=== PATIENT | male | born 1940 | race Caucasian/White ===

== ENCOUNTER 2023-10-10 09:35 | Emergency (ER) | payer MEDICARE, SELFPAY ==
--- NOTE | ~2023-10-10 | XR_ITS ---
EXAMINATION: XR chest 2V DATE: 10/10/2023 10:15 INDICATION: Cough and congestion TECHNIQUE: PA and lateral views of the chest are obtained. COMPARISON: None available FINDINGS: There is mild atelectasis of the left lung base. No pleural effusion or pneumothorax. The c ardiomediastinal silhouette is normal. There is severe thoracic spondylosis. IMPRESSION: 1. Mild atelectasis of left lung base. Reviewed, dictated and finalized at location A. T BUYER
--- NOTE | 2023-10-10 09:42 | ED.URI ---
HPI - URI/Sore Throat General Chief Complaint: Upper Respiratory Infection Stated Complaint: flu like symptoms Time Seen by Provider: 10/10/23 10:00 Source: patient, RN notes reviewed and old records reviewed Mode of arrival: ambulatory Limitations: no limitations History of Present Illness HPI Narrative: 83-year-old male presents to the [facility] with complaints of sinus congestion, sore throat that has improved and chest congestion as well as cough for 4 days. Has been taken Tylenol cold and flu Patient states that he feels like he might have a pneumonia Onset (ago): day(s) (4) Related Data Home Medications Medication Instructions Recorded Confirmed aspirin 81 mg chewable tablet 81 mg PO DAILY 10/10/23 10/10/23 atorvastatin 10 mg tablet mg 10/10/23 bimatoprost 0.01 % eye drops drp 10/10/23 (Lumigan) calcium carbonate 500 mg calcium 500 mg PO DAILY 10/10/23 10/10/23 (1,250 mg) chewable tablet cholecalciferol (vitamin D3) 50 50 mcg PO DAILY 10/10/23 10/10/23 mcg (2,000 unit) tablet citalopram 40 mg tablet mg 10/10/23 coQ10 (ubiquinol) 100 mg capsule 100 mg PO DAILY 10/10/23 10/10/23 cyanocobalamin (vitamin B-12) 1,000 mcg PO DAILY 10/10/23 10/10/23 1,000 mcg tablet cyclosporine 0.05 % eye drops 1 drp EACH EYE 10/10/23 evening primrose oil 500 mg capsule 500 mg PO DAILY 10/10/23 10/10/23 levothyroxine 50 mcg tablet mcg 10/10/23 lisinopril 20 mg tablet mg 10/10/23 lorazepam 0.5 mg tablet mg 10/10/23 pantoprazole 40 mg tablet,delayed mg PO 10/10/23 release sennosides 8.6 mg tablet (senna) 8.6 mg PO DAILY 10/10/23 10/10/23 Allergies Allergy/AdvReac Type Severity Reaction Status Date / Time No Known Allergies Allergy Verified 10/10/23 09:55 Review of Systems Review of Systems: All systems reviewed & are unremarkable except as noted in HPI and below Constitutional: Constitutional: Reports no additional constitutional complaints Eyes: Eyes: Reports no additional eye complaints ENT: Reports as per HPI Cardiovascular: Cardiovascular: Reports no additional cardiovascular complaints, Denies chest pain and Denies dyspnea Respiratory: Respiratory: Reports as per HPI, Reports chest congestion, Reports cough and Denies dyspnea Gastrointestinal: Gastrointestinal: Reports no additional gastrointestinal complaints, Denies abdominal pain, Denies nausea and Denies vomiting Musculoskeletal: Musculoskeletal: Reports no additional musculoskeletal complaints Integumentary/Breasts: Skin/Breast: Reports system reviewed and no additional complaints, except as docu Neurologic: Reports system reviewed and no additional complaints, except as documented Psychiatric: Psychiatric: Reports no additional psychiatric complaints Allergic/Immunologic: Allergic/Immunologic: Reports no additional allergic/immunologic complaints PMFSH Past Medical History Medical History (Updated 10/10/23 @ 10:36 by Cat Neville APRN) Anxiety and depression B12 deficiency CIDP (chronic inflammatory demyelinating polyneuropathy) DILCIA (generalized anxiety disorder) H/O gastroesophageal reflux (GERD) High cholesterol History of high blood pressure Hypothyroid Neuropathy Thyroid disease Tremor of both hands Surgical History Surgical History History of left knee replacement Social History Social History Living arrangements: with family Gender identity (if verbalized by the patient): Male Comments At the time of my signature, I reviewed and agree with the nursing past medical, surgical, social, and family history. There is no relevant family history pertinent to the patient complaint. Exam Const: General: cooperative, comfortable, no acute distress, well developed, alert, ill appearing chronically and well nourished Nutritional Appearance: well nourished Orientation/consciousness: patient oriented x3 Limitation
[2023-10-10 09:55] VITALS: BP 153/78; PULSE 78; RESP 18; TEMP 36.7; O2SAT 99
[2023-10-10 09:57] VITALS: BP 153/78; PULSE 78; RESP 18; TEMP 36.7; O2SAT 99
== END 2023-10-10 10:48 | disposition home or self-care (01) ==
PROVIDERS: Emergency Provider Nurse Practitioner; PCP Internal Medicine
DX: J98.11 Atelectasis (principal); J06.9 Acute upper respiratory infection, unspecified; Z20.822 Contact with and (suspected) exposure to COVID-19; K21.9 Gastro-esophageal reflux disease without esophagitis; E78.00 Pure hypercholesterolemia, unspecified; I10 Essential (primary) hypertension; G61.81 Chronic inflammatory demyelinating polyneuritis; E53.8 Deficiency of other specified B group vitamins; Z79.82 Long term (current) use of aspirin; Z96.652 Presence of left artificial knee joint
CPT/HCPCS: 71046; 87426; 87804; 99213; G0463

== ENCOUNTER 2024-04-14 16:35 | Inpatient (IN) | payer MEDICARE, SELFPAY ==
--- NOTE | ~2024-04-14 | US_ITS ---
US renal BI 04/17/2024 09:42 Procedure: Realtime transabdominal ultrasound of the kidneys and bladder. Indication: Hydronephrosis. Comparison: CT dated 04/14/2024 Findings: Renal echotexture is normal bilaterally without hydronephrosis, contour deforming mass. The re is a 1 cm stone in the right renal pelvis. Mild hydronephrosis. There is a 1.5 cm left renal cyst. The right kidney measures 10.7 cm and left kidney measures 11.2 cm. Evaluation of the bladder limite d by Pérez catheter decompression. Impression: 1: Right nephrolithiasis measuring 1 cm with mild hydronephrosis. Reviewed, dictated and finalized at location B. Impression: 1: Right nephrolithiasis measuring 1 cm with mild hydronephrosis.
--- NOTE | ~2024-04-14 | CT_ITS ---
EXAMINATION: CT abdomen pelvis w con DATE: 04/14/2024 19:49 INDICATION: abd pain, BRBPR, weakness TECHNIQUE: Computed tomography (CT) of the abdomen and pelvis was performed with 100 mL Omnipaque-350 intravenous contrast. Automated exposure control and iterative reconstruction technique were employe d. The dose-length product was 602.02 mGy-cm. COMPARISON: X-ray chest 10/10/2023. FINDINGS: Lower thorax: Coronary artery calcification. Large hiatal hernia. Liver: Normal. Biliary/Gallbladder: Gallbladder is normal. No bile duct dilation. Pancreas: No mass or duct dilation. Spleen: Normal. Adrenals:No mass. Kidneys: Bilateral cortical thinning and scarring. Multiple simple left renal cysts. Multiple bilater al subcentimeter hypodensities, too small to characterize but most likely represent cysts. Mild bilat eral hydronephrosis. Nonobstructing 8 mm right lower pole calcification. GI tract: Moderate distal esophageal and gastric wall edema. No small or large bowel dilation. Append ix dilated to 11 mm, with wall hyperemia and mild surrounding inflammatory change. Mesentery/Peritoneum: No ascites, mass, or free air. Retroperitoneum: No mass. Atherosclerotic abdominal aortic and/or arterial calcifications. Pelvis: Distended urinary bladder. Marked prostate enlargement. Soft Tissues: Moderate bilateral inguinal hernias containing nonobstructed small bowel on the right a nd unobstructed large bowel on the left. Bones: No acute osseous finding. Chronic mild wedge compression deformity at L1. IMPRESSION: Moderate esophagitis/gastritis with a large hiatal hernia. Acute uncomplicated appendicitis. Mild bilateral hydronephrosis and urinary bladder distention secondary to marked prostatomegaly. Eval uate for urinary retention and potential catheterization. Reviewed, dictated and finalized at location K. IMPRESSION: Moderate esophagitis/gastritis with a large hiatal hernia. Acute uncomplicated appendicitis. Mild bilateral hydronephrosis and urinary bladder distention secondary to marke d prostatomegaly. Evaluate for urinary retention and potential catheterization.
[2024-04-14 17:01] VITALS: BP 150/102; PULSE 80; RESP 16; TEMP 36.4; O2SAT 100
[2024-04-14 17:13] LABS: Basophils Percent Auto 0.4 % (0.2-1.2); Eosinophils Absolute Auto 0.1 K/mm3 (0-0.3); Hemoglobin 11.2 g/dL (14.0-18.0); Immature Granulocyte Absolute 0.06 K/mm3 (0.00-0.031); Immature Granulocyte Percent A 0.7 % (0-0.5); Lymphocytes Absolute Auto 1.03 K/mm3 (0.9-3.2); Lymphocytes Percent Auto 12.3 % (18.3-44.2); Mean Corpuscular Hemoglobin 29.8 pg (26-34); Mean Corpuscular Volume 85.1 fl (80-100); Mean Platelet Volume 9.8 fl (7.4-10.4); Monocytes Absolute Auto 0.9 K/mm3 (0.1-0.6); Monocytes Percent Auto 10.2 % (2.6-8.5); Neutrophils Absolute Auto 6.3 K/mm3 (1.3-6.7); Neutrophils Percent Auto 75.4 % (45.5-73.1); Platelet Count Result 260 k/mm3 (150-375); Red Blood Count 3.76 M/mm3 (4.6-6.20); Red Cell Distribution Width 12.8 % (11.5-14.5); White Blood Count 8.4 K/mm3 (4.5-10.0)
[2024-04-14 17:22] LABS: Alanine Aminotransferase 22 U/L (6-50); Albumin Level 4.3 g/dL (3.5-5.1); Alkaline Phosphatase 84 U/L (38-126); Anion Gap 13 mmol/L (4-12); Aspartate Amino Transferase 40 U/L (17-59); Bilirubin,Total 0.6 mg/dL (0.2-1.3); Blood Urea Nitrogen 9 mg/dL (9-20); Calcium 9.4 mg/dL (8.4-10.2); Carbon Dioxide 23 mmol/L (22-30); Chloride 86 mmol/L (98-107); Estimated CRCL calculation 65 ml/min; Estimated Glomerular Filt Rate > 60; Glucose 136 mg/dL (65-110); Lipase 152 U/L (23-300); Potassium 3.7 mmol/L (3.4-5.0); Sodium 122 mmol/L (137-145)
[2024-04-14 18:37] VITALS: BP 159/92; PULSE 71; RESP 15; O2SAT 98
[2024-04-14 18:50] LABS: Appearance Urine Clear (Clear); Bilirubin Urine Negative (Negative); Blood Urine Negative (Negative); Color Urine Yellow (Yellow); Glucose Urine UA Negative (Negative); Ketones Urine Trace mg/dL (Negative); Leukocyte Esterase Ur Negative LEU/UL (Negative); Nitrate Urine Negative (Negative); Protein Urine Negative (Negative); Specific Grav Ur 1.008 (1.001-1.035); Urobilinogen Urine 0.2 mg/dL (<2.0); pH Urine 7.5 (5.0-9.0)
[2024-04-14 18:58] LABS: Add Urine Microscopic? NO
[2024-04-14 19:09] LABS: Prothrombin Time 13.6 Seconds (11.1-14.7)
--- NOTE | 2024-04-14 19:10 | PC.NURSE ---
Assumed care of pt from NADIR Mccarthy. Pt resting in bed w call light within reach. Visitors as bedside.
[2024-04-14 19:11] LABS: Partial Thromboplastin Time 26.7 Seconds (22.3-36.8)
[2024-04-14] MEDS: SODIUM CHLORIDE 0.9% IV 1,000 ML 999 ML IV CONT (19:31)
--- NOTE | 2024-04-14 20:27 | ED.ABDPAIN ---
HPI - Abdominal Pain General Chief Complaint: Abdominal Pain Stated Complaint: abd pain, bloody stool, weakness Time Seen by Provider: 04/14/24 17:58 Source: patient Mode of arrival: ambulatory Limitations: no limitations History of Present Illness HPI narrative: Patient is an 84-year-old male who presents the ED with multiple complaints. Family at bedside assisted in providing information. They report patient has been complaining of lower abdominal pain intermittently for the last couple of weeks, but states pain has become worse over the last few days. Patient has had bright red rectal bleeding over the last 3-4 days, reporting the blood has been mixed in with the stool. They do report his stool has been dark, though this is normal for him. Patient has been feeling as though he is constipated, but did have 2 bowel movements today and yesterday. Family reports he became so weak today that he was hardly able to walk to and from the bathroom. Family had to assist with simple tasks, which prompted them to come to the ED. Patient also reports having difficulty urinating, feeling the urge to urinate frequently. Denies nausea, vomiting, fevers. Related Data Home Medications Medication Instructions Recorded Confirmed atorvastatin 10 mg tablet 10 mg PO HS 10/10/23 04/15/24 bimatoprost 0.01 % eye drops 1 drp EACH EYE HS 10/10/23 04/15/24 (Lumigan) calcium carbonate 500 mg PO PRN PRN Indigestion 10/10/23 04/15/24 cholecalciferol (vitamin D3) 50 50 mcg PO DAILY 10/10/23 04/15/24 mcg (2,000 unit) tablet citalopram 40 mg tablet 40 mg PO DAILY 10/10/23 04/15/24 coQ10 (ubiquinol) 100 mg capsule 100 mg PO DAILY 10/10/23 04/15/24 cyanocobalamin (vitamin B-12) 2,500 mcg PO DAILY 10/10/23 04/15/24 1,000 mcg tablet cyclosporine 0.05 % eye drops 1 drp EACH EYE BID 10/10/23 04/15/24 levothyroxine 50 mcg tablet 50 mcg PO DAILY 10/10/23 04/15/24 lisinopril 20 mg tablet 20 mg PO DAILY 10/10/23 04/15/24 lorazepam 0.5 mg tablet 0.5 mg PO TID 10/10/23 04/15/24 pantoprazole 40 mg tablet,delayed 40 mg PO DAILY 10/10/23 04/15/24 release sennosides 8.6 mg tablet (senna) 8.6 mg PO HS 10/10/23 04/15/24 aspirin 325 mg tablet 325 mg PO DAILY 04/15/24 04/15/24 bimatoprost 0.01 % eye drops 1 drp EACH EYE HS 04/15/24 04/15/24 (Lumigan) carboxymethylcellulose sodium 0.25 1 drp EACH EYE BID 04/15/24 04/15/24 % eye drops (TheraTears) clotrimazole-betamethasone 1 1 applic topical DAILY 04/15/24 04/15/24 %-0.05 % topical cream ferrous sulfate 325 mg (65 mg 325 mg PO DAILY 04/15/24 04/15/24 iron) tablet melatonin 3 mg tablet 3 mg PO HS 04/15/24 04/15/24 memantine 5 mg tablet 5 mg PO HS 04/15/24 04/15/24 Allergies Allergy/AdvReac Type Severity Reaction Status Date / Time No Known Allergies Allergy Verified 04/14/24 18:35 Review of Systems Review of Systems: CONSTITUTIONAL: Reports weakness. Denies fever, chills, or sweats. GASTROINTESTINAL: See HPI GENITOURINARY: See HPI. MUSCULOSKELETAL: Denies back pain, extremity pain, myalgia. All systems reviewed & are unremarkable except as noted in HPI and below PMFSH Past Medical History Medical History Anxiety and depression B12 deficiency CIDP (chronic inflammatory demyelinating polyneuropathy) DILCIA (generalized anxiety disorder) H/O gastroesophageal reflux (GERD) High cholesterol History of high blood pressure Hypothyroid Neuropathy Thyroid disease Tremor of both hands Surgical History Surgical History History of left knee replacement Family History Family History (Updated 04/15/24 @ 02:21 by Gege Damico RN) Father Malignant neoplasm of prostate Mother Stomach cancer Social History Social History Smoking status: Never smoker Alcohol intake: former Substance use: never
[2024-04-14] MEDS: PIPERACILLN/TAZ 3.375GM/NS50ML 3.375 GM/50 ML BAG IVPB (22:33)
[2024-04-14] MEDS: PANTOPRAZOLE SODIUM IV 40 MG VIAL IV PUSH (22:33)
[2024-04-14 23:29] VITALS: BP 140/84; PULSE 70; RESP 17; O2SAT 100
[2024-04-15] VITALS (8 sets, daily range): BP systolic 114–153; BP diastolic 67–85; PULSE 63–70; RESP 12–18; TEMP 36.4–37.1; O2SAT 94–100; BMI 21.7
[2024-04-15] MEDS: SODIUM CHLORIDE 0.9% IV 1,000 ML 75 ML IV CONT (00:23)
[2024-04-15] MEDS: ACETAMINOPHEN 325 MG TABLET 650 MG PO ×2 (00:58→20:59)
--- NOTE | 2024-04-15 03:01 | ADMGEN ---
Addendum entered by Gege Damico RN 04/15/24 03:43: Report received from NADIR Castellanos in ED. Original Note: This patient, Linwood Cloud, was admitted to 3 [facility] Surg Room 304-02 @0126. Patient/family oriented to hospital policies and general routines including ID bracelet, bed and alarms, visiting hours, pain management, procedures, bathroom and other care routines, personal items, smoking policy, room service/diet, and visiting hours. Information on how to activate the Rapid Response Team has been discussed. Patient/Family are encouraged to report perceived risks to care and to ask questions if they do not understand what they are told or what they should do.
[2024-04-15] MEDS: HYDROmorphone HCL INJ (*CRX) 1 MG/ML SYR IV PUSH (03:22)
[2024-04-15] MEDS: LORazepam INJ (*CRX) 2 MG/ML VIAL 1 MG IV PUSH (03:23)
[2024-04-15] MEDS: PIPERACILLN/TAZ 3.375GM/NS50ML 3.375 GM/50 ML BAG IVPB ×3 (05:22→17:47)
--- NOTE | 2024-04-15 11:05 | PM.CNGS ---
Assessment and Plan Assessment and plan (1) Acute appendicitis: Qualifiers: Acute appendicitis type: with localized peritonitis Appendicitis abscess presence: without abscess Appendicitis gangrene presence: without gangrene Appendicitis perforation presence: without perforation Qualified Code(s): K35.30 - Acute appendicitis with localized peritonitis, without perforation or gangrene Code(s): K35.80 - Unspecified acute appendicitis Status: Acute Assessment and Plan: Patient presents with multiple complaints. He has been having intermittent epigastric abdominal pain over the past few weeks that has become more frequent over the past few days. CT scan of the abdomen and pelvis on admission showed evidence of acute uncomplicated appendicitis. He is not having any lower abdominal pain and is completely nontender across the lower abdomen on exam. His WBC count is normal and he is afebrile. His clinical picture is not typical for acute appendicitis. I discussed treatment options for appendicitis with the patient, including nonoperative treatment with IV antibiotics/monitoring versus surgical management with a laparoscopic appendectomy. We discussed risks and benefits of both options. The patient feels like given his age and other medical problems, he would prefer to try conservative treatment with antibiotics at this time. Given his atypical presentation with multiple other issues and his benign exam, this option seems more appropriate. Continue IV Zosyn and we will continue to monitor closely with labs and serial abdominal exams. (2) Urinary retention: Code(s): R33.9 - Retention of urine, unspecified Status: Acute Assessment and Plan: Urinary catheter in place. Management per primary service. (3) BRBPR (bright red blood per rectum): Code(s): K62.5 - Hemorrhage of anus and rectum Status: Acute Assessment and Plan: Complaints of rectal bleeding over the past week and recent constipation over the past few weeks. Hgb 11.2 on admission. GI consulted. Trend labs. (4) Hyponatremia: Code(s): E87.1 - Hypo-osmolality and hyponatremia Status: Acute (5) Weakness: Code(s): R53.1 - Weakness Status: Acute (6) Hydronephrosis: Qualifiers: Hydronephrosis type: unspecified Qualified Code(s): N13.30 - Unspecified hydronephrosis Code(s): N13.30 - Unspecified hydronephrosis Status: Acute Assessment and Plan: Presented with urinary retention and mild bilateral hydronephrosis and prostatomegaly on CT scan. Indwelling urinary catheter in place with relief. UA without evidence of UTI. Management per primary service. (7) CIDP (chronic inflammatory demyelinating polyneuropathy): Code(s): G61.81 - Chronic inflammatory demyelinating polyneuritis Status: Chronic Assessment and Plan: He follows a specialist at [facility] for his CIDP and has monthly IVIG infusions. (8) Hiatal hernia with GERD: Code(s): K44.9 - Diaphragmatic hernia without obstruction or gangrene; K21.9 - Gastro-esophageal reflux disease without esophagitis Status: Acute Assessment and Plan: Large hiatal hernia seen on CT scan. He is having more epigastric abdominal pain over the past few weeks and has a history of GERD. There does not appear to be any evidence of an obstruction at this time. Discussed these findings with the patient. (9) Bilateral inguinal hernia: Code(s): K40.20 - Bilateral inguinal hernia, without obstruction or gangrene, not specified as recurrent Status: Acute Assessment and Plan: Incidental finding of bilateral inguinal hernias on the CT scan with nonobstructed small bowel in the right and nonobstructed large bowel on the left. On exam, bilateral inguinal hernias are soft and reducible. He denies any symptoms and was unaware of these hernias. No evidence of incarceration or strangulation. This is no
--- NOTE | 2024-04-15 12:09 | WPDGICN ---
Assessment and Plan Assessment and plan (1) BRBPR (bright red blood per rectum): Code(s): K62.5 - Hemorrhage of anus and rectum Status: Acute (2) Gastric wall thickening: Code(s): K31.89 - Other diseases of stomach and duodenum Status: Acute (3) Esophagitis: Code(s): K20.90 - Esophagitis, unspecified without bleeding Status: Acute (4) Hiatal hernia: Code(s): K44.9 - Diaphragmatic hernia without obstruction or gangrene Status: Acute (5) Acute appendicitis: Qualifiers: Acute appendicitis type: with localized peritonitis Appendicitis abscess presence: without abscess Appendicitis gangrene presence: without gangrene Appendicitis perforation presence: without perforation Qualified Code(s): K35.30 - Acute appendicitis with localized peritonitis, without perforation or gangrene Code(s): K35.80 - Unspecified acute appendicitis Status: Acute (6) Constipation: Code(s): K59.00 - Constipation, unspecified Status: Acute (7) Nausea: Code(s): R11.0 - Nausea Status: Acute (8) CIDP (chronic inflammatory demyelinating polyneuropathy): Code(s): G61.81 - Chronic inflammatory demyelinating polyneuritis Status: Chronic (9) Weakness: Code(s): R53.1 - Weakness Status: Acute (10) Hyponatremia: Code(s): E87.1 - Hypo-osmolality and hyponatremia Status: Acute Plan 1. Epigastric Abdominal Pain/ Nausea /Large Hiatal Hernia: CT abdomen pelvis showed moderate esophagitis/gastritis with a large hiatal hernia, which could be contributing to symptoms. He could have underlying PUD as well. No signs of active bleeding. Epigastric pain worsens with straining with BM (r/t hiatal hernia due to intraabdominal pressure?). He states Mylanta and OTC antacids help. Denies NSAIDs except for ASA 325 mg daily. Reports hx of ulcers in the past. No recent EGD. - Will start pantoprazole IV BID - Avoid NSAIDs. - Advance diet as tolerated since surgery is not planning surgical evaluation. - Consider EGD on Saturday to evaluate for ulcers, erosions, malignancy if symptoms do not improve. 2. Bright red blood per rectum/ +Occult Stool/ Constipation: Likely due to internal hemorrhoids from constipation and straining, given lack of external hemorrhoids on exam. Other etiology malignancy. Tried Miralax at home but states he did not tolerate it. Last colonoscopy > [address] with no concerning colon masses. Wondering if constipation is related to enlarged prostate? - Monitor for continued bleeding and H&H - Will start Lactulose and stool softener - Will consider colonoscopy on Saturday if bleeding persists or acute drop in hgb. 3. Normocytic Anemia: Hgb 11.2 with normal MCV. Normal BUN/CR. No baseline labs to compare to. - Will check ferritin, b12, folate and iron panel - Monitor H&H 3. Acute uncomplicated appendicitis: - Seen on CT abdomen pelvis with acute uncomplicated appendicitis - Surgery consulted for management and planning on conservative tx - On Zosyn This report may have been done utilizing a voice recognition system. Attempts have been made to correct errors. However, there may be uncorrected grammatical, spelling, and recognition errors present. GI Consult Note Consult date/time: 04/15/24 7588 Reason for consult: BRBPR HPI: This is a pleasant 84 year old male with a past medical surgical history of anxiety and depression, B12 deficiency, CIDP (chronic inflammatory demyelinating polyneuropathy), DILCIA (generalized anxiety disorder), H/O gastroesophageal reflux (GERD), high cholesterol, history of high blood pressure, hypothyroid, neuropathy, thyroid disease, and tremor of both hands. He presented to ER yesterday for rectal bleeding and feel week. We were asked to see him for bright red blood per rectum. He was found to have findings on CT for acute appendicitis as well. He reports epigastric abdominal pain described as
[2024-04-15 13:41] LABS: Iron 42 ug/dL (49-181)
[2024-04-15 13:43] LABS: Folic Acid 16.9 ng/mL (2.76->20); Vitamin B12 > 1000.0 pg/mL (239-931)
[2024-04-15 13:55] LABS: Percent Iron Saturation 13 % (20-50)
--- NOTE | 2024-04-15 15:00 | PM.IMHP ---
H&P: HPI History of Present Illness Date/Time: 04/15/24 15:00 Chief Complaint: Abdominal pain and weakness Narrative: 84-year-old male with abdominal pain and weakness also complained of bloody stool. Review of Systems Review of Systems: All systems reviewed & are unremarkable except as noted in HPI and below (Subjective) FORMERLY [facility] Past Medical History Medical History (Updated 04/15/24 @ 15:02 by Meera Carreon MD) Anxiety and depression B12 deficiency BPH (benign prostatic hyperplasia) CIDP (chronic inflammatory demyelinating polyneuropathy) DILCIA (generalized anxiety disorder) H/O gastroesophageal reflux (GERD) High cholesterol History of high blood pressure Hypothyroid Neuropathy Thyroid disease Tremor of both hands Surgical History Surgical History History of colonoscopy at least 10-15 years ago per patient's History of left knee replacement Family History Family History Father Malignant neoplasm of prostate Mother Stomach cancer Social History Social History Smoking status: Never smoker Alcohol intake: former Substance use: never Do You Feel Safe in your Home?: Yes Lack of Transportation: No Lack of Food: Never True Current Housing: I Have Housing Concerned About Future Housing: No Difficulty Paying Gas/Electric Bills: No Difficulty Paying for Meds: No Currently Unemployed: No Education: Trade/Vocational Certificate Difficulty w/ Childcare or Family Care: No Living arrangements: with family Gender identity (if verbalized by the patient): Male Spiritual care concerns: No Meds Home Medications and Allergies Home Medications Medication Instructions Recorded Confirmed Type atorvastatin 10 mg tablet 10 mg PO HS 10/10/23 04/15/24 History bimatoprost 0.01 % eye drops 1 drp EACH EYE HS 10/10/23 04/15/24 History (Gray) calcium carbonate 500 mg PO PRN PRN Indigestion 10/10/23 04/15/24 History cholecalciferol (vitamin D3) 50 50 mcg PO DAILY 10/10/23 04/15/24 History mcg (2,000 unit) tablet citalopram 40 mg tablet 40 mg PO DAILY 10/10/23 04/15/24 History coQ10 (ubiquinol) 100 mg capsule 100 mg PO DAILY 10/10/23 04/15/24 History cyanocobalamin (vitamin B-12) 2,500 mcg PO DAILY 10/10/23 04/15/24 History 1,000 mcg tablet cyclosporine 0.05 % eye drops 1 drp EACH EYE BID 10/10/23 04/15/24 History levothyroxine 50 mcg tablet 50 mcg PO DAILY 10/10/23 04/15/24 History lisinopril 20 mg tablet 20 mg PO DAILY 10/10/23 04/15/24 History lorazepam 0.5 mg tablet 0.5 mg PO TID 10/10/23 04/15/24 History pantoprazole 40 mg tablet,delayed 40 mg PO DAILY 10/10/23 04/15/24 History release sennosides 8.6 mg tablet (senna) 8.6 mg PO HS 10/10/23 04/15/24 History aspirin 325 mg tablet 325 mg PO DAILY 04/15/24 04/15/24 History bimatoprost 0.01 % eye drops 1 drp EACH EYE HS 04/15/24 04/15/24 History (Lumigan) carboxymethylcellulose sodium 0.25 1 drp EACH EYE BID 04/15/24 04/15/24 History % eye drops (TheraTears) clotrimazole-betamethasone 1 1 applic topical DAILY 04/15/24 04/15/24 History %-0.05 % topical cream ferrous sulfate 325 mg (65 mg 325 mg PO DAILY 04/15/24 04/15/24 History iron) tablet melatonin 3 mg tablet 3 mg PO HS 04/15/24 04/15/24 History memantine 5 mg tablet 5 mg PO HS 04/15/24 04/15/24 History Allergies Allergy/AdvReac Type Severity Reaction Status Date / Time No Known Allergies Allergy Verified 04/14/24 18:35 Vital Signs Vital Signs - 24 hr 04/14/24 17:01 04/14/24 18:37 04/14/24 23:29 Temperature 97.6 F Pulse Rate 80 71 70 Respiratory Rate 16 15 17 Blood Pressure 150/102 H 159/92 H 140/84 Pulse Oximetry 100 98 100 Oxygen Delivery Room Air 04/15/24 00:23 04/15/24 00:53 04/15/24 01:13 Temperature Pulse Rate 69 63 70 Respiratory Rate 12 15 16 Blood
[2024-04-15 15:33] LABS: Hematocrit 34.3 % (42.0-52.0); Hemoglobin 11.4 g/dL (14.0-18.0); Mean Corpuscular HGB Conc 33.2 g/dl (32-36); Mean Corpuscular Hemoglobin 29.4 pg (26-34); Mean Corpuscular Volume 88.4 fl (80-100); Platelet Count Result 273 k/mm3 (150-375); Red Blood Count 3.88 M/mm3 (4.6-6.20); Red Cell Distribution Width 13.2 % (11.5-14.5); White Blood Count 7.2 K/mm3 (4.5-10.0)
[2024-04-15 15:46] LABS: Anion Gap 11 mmol/L (4-12); Blood Urea Nitrogen 7 mg/dL (9-20); Calcium 9.1 mg/dL (8.4-10.2); Carbon Dioxide 25 mmol/L (22-30); Chloride 93 mmol/L (98-107); Estimated CRCL calculation 58 ml/min; Estimated Glomerular Filt Rate > 60; Glucose 156 mg/dL (65-110); Potassium 3.8 mmol/L (3.4-5.0); Sodium 129 mmol/L (137-145)
[2024-04-15 17:14] LABS: Magnesium 1.9 mg/dL (1.6-2.3)
[2024-04-15 19:04] LABS: Anion Gap 8 mmol/L (4-12); Blood Urea Nitrogen 7 mg/dL (9-20); Calcium 8.9 mg/dL (8.4-10.2); Carbon Dioxide 25 mmol/L (22-30); Chloride 96 mmol/L (98-107); Estimated CRCL calculation 58 ml/min; Estimated Glomerular Filt Rate > 60; Glucose 114 mg/dL (65-110); Potassium 3.8 mmol/L (3.4-5.0); Sodium 129 mmol/L (137-145)
[2024-04-15] MEDS: DOCUSATE SODIUM 100 MG CAPSULE PO (20:38)
[2024-04-15] MEDS: MELATONIN 3 MG TABLET PO (20:38)
[2024-04-15] MEDS: MEMANTINE 5 MG TABLET PO (20:38)
[2024-04-15] MEDS: PANTOPRAZOLE SODIUM IV 40 MG VIAL IV PUSH (20:38)
[2024-04-15] MEDS: LORazepam (*CRX) 0.5 MG TABLET PO (21:00)
[2024-04-15] MEDS: ARTIFICIAL TEARS OPHTH SOLN 15 ML BOTTLE 1 DROP EACH EYE (21:01)
[2024-04-15] MEDS: cycloSPORINE 0.4 ML OPHTH SOLUTION 1 DROP EACH EYE (21:01)
[2024-04-15] MEDS: LATANOPROST 0.005% OP SOLN 2.5 ML BTL 1 DROP EACH EYE (21:03)
--- NOTE | 2024-04-16 | ECG_ITS ---
Test Date: 2024-04-16 11:30:51 Measurements Intervals [place] Rate: 64 P: 40 PA: 187 QRS: -49 QRSD: 109 T: -22 QT: 372 QTc: 386 Interpretive Statements SINUS RHYTHM LEFT ANTERIOR FASCICULAR BLOCK BORDERLINE T WAVE ABNORMALITY- INFERIOR LEADS BASELINE ARTIFACT- I, II, III, V2 ABNORMAL ECG No previous ECG available for comparison Electronically Signed On 04-16-2024 16:38:19 CDT by Jose Henson D.O.
[2024-04-16] MEDS: PIPERACILLN/TAZ 3.375GM/NS50ML 3.375 GM/50 ML BAG IVPB ×4 (00:10→16:58)
[2024-04-16 05:43] VITALS: BP 157/84; PULSE 74; RESP 20; TEMP 36.7; O2SAT 100
[2024-04-16] MEDS: LEVOTHYROXINE SODIUM 50 MCG TABLET PO (06:01)
[2024-04-16 06:31] LABS: Hemoglobin 10.8 g/dL (14.0-18.0); Mean Corpuscular HGB Conc 32.7 g/dl (32-36); Mean Corpuscular Hemoglobin 29.3 pg (26-34); Mean Corpuscular Volume 89.7 fl (80-100); Mean Platelet Volume 10.1 fl (7.4-10.4); Platelet Count Result 256 k/mm3 (150-375); Red Blood Count 3.68 M/mm3 (4.6-6.20); Red Cell Distribution Width 13.2 % (11.5-14.5); White Blood Count 6.4 K/mm3 (4.5-10.0)
[2024-04-16 06:44] LABS: Anion Gap 10 mmol/L (4-12); Blood Urea Nitrogen 6 mg/dL (9-20); Calcium 9.1 mg/dL (8.4-10.2); Carbon Dioxide 25 mmol/L (22-30); Chloride 96 mmol/L (98-107); Estimated CRCL calculation 58 ml/min; Estimated Glomerular Filt Rate > 60; Glucose 109 mg/dL (65-110); Magnesium 1.9 mg/dL (1.6-2.3); Potassium 3.6 mmol/L (3.4-5.0); Sodium 131 mmol/L (137-145)
[2024-04-16] MEDS: LACTULOSE 20 GM/30 ML UDC PO (08:52)
[2024-04-16] MEDS: LORazepam (*CRX) 0.5 MG TABLET PO ×3 (08:52→21:50)
[2024-04-16] MEDS: DOCUSATE SODIUM 100 MG CAPSULE PO ×2 (08:52→21:49)
[2024-04-16] MEDS: CITALOPRAM HYDROBROMIDE 20 MG TABLET 40 MG PO (08:52)
[2024-04-16] MEDS: PANTOPRAZOLE SODIUM IV 40 MG VIAL IV PUSH ×2 (08:53→21:49)
[2024-04-16] MEDS: ARTIFICIAL TEARS OPHTH SOLN 15 ML BOTTLE 1 DROP EACH EYE ×2 (08:53→21:48)
[2024-04-16] MEDS: cycloSPORINE 0.4 ML OPHTH SOLUTION 1 DROP EACH EYE ×2 (08:54→21:49)
--- NOTE | 2024-04-16 09:35 | WPDURCON ---
Assessment and Plan Assessment and plan (1) Urinary retention: Code(s): R33.9 - Retention of urine, unspecified Status: Acute Assessment and Plan: Noted to have >600 cc urinary retention on arrival. Pérez catheter placed and draining well. Secondary to marked prostatomegaly. Will begin tamsulosin and finasteride. Consider void trial prior to discharge depending on timing of discharge plans. (2) BPH (benign prostatic hyperplasia): Code(s): N40.0 - Benign prostatic hyperplasia without lower urinary tract symptoms Status: Acute Assessment and Plan: As above, will begin tamsulosin and finasteride. Blood pressures are stable. Monitor closely on tamsulosin given his advanced age (3) Hydronephrosis: Qualifiers: Hydronephrosis type: unspecified Qualified Code(s): N13.30 - Unspecified hydronephrosis Code(s): N13.30 - Unspecified hydronephrosis Status: Acute Assessment and Plan: Mild bilateral hydronephrosis secondary to acute urinary retention. Plan for repeat renal ultrasound tomorrow to ensure resolution Plan Being managed conservatively for acute appendicitis by General Surgery. Planning for EGD/colonoscopy on 04/17/24 given epigastric pain and rectal bleeding, being monitored by GI. Urology Consult Note HPI Date Seen: 04/16/24 Requesting Physician: Rebecca Remy MD Primary Care Provider: Leah Shepherd, Consult Narrative Narrative: Linwood Cloud is a 84 year old male with a history of BPH, currently admitted for acute appendicitis, who is being seen in consultation for evaluation urinary retention with hydronephrosis. The patient presented to the ER on 04/14/2024 with complaints of intermittent lower abdominal pain, blood in stool, and weakness. He also mentioned concerns of urinary frequency. On arrival, his vital signs were stable and he was afebrile, WBC 8.4, hemoglobin 11.2, creatinine 0.7, and UA within normal limits. A CT of the abdomen/pelvis was completed which showed mild bilateral hydronephrosis secondary to urinary bladder distention with marked prostatomegaly. Bladder scan demonstrated >600 cc and Pérez catheter was placed. At the time of my evaluation, patient states that he is feeling well. Reports no issues with Pérez which is draining clear yellow urine. At first noticed some very mild hematuria following Pérez placement. Reports that prior to presentation, had no dysuria or hematuria. States that he had been for the most part voiding without any difficulty. Reports he had normal stream with minimal hesitancy and no straining to void. Reported some occasional postvoid dribbling and complaints of urinary frequency and urgency. Denied suprapubic pain, fullness, pressure. Reports he was established with a urologist many years ago and underwent prostate biopsy >10 years ago which was unremarkable. His PCP now follows his PSA and he and his report these have been within normal limits. He is not currently taking any medications for BPH. He has no additional concerns. Review of Systems Review of Systems: All systems reviewed & are unremarkable except as noted in HPI and below PMFSH Past Medical History Medical History (Updated 04/15/24 @ 15:02 by Meera Carreon MD) Anxiety and depression B12 deficiency BPH (benign prostatic hyperplasia) CIDP (chronic inflammatory demyelinating polyneuropathy) DILCIA (generalized anxiety disorder) H/O gastroesophageal reflux (GERD) High cholesterol History of high blood pressure Hypothyroid Neuropathy Thyroid disease Tremor of both hands Surgical History Surgical History History of colonoscopy at least 10-15 years ago per patient's History of left knee replacement Family History Family History Father Malignant neoplasm of prostate Mother Stomach can
--- NOTE | 2024-04-16 11:09 | PM.PNGS ---
Progress Note: A&P Assessment and Plan (1) Acute appendicitis: Qualifiers: Acute appendicitis type: with localized peritonitis Appendicitis abscess presence: without abscess Appendicitis gangrene presence: without gangrene Appendicitis perforation presence: without perforation Qualified Code(s): K35.30 - Acute appendicitis with localized peritonitis, without perforation or gangrene Code(s): K35.80 - Unspecified acute appendicitis Status: Acute Assessment and Plan: Symptoms and exam do not correlate with CT findings of possible appendicitis. Epigastric abdominal pain improved and seems to be following meals. Still no lower abdominal pain or tenderness. White blood cell count remains normal. Continue conservative treatment with antibiotics and monitoring. Still no plans for any surgical intervention. (2) Urinary retention: Code(s): R33.9 - Retention of urine, unspecified Status: Acute Assessment and Plan: Urinary catheter in place. Urology consulted (3) BRBPR (bright red blood per rectum): Code(s): K62.5 - Hemorrhage of anus and rectum Status: Acute Assessment and Plan: No rectal bleeding overnight. GI planning EGD, but holding off on colonoscopy due to possible appendicitis. Hemoglobin stable this morning. (4) Hiatal hernia with GERD: Code(s): K44.9 - Diaphragmatic hernia without obstruction or gangrene; K21.9 - Gastro-esophageal reflux disease without esophagitis Status: Acute Assessment and Plan: Could be contributing to his epigastric pain. GI planning EGD tomorrow. Continue PPI. (5) Bilateral inguinal hernia: Code(s): K40.20 - Bilateral inguinal hernia, without obstruction or gangrene, not specified as recurrent Status: Acute Assessment and Plan: Containing nonobstructed bowel in bilateral inguinal hernias on CT. Asymptomatic and reducible on exam. No acute issues. (6) CIDP (chronic inflammatory demyelinating polyneuropathy): Code(s): G61.81 - Chronic inflammatory demyelinating polyneuritis Status: Chronic Plan I have discussed the patient's case and plan of care with Dr. Singh. Subjective Subjective Date/Time Seen: 04/16/24 11:09 Patient reports: no new complaints, feels better, pain is less, tolerating liquids well, flatus, no bowel movement and afebrile Interval history: Patient feeling better today. Still having some mild intermittent epigastric pain. This morning, he does feel that the pain is worse after meals. No nausea or vomiting. Still no lower abdominal pain. Review of Systems Review of Systems: All systems reviewed & are unremarkable except as noted in HPI and below Exam Const: General: comfortable and no acute distress Orientation/consciousness: patient oriented x3 GI: Inspection: non-distended GI Palp: Yes Soft to palpation, Yes Tenderness to palpation present (GI) (Very mild epigastric tenderness, no lower abdominal tenderness), No Guarding due to palpation present (GI), Yes Hernia present (Soft and reducible bilateral inguinal hernias, nontender) and No Rebound tenderness present Objective Data Vital Signs Vital Signs: Vital Signs - 24 hr 04/15/24 14:00 04/15/24 21:05 04/15/24 20:00 Temperature 97.5 F L 98.7 F Pulse Rate 70 64 64 Respiratory Rate 18 18 18 Blood Pressure 141/67 H 153/74 H Pulse Oximetry 98 97 97 Oxygen Delivery Room Air 04/16/24 05:43 04/16/24 08:52 Temperature 98.0 F Pulse Rate 74 Respiratory Rate 20 Blood Pressure 157/84 H Pulse Oximetry 100 Oxygen Delivery Room Air Intake/Output Intake/Output: Intake & Output 04/13/24 04/14/24 04/15/24 04/16/24 23:59 23:59 23:59 23:59 Intake Total 1050 990 610 Output Total 1150 950 Balance 1050 160 340 Meds/Results Medications: Active Medications Generic Name Dose Route Start Last Admin Trade Name Freq PRN Reason Stop Dose Admin Acetaminophen 65
[2024-04-16] MEDS: TAMSULOSIN HCL 0.4 MG CAPSULE PO (11:19)
[2024-04-16 14:00] VITALS: BP 151/79; PULSE 76; RESP 16; TEMP 37.2; O2SAT 97
--- NOTE | 2024-04-16 17:19 | WPDGIPROGNO ---
Progress Note: A&P Assessment and Plan (1) Nausea: Code(s): R11.0 - Nausea Status: Acute Assessment and Plan: improved now and tolerating liquid diet (2) Hiatal hernia with GERD: Code(s): K44.9 - Diaphragmatic hernia without obstruction or gangrene; K21.9 - Gastro-esophageal reflux disease without esophagitis Status: Acute Assessment and Plan: continue with iv protonix and will advance diet as tolerated hold off EGD for now given symptomatic improvement with medical therapy, probably large hiatal hernia and ? esophagitis playing a role. of course if gets sick again then may consider egd, prefer conservative approach if possible because advanced age (3) BRBPR (bright red blood per rectum): Code(s): K62.5 - Hemorrhage of anus and rectum Status: Acute Assessment and Plan: hgb stable (4) Acute appendicitis: Qualifiers: Acute appendicitis type: with localized peritonitis Appendicitis abscess presence: without abscess Appendicitis gangrene presence: without gangrene Appendicitis perforation presence: without perforation Qualified Code(s): K35.30 - Acute appendicitis with localized peritonitis, without perforation or gangrene Code(s): K35.80 - Unspecified acute appendicitis Status: Acute Assessment and Plan: on iv abx exam is benign, surgery on board (5) Urinary retention: Code(s): R33.9 - Retention of urine, unspecified Status: Acute (6) Constipation: Code(s): K59.00 - Constipation, unspecified Status: Acute Subjective Date/time seen: 04/16/24 17:19 Interval history: he is doing much better today, no more pain or nausea and tolerated liquid diet Review of Systems Review of Systems: All systems reviewed & are unremarkable except as noted in HPI and below Exam Const: General: comfortable and no acute distress Orientation/consciousness: patient oriented x3 HENMT: Face/Nose/Sinus: Normal nares present Eyes: Sclera: sclerae normal Neck: Neck: supple Resp: Effort & Inspection: normal respiratory effort Cardio: Rate: regular rate GI: Inspection: non-distended GI Palp: Yes Soft to palpation, Yes Tenderness to palpation present (GI) (Very mild epigastric tenderness, no lower abdominal tenderness), No Guarding due to palpation present (GI), Yes Hernia present (Soft and reducible bilateral inguinal hernias, nontender) and No Rebound tenderness present Skin: General skin exam: normal color Neuro: Speech: normal speech Motor exam (neuro): 5/5 motor strength present throughout Extrem: General: normal to inspection Psych: Affect: normal affect Objective Data Vital Signs Vital Signs: Vital Signs - 24 hr 04/15/24 21:05 04/15/24 20:00 04/16/24 05:43 Temperature 98.7 F 98.0 F Pulse Rate 64 64 74 Respiratory Rate 18 18 20 Blood Pressure 153/74 H 157/84 H Pulse Oximetry 97 97 100 Oxygen Delivery Room Air 04/16/24 08:52 04/16/24 14:00 Temperature 98.9 F Pulse Rate 76 Respiratory Rate 16 Blood Pressure 151/79 H Pulse Oximetry 97 Oxygen Delivery Room Air Intake/Output Intake/Output: Intake & Output 04/13/24 04/14/24 04/15/24 04/16/24 23:59 23:59 23:59 23:59 Intake Total 1050 990 780 Output Total 1150 950 Balance 1050 -160 -170 Meds/Results Medications: Active Medications Generic Name Dose Route Start Last Admin Trade Name Freq PRN Reason Stop Dose Admin Acetaminophen 650 mg 04/14/24 23:39 04/15/24 20:59 Acetaminophen 325 Mg Tablet PO 650 mg Q4H PRN Administration Mild Pain (1-3) or Fever Artificial Tears 1 drop 04/15/24 21:00 04/16/24 08:53 Artificial Tears Ophth Soln 15 Ml Bottle EACH EYE 1 drop Q12HR LUCILLE Administration Citalopram Hydrobromide 40 mg 04/16/24 09:00 04/16/24 08:52 Citalopram Hydrobromide 20 Mg Tablet PO 40 mg DAILY LUCILLE Administration Cyclosporine 1 drop 04/15/24 21:00 04/16/24 08:54 Cyclo
[2024-04-16 20:48] VITALS: BP 140/61; PULSE 75; RESP 18; TEMP 36.8; O2SAT 97
[2024-04-16] MEDS: LATANOPROST 0.005% OP SOLN 2.5 ML BTL 1 DROP EACH EYE (21:49)
[2024-04-16] MEDS: MELATONIN 3 MG TABLET PO (21:50)
[2024-04-16] MEDS: MEMANTINE 5 MG TABLET PO (21:50)
[2024-04-17] MEDS: PIPERACILLN/TAZ 3.375GM/NS50ML 3.375 GM/50 ML BAG IVPB ×2 (00:55→05:35)
[2024-04-17 01:00] VITALS: O2SAT 97
[2024-04-17] MEDS: LEVOTHYROXINE SODIUM 50 MCG TABLET PO (05:34)
[2024-04-17 05:47] VITALS: BP 143/80; PULSE 74; RESP 18; TEMP 36.6; O2SAT 99
[2024-04-17 06:28] LABS: Hematocrit 32.7 % (42.0-52.0); Hemoglobin 10.4 g/dL (14.0-18.0); Mean Corpuscular HGB Conc 31.8 g/dl (32-36); Mean Corpuscular Hemoglobin 29.1 pg (26-34); Mean Corpuscular Volume 91.3 fl (80-100); Mean Platelet Volume 9.5 fl (7.4-10.4); Platelet Count Result 231 k/mm3 (150-375); Red Blood Count 3.58 M/mm3 (4.6-6.20); Red Cell Distribution Width 13.3 % (11.5-14.5); White Blood Count 6.6 K/mm3 (4.5-10.0)
[2024-04-17 06:39] LABS: Alanine Aminotransferase 18 U/L (6-50); Albumin Level 3.5 g/dL (3.5-5.1); Alkaline Phosphatase 72 U/L (38-126); Anion Gap 7 mmol/L (4-12); Aspartate Amino Transferase 36 U/L (17-59); Bilirubin,Total 0.3 mg/dL (0.2-1.3); Blood Urea Nitrogen 7 mg/dL (9-20); Calcium 8.8 mg/dL (8.4-10.2); Carbon Dioxide 28 mmol/L (22-30); Chloride 98 mmol/L (98-107); Estimated CRCL calculation 52 ml/min; Estimated Glomerular Filt Rate > 60; Glucose 110 mg/dL (65-110); Magnesium 1.9 mg/dL (1.6-2.3); Potassium 3.8 mmol/L (3.4-5.0); Sodium 133 mmol/L (137-145)
--- NOTE | 2024-04-17 08:04 | WPDGIPROGNO ---
Progress Note: A&P Assessment and Plan (1) Nausea: Code(s): R11.0 - Nausea Status: Acute Assessment and Plan: tolerating liquid diet, will advance as tolerated (2) Hiatal hernia with GERD: Code(s): K44.9 - Diaphragmatic hernia without obstruction or gangrene; K21.9 - Gastro-esophageal reflux disease without esophagitis Status: Acute Assessment and Plan: continue with iv protonix and advance diet as tolerated hold off EGD for now given symptomatic improvement with medical therapy, probably large hiatal hernia and ? esophagitis playing a role. if gets sick again then may consider egd, prefer conservative approach if possible because advanced age (3) BRBPR (bright red blood per rectum): Code(s): K62.5 - Hemorrhage of anus and rectum Status: Acute Assessment and Plan: hgb stable, denies any more bleeding (4) Acute appendicitis: Qualifiers: Acute appendicitis type: with localized peritonitis Appendicitis abscess presence: without abscess Appendicitis gangrene presence: without gangrene Appendicitis perforation presence: without perforation Qualified Code(s): K35.30 - Acute appendicitis with localized peritonitis, without perforation or gangrene Code(s): K35.80 - Unspecified acute appendicitis Status: Acute Assessment and Plan: on iv abx exam is benign, surgery on board (5) Urinary retention: Code(s): R33.9 - Retention of urine, unspecified Status: Acute (6) Constipation: Code(s): K59.00 - Constipation, unspecified Status: Acute Subjective Date/time seen: 04/17/24 08:04 Interval history: much better, no more pain, yesterday had two normal BM, no more bleeding. Review of Systems Review of Systems: All systems reviewed & are unremarkable except as noted in HPI and below Exam Const: General: comfortable and no acute distress Orientation/consciousness: patient oriented x3 HENMT: Face/Nose/Sinus: Normal nares present Eyes: Sclera: sclerae normal Neck: Neck: supple Resp: Effort & Inspection: normal respiratory effort Cardio: Rate: regular rate GI: Inspection: non-distended GI Palp: Yes Soft to palpation, No Tenderness to palpation present (GI), No Guarding due to palpation present (GI) and Yes Hernia present (Soft and reducible bilateral inguinal hernias, nontender) Auscultation: normal bowel sounds Skin: General skin exam: normal color Neuro: Speech: normal speech Motor exam (neuro): 5/5 motor strength present throughout Extrem: General: normal to inspection Psych: Affect: normal affect Objective Data Vital Signs Vital Signs: Vital Signs - 24 hr 04/16/24 08:52 04/16/24 14:00 04/16/24 20:48 Temperature 98.9 F 98.3 F Pulse Rate 76 75 Respiratory Rate 16 18 Blood Pressure 151/79 H 140/61 Pulse Oximetry 97 97 Oxygen Delivery Room Air 04/16/24 20:00 04/17/24 01:00 04/17/24 05:47 Temperature 97.8 F Pulse Rate 74 Respiratory Rate 18 Blood Pressure 143/80 H Pulse Oximetry 97 99 Oxygen Delivery Room Air Intake/Output Intake/Output: Intake & Output 04/14/24 04/15/24 04/16/24 04/17/24 23:59 23:59 23:59 23:59 Intake Total 1706 379 0665 250 Output Total 1150 1250 250 Balance 1050 -160 -180 0 Meds/Results Medications: Active Medications Generic Name Dose Route Start Last Admin Trade Name Freq PRN Reason Stop Dose Admin Acetaminophen 650 mg 04/14/24 23:39 04/15/24 20:59 Acetaminophen 325 Mg Tablet PO 650 mg Q4H PRN Administration Mild Pain (1-3) or Fever Artificial Tears 1 drop 04/15/24 21:00 04/16/24 21:48 Artificial Tears Ophth Soln 15 Ml Bottle EACH EYE 1 drop Q12HR LUCIL[place] Administration Citalopram Hydrobromide 40 mg 04/16/24 09:00 04/16/24 08:52 Citalopram Hydrobromide 20 Mg Tablet PO 40 mg DAILY LUCILLE Administration Cyclosporine 1 drop 04/15/24 21:00 04/16/24 21:49 Cyclosporine 0.4 Ml Ophth So
--- NOTE | 2024-04-17 09:33 | WPDUROPN2 ---
Progress Note: A&P Assessment and Plan (1) Urinary retention: Code(s): R33.9 - Retention of urine, unspecified Status: Acute Assessment and Plan: Noted to have >600 cc urinary retention on arrival. Pérez catheter placed and draining well. Secondary to marked prostatomegaly. Started on tamsulosin and finasteride. Consider void trial prior to discharge depending on timing of discharge plans. (2) BPH (benign prostatic hyperplasia): Code(s): N40.0 - Benign prostatic hyperplasia without lower urinary tract symptoms Status: Acute Assessment and Plan: Started on tamsulosin and finasteride as above. Blood pressure has remained stable. Monitor closely on tamsulosin given his advanced age (3) Hydronephrosis: Qualifiers: Hydronephrosis type: unspecified Qualified Code(s): N13.30 - Unspecified hydronephrosis Code(s): N13.30 - Unspecified hydronephrosis Status: Acute Assessment and Plan: Mild bilateral hydronephrosis secondary to acute urinary retention. Awaiting repeat renal ultrasound today to ensure resolution Plan Being managed conservatively for acute appendicitis by General Surgery. Being followed by GI for rectal bleeding Subjective Subjective Date/Time Seen: 04/17/24 09:33 Interval history: Doing well today. Reports no concerns. Ambulating with assistance. No issues with Pérez catheter which is draining clear yellow urine Review of Systems Review of Systems: All systems reviewed & are unremarkable except as noted in HPI and below Exam Narrative: General: Awake, alert, comfortable, no acute distress HEENT: Normocephalic, atraumatic, sclerae anicteric Respiratory: Normal respiratory effort, no accessory muscle use Abdomen: Nondistended, soft, nontender : Pérez catheter draining clear yellow urine Skin: Normal coloration, warm and dry Neurologic: No focal neuro deficits noted Psychiatric: Appropriate mood and affect, judgment and insight intact Objective Data Vital Signs Vital Signs: Vital Signs - 24 hr 04/16/24 14:00 04/16/24 20:48 04/16/24 20:00 Temperature 98.9 F 98.3 F Pulse Rate 76 75 Respiratory Rate 16 18 Blood Pressure 151/79 H 140/61 Pulse Oximetry 97 97 Oxygen Delivery Room Air 04/17/24 01:00 04/17/24 05:47 Temperature 97.8 F Pulse Rate 74 Respiratory Rate 18 Blood Pressure 143/80 H Pulse Oximetry 97 99 Oxygen Delivery Intake/Output Intake/Output: Intake & Output 04/14/24 04/15/24 04/16/24 04/17/24 23:59 23:59 23:59 23:59 Intake Total 1204 194 8958 250 Output Total 1150 1250 250 Balance 1050 -160 -180 0 Meds/Results Medications: Active Medications Generic Name Dose Route Start Last Admin Trade Name Freq PRN Reason Stop Dose Admin Acetaminophen 650 mg 04/14/24 23:39 04/15/24 20:59 Acetaminophen 325 Mg Tablet PO 650 mg Q4H PRN Administration Mild Pain (1-3) or Fever Artificial Tears 1 drop 04/15/24 21:00 04/16/24 21:48 Artificial Tears Ophth Soln 15 Ml Bottle EACH EYE 1 drop Q12HR [place]UC[place] Administration Citalopram Hydrobromide 40 mg 04/16/24 09:00 04/16/24 08:52 Citalopram Hydrobromide 20 Mg Tablet PO 40 mg DAILY LUCILLE Administration Cyclosporine 1 drop 04/15/24 21:00 04/16/24 21:49 Cyclosporine 0.4 Ml Ophth Solution EACH EYE 1 drop Q12HR LUCILLE Administration Dextrose 12.5 gm 04/14/24 23:42 Dextrose 50% 25 Gm/50 Ml Syringe IV PUSH PRN PRN Hypoglycemia Protocol Docusate Sodium 100 mg 04/15/24 21:00 04/16/24 21:49 Docusate Sodium 100 Mg Capsule PO 100 mg Q12HR LUCILLE Administration Finasteride 5 mg 04/17/24 09:00 Finasteride 5 Mg Tablet PO QAM LUCILLE Glucagon 1 mg 04/14/24 23:42 Glucagon For Inj 1 Mg Vial IM PRN PRN Hypoglycemia Protocol Glucose 15 gm 04/14/24 23:42 Glucose Oral Gel 15 Gm Of Glucse In 37.5 Gm Tube PO PRN PRN Hypoglycemia
[2024-04-17] MEDS: ARTIFICIAL TEARS OPHTH SOLN 15 ML BOTTLE 1 DROP EACH EYE (09:53)
[2024-04-17] MEDS: cycloSPORINE 0.4 ML OPHTH SOLUTION 1 DROP EACH EYE (09:54)
[2024-04-17] MEDS: LORazepam (*CRX) 0.5 MG TABLET PO (09:56)
[2024-04-17] MEDS: PANTOPRAZOLE SODIUM IV 40 MG VIAL IV PUSH (09:56)
[2024-04-17] MEDS: FINASTERIDE 5 MG TABLET PO (09:56)
[2024-04-17] MEDS: CITALOPRAM HYDROBROMIDE 20 MG TABLET 40 MG PO (09:56)
[2024-04-17] MEDS: DOCUSATE SODIUM 100 MG CAPSULE PO (09:56)
--- NOTE | 2024-04-17 11:39 | PM.PNGS ---
Progress Note: A&P Assessment and Plan (1) Acute appendicitis: Qualifiers: Acute appendicitis type: with localized peritonitis Appendicitis abscess presence: without abscess Appendicitis gangrene presence: without gangrene Appendicitis perforation presence: without perforation Qualified Code(s): K35.30 - Acute appendicitis with localized peritonitis, without perforation or gangrene Code(s): K35.80 - Unspecified acute appendicitis Status: Acute Assessment and Plan: No clinical symptoms to go along with CT findings. Has been on Zosyn for several days. Can probably discontinue antibiotics on discharge. OK to discharge from surgical standpoint. Instructed patient to return with any worsening symptoms. Follow up PRN. (2) Urinary retention: Code(s): R33.9 - Retention of urine, unspecified Status: Acute (3) Hiatal hernia with GERD: Code(s): K44.9 - Diaphragmatic hernia without obstruction or gangrene; K21.9 - Gastro-esophageal reflux disease without esophagitis Status: Acute Assessment and Plan: Symptomatic management at this time. Can consider EGD as outpatient if he has recurrent symptoms. Subjective Subjective Date/Time Seen: 04/17/24 11:39 Interval history: No abdominal pain. Symptoms resolved. EGD deferred at this time due to improved symptoms. Exam GI: Inspection: non-distended GI Palp: Yes Soft to palpation, No Tenderness to palpation present (GI) and No Guarding due to palpation present (GI) Objective Data Vital Signs Vital Signs: Vital Signs - 24 hr 04/16/24 14:00 04/16/24 20:48 04/16/24 20:00 Temperature 37.2 C 36.8 C Pulse Rate 76 75 Respiratory Rate 16 18 Blood Pressure 151/79 H 140/61 Pulse Oximetry 97 97 Oxygen Delivery Room Air 04/17/24 01:00 04/17/24 05:47 04/17/24 08:39 Temperature 36.6 C Pulse Rate 74 Respiratory Rate 18 Blood Pressure 143/80 H Pulse Oximetry 97 99 Oxygen Delivery Room Air 04/17/24 08:00 04/17/24 10:38 Temperature Pulse Rate Respiratory Rate Blood Pressure Pulse Oximetry Oxygen Delivery Room Air Room Air Intake/Output Intake/Output: Intake & Output 04/14/24 04/15/24 04/16/24 04/17/24 23:59 23:59 23:59 23:59 Intake Total 3464 245 4396 250 Output Total 1150 1250 250 Balance 1050 -160 -180 0 Meds/Results Medications: Active Medications Generic Name Dose Route Start Last Admin Trade Name Perla PRN Reason Stop Dose Admin Acetaminophen 650 mg 04/14/24 23:39 04/15/24 20:59 Acetaminophen 325 Mg Tablet PO 650 mg Q4H PRN Administration Mild Pain (1-3) or Fever Artificial Tears 1 drop 04/15/24 21:00 04/17/24 09:53 Artificial Tears Ophth Soln 15 Ml Bottle EACH EYE 1 drop Q12HR LUCILLE Administration Citalopram Hydrobromide 40 mg 04/16/24 09:00 04/17/24 09:56 Citalopram Hydrobromide 20 Mg Tablet PO 40 mg DAILY LUCILLE Administration Cyclosporine 1 drop 04/15/24 21:00 04/17/24 09:54 Cyclosporine 0.4 Ml Ophth Solution EACH EYE 1 drop Q12HR LUCILLE Administration Dextrose 12.5 gm 04/14/24 23:42 Dextrose 50% 25 Gm/50 Ml Syringe IV PUSH PRN PRN Hypoglycemia Protocol Docusate Sodium 100 mg 04/15/24 21:00 04/17/24 09:56 Docusate Sodium 100 Mg Capsule PO 100 mg Q12HR LUCILLE Administration Finasteride 5 mg 04/17/24 09:00 04/17/24 09:56 Finasteride 5 Mg Tablet PO 5 mg QAM LUCILLE Administration Glucagon 1 mg 04/14/24 23:42 Glucagon For Inj 1 Mg Vial IM PRN PRN Hypoglycemia Protocol Glucose 15 gm 04/14/24 23:42 Glucose Oral Gel 15 Gm Of Glucse In 37.5 Gm Tube PO PRN PRN Hypoglycemia Protocol Hydromorphone HCl 0.5 mg 04/15/24 03:05 Hydromorphone Hcl Inj (*Crx) 1 Mg/Ml Syr IV PUSH Q3H PRN Pain Rated 7-10 Piperacillin/Tazobactam/Dextrose 3.375 gm in 50 mls @ 100 mls/hr 04/15/24 06:00 04/17/24 05:35 Zosyn 3.375 Gm/Ns 50 Ml IV
--- NOTE | 2024-04-17 13:04 | PM.DS ---
DS: Admitting Diagnosis Discharge Date April 17, 2024 Admitting Diagnosis Abdominal pain DS: Discharge Diagnosis Discharge Diagnosis (1) BPH (benign prostatic hyperplasia): Code(s): N40.0 - Benign prostatic hyperplasia without lower urinary tract symptoms Status: Acute (2) Nausea: Code(s): R11.0 - Nausea Status: Acute (3) Constipation: Code(s): K59.00 - Constipation, unspecified Status: Acute (4) Hiatal hernia: Code(s): K44.9 - Diaphragmatic hernia without obstruction or gangrene Status: Acute (5) Esophagitis: Code(s): K20.90 - Esophagitis, unspecified without bleeding Status: Acute (6) Bilateral inguinal hernia: Code(s): K40.20 - Bilateral inguinal hernia, without obstruction or gangrene, not specified as recurrent Status: Acute (7) CIDP (chronic inflammatory demyelinating polyneuropathy): Code(s): G61.81 - Chronic inflammatory demyelinating polyneuritis Status: Chronic (8) Acute appendicitis: Qualifiers: Acute appendicitis type: with localized peritonitis Appendicitis abscess presence: without abscess Appendicitis gangrene presence: without gangrene Appendicitis perforation presence: without perforation Qualified Code(s): K35.30 - Acute appendicitis with localized peritonitis, without perforation or gangrene Code(s): K35.80 - Unspecified acute appendicitis Status: Acute (9) Hydronephrosis: Qualifiers: Hydronephrosis type: unspecified Qualified Code(s): N13.30 - Unspecified hydronephrosis Code(s): N13.30 - Unspecified hydronephrosis Status: Acute (10) Weakness: Code(s): R53.1 - Weakness Status: Acute (11) Urinary retention: Code(s): R33.9 - Retention of urine, unspecified Status: Acute (12) Hyponatremia: Code(s): E87.1 - Hypo-osmolality and hyponatremia Status: Acute DS: Summary Hospital Course Hospital Course: 84-year-old male with a past medical history of CIDP on IVIG therapy, GERD, BPH hypertension, hypothyroidism, anxiety and depression among other comorbidities presents to [facility] brought in by his family for generalized weakness abdominal pain and difficulty urinating. His multiple family members including and son who helps with history. He has been having epigastric abdominal pain for a few weeks and has also had issues with constipation. He has been taking laxatives. He also most bright red per rectum 1 time a week ago. Admitted on 04/15 24 for weakness and abdominal pain and acute uncomplicated appendicitis along with hydronephrosis and gastritis. CT abdomen pelvis demonstrated moderate esophagitis/gastritis with large hiatal hernia, acute uncomplicated appendicitis, mild bilateral hydronephrosis and urinary bladder distension secondary to marked prostatomegaly. Also seen are bilateral inguinal hernias a pending nonobstructive small bowel on the right unobstructed large bowel on the left. The patient was seen by a Gastroenterology and General surgery and Urology consultants. A conservative approach was generally taken. The patient was administered IV Zosyn for 3 days. He was given fluid resuscitation and PPI. He was given bowel rest. He was provided stool softener and laxatives. Ultimately is symptomatology did resolve and he was able to tolerate a regular diet. Considering his age and baseline functional status and benign abdominal exam, conservative approach to acute uncomplicated appendicitis was taken. He is instructed to return to ER or present to his PCP if he has worsening or return of abdominal pain symptoms. His sodium improved from 122-133 status post fluid resuscitation indicating that his hyponatremia is likely hypovolemic/hypotonic. Hemoglobin ranged between 10.4 and 11.2, relatively stable. Pérez catheter was placed and a renal ultrasound demonstrated right nephrolithiasis measuring 1 cm with mild hydr
== END 2024-04-17 14:15 | disposition home health service (06) | DRG 372 ==
LOC: ANHED 21:45 → ANH3MEDSUR 04-15 01:03
PROVIDERS: Family Medicine; Nurse Practitioner; Nurse Practitioner Family; Admitting Provider Internal Medicine; Emergency Provider Physician Assistant; PCP Internal Medicine; Visit Provider General Practice
DX: K35.30 Acute appendicitis with localized peritonitis, without perforation or gangrene (principal); E87.1 Hypo-osmolality and hyponatremia; K62.5 Hemorrhage of anus and rectum; G61.81 Chronic inflammatory demyelinating polyneuritis; N13.30 Unspecified hydronephrosis; E53.8 Deficiency of other specified B group vitamins; E78.00 Pure hypercholesterolemia, unspecified; E03.9 Hypothyroidism, unspecified; K31.89 Other diseases of stomach and duodenum; K20.90 Esophagitis, unspecified without bleeding; K44.9 Diaphragmatic hernia without obstruction or gangrene; K40.20 Bilateral inguinal hernia, without obstruction or gangrene, not specified as recurrent; K59.00 Constipation, unspecified; K21.9 Gastro-esophageal reflux disease without esophagitis; R33.9 Retention of urine, unspecified; R11.0 Nausea; G62.9 Polyneuropathy, unspecified; F41.9 Anxiety disorder, unspecified; F32.A Depression, unspecified; Z96.652 Presence of left artificial knee joint; Z79.82 Long term (current) use of aspirin; Z87.11 Personal history of peptic ulcer disease
CPT/HCPCS: 36415; 74177; 76775; 80048; 80053; 81003; 82607; 82728; 82746; 83540; 83550; 83690; 83735; 85025; 85027; 85610; 85730; 86850; 86900; 86901; 93005; 96361; 96365; 96366; 96375; 97161; 97166; 97535; 99199; 99285; A9270; G0378; J1170; J2060; J2470; J2543; J7030; Q9967

== ENCOUNTER 2024-05-17 05:50 | Emergency (ER) | payer MEDICARE, SELFPAY ==
[2024-05-17 06:00] VITALS: BP 150/85; PULSE 82; RESP 16; O2SAT 97
--- NOTE | 2024-05-17 06:06 | ED.GENADULT ---
HPI - General Adult General Chief complaint: Urogenital-Male Stated complaint: Catheter not flowing Time Seen by Provider: 05/17/24 05:59 History of Present Illness HPI narrative: This is an 84-year-old male with a indwelling Pérez catheter that was placed for urinary retention due to BPH. Catheter drain start draining earlier today. He has now developed fullness in his lower abdomen. no fevers chills or flank pain. patient has follow-up with urology saw some Saturday Related Data Home Medications Medication Instructions Recorded Confirmed atorvastatin 10 mg tablet 10 mg PO HS 10/10/23 04/15/24 bimatoprost 0.01 % eye drops 1 drp EACH EYE HS 10/10/23 04/15/24 (Lumigan) calcium carbonate 500 mg PO PRN PRN Indigestion 10/10/23 04/15/24 cholecalciferol (vitamin D3) 50 50 mcg PO DAILY 10/10/23 04/15/24 mcg (2,000 unit) tablet citalopram 40 mg tablet 40 mg PO DAILY 10/10/23 04/15/24 coQ10 (ubiquinol) 100 mg capsule 100 mg PO DAILY 10/10/23 04/15/24 cyanocobalamin (vitamin B-12) 2,500 mcg PO DAILY 10/10/23 04/15/24 1,000 mcg tablet cyclosporine 0.05 % eye drops 1 drp EACH EYE BID 10/10/23 04/15/24 levothyroxine 50 mcg tablet 50 mcg PO DAILY 10/10/23 04/15/24 lisinopril 20 mg tablet 20 mg PO DAILY 10/10/23 04/15/24 lorazepam 0.5 mg tablet 0.5 mg PO TID 10/10/23 04/15/24 pantoprazole 40 mg tablet,delayed 40 mg PO DAILY 10/10/23 04/15/24 release sennosides 8.6 mg tablet (senna) 8.6 mg PO HS 10/10/23 04/15/24 aspirin 325 mg tablet 325 mg PO DAILY 04/15/24 04/15/24 bimatoprost 0.01 % eye drops 1 drp EACH EYE HS 04/15/24 04/15/24 (Lumigan) carboxymethylcellulose sodium 0.25 1 drp EACH EYE BID 04/15/24 04/15/24 % eye drops (TheraTears) clotrimazole-betamethasone 1 1 applic topical DAILY 04/15/24 04/15/24 %-0.05 % topical cream ferrous sulfate 325 mg (65 mg 325 mg PO DAILY 04/15/24 04/15/24 iron) tablet melatonin 3 mg tablet 3 mg PO HS 04/15/24 04/15/24 memantine 5 mg tablet 5 mg PO HS 04/15/24 04/15/24 Allergies Allergy/AdvReac Type Severity Reaction Status Date / Time No Known Allergies Allergy Verified 04/14/24 18:35 [facility] Past Medical History Medical History Anxiety and depression B12 deficiency BPH (benign prostatic hyperplasia) CIDP (chronic inflammatory demyelinating polyneuropathy) DILCIA (generalized anxiety disorder) H/O gastroesophageal reflux (GERD) High cholesterol History of high blood pressure Hypothyroid Neuropathy Thyroid disease Tremor of both hands Surgical History Surgical History History of colonoscopy at least 10-15 years ago per patient's History of left knee replacement Family History Family History Father Malignant neoplasm of prostate Mother Stomach cancer Social History Social History Smoking status: Never smoker Alcohol intake: former Substance use: never Do You Feel Safe in your Home?: Yes Lack of Transportation: No Lack of Food: Never True Current Housing: I Have Housing Concerned About Future Housing: No Difficulty Paying Gas/Electric Bills: No Difficulty Paying for Meds: No Currently Unemployed: No Education: Trade/Vocational Certificate Difficulty w/ Childcare or Family Care: No Living arrangements: with family Gender identity (if verbalized by the patient): Male Spiritual care concerns: No Exam Narrative: APPEARANCE: No apparent distress. Head: atraumatic. EYES: EOMI, NOSE: Atraumatic NECK: Trachea midline RESPIRATORY: No increased rate of breathing CARDIOVASCULAR: RRR, ABDOMINAL: palpable bladder, nontender MUSCULOSKELETAl: No obvious deformities NEURO: Alert. Moving 4/4 extremities SKIN:: Warm, dry. Normal color PSYCHIATRIC: Normal affect Course Vital Signs Vital signs: Vital Sign
[2024-05-17] MEDS: SODIUM CHLORIDE 0.9% IV 1,000 ML 999 ML IV CONT (06:25)
[2024-05-17 06:36] LABS: Basophils Percent Auto 0.2 % (0.2-1.2); Eosinophils Absolute Auto 0.1 K/mm3 (0-0.3); Hematocrit 27.5 % (42.0-52.0); Hemoglobin 9.2 g/dL (14.0-18.0); Immature Granulocyte Absolute 0.08 K/mm3 (0.00-0.031); Immature Granulocyte Percent A 0.9 % (0-0.5); Lymphocytes Absolute Auto 0.73 K/mm3 (0.9-3.2); Lymphocytes Percent Auto 7.8 % (18.3-44.2); Mean Corpuscular HGB Conc 33.5 g/dl (32-36); Mean Corpuscular Hemoglobin 29.1 pg (26-34); Mean Platelet Volume 9.3 fl (7.4-10.4); Monocytes Absolute Auto 1.3 K/mm3 (0.1-0.6); Monocytes Percent Auto 13.5 % (2.6-8.5); Neutrophils Absolute Auto 7.1 K/mm3 (1.3-6.7); Neutrophils Percent Auto 76.6 % (45.5-73.1); Platelet Count Result 257 k/mm3 (150-375); Red Blood Count 3.16 M/mm3 (4.6-6.20); Red Cell Distribution Width 13.2 % (11.5-14.5); White Blood Count 9.3 K/mm3 (4.5-10.0)
[2024-05-17 06:38] LABS: Bacteria Urine 4+ /hpf; Need Manual Microscopic Need Manual; RBC Urine >100 /hpf (0-2); Squamous Epithelial Cell Urine Many /hpf (Few); WBC Urine >100 /hpf (0-3)
[2024-05-17 06:44] LABS: Alanine Aminotransferase 22 U/L (6-50); Albumin Level 3.6 g/dL (3.5-5.1); Alkaline Phosphatase 93 U/L (38-126); Anion Gap 9 mmol/L (4-12); Aspartate Amino Transferase 35 U/L (17-59); Bilirubin,Total 0.5 mg/dL (0.2-1.3); Blood Urea Nitrogen 19 mg/dL (9-20); Calcium 8.9 mg/dL (8.4-10.2); Carbon Dioxide 23 mmol/L (22-30); Chloride 94 mmol/L (98-107); Estimated CRCL calculation 48 ml/min; Estimated Glomerular Filt Rate > 60; Glucose 130 mg/dL (65-110); Potassium 3.8 mmol/L (3.4-5.0); Sodium 126 mmol/L (137-145)
[2024-05-17 06:53] LABS: Add Urine Microscopic? YES; Appearance Urine Turbid (Clear); Bilirubin Urine Negative (Negative); Blood Urine 3+ (Negative); Color Urine Brown (Yellow); Glucose Urine UA Negative (Negative); Ketones Urine Negative (Negative); Leukocyte Esterase Ur 3+ LEU/UL (Negative); Nitrate Urine Positive (Negative); Protein Urine 2+ mg/dL (Negative); Specific Grav Ur 1.009 (1.001-1.035); Urobilinogen Urine 0.2 mg/dL (<2.0); pH Urine 5.5 (5.0-9.0)
[2024-05-17 06:54] LABS: WBC Clumps Urine Present /hpf
== END 2024-05-17 07:11 | disposition home or self-care (01) ==
PROVIDERS: Emergency Provider Emergency Medicine; PCP Internal Medicine
DX: T83.098A Other mechanical complication of other urinary catheter, initial encounter (principal); N40.1 Benign prostatic hyperplasia with lower urinary tract symptoms; R33.8 Other retention of urine; E78.00 Pure hypercholesterolemia, unspecified; E03.9 Hypothyroidism, unspecified; G62.9 Polyneuropathy, unspecified; G61.81 Chronic inflammatory demyelinating polyneuritis; K21.9 Gastro-esophageal reflux disease without esophagitis; F41.1 Generalized anxiety disorder; F32.A Depression, unspecified; Z96.652 Presence of left artificial knee joint; Z79.899 Other long term (current) drug therapy; Z79.82 Long term (current) use of aspirin; Y84.6 Urinary catheterization as the cause of abnormal reaction of the patient, or of later complication, without mention of misadventure at the time of the procedure
CPT/HCPCS: 36415; 51702; 80053; 81001; 85025; 87077; 87086; 87088; 87186; 96360; 99283; J7030

== ENCOUNTER 2024-06-11 18:28 | Inpatient (IN) | payer MEDICARE, SELFPAY ==
--- NOTE | ~2024-06-11 | XR_ITS ---
EXAMINATION: XR shoulder RT min 2V DATE: 06/18/2024 10:38 INDICATION: Right shoulder pain. TECHNIQUE: 4 views of right shoulder were obtained. COMPARISON: Chest single view 06/12/2024 FINDINGS: There is superior subluxation of humeral head with narrowing of the subacromial space and r emodeling of the acromion, consistent with chronic rotator cuff tear with cuff arthropathy. No fractu re. There is severe osteoarthritis of glenohumeral joint and acromioclavicular joint. The lung volume s are small. There are airspace opacities at the lung bases. IMPRESSION: 1. Polyarticular osteoarthritis. 2. Chronic right rotator cuff tear with cuff arthropathy. 3. Small lung volumes with worsened airspace opacities at the lung bases, consistent with atelectasis versus pneumonia. Reviewed, dictated and finalized at location A. IMPRESSION: 1. Polyarticular osteoarthritis. 2. Chronic right rotator cuff tear with cuff arthropathy. 3. Small lung volumes with worsened airspace opacities at the lung bases, consi stent with atelectasis versus pneumonia.
--- NOTE | ~2024-06-11 | XR_ITS ---
XR chest 1V portable Ordering provider: Abena Hahn APRN History: 84 years Male with . Severe sepsis . Comparison: October 10, 2023 FINDINGS: MEDIASTINUM: The cardiac silhouette is not enlarged. LUNGS: No infiltrates, effusions or pneumothorax. OTHER: No free air under the diaphragm. Degenerative changes of the spine. IMPRESSION: No acute cardiopulmonary pathology. Reviewed, dictated and finalized at location A.
--- NOTE | ~2024-06-11 | CT_ITS ---
CT of the Abdomen and Pelvis: Indication: Abdominal pain Technique: 2.5 mm axial scans were obtained through the abdomen and pelvis following intravenous adm inistration of 100 cc of Omnipaque 350. Dose reduction technique was used on this scan by utilizing a utomated exposure control and iterative reconstruction technique. The dose-length product (DLP) was 3 75.86 mGy-cm. COMPARISON: 04/14/2024 Findings: Scans through the lung bases demonstrate moderate hiatal hernia. The liver, spleen, pancreas, and adrenal glands are within normal limits. There are probable bilatera l extra renal pelves. 11 mm nonobstructing right renal stone present. Probable tiny gallstone. There are atherosclerotic calcifications of the aorta. No lymphadenopathy. No bowel obstruction or bowel wall thickening. Left inguinal hernia contains a small portion of the p roximal sigmoid colon. Right inguinal hernia contains a focal loop of small bowel. Images through the pelvis were performed. Urinary bladder collapsed around a Pérez catheter. Prostate gland is markedly, severely enlarged. There is advanced degenerative spondylosis of lumbar spine wit h chronic compression deformity of L1. Impression: No definite acute abnormality. 11 mm nonobstructing right renal stone Moderate hiatal hernia. Left inguinal hernia contains a small portion of the proximal sigmoid colon. Right inguinal hernia co ntains a focal small bowel. No bowel obstruction or bowel wall thickening. Marked prostatomegaly. Reviewed, dictated and finalized at [facility]. Impression: No definite acute abnormality. 11 mm nonobstructing right renal stone Moderate hiatal hernia. Left inguinal hernia contains a small portion of the proximal sigmoid colon. Ri ght inguinal hernia contains a focal small bowel. No bowel obstruction or bowel wall thickening. Marked prostatomegaly.
--- NOTE | ~2024-06-11 | XR_ITS ---
EXAMINATION: XR elbow RT 2V DATE: 06/18/2024 10:39 INDICATION: Right elbow pain. TECHNIQUE: 2 views of right elbow were obtained. COMPARISON: None. FINDINGS: Bone alignment is normal. No fracture. There is mild elbow joint osteoarthritis. There are enthesophytes at medial and lateral humeral epicondyles. No elbow joint effusion. There is soft tissu e swelling around the elbow. IMPRESSION: 1. Mild elbow joint osteoarthritis. Reviewed, dictated and finalized at location A.
--- NOTE | ~2024-06-11 | US_ITS ---
EXAMINATION: US venous doppler [facility] DATE: 06/18/2024 15:55 INDICATION: Lower limb edema. TECHNIQUE: Grayscale ultrasound images without and with compression and Doppler ultrasound images of the bilateral lower extremity veins were obtained. COMPARISON: None. FINDINGS: The visualized portions of right common femoral vein, profunda (deep) femoral vein, peroneal veins, p osterior tibial veins, and greater saphenous vein outflow are patent. There is thrombus in right femo ral and popliteal veins. The visualized portions of left profunda femoral vein, femoral vein, popliteal vein, peroneal veins, posterior tibial veins, and greater saphenous vein outflow are patent. There is thrombus in left comm on femoral vein. IMPRESSION: 1. Deep vein thrombosis involving right femoral and popliteal veins and left common femoral vein. Reviewed, dictated and finalized at location A. IMPRESSION: 1. Deep vein thrombosis involving right femoral and popliteal veins and left c ommon femoral vein.
--- NOTE | ~2024-06-11 | US_ITS ---
EXAMINATION: US venous doppler UE RT DATE: 06/18/2024 15:55 INDICATION: Upper limb swelling and pain TECHNIQUE: Grayscale images without and with compression and Doppler images of the right upper extrem ity veins were obtained. COMPARISON: None. FINDINGS: There is noncompressible occlusive appearing thrombus in the right cephalic vein. Right internal jugu lar vein, subclavian vein, axillary vein, brachial vein, basilic vein, radial vein, and ulnar vein ar e patent. IMPRESSION: 1. Noncompressible occlusive thrombus in the right cephalic vein. Reviewed, dictated and finalized at location B.
--- NOTE | ~2024-06-11 | US_ITS ---
EXAMINATION: US abdomen limited DATE: 06/16/2024 09:30 INDICATION: Abnormal liver function tests. TECHNIQUE: Multiple grayscale and Doppler ultrasound images of the abdomen were obtained. COMPARISON: CT abdomen and pelvis 06/12/2024 FINDINGS: The pancreas is obscured by bowel gas. The liver is normal without focal lesion. The gallbl adder is normal in size contains sludge and stones. Gallbladder wall thickening is noted. There is no sonographic Foote's sign. The common duct is normal and measures 2 mm. There is trace perihepatic a scites. There is a right pleural effusion. IMPRESSION: 1. Cholelithiasis. Gallbladder wall thickening may be secondary to interstitial edema. 2. Right pleural effusion. Reviewed, dictated and finalized at location A.
[2024-06-11 18:57] VITALS: BP 172/88; PULSE 80; RESP 15; TEMP 36.7; O2SAT 99
[2024-06-12] VITALS (77 sets, daily range): BP systolic 69–178; BP diastolic 45–99; PULSE 74–160; RESP 14–33; TEMP 36.7–40.2; O2SAT 93–100; BMI 22.2
[2024-06-12] MEDS: SODIUM CHLORIDE 0.9% IV 1,000 ML 999 ML IV CONT (02:36)
[2024-06-12] MEDS: ONDANSETRON INJ 4 MG/2 ML VIAL IV PUSH (02:37)
[2024-06-12 02:42] LABS: Basophils Absolute Auto 0.1 K/mm3 (0.0-0.1); Basophils Percent Auto 0.9 % (0.2-1.2); Eosinophils Absolute Auto 0.2 K/mm3 (0-0.3); Eosinophils Percent Auto 2.9 % (0-4.4); Hematocrit 33.6 % (42.0-52.0); Hemoglobin 10.6 g/dL (14.0-18.0); Immature Granulocyte Absolute 0.02 K/mm3 (0.00-0.031); Immature Granulocyte Percent A 0.3 % (0-0.5); Lymphocytes Absolute Auto 1.55 K/mm3 (0.9-3.2); Lymphocytes Percent Auto 20.4 % (18.3-44.2); Mean Corpuscular HGB Conc 31.5 g/dl (32-36); Mean Corpuscular Hemoglobin 27.6 pg (26-34); Mean Corpuscular Volume 87.5 fl (80-100); Monocytes Absolute Auto 0.7 K/mm3 (0.1-0.6); Monocytes Percent Auto 9.1 % (2.6-8.5); Neutrophils Percent Auto 66.4 % (45.5-73.1); Platelet Count Result 387 k/mm3 (150-375); Red Blood Count 3.84 M/mm3 (4.6-6.20); White Blood Count 7.6 K/mm3 (4.5-10.0)
[2024-06-12 02:59] LABS: Alanine Aminotransferase 16 U/L (6-50); Albumin Level 4.1 g/dL (3.5-5.1); Alkaline Phosphatase 116 U/L (38-126); Anion Gap 10 mmol/L (4-12); Aspartate Amino Transferase 33 U/L (17-59); Bilirubin,Total 0.4 mg/dL (0.2-1.3); Blood Urea Nitrogen 17 mg/dL (9-20); Calcium 9.7 mg/dL (8.4-10.2); Carbon Dioxide 25 mmol/L (22-30); Chloride 103 mmol/L (98-107); Estimated CRCL calculation 48 ml/min; Estimated Glomerular Filt Rate > 60; Glucose 130 mg/dL (65-110); Lipase 132 U/L (23-300); Potassium 4.4 mmol/L (3.4-5.0); Sodium 138 mmol/L (137-145)
[2024-06-12 03:15] LABS: Procalcitonin 0.1 ng/mL
--- NOTE | 2024-06-12 03:38 | ED.GENADULT ---
HPI - General Adult General Chief complaint: Nausea/Vomiting/Diarrhea <Edwin Obrien MD - Last Filed: 06/13/24 19:18> Stated complaint: nausea, belching <Edwin Obrien MD - Last Filed: 06/13/24 19:18> Time Seen by Provider: 06/12/24 02:13 <Edwin Obrien MD - Last Filed: 06/13/24 19:18> History of Present Illness HPI narrative: patient is a 4-year-old gentleman who presents emergency department with chief complaint of abdominal discomfort nausea and belching patient reports symptoms started this morning around 7:00 a.m. denies diarrhea denies blood in his stool patient reports that stat really localize in his abdomen <Edwin Obrien MD - Last Filed: 06/13/24 19:18> Related Data Home medications: Home Medications Medication Instructions Recorded Confirmed atorvastatin 10 mg tablet 10 mg PO HS 10/10/23 06/12/24 bimatoprost 0.01 % eye drops 1 drp EACH EYE HS 10/10/23 06/12/24 (Lumigan) calcium carbonate 500 mg PO PRN PRN Indigestion 10/10/23 06/12/24 cholecalciferol (vitamin D3) 50 50 mcg PO DAILY 10/10/23 06/12/24 mcg (2,000 unit) tablet citalopram 40 mg tablet 20 mg PO BID 10/10/23 06/12/24 coQ10 (ubiquinol) 100 mg capsule 100 mg PO DAILY 10/10/23 06/12/24 cyanocobalamin (vitamin B-12) 2,500 mcg PO DAILY 10/10/23 06/12/24 1,000 mcg tablet cyclosporine 0.05 % eye drops 1 drp EACH EYE BID 10/10/23 06/12/24 levothyroxine 50 mcg tablet 50 mcg PO DAILY 10/10/23 06/12/24 lisinopril 20 mg tablet 20 mg PO DAILY 10/10/23 06/12/24 lorazepam 0.5 mg tablet 0.5 mg PO TID 10/10/23 06/12/24 pantoprazole 40 mg tablet,delayed 40 mg PO DAILY 10/10/23 06/12/24 release sennosides 8.6 mg tablet (senna) 8.6 mg PO HS 10/10/23 06/12/24 aspirin 325 mg tablet 325 mg PO DAILY 04/15/24 06/12/24 bimatoprost 0.01 % eye drops 1 drp EACH EYE HS 04/15/24 06/12/24 (Lumigan) carboxymethylcellulose sodium 0.25 1 drp EACH EYE BID 04/15/24 06/12/24 % eye drops (TheraTears) clotrimazole-betamethasone 1 1 applic topical DAILY 04/15/24 06/12/24 %-0.05 % topical cream ferrous sulfate 325 mg (65 mg 325 mg PO DAILY 04/15/24 06/12/24 iron) tablet melatonin 3 mg tablet 3 mg PO HS 04/15/24 06/12/24 memantine 5 mg tablet 5 mg PO BID 04/15/24 06/12/24 <Edwin Obrine MD - Last Filed: 06/13/24 19:18> Allergies/adverse reactions: Allergies Allergy/AdvReac Type Severity Reaction Status Date / Time No Known Allergies Allergy Verified 06/11/24 18:57 <Edwin Obrien MD - Last Filed: 06/13/24 19:18> Review of Systems Review of Systems: A 10 system review of systems was completed on the patient and is negative except for what is stated in the HPI. Nursing and ancillary documentation was reviewed. <Edwin Obrien MD - Last Filed: 06/13/24 19:18> [facility] Past Medical History Medical History: Medical History (Updated 06/13/24 @ 08:49 by Lalo Benavides MD) Anxiety and depression B12 deficiency Bilateral inguinal hernia BPH (benign prostatic hyperplasia) CIDP (chronic inflammatory demyelinating polyneuropathy) DILCIA (generalized anxiety disorder) H/O gastroesophageal reflux (GERD) Hiatal hernia High cholesterol HTN (hypertension) Hypothyroid Neuropathy Thyroid disease Tremor of both hands <Edwin Obrien MD - Last Filed: 06/13/24 19:18> Surgical History Surgical History: Surgical History History of colonoscopy at least 10-15 years ago per patient's History of left knee replacement <Edwin Obrien MD - Last Filed: 06/13/24 19:18> Family History Family History: Family History Father Malignant neoplasm of prostate Mother Stomach cancer <Edwin Obrien MD - Last Filed: 06/13/24 19:18> Social History Social History: Social History (Reviewed 06/13/24 @ 08:44 by Nata
[2024-06-12] MEDS: LIDOCAINE HCL 2% GEL UROJET 10 ML PKG ×2 (05:01→05:41)
--- NOTE | 2024-06-12 05:49 | PC.NURSE ---
Attempted to replace aguilera catheter by this RN and EDP Camille without success.
--- NOTE | 2024-06-12 09:18 | PC.NURSE ---
14 Fr Coude catheter placed by Lyubov ASTORGA from urology
--- NOTE | 2024-06-12 09:32 | WPDURCON ---
Assessment and Plan Assessment and plan (1) Urinary retention: Code(s): R33.9 - Retention of urine, unspecified Status: Acute Assessment and Plan: Secondary to massive prostatomegaly. Placed 14 Indonesian coude catheter at bedside today and patient tolerated well with return of 350 cc clear, light pink tinged urine. Suspect minimal hematuria secondary to trauma from Pérez catheter attempts. Continue Pérez catheter with monthly changes with home health. Due for next exchange 07/12/2024 (2) BPH (benign prostatic hyperplasia): Code(s): N40.0 - Benign prostatic hyperplasia without lower urinary tract symptoms Status: Acute Assessment and Plan: Patient with severe BPH, 183 g prostate. Continue Pérez while awaiting prostate artery embolization referral. He is scheduled for next week. Continue tamsulosin and finasteride. (3) Kidney stone: Code(s): N20.0 - Calculus of kidney Status: Acute Assessment and Plan: Patient with large nonobstructing right renal stone. Will be addressed at a later date. No need for acute intervention at this time. Urology Consult Note HPI Date Seen: 06/12/24 Primary Care Provider: Leah Shepherd, Consult Narrative Narrative: Linwood Cloud is a very pleasant 84 year old male with history of BPH and urinary retention who is being seen in consultation for difficult Pérez placement. Patient initially developed issues with urinary retention during hospital admission 03/2024. He was started on tamsulosin and finasteride. He was found have a 183 g prostate and has been referred for prostate artery embolization procedure. He actually has an appointment for evaluation of this next week. Since his initial episode of retention in March, he has had his Pérez catheter changed monthly by home health services. Recently in 04/2024 home health had difficulty placing his Pérez catheter and he presented to the ER who was able to places catheter without difficulty. Today he presented to the ER with complaints of abdominal pain and nausea. As he was due for catheter exchange, his Pérez was removed, however staff had difficulty replacing Pérez catheter. At the time of my evaluation, the patient endorses some very minimal suprapubic fullness. He states his urine was clear upon arrival, however after catheter attempts, has noticed small amount of blood leaking from his urethra. At the bedside using sterile technique, I placed a 14 Indonesian coude catheter without difficulty. Inflated balloon with 10 cc sterile water. Had return of a couple tiny clots and otherwise clear, very light pink tinged urine. Had a total of about about 350 cc urine return. Patient was feeling well following this and had no concerns. Review of Systems Review of Systems: All systems reviewed & are unremarkable except as noted in HPI and below PMFSH Past Medical History Medical History Anxiety and depression B12 deficiency BPH (benign prostatic hyperplasia) CIDP (chronic inflammatory demyelinating polyneuropathy) DILCIA (generalized anxiety disorder) H/O gastroesophageal reflux (GERD) High cholesterol History of high blood pressure Hypothyroid Neuropathy Thyroid disease Tremor of both hands Surgical History Surgical History History of colonoscopy at least 10-15 years ago per patient's History of left knee replacement Family History Family History Father Malignant neoplasm of prostate Mother Stomach cancer Social History Social History Smoking status: Never smoker Alcohol intake: former Substance use: never Do You Feel Safe in your Home?: Yes Lack of Transportation: No Lack of Food: Never True Current Housing:
[2024-06-12 10:22] LABS: Bacteria Urine 4+ /hpf; Need Manual Microscopic Reviewed; Non Pathogenic Casts 0-2; RBC Urine >100 /hpf (0-2); Squamous Epithelial Cell Urine None Seen /hpf (Few); WBC Urine >100 /hpf (0-3)
[2024-06-12 10:23] LABS: Add Urine Microscopic? YES; Appearance Urine Turbid (Clear); Bilirubin Urine Negative (Negative); Blood Urine 3+ (Negative); Color Urine Orange (Yellow); Glucose Urine UA Negative (Negative); Ketones Urine Negative (Negative); Leukocyte Esterase Ur 2+ LEU/UL (Negative); Nitrate Urine Positive (Negative); Protein Urine 2+ mg/dL (Negative); Specific Grav Ur 1.024 (1.001-1.035); pH Urine 5.5 (5.0-9.0)
--- NOTE | 2024-06-12 10:49 | ECG_ITS ---
Test Date: 2024-06-12 10:55:15 Measurements Intervals [place] Rate: 149 P: 153 LA: 115 QRS: -74 QRSD: 102 T: 82 QT: 286 QTc: 451 Interpretive Statements SIGNIFICANT BASELINE ARTIFACT SINUS TACHYCARDIA WITH SHORT LA INTERVAL, POSSIBLE ATRIAL FLUTTER LEFT ANTERIOR FASCICULAR BLOCK LEFT VENTRICULAR HYPERTROPHY WITH ST-T CHANGE BASELINE ARTIFACT- I, II, III, AVR, AVL, AVF, V1-V6 ABNORMAL ECG Compared to ECG 04/16/2024 11:30:51 HEART RATE HAS INCREASED Electronically Signed On 06-12-2024 11:00:24 CDT by Jose Henson D.O.
[2024-06-12] MEDS: ACETAMINOPHEN 325 MG TABLET 650 MG PO (11:20)
[2024-06-12] MEDS: SODIUM CHLORIDE 0.9% IV 2,100 ML/1,000 ML BAG 999 ML IV CONT (11:36)
[2024-06-12] MEDS: SODIUM CHLORIDE 0.9% IV 100 ML 999 ML (11:37)
--- NOTE | 2024-06-12 11:37 | PC.NURSE ---
Urethral bleeding noticied by this RN and NADIR Patel. MD Olson notified and at bedisde. No new orders placed at this time. ERP notified family at bedside.
--- NOTE | 2024-06-12 12:30 | PM.IMHP ---
H&P: HPI History of Present Illness Date/Time: 06/12/24 12:30 Chief Complaint: Abdominal Pain Narrative: 84 y/o M presents here with abdominal pain with PMH of anxiety/depression, BPH, chronic inflammatory demyelinating polyneuropathy, GERD, HLD, HTN, hypothyroidism. The patient presents here for further evaluation of abdominal pain. The patient is currently unable to contribute to history due to mental status. and family at the bedside as well as a chart review provided the following information. Abdominal pain was near his umbilicus. reports onset was 2 months ago and has been intermittent since. reports the pain has never lasted this long previously and started yesterday into today. The patient reported to the ED he had onset of symptoms this morning around 7:00 a.m. He described the abdominal pain as nonradiating, constant, no aggravating or alleviating symptoms. Patient took Mylanta without relief, previously this medication has relieved pain that was similar. He reported the abdominal pain is accompanied by nausea without vomiting, fever, and belching. He denied associated melena, hematochezia, diaphoresis, chills, or body aches. No previous history of abdominal surgeries. Patient now somnolent, reports he did not sleep all night due to the pain. Family at [facility] reports that patient seemed off and mildly confused. Initial VS at presentation: 98.1? F, HR 80, RR 18, 172/88, and 99% on RA. During ED workup spiked a fever of 104.3? F. ED workup showed: No leukocytosis, hemoglobin 10.6 (previously 9.2 on 05/17/2024), no significant electrolyte derangements, creatinine 1.0 and GFR >60, glucose 130, and UA consistent with UTI. CT of the abdomen/pelvis showed an 11 mm nonobstructing right renal stone, moderate hiatal hernia, left inguinal hernia, right inguinal hernia, marked prostatomegaly. Review of Systems Review of Systems: All systems reviewed & are unremarkable except as noted in HPI and below PMFSH Past Medical History Medical History Anxiety and depression B12 deficiency Bilateral inguinal hernia BPH (benign prostatic hyperplasia) CIDP (chronic inflammatory demyelinating polyneuropathy) DILCIA (generalized anxiety disorder) H/O gastroesophageal reflux (GERD) Hiatal hernia High cholesterol HTN (hypertension) Hypothyroid Neuropathy Thyroid disease Tremor of both hands Surgical History Surgical History History of colonoscopy at least 10-15 years ago per patient's History of left knee replacement Family History Family History Father Malignant neoplasm of prostate Mother Stomach cancer Social History Social History Smoking status: Never smoker Alcohol intake: former Substance use: never Do You Feel Safe in your Home?: Yes Lack of Transportation: No Lack of Food: Never True Current Housing: I Have Housing Concerned About Future Housing: No Difficulty Paying Gas/Electric Bills: No Difficulty Paying for Meds: No Currently Unemployed: No Education: Trade/Vocational Certificate Difficulty w/ Childcare or Family Care: No Living arrangements: with family Gender identity (if verbalized by the patient): Male Spiritual care concerns: No Meds Home Medications and Allergies Home Medications Medication Instructions Recorded Confirmed Type atorvastatin 10 mg tablet 10 mg PO HS 10/10/23 06/12/24 History bimatoprost 0.01 % eye drops 1 drp EACH EYE HS 10/10/23 06/12/24 History (Gray) calcium carbonate 500 mg PO PRN PRN Indigestion 10/10/23 06/12/24 History cholecalciferol (vitamin D3) 50 50 mcg PO DAILY 10/10/23 06/12/24 History mcg (2,000 unit) tablet citalopram 40 mg tablet 20 mg PO BID 10/10/23 06/12/24 History coQ10 (ub
[2024-06-12] MEDS: SODIUM CHLORIDE 0.9% IV 1,000 ML 125 ML IV CONT (14:37)
--- NOTE | 2024-06-12 14:51 | PC.NURSE ---
Patient arrived from ED via stretcher at 1350. Patient has aguilera with hematuria and oriented x1. Family at bedside.
[2024-06-12] MEDS: LACTATED RINGERS 500 ML 999 ML IV CONT (18:10)
[2024-06-12] MEDS: VANCOMYCIN 1,750 MG/NS 500 ML 1,750 MG/500 ML BAG 250 MG IVPB (18:46)
[2024-06-12 19:07] LABS: Glucose Point of Care 107 mg/dl (65-105)
[2024-06-12 19:17] LABS: Procalcitonin > 100.0 ng/mL
[2024-06-12] MEDS: NOREPINEPHRINE 8 MG/D5W 250 ML 8 MG/250 ML BAG 9.38 MG IV CONT (19:35)
[2024-06-12 19:50] LABS: MRSA (PCR) NOT DETECTED (NOT DETECTE)
--- NOTE | 2024-06-12 20:10 | WPDPROCEDUR ---
Procedures Central Line Placement Left Femoral: Central Line Date: 06/12/24 Central Line Time: 20:00 Discussed w/ the patient/family/POA,the placement of a central venous catheter, including its clinical necessity/indication & associated potential risks, benifits and alternatives.: Yes The patient/family/POA understand(s) and acknowledge(s) the need to proceed with central venous catheter insertion as an important element of the patient's clinical management.: Yes Consent: I have discussed with the patient and/or surrogate, the non-emergent placement of a central venous catheter, including its clinical necessity/indication and associated potential risks and complications. The patient and/or surrogate understand(s) and acknowledge(s) the need to proceed with central venous catheter insertion as an important element of the patient's clinical management. Time Out Performed: Yes Patient Position: supine Patient placed on monitor/pulse ox: Yes Provider Prep: mask, sterile gown, sterile gloves, Max. sterile barrier precautions, cap and hand hygiene with conventional soap/water or alcohol based hand rub Central line prep: Povidone-Iodine 1%, 2% Chlorhexidine scrub and sterile full body sheet applied Local anesthesia used: lidocaine 1% Amount of anesthesia used (ml): 2 Sterile US Technique with sterile gel/sterile probe covers: Yes Central line lumen inserted: triple Turkish: 7 Length (cm): 16 Depth of Insertion (cm): 16 Post Procedure: sutured in place, good blood return, all ports aspirated, flushed, capped, transparent dressing, hemostatic product, antimicrobial product, securement product and aseptic technique maintained throughout procedure Patient tolerated procedure: well Complications: none
[2024-06-12] MEDS: CENTRAL LINE FLUSH 10 ML IV PUSH (21:30)
[2024-06-12] MEDS: ATORVASTATIN 10 MG TABLET PO (21:30)
[2024-06-12] MEDS: DOCUSATE SODIUM 100 MG CAPSULE PO (21:30)
[2024-06-12] MEDS: ARTIFICIAL TEARS OPHTH SOLN 15 ML BOTTLE 1 DROP EACH EYE (21:30)
[2024-06-12] MEDS: SENNOSIDES 8.6 MG TABLET PO (21:30)
[2024-06-12] MEDS: LATANOPROST 0.005% OP SOLN 2.5 ML BTL 1 DROP EACH EYE (21:30)
[2024-06-12] MEDS: MEROPENEM 1 GM/NS 100 ML 1 GM/100 ML BAG IVPB (23:38)
[2024-06-13] VITALS (46 sets, daily range): BP systolic 76–120; BP diastolic 50–77; PULSE 90–109; RESP 21–31; TEMP 36.6–38.1; O2SAT 93–100
[2024-06-13 00:21] LABS: Glucose Point of Care 105 mg/dl (65-105)
[2024-06-13 06:10] LABS: Hematocrit 30.5 % (42.0-52.0); Hemoglobin 9.3 g/dL (14.0-18.0); Mean Corpuscular HGB Conc 30.5 g/dl (32-36); Mean Corpuscular Hemoglobin 27.8 pg (26-34); Mean Platelet Volume 11.1 fl (7.4-10.4); Platelet Count Result 159 k/mm3 (150-375); Red Blood Count 3.35 M/mm3 (4.6-6.20); Red Cell Distribution Width 15.9 % (11.5-14.5); White Blood Count 31.4 K/mm3 (4.5-10.0)
[2024-06-13 06:22] LABS: Alanine Aminotransferase 23 U/L (6-50); Albumin Level 2.9 g/dL (3.5-5.1); Alkaline Phosphatase 91 U/L (38-126); Anion Gap 12 mmol/L (4-12); Aspartate Amino Transferase 58 U/L (17-59); Bilirubin,Total 0.3 mg/dL (0.2-1.3); Blood Urea Nitrogen 30 mg/dL (9-20); Calcium 7.8 mg/dL (8.4-10.2); Carbon Dioxide 18 mmol/L (22-30); Chloride 107 mmol/L (98-107); Estimated CRCL calculation 26 ml/min; Estimated Glomerular Filt Rate 34; Glucose 88 mg/dL (65-110); Potassium 3.7 mmol/L (3.4-5.0); Sodium 137 mmol/L (137-145)
[2024-06-13 06:33] LABS: Band Neutrophils Percent 17 % (0-6); Lymphocytes Absolute Manual 0.62 K/mm3 (1.1-4.5); Metamyelocytes Percent 3 %; Neutrophils Absolute Manual 29.83 K/mm3 (1.3-6.7); Neutrophils Percent Manual 78 % (46-73); Platelet Estimate Adequate (Adequate); Schistocytes None Seen; Total Cells Counted 100
[2024-06-13] MEDS: CENTRAL LINE FLUSH 10 ML IV PUSH ×3 (07:01→21:12)
[2024-06-13] MEDS: LEVOTHYROXINE SODIUM 50 MCG TABLET PO (07:01)
--- NOTE | 2024-06-13 08:41 | WPDCNINT ---
Assessment and Plan Assessment and plan (1) Septic shock: Code(s): A41.9 - Sepsis, unspecified organism; R65.21 - Severe sepsis with septic shock Status: Acute Assessment and Plan: Septic shock secondary to UTI and Gram-negative bacteremia UA suggestive of UTI and blood cultures are growing Gram-negative rods Continue meropenem but will discontinue vancomycin Patient has he had IV fluids and will continue IV fluids at low rate maintenance Continue Levophed titration to maintain mean arterial pressure Obtain echocardiogram (2) Acute UTI: Code(s): N39.0 - Urinary tract infection, site not specified Status: Acute Assessment and Plan: See above (3) Acute urinary retention: Code(s): R33.8 - Other retention of urine Status: Acute Assessment and Plan: Status post Pérez insertion by Urology (4) BPH (benign prostatic hyperplasia): Qualifiers: Lower urinary tract symptom presence: symptoms present Lower urinary tract symptom detail: urinary retention Qualified Code(s): N40.1 - Benign prostatic hyperplasia with lower urinary tract symptoms; R33.8 - Other retention of urine Code(s): N40.0 - Benign prostatic hyperplasia without lower urinary tract symptoms Status: Acute Assessment and Plan: Continue Flomax Patient now has Pérez Evaluated by Urology (5) GE (acute kidney injury): Code(s): N17.9 - Acute kidney failure, unspecified Status: Acute Assessment and Plan: Likely secondary to urinary obstruction, sepsis and shock CT scan shows a renal stone but nonobstructive on right Status post Pérez insertion Monitor urine output electrolytes and creatinine IV fluids and Levophed as above Check CK (6) Hypothyroid: Code(s): E03.9 - Hypothyroidism, unspecified Status: Acute Assessment and Plan: Continue levothyroxine Plan DVT prophylaxis -Lovenox Stress ulcer prophylaxis - Nutrition -diet ordered Code Status - Full Code Incentive spirometry Total Critical Care Time -30 minutes Due to a high probability of clinically significant, life threatening deterioration, the patient required my highest level of preparedness to intervene emergently and I personally spent this critical care time directly and personally managing the patient. This critical care time included obtaining a history; examining the patient; pulse oximetry; ordering and review of studies; arranging urgent treatment with development of a management plan; evaluation of patient's response to treatment; frequent reassessment; and discussions with other providers. It was exclusive of separately billable procedures and treating other patients and teaching time. 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 He has history PMH of anxiety/depression, BPH, chronic inflammatory demyelinating polyneuropathy, GERD, HLD, HTN, hypothyroidism. Patient was found to be retaining urine. CT scan showed large prostate megaly. Urology was consulted and patient had a Pérez catheter placed with resolution of urinary tension. UA was consistent with UTI. Patient was febrile. Initially his blood pressure is elevated likely secondary to pain but once he was admitted his blood pressure dropped. Despite IV fluids he remained hypotensive. He was transferred to ICU and started on vasopressors. A femoral central venous catheter was placed. This morning when I evaluated the patient he remains on Levophed off of IV fluids. He is awake alert but not oriented. He is unable to provide much of meaningful history. He is admitted that he had abdominal pain but unable to give me any further details. Review of system was not obtainable due to co
[2024-06-13] MEDS: CALCIUM GLUC 2,000 MG/NS 100ML 2,000 MG/100 ML BAG 100 MG IVPB (08:50)
[2024-06-13] MEDS: ARTIFICIAL TEARS OPHTH SOLN 15 ML BOTTLE 1 DROP EACH EYE ×2 (08:50→21:13)
[2024-06-13] MEDS: FINASTERIDE 5 MG TABLET PO (08:51)
[2024-06-13] MEDS: DOCUSATE SODIUM 100 MG CAPSULE PO ×2 (08:51→21:13)
[2024-06-13] MEDS: ASPIRIN 325 MG TABLET PO (08:51)
[2024-06-13] MEDS: MEROPENEM 1 GM/NS 100 ML 1 GM/100 ML BAG IVPB ×2 (09:23→21:12)
[2024-06-13] MEDS: ALBUMIN HUMAN 25% 25 GM/100 ML 100 ML IVPB ×3 (09:24→21:10)
[2024-06-13] MEDS: SODIUM BICARBONATE 8.4% 150 MEQ in DEXTROSE 5% 1,000 ML 950 ML 75 MEQ IV CONT ×2 (09:25→23:53)
[2024-06-13] MEDS: TAMSULOSIN HCL 0.4 MG CAPSULE PO (10:35)
[2024-06-13] MEDS: MEMANTINE 5 MG TABLET PO ×2 (10:35→21:13)
[2024-06-13] MEDS: BETAMETHASONE/CLOTRIMAZOLE CREAM 15 GM TUBE 1 APPLIC TOPICAL (10:36)
[2024-06-13] MEDS: cycloSPORINE 0.4 ML OPHTH SOLUTION 1 DROP EACH EYE ×2 (10:36→21:12)
[2024-06-13] MEDS: NOREPINEPHRINE 8 MG/D5W 250 ML 8 MG/250 ML BAG 11.25 MG IV CONT (12:00)
[2024-06-13 12:15] LABS: Glucose Point of Care 90 mg/dl (65-105)
[2024-06-13 12:44] LABS: Creatine Kinase 261 U/L (55-170)
--- NOTE | 2024-06-13 13:08 | PM.IMPN ---
Progress Note: A&P Assessment and Plan (1) Septic shock: Code(s): A41.9 - Sepsis, unspecified organism; R65.21 - Severe sepsis with septic shock Status: Acute Assessment and Plan: Septic shock secondary to UTI and Gram-negative bacteremia UA suggestive of UTI and blood cultures are growing Gram-negative rods Continue meropenem but will discontinue vancomycin Patient has he had IV fluids and will continue IV fluids at low rate maintenance Continue Levophed titration to maintain mean arterial pressure Obtain echocardiogram (2) Acute UTI: Code(s): N39.0 - Urinary tract infection, site not specified Status: Acute Assessment and Plan: See above (3) Acute urinary retention: Code(s): R33.8 - Other retention of urine Status: Acute Assessment and Plan: Status post Pérez insertion by Urology (4) BPH (benign prostatic hyperplasia): Qualifiers: Lower urinary tract symptom presence: symptoms present Lower urinary tract symptom detail: urinary retention Qualified Code(s): N40.1 - Benign prostatic hyperplasia with lower urinary tract symptoms; R33.8 - Other retention of urine Code(s): N40.0 - Benign prostatic hyperplasia without lower urinary tract symptoms Status: Acute Assessment and Plan: Continue Flomax Patient now has Pérez Evaluated by Urology (5) GE (acute kidney injury): Code(s): N17.9 - Acute kidney failure, unspecified Status: Acute Assessment and Plan: Likely secondary to urinary obstruction, sepsis and shock CT scan shows a renal stone but nonobstructive on right Status post Pérez insertion Monitor urine output electrolytes and creatinine IV fluids and Levophed as above Check CK (6) Hypothyroid: Code(s): E03.9 - Hypothyroidism, unspecified Status: Acute Assessment and Plan: Continue levothyroxine Subjective Date/time seen: 06/13/24 13:08 Interval history: patient was evaluated at the bedside with her and the daughter. Patient lives at home with both of them. patient has a baseline dementia. Family denies any past medical history of stroke or coronary artery disease, kidney disease. In the ED patient with septic and the source of infection possibly due to ED. CT of the abdomen pelvis shows 11 mm nonobstructing right renal stone, moderate hiatal hernia, right and left inguinal hernia and marked prostatomegaly. urology was consulted and pending recommendation. Patient is currently on meropenem. Review of Systems Review of Systems: All systems reviewed & are unremarkable except as noted in HPI and below ROS unobtainable: Yes unobtainable due to medical condition and unobtainable due to mental status Exam Narrative: General: Pt is alert awake and in NAD. Frail old male Lungs/Chest: Trachea central Clear BS B/L, No crackles or wheezing. Cardiac: RRR. Normal S1 S2. No murmurs Circulation: Bilateral dorsalis pedis is only Doppler or cold. Delayed cap refill. Abdomen: Normal bowel sounds.. Soft Soft. NT. ND. Extremities: No clubbing, cyanosis or edema. left femoral catheter : Pérez in place with clear urine Neurologic: Follows commands. Moves all 4 extremities PERRL AOx 0 Skin: No Rash Const: Other: , male, frail, ill-appearing HENMT: Face/Nose/Sinus: Normal nares present Mouth: Yes dry mucous membranes Eyes: General: appearance normal, both eyes and all related structures Sclera: sclerae normal Pupils: Equal, round and reactive pupils present EOM: EOMs intact bilaterally Resp: Auscultation: clear to auscultation bilaterally Other: Mild tachypnea Cardio: Rate: regular rate Rhythm: regular rhythm Other: S1-S2 present without murmur, rub, ectopy GI: Other: Abdomen soft, nondistended, nontender. Normoactive to hypoactive bowel sounds throughout. Urinary Catheter: Urinary Catheter: patent and draining, urine dark and urine red
[2024-06-13 18:33] LABS: Glucose Point of Care 83 mg/dl (65-105)
[2024-06-13] MEDS: LATANOPROST 0.005% OP SOLN 2.5 ML BTL 1 DROP EACH EYE (21:12)
[2024-06-13] MEDS: SENNOSIDES 8.6 MG TABLET PO (21:13)
[2024-06-13] MEDS: ATORVASTATIN 10 MG TABLET PO (21:13)
[2024-06-13] MEDS: NOREPINEPHRINE 8 MG/D5W 250 ML 8 MG/250 ML BAG 28.13 MG IV CONT (23:45)
[2024-06-13 23:47] LABS: Glucose Point of Care 103 mg/dl (65-105)
[2024-06-14] VITALS (42 sets, daily range): BP systolic 88–127; BP diastolic 59–84; PULSE 68–92; RESP 18–30; TEMP 36.6–37.2; O2SAT 88–99
[2024-06-14] MEDS: ALBUMIN HUMAN 25% 25 GM/100 ML 100 ML IVPB (03:32)
[2024-06-14] MEDS: LEVOTHYROXINE SODIUM 50 MCG TABLET PO (05:43)
[2024-06-14] MEDS: CENTRAL LINE FLUSH 10 ML IV PUSH ×3 (05:43→20:54)
[2024-06-14 05:49] LABS: Alanine Aminotransferase 23 U/L (6-50); Albumin Level 3.4 g/dL (3.5-5.1); Alkaline Phosphatase 81 U/L (38-126); Anion Gap 12 mmol/L (4-12); Aspartate Amino Transferase 64 U/L (17-59); Bilirubin,Total 0.6 mg/dL (0.2-1.3); Blood Urea Nitrogen 33 mg/dL (9-20); Calcium 7.7 mg/dL (8.4-10.2); Carbon Dioxide 26 mmol/L (22-30); Chloride 97 mmol/L (98-107); Estimated CRCL calculation 34 ml/min; Estimated Glomerular Filt Rate 45; Glucose 129 mg/dL (65-110); Magnesium 1.8 mg/dL (1.6-2.3); Phosphorus 3.7 mg/dL (2.5-4.5); Potassium 3.9 mmol/L (3.4-5.0); Sodium 135 mmol/L (137-145)
[2024-06-14 06:16] LABS: Hematocrit 22.8 % (42.0-52.0); Hemoglobin 7.3 g/dL (14.0-18.0); Immature Platelet Fraction Pct 9.7 % (0.9-11.2); Mean Corpuscular Hemoglobin 28.1 pg (26-34); Mean Corpuscular Volume 87.7 fl (80-100); Mean Platelet Volume 12.3 fl (7.4-10.4); Platelet Count Result 66 k/mm3 (150-375); Red Cell Distribution Width 15.9 % (11.5-14.5); White Blood Count 21.1 K/mm3 (4.5-10.0)
--- NOTE | 2024-06-14 08:07 | WPDINTPN ---
Progress Note: A&P Assessment and Plan (1) Septic shock: Code(s): A41.9 - Sepsis, unspecified organism; R65.21 - Severe sepsis with septic shock Status: Acute Assessment and Plan: Septic shock secondary to UTI and Gram-negative bacteremia UA suggestive of UTI and blood cultures are growing Gram-negative rods Urine cultures growing E coli Continue meropenem. Off vancomycin Patient has he had IV fluids and will continue IV fluids at low rate maintenance Continue Levophed titration to maintain mean arterial pressure Obtain echocardiogram (2) Acute UTI: Code(s): N39.0 - Urinary tract infection, site not specified Status: Acute Assessment and Plan: See above (3) Acute urinary retention: Code(s): R33.8 - Other retention of urine Status: Acute Assessment and Plan: Status post Pérez insertion by Urology (4) BPH (benign prostatic hyperplasia): Qualifiers: Lower urinary tract symptom presence: symptoms present Lower urinary tract symptom detail: urinary retention Qualified Code(s): N40.1 - Benign prostatic hyperplasia with lower urinary tract symptoms; R33.8 - Other retention of urine Code(s): N40.0 - Benign prostatic hyperplasia without lower urinary tract symptoms Status: Acute Assessment and Plan: Continue Flomax Patient now has Pérez Evaluated by Urology (5) GE (acute kidney injury): Code(s): N17.9 - Acute kidney failure, unspecified Status: Acute Assessment and Plan: Likely secondary to urinary obstruction, sepsis and shock CT scan shows a renal stone but nonobstructive on right Status post Pérez insertion Creatinine improving and 1.5 today Monitor urine output electrolytes and creatinine IV fluids and Levophed as above CK 261 (6) Hypothyroid: Code(s): E03.9 - Hypothyroidism, unspecified Status: Acute Assessment and Plan: Continue levothyroxine (7) Anemia: Code(s): D64.9 - Anemia, unspecified Status: Acute Assessment and Plan: Gradual drop in hemoglobin since admission likely secondary hemodilution No sign of bleeding Monitor hemoglobin (8) Thrombocytopenia: Code(s): D69.6 - Thrombocytopenia, unspecified Status: Acute Assessment and Plan: Fast significant drop in platelet count likely secondary to sepsis antibiotics and hemodilution No other sign of active bleeding No schistocytes on differential Check coags Hold Lovenox and monitor Plan DVT prophylaxis -SCD Nutrition -diet ordered Code Status - Full Code Incentive spirometry Total Critical Care Time -30 minutes Due to a high probability of clinically significant, life threatening deterioration, the patient required my highest level of preparedness to intervene emergently and I personally spent this critical care time directly and personally managing the patient. This critical care time included obtaining a history; examining the patient; pulse oximetry; ordering and review of studies; arranging urgent treatment with development of a management plan; evaluation of patient's response to treatment; frequent reassessment; and discussions with other providers. It was exclusive of separately billable procedures and treating other patients and teaching time. Please see Assessment and Plan section and the rest of the note for further information on patient assessment and treatment Subjective Date/time seen: 06/14/24 08:07 Overnight events reviewed. Afebrile On room air Continues to be on Levophed 8 mics this morning Continues to be sedated with Improved urine output Vitals acceptable Remained confused overall and partially oriented Review of Systems Review of Systems: ROS unobtainable: Yes unobtainable due to medical condition and unobtainable due to mental status Exam Narrative: General: Pt is alert awake and in NAD. Frail old male Lungs/Chest: Trachea central Clear BS B/L, No crackles
[2024-06-14] MEDS: MEMANTINE 5 MG TABLET PO ×2 (08:24→20:45)
[2024-06-14] MEDS: MIDODRINE HCL 10 MG TABLET PO ×3 (08:24→18:42)
[2024-06-14] MEDS: ASPIRIN 325 MG TABLET PO (08:24)
[2024-06-14] MEDS: DOCUSATE SODIUM 100 MG CAPSULE PO ×2 (08:25→20:45)
[2024-06-14] MEDS: FINASTERIDE 5 MG TABLET PO (08:25)
[2024-06-14] MEDS: TAMSULOSIN HCL 0.4 MG CAPSULE PO (08:25)
[2024-06-14] MEDS: ARTIFICIAL TEARS OPHTH SOLN 15 ML BOTTLE 1 DROP EACH EYE ×2 (08:25→20:45)
[2024-06-14] MEDS: BETAMETHASONE/CLOTRIMAZOLE CREAM 15 GM TUBE 1 APPLIC TOPICAL (08:25)
[2024-06-14] MEDS: cycloSPORINE 0.4 ML OPHTH SOLUTION 1 DROP EACH EYE ×2 (08:25→20:44)
[2024-06-14] MEDS: CALCIUM GLUC 2,000 MG/NS 100ML 2,000 MG/100 ML BAG 100 MG IVPB (08:30)
[2024-06-14] MEDS: LACTATED RINGERS 1,000 ML 50 ML IV CONT (08:35)
[2024-06-14] MEDS: MEROPENEM 1 GM/NS 100 ML 1 GM/100 ML BAG IVPB ×2 (09:08→20:54)
[2024-06-14] MEDS: CALCIUM CARBONATE (TUMS) 500 MG (200 MG ELEMENTAL) PO (09:10)
[2024-06-14] MEDS: ONDANSETRON INJ 4 MG/2 ML VIAL IV PUSH (09:11)
[2024-06-14 09:13] LABS: INR 1.4; Prothrombin Time 17.7 Seconds (11.1-14.7)
[2024-06-14 11:39] LABS: Glucose Point of Care 109 mg/dl (65-105)
--- NOTE | 2024-06-14 13:04 | PM.IMPN ---
Progress Note: A&P Assessment and Plan (1) Septic shock: Code(s): A41.9 - Sepsis, unspecified organism; R65.21 - Severe sepsis with septic shock Status: Acute Assessment and Plan: Septic shock secondary to UTI and Gram-negative bacteremia UA suggestive of UTI and blood cultures are growing Gram-negative rods Urine cultures growing E coli Continue meropenem. Off vancomycin Patient has he had IV fluids and will continue IV fluids at low rate maintenance Continue Levophed titration to maintain mean arterial pressure Obtain echocardiogram (2) Acute UTI: Code(s): N39.0 - Urinary tract infection, site not specified Status: Acute Assessment and Plan: See above (3) Acute urinary retention: Code(s): R33.8 - Other retention of urine Status: Acute Assessment and Plan: Status post Pérez insertion by Urology (4) BPH (benign prostatic hyperplasia): Qualifiers: Lower urinary tract symptom detail: urinary retention Lower urinary tract symptom presence: symptoms present Qualified Code(s): N40.1 - Benign prostatic hyperplasia with lower urinary tract symptoms; R33.8 - Other retention of urine Code(s): N40.0 - Benign prostatic hyperplasia without lower urinary tract symptoms Status: Acute Assessment and Plan: Continue Flomax Patient now has Pérez Evaluated by Urology (5) GE (acute kidney injury): Code(s): N17.9 - Acute kidney failure, unspecified Status: Acute Assessment and Plan: Likely secondary to urinary obstruction, sepsis and shock CT scan shows a renal stone but nonobstructive on right Status post Pérez insertion Creatinine improving and 1.5 today Monitor urine output electrolytes and creatinine IV fluids and Levophed as above CK 261 (6) Hypothyroid: Code(s): E03.9 - Hypothyroidism, unspecified Status: Acute Assessment and Plan: Continue levothyroxine (7) Anemia: Code(s): D64.9 - Anemia, unspecified Status: Acute Assessment and Plan: Gradual drop in hemoglobin since admission likely secondary hemodilution No sign of bleeding Monitor hemoglobin (8) Thrombocytopenia: Code(s): D69.6 - Thrombocytopenia, unspecified Status: Acute Assessment and Plan: Fast significant drop in platelet count likely secondary to sepsis antibiotics and hemodilution No other sign of active bleeding No schistocytes on differential Check coags Hold Lovenox and monitor Subjective Date/time seen: 06/14/24 13:04 Interval history: Patient was evaluated bedside along with the . Patient reports of doing well but still in the vasopressor. Review of Systems Review of Systems: All systems reviewed & are unremarkable except as noted in HPI and below ROS unobtainable: Yes unobtainable due to medical condition and unobtainable due to mental status Exam Narrative: General: Pt is alert awake and in NAD. Frail old male Lungs/Chest: Trachea central Clear BS B/L, No crackles or wheezing. Cardiac: RRR. Normal S1 S2. No murmurs Circulation: Bilateral dorsalis pedis is only Doppler or cold. Delayed cap refill. Abdomen: Normal bowel sounds.. Soft Soft. NT. ND. Extremities: No clubbing, cyanosis or edema. left femoral catheter : Pérez in place with clear urine Neurologic: Follows commands. Moves all 4 extremities PERRL AOx 1 Skin: No Rash Const: Other: , male, frail, ill-appearing HENMT: Face/Nose/Sinus: Normal nares present Mouth: Yes dry mucous membranes Eyes: General: appearance normal, both eyes and all related structures Sclera: sclerae normal Pupils: Equal, round and reactive pupils present EOM: EOMs intact bilaterally Resp: Auscultation: clear to auscultation bilaterally Other: Mild tachypnea Cardio: Rate: regular rate Rhythm: regular rhythm Other: S1-S2 present without murmur, rub, ectopy GI: Other: Abdomen soft, nondiste
[2024-06-14] MEDS: PANTOPRAZOLE SODIUM IV 40 MG VIAL IV PUSH (13:23)
[2024-06-14] MEDS: NOREPINEPHRINE 8 MG/D5W 250 ML 8 MG/250 ML BAG 1.88 MG IV CONT (15:09)
[2024-06-14 18:22] LABS: Glucose Point of Care 86 mg/dl (65-105)
[2024-06-14] MEDS: ATORVASTATIN 10 MG TABLET PO (20:45)
[2024-06-14] MEDS: LATANOPROST 0.005% OP SOLN 2.5 ML BTL 1 DROP EACH EYE (20:45)
[2024-06-14] MEDS: SENNOSIDES 8.6 MG TABLET PO (20:45)
[2024-06-15] VITALS (19 sets, daily range): BP systolic 90–119; BP diastolic 60–77; PULSE 59–77; RESP 14–23; TEMP 36.6–37.2; O2SAT 95–100; BMI 23.3
--- NOTE | 2024-06-15 | ECHO_ITS ---
Patient Info Name: Linwood Cloud Age: 84 years : 1940 Gender: Male Ht: 70 in Wt: 162 lbs BSA: 1.91 m2 HR: 72 bpm BP: 118 / 74 mmHg Heart Rhythm: Sinus Rhythm Technical Quality: Good Exam Date: 06/15/2024 9:55 AM Exam Location: Echo Lab Patient Status: Inpatient Admit Date: 06/13/2024 Staff Ordering Physician: Lalo Benavides MD Cloth Grader Supervisor: Leah Lal RADHA Attending Provider: Pipo Gardiner MD Exam Type: CA echo dop color flow w con Study Info Indications - shock Complete two-dimensional, color flow and Doppler transthoracic echocardiogram is performed with contrast to opacify the left ventricle and to improve the deliniation of the left ventricle endocardial borders. Summary 1. Technically somewhat challenging exam, definity contrast injected to improve visualization. 2. Modest left ventricular enlargement with mildly reduced systolic function. 3. Grade 1 diastolic noncompliance. 4. No valvular dysfunction. Left Ventricle Left ventricular chamber dimension is mildly enlarged. Left ventricular systolic function is mildly reduced, estimated at 40-45%. The left ventricular diastolic function is grade I diastolic dysfunction. Right Ventricle Right ventricular chamber dimension is normal. Left Atria Left atrial chamber dimension is mildly enlarged. Right Atria Right atrial chamber dimension is normal. Aortic Valve The aortic valve is normal. Pulmonic Valve The pulmonic valve is normal. Mitral Valve The mitral valve has normal leaflets. Tricuspid Valve The tricuspid valve leaflets are normal. There is mild tricuspid valve regurgitation. Pericardium/Pleural The pericardium appears normal. Aorta The aortic root size at the sinus of Valsalva is normal. Left Ventricular Outflow Tract Name Value Normal LVOT 2D LVOT Diameter 2.01 cm LVOT Doppler LVOT Peak Gradient 2 mmHg LVOT Mean Gradient 1 mmHg LVOT VTI 17.78 cm LVOT VTI/AV VTI Ratio 0.80 LVOT Stroke Volume 56.58 ml LVOT CO 3.46 l/min LVOT CI 1.81 L/min/m2 Pulmonic Valve Name Value Normal PV Doppler PV Peak Gradient 4 mmHg Mitral Valve Name Value Normal MV Doppler MV Decel [place] 438.58 cm/s2 MV PHT 0 s MV Area (PHT) 4.03 cm2 4.00-5.00 MV Diastolic Function MV E Peak Velocity 82.61 cm/s MV A Peak Velocity
[2024-06-15 00:25] LABS: Glucose Point of Care 100 mg/dl (65-105)
[2024-06-15] MEDS: LACTATED RINGERS 1,000 ML 50 ML IV CONT (04:01)
[2024-06-15] MEDS: LEVOTHYROXINE SODIUM 50 MCG TABLET PO (06:04)
[2024-06-15] MEDS: CENTRAL LINE FLUSH 10 ML IV PUSH ×3 (06:05→20:42)
[2024-06-15 06:09] LABS: Hematocrit 24.7 % (42.0-52.0); Hemoglobin 7.8 g/dL (14.0-18.0); Immature Platelet Fraction Pct 10.8 % (0.9-11.2); Mean Corpuscular HGB Conc 31.6 g/dl (32-36); Mean Corpuscular Hemoglobin 28.2 pg (26-34); Mean Corpuscular Volume 89.2 fl (80-100); Mean Platelet Volume 12.4 fl (7.4-10.4); Platelet Count Result 68 k/mm3 (150-375); Red Blood Count 2.77 M/mm3 (4.6-6.20); Red Cell Distribution Width 15.4 % (11.5-14.5); White Blood Count 18.1 K/mm3 (4.5-10.0)
[2024-06-15 06:31] LABS: Alanine Aminotransferase 45 U/L (6-50); Albumin Level 2.9 g/dL (3.5-5.1); Alkaline Phosphatase 187 U/L (38-126); Anion Gap 6 mmol/L (4-12); Aspartate Amino Transferase 111 U/L (17-59); Bilirubin,Total 0.5 mg/dL (0.2-1.3); Blood Urea Nitrogen 33 mg/dL (9-20); Carbon Dioxide 29 mmol/L (22-30); Chloride 100 mmol/L (98-107); Estimated CRCL calculation 42 ml/min; Estimated Glomerular Filt Rate 58; Glucose 86 mg/dL (65-110); Phosphorus 2.9 mg/dL (2.5-4.5); Potassium 3.4 mmol/L (3.4-5.0); Sodium 135 mmol/L (137-145)
--- NOTE | 2024-06-15 09:09 | WPDINTPN ---
Progress Note: A&P Assessment and Plan (1) Septic shock: Code(s): A41.9 - Sepsis, unspecified organism; R65.21 - Severe sepsis with septic shock Status: Acute Assessment and Plan: Septic shock secondary to UTI and E coli bacteremia UA suggestive of UTI and urine/ blood cultures are growing E coli E coli is pansensitive. Will discontinue meropenem and switch to Rocephin. DC further IV fluids. Levophed has been weaned off. Obtain echocardiogram (2) Acute UTI: Code(s): N39.0 - Urinary tract infection, site not specified Status: Acute Assessment and Plan: See above (3) Acute urinary retention: Code(s): R33.8 - Other retention of urine Status: Acute Assessment and Plan: Status post Pérez insertion by Urology (4) BPH (benign prostatic hyperplasia): Qualifiers: Lower urinary tract symptom presence: symptoms present Lower urinary tract symptom detail: urinary retention Qualified Code(s): N40.1 - Benign prostatic hyperplasia with lower urinary tract symptoms; R33.8 - Other retention of urine Code(s): N40.0 - Benign prostatic hyperplasia without lower urinary tract symptoms Status: Acute Assessment and Plan: Continue Flomax Patient now has Pérez Evaluated by Urology (5) GE (acute kidney injury): Code(s): N17.9 - Acute kidney failure, unspecified Status: Acute Assessment and Plan: Likely secondary to urinary obstruction, sepsis and shock CT scan shows a renal stone but nonobstructive on right Status post Pérez insertion Creatinine improving and 1.2 today Monitor urine output electrolytes and creatinine IV fluids and Levophed as above CK 261 (6) Hypothyroid: Code(s): E03.9 - Hypothyroidism, unspecified Status: Acute Assessment and Plan: Continue levothyroxine (7) Anemia: Code(s): D64.9 - Anemia, unspecified Status: Acute Assessment and Plan: Gradual drop in hemoglobin since admission likely secondary hemodilution No sign of bleeding and hemoglobin has been stable Monitor hemoglobin (8) Thrombocytopenia: Code(s): D69.6 - Thrombocytopenia, unspecified Status: Acute Assessment and Plan: Fast significant drop in platelet count likely secondary to sepsis antibiotics and hemodilution No other sign of active bleeding No schistocytes on differential Coags reviewed and mildly abnormal. Patient may have mild DIC from sepsis. Check fibrinogen level Hold Lovenox and monitor levels which are stable as of now (9) Electrolyte abnormality: Code(s): E87.8 - Other disorders of electrolyte and fluid balance, not elsewhere classified Status: Acute Assessment and Plan: Potassium replacement ordered Plan DVT prophylaxis -SCD Nutrition -diet ordered. Intake has been poor. Will consult dietitian. Code Status - Full Code Incentive spirometry PT OT consult Transfer out of ICU today Subjective Date/time seen: 06/15/24 Overnight events reviewed. Afebrile Acceptable urine output On room air Levophed weaned off early this morning Poor p.o. intake Other Vitals acceptable Denies any complaint Review of Systems Review of Systems: ROS unobtainable: Yes unobtainable due to medical condition and unobtainable due to mental status Exam Narrative: General: Pt is alert awake and in NAD. Frail old male Lungs/Chest: Trachea central Clear BS B/L, No crackles or wheezing. Cardiac: RRR. Normal S1 S2. No murmurs Circulation: Bilateral dorsalis pedis is only Doppler or cold. Delayed cap refill. Abdomen: Normal bowel sounds.. Soft Soft. NT. ND. Extremities: No clubbing, cyanosis or edema. left femoral catheter : Pérez in place with clear urine Neurologic: Follows commands. Moves all 4 extremities PERRL AOx 1 Skin: No Rash Objective Data Vital Signs Vital Signs: Vital Signs - 24 hr 06/14/24 10:00 06/14/24 10:41 06/14/24 10:41 Temperature
[2024-06-15] MEDS: FINASTERIDE 5 MG TABLET PO (09:28)
[2024-06-15] MEDS: MEMANTINE 5 MG TABLET PO ×2 (09:28→20:40)
[2024-06-15] MEDS: MIDODRINE HCL 10 MG TABLET PO ×3 (09:28→16:46)
[2024-06-15] MEDS: ASPIRIN 325 MG TABLET PO (09:28)
[2024-06-15] MEDS: PANTOPRAZOLE SODIUM IV 40 MG VIAL IV PUSH (09:28)
[2024-06-15] MEDS: TAMSULOSIN HCL 0.4 MG CAPSULE PO (09:28)
[2024-06-15] MEDS: DOCUSATE SODIUM 100 MG CAPSULE PO ×2 (09:28→20:40)
[2024-06-15] MEDS: POTASSIUM CHLORIDE 20 MEQ PACKET (FOR LIQUID) 40 MEQ PO (09:28)
[2024-06-15] MEDS: cycloSPORINE 0.4 ML OPHTH SOLUTION 1 DROP EACH EYE ×2 (09:28→20:40)
[2024-06-15] MEDS: ARTIFICIAL TEARS OPHTH SOLN 15 ML BOTTLE 1 DROP EACH EYE ×2 (09:29→20:37)
[2024-06-15] MEDS: BETAMETHASONE/CLOTRIMAZOLE CREAM 15 GM TUBE 1 APPLIC TOPICAL (09:29)
[2024-06-15] MEDS: PERFLUTREN LIPID MICROSPHERES 1.5 ML VIAL DILUTED TO 10 ML TOTAL VOLUME IV PUSH (10:15)
[2024-06-15 10:30] LABS: Fibrinogen 383 mg/dl (215-510)
--- NOTE | 2024-06-15 11:41 | PCPTNOTE ---
attempted PT eval, per RN pt still has a femoral line in and is not appropriate to get out of bed at this time, they plan to remove later this afternoon, will follow
[2024-06-15 11:50] LABS: Glucose Point of Care 120 mg/dl (65-105)
--- NOTE | 2024-06-15 11:56 | IVDEFINITY ---
Prior to administration of IV Definity the patient was educated on the risks and benefits of the imaging enhancing agent including potential adverse side effects. The patient verbalized understanding. Allergies were verified. No exclusion criteria were identified and at least one of the following inclusion criteria were met: 1) physician request, 2) patient technically difficult to image (per the [place] [employer]ocardi[employer] guidelines of two or more segments not discernable within the apical view), or 3) questionable left ventricular function. ?
--- NOTE | 2024-06-15 13:36 | PM.IMPN ---
Progress Note: A&P Assessment and Plan (1) Septic shock: Code(s): A41.9 - Sepsis, unspecified organism; R65.21 - Severe sepsis with septic shock Status: Acute Assessment and Plan: Septic shock secondary to UTI and E coli bacteremia UA suggestive of UTI and urine/ blood cultures are growing E coli E coli is pansensitive. Will discontinue meropenem and switch to Rocephin. DC further IV fluids. Levophed has been weaned off. Obtain echocardiogram (2) Acute UTI: Code(s): N39.0 - Urinary tract infection, site not specified Status: Acute Assessment and Plan: See above (3) Acute urinary retention: Code(s): R33.8 - Other retention of urine Status: Acute Assessment and Plan: Status post Pérez insertion by Urology Continue Pérez while awaiting prostate artery embolization referral. As per Urology note on 06/12 it says: This week its scheduled and Patient with large nonobstructing right renal stone. Will be addressed at a later date. No need for acute intervention at this time. (4) BPH (benign prostatic hyperplasia): Qualifiers: Lower urinary tract symptom detail: urinary retention Lower urinary tract symptom presence: symptoms present Qualified Code(s): N40.1 - Benign prostatic hyperplasia with lower urinary tract symptoms; R33.8 - Other retention of urine Code(s): N40.0 - Benign prostatic hyperplasia without lower urinary tract symptoms Status: Acute Assessment and Plan: Continue Flomax Patient now has Pérez Evaluated by Urology (5) GE (acute kidney injury): Code(s): N17.9 - Acute kidney failure, unspecified Status: Acute Assessment and Plan: Likely secondary to urinary obstruction, sepsis and shock CT scan shows a renal stone but nonobstructive on right Status post Pérez insertion Creatinine improving and 1.2 today Monitor urine output electrolytes and creatinine IV fluids and Levophed weaned off CK 261 (6) Hypothyroid: Code(s): E03.9 - Hypothyroidism, unspecified Status: Acute Assessment and Plan: Continue levothyroxine (7) Anemia: Code(s): D64.9 - Anemia, unspecified Status: Acute Assessment and Plan: Gradual drop in hemoglobin since admission likely secondary hemodilution No sign of bleeding and hemoglobin has been stable Monitor hemoglobin (8) Thrombocytopenia: Code(s): D69.6 - Thrombocytopenia, unspecified Status: Acute Assessment and Plan: Fast significant drop in platelet count likely secondary to sepsis antibiotics and hemodilution No other sign of active bleeding No schistocytes on differential Coags reviewed and mildly abnormal. Patient may have mild DIC from sepsis. Fibrinogen level pending Hold Lovenox and monitor levels (9) Electrolyte abnormality: Code(s): E87.8 - Other disorders of electrolyte and fluid balance, not elsewhere classified Status: Acute Assessment and Plan: Potassium replacement ordered Plan Subjective Date/time seen: 06/15/24 13:36 Interval history: Patient evaluated by aside. Patient is able to talk but couldnt make sense. Currently weaned off from levophed but still the blood pressure in 90s and javascript web developer decided to keep him in the ICU. Review of Systems Review of Systems: All systems reviewed & are unremarkable except as noted in HPI and below ROS unobtainable: Yes unobtainable due to medical condition and unobtainable due to mental status Exam Narrative: General: Pt is alert awake and in NAD. Frail old male Lungs/Chest: Trachea central Clear BS B/L, No crackles or wheezing. Cardiac: RRR. Normal S1 S2. No murmurs Circulation: Bilateral dorsalis pedis is only Doppler or cold. Delayed cap refill. Abdomen: Normal bowel sounds.. Soft Soft. NT. ND. Extremities: No clubbing, cyanosis or edema. left femoral catheter : Pérez in place with clear urine Neurologic: Follows comma
[2024-06-15 18:12] LABS: Glucose Point of Care 119 mg/dl (65-105)
[2024-06-15] MEDS: LATANOPROST 0.005% OP SOLN 2.5 ML BTL 1 DROP EACH EYE (20:36)
[2024-06-15] MEDS: ATORVASTATIN 10 MG TABLET PO (20:40)
[2024-06-15] MEDS: SENNOSIDES 8.6 MG TABLET PO (20:40)
[2024-06-15 23:51] LABS: Glucose Point of Care 90 mg/dl (65-105)
[2024-06-16] VITALS (12 sets, daily range): BP systolic 96–122; BP diastolic 60–76; PULSE 63–78; RESP 15–115; TEMP 36.8–37.6; O2SAT 92–100
[2024-06-16 06:07] LABS: Glucose Point of Care 88 mg/dl (65-105)
[2024-06-16] MEDS: CENTRAL LINE FLUSH 10 ML IV PUSH (06:07)
[2024-06-16] MEDS: CENTRAL LINE FLUSH 20 ML IV PUSH (06:07)
[2024-06-16 06:09] LABS: Hematocrit 26.9 % (42.0-52.0); Hemoglobin 8.6 g/dL (14.0-18.0); Mean Corpuscular Hemoglobin 28.4 pg (26-34); Mean Corpuscular Volume 88.8 fl (80-100); Mean Platelet Volume 11.8 fl (7.4-10.4); Platelet Count Result 85 k/mm3 (150-375); Red Blood Count 3.03 M/mm3 (4.6-6.20); Red Cell Distribution Width 15.5 % (11.5-14.5)
[2024-06-16] MEDS: LEVOTHYROXINE SODIUM 50 MCG TABLET PO (06:09)
[2024-06-16 06:24] LABS: Alanine Aminotransferase 71 U/L (6-50); Albumin Level 2.8 g/dL (3.5-5.1); Alkaline Phosphatase 287 U/L (38-126); Anion Gap 7 mmol/L (4-12); Aspartate Amino Transferase 137 U/L (17-59); Bilirubin,Total 0.5 mg/dL (0.2-1.3); Blood Urea Nitrogen 32 mg/dL (9-20); Calcium 8.3 mg/dL (8.4-10.2); Carbon Dioxide 31 mmol/L (22-30); Chloride 100 mmol/L (98-107); Estimated CRCL calculation 55 ml/min; Estimated Glomerular Filt Rate > 60; Glucose 98 mg/dL (65-110); Magnesium 1.8 mg/dL (1.6-2.3); Phosphorus 2.4 mg/dL (2.5-4.5); Potassium 4.3 mmol/L (3.4-5.0); Sodium 138 mmol/L (137-145)
[2024-06-16 08:25] LABS: Hepatitis B Surface Antigen Negative (Negative)
[2024-06-16 08:31] LABS: HAV RESULT Negative (Negative); Hepatitis B Core IgM Result Negative (Negative)
--- NOTE | 2024-06-16 08:40 | WPDINTPN ---
Progress Note: A&P Assessment and Plan (1) Septic shock: Code(s): A41.9 - Sepsis, unspecified organism; R65.21 - Severe sepsis with septic shock Status: Acute Assessment and Plan: Septic shock secondary to UTI and E coli bacteremia UA suggestive of UTI and urine/ blood cultures are growing E coli E coli is pansensitive. Will discontinue meropenem and switch to Rocephin. DC further IV fluids. Levophed has been weaned off since 4:00 a.m on 06/15/2024 06/15/2024: Echocardiogram Summary 1. Technically somewhat challenging exam, definity contrast injected to improve visualization. 2. Modest left ventricular enlargement with mildly reduced systolic function. EF 40-45% 3. Grade 1 diastolic noncompliance. 4. No valvular dysfunction. (2) Acute UTI: Code(s): N39.0 - Urinary tract infection, site not specified Status: Acute Assessment and Plan: See above (3) Acute urinary retention: Code(s): R33.8 - Other retention of urine Status: Acute Assessment and Plan: Status post Pérez insertion by Urology -per urology recommendations: Continue Pérez catheter with monthly changes with home health. Due for next exchange 07/12/2024 (4) BPH (benign prostatic hyperplasia): Qualifiers: Lower urinary tract symptom presence: symptoms present Lower urinary tract symptom detail: urinary retention Qualified Code(s): N40.1 - Benign prostatic hyperplasia with lower urinary tract symptoms; R33.8 - Other retention of urine Code(s): N40.0 - Benign prostatic hyperplasia without lower urinary tract symptoms Status: Acute Assessment and Plan: Continue Flomax Patient now has Pérez Evaluated by Urology (5) GE (acute kidney injury): Code(s): N17.9 - Acute kidney failure, unspecified Status: Acute Assessment and Plan: Likely secondary to urinary obstruction, sepsis and shock CT scan shows a renal stone but nonobstructive on right Status post Pérez insertion Creatinine improving and 0.90 this morning Monitor urine output electrolytes and creatinine IV fluids and Levophed as above CK 261 (6) Hypothyroid: Code(s): E03.9 - Hypothyroidism, unspecified Status: Acute Assessment and Plan: Continue levothyroxine (7) Anemia: Code(s): D64.9 - Anemia, unspecified Status: Acute Assessment and Plan: Gradual drop in hemoglobin since admission likely secondary hemodilution No sign of bleeding and hemoglobin has been stable and improved this a.m. Monitor hemoglobin (8) Thrombocytopenia: Code(s): D69.6 - Thrombocytopenia, unspecified Status: Acute Assessment and Plan: Fast significant drop in platelet count likely secondary to sepsis, antibiotics and hemodilution No other sign of active bleeding No schistocytes on differential Coags reviewed and mildly abnormal. Patient may have mild DIC from sepsis. -fibrinogen levels were normal on 06/15 -Hold Lovenox and monitor levels which are stable as of now (9) Electrolyte abnormality: Code(s): E87.8 - Other disorders of electrolyte and fluid balance, not elsewhere classified Status: Acute Assessment and Plan: Phosphorus replace (10) Elevated LFTs: Code(s): R79.89 - Other specified abnormal findings of blood chemistry Status: Acute Assessment and Plan: 06/16: Hepatitis panel is negative Will check right upper quadrant ultrasound Plan DVT prophylaxis -SCD Stress ulcer prophylaxis: Protonix Nutrition -heart healthy diet with supplements. Intake has been poor. Will consult dietitian. Code Status - Full Code Critical care time spent: 33 minutes -PT/OT to follow patient -remove femoral central line Transfer out of the ICU okay with hospice Due to a high probability of clinically significant, life threatening deterioration, the patient required my highest level of preparedness to intervene emergently a
[2024-06-16 08:43] LABS: Hepatitis C Virus Antibody Negative (Negative)
[2024-06-16] MEDS: ARTIFICIAL TEARS OPHTH SOLN 15 ML BOTTLE 1 DROP EACH EYE ×2 (08:52→20:15)
[2024-06-16] MEDS: ASPIRIN 325 MG TABLET PO (08:52)
[2024-06-16] MEDS: cycloSPORINE 0.4 ML OPHTH SOLUTION 1 DROP EACH EYE ×2 (08:52→20:16)
[2024-06-16] MEDS: POTASSIUM/PHOSPHORUS/SODIUM 1.5 GM PACKET 1 PACKET PO (08:52)
[2024-06-16] MEDS: TAMSULOSIN HCL 0.4 MG CAPSULE PO (08:53)
[2024-06-16] MEDS: PANTOPRAZOLE SODIUM IV 40 MG VIAL IV PUSH (08:53)
[2024-06-16] MEDS: BETAMETHASONE/CLOTRIMAZOLE CREAM 15 GM TUBE 1 APPLIC TOPICAL (08:53)
[2024-06-16] MEDS: DOCUSATE SODIUM 100 MG CAPSULE PO ×2 (08:53→20:16)
[2024-06-16] MEDS: MIDODRINE HCL 10 MG TABLET PO ×3 (08:53→16:50)
[2024-06-16] MEDS: MEMANTINE 5 MG TABLET PO ×2 (08:53→20:16)
[2024-06-16] MEDS: FINASTERIDE 5 MG TABLET PO (08:53)
[2024-06-16] MEDS: cefTRIAXone 2 GM/NS 100 ML 2 GM/100 ML BAG IVPB (08:59)
--- NOTE | 2024-06-16 09:51 | PCPTNOTE ---
Attempted PT evaluation, pt refused due to wanting to est breakfast. RN present. Will follow.
--- NOTE | 2024-06-16 10:54 | PCFNICU ---
ICU Rounding Note: Pt current nutrition is Heart Healthy with Ensure Enlive TID. Last recorded weight is 74.1 kg, up from 73.9 kg on admit. Bowel Motility: +BM reported 06/11 Labs Reviewed:BUN 32, Alb 2.8,Hgb 8.6,Hct 26.9 Meds Noted:Rocephin, Protonix. Skin: WNL Additional Notes: Patient remains on heart healthy diet. Intake is improving, 15-30% of meals. Patient is drinking the diet supplements of Ensure Enlive providing an additional 350 kcal/20 gm protein. Agree with diet orders. Following daily in ICU rounds. Monitoring intakes, weights, labs, supplement tolerance, plan of care Follow up in 5 days.
--- NOTE | 2024-06-16 13:33 | WPDUROPN2 ---
Progress Note: A&P Assessment and Plan (1) Acute UTI: Code(s): N39.0 - Urinary tract infection, site not specified Status: Acute Assessment and Plan: Urine culture with growth of E. coli and has E. coli in both blood cultures. Responding well to IV ceftriaxone. WBC improving and patient remains afebrile. (2) Urinary retention: Code(s): R33.9 - Retention of urine, unspecified Status: Acute Assessment and Plan: Secondary to massive prostatomegaly. Placed 14 Bulgarian coude catheter at bedside 06/12/24 and catheter is draining well at this time. Continue Aguilera catheter with monthly changes with home health. Due for next exchange 07/12/2024 (3) BPH (benign prostatic hyperplasia): Qualifiers: Lower urinary tract symptom presence: symptoms present Lower urinary tract symptom detail: urinary retention Qualified Code(s): N40.1 - Benign prostatic hyperplasia with lower urinary tract symptoms; R33.8 - Other retention of urine Code(s): N40.0 - Benign prostatic hyperplasia without lower urinary tract symptoms Status: Acute Assessment and Plan: Patient with severe BPH, 183 g prostate. Continue Aguilera while awaiting prostate artery embolization referral. Continue tamsulosin and finasteride. (4) Kidney stone: Code(s): N20.0 - Calculus of kidney Status: Acute Assessment and Plan: Patient with large nonobstructing right renal stone. Will be addressed at a later date. No need for acute intervention at this time. Subjective Subjective Date/Time Seen: 06/16/24 13:33 Interval history: Linwood is feeling better today. He is sitting up in bed eating breakfast. Reports no issues with his aguilera catheter which is draining clear yellow urine. Denies nausea, vomiting, fever, or chills. Review of Systems Review of Systems: All systems reviewed & are unremarkable except as noted in HPI and below Exam Narrative: General: Awake, alert, comfortable, no acute distress HEENT: Normocephalic, atraumatic, sclerae anicteric Respiratory: Normal respiratory effort, no accessory muscle use Abdomen: Nondistended, soft, nontender : Aguilera catheter draining clear yellow urine Skin: Normal coloration, warm and dry Neurologic: No focal neuro deficits noted Psychiatric: Appropriate mood and affect, judgment and insight intact Objective Data Vital Signs Vital Signs: Vital Signs - 24 hr 06/15/24 14:00 06/15/24 16:00 06/15/24 14:00 Temperature 97.9 F Pulse Rate 72 70 72 Respiratory Rate 19 20 Blood Pressure 99/63 L 95/67 L Pulse Oximetry 96 97 Oxygen Delivery Fraction of Inspired Oxygen 06/15/24 16:00 06/15/24 16:00 06/15/24 14:00 Temperature Pulse Rate 69 72 Respiratory Rate Blood Pressure 99/63 L Pulse Oximetry 98 Oxygen Delivery Room Air Fraction of Inspired Oxygen 06/15/24 16:00 06/15/24 18:00 06/15/24 18:00 Temperature Pulse Rate 71 73 72 Respiratory Rate Blood Pressure 95/67 L 99/66 L Pulse Oximetry Oxygen Delivery Fraction of Inspired Oxygen 06/15/24 18:00 06/15/24 19:00 06/15/24 20:41 Temperature Pulse Rate 74 77 71 Respiratory Rate 20 Blood Pressure 99/66 L 109/64 109/77 Pulse Oximetry 97 Oxygen Delivery Fraction of Inspired Oxygen 06/15/24 20:00 06/15/24 20:30 06/15/24 20:30 Temperature 99.0 F Pulse Rate 73 76 76 Respiratory Rate 18 18 Blood Pressure 109/77 Pulse Oximetry 98 98 Oxygen Delivery Room Air Fraction of Inspired Oxygen 06/15/24 22:00 06/15/24 22:00 06/15/24 22:00 Temperature Pulse Rate 72 72 72 Respiratory Rate 21 H Blood Pressure 119/68 119/68 Pulse Oximetry 97 Oxygen Delivery Fraction of Inspired Oxygen 06/16/24 00:00 06/16/24 00:00 06/16/24 00:00 Temperature 98.9 F Pulse Rate 69 69 69 Respiratory Rate 115 H Blood Pressure 115/68 115/68 Pulse Oximetry 98 Oxygen Delivery Fraction
[2024-06-16] MEDS: ACETAMINOPHEN 325 MG TABLET 650 MG PO (18:49)
[2024-06-16] MEDS: LATANOPROST 0.005% OP SOLN 2.5 ML BTL 1 DROP EACH EYE (20:15)
[2024-06-16] MEDS: ATORVASTATIN 10 MG TABLET PO (20:16)
[2024-06-16] MEDS: SENNOSIDES 8.6 MG TABLET PO (20:16)
[2024-06-17] VITALS (15 sets, daily range): BP systolic 89–153; BP diastolic 51–73; PULSE 63–96; RESP 16–24; TEMP 36–37.5; O2SAT 93–97
[2024-06-17] MEDS: ACETAMINOPHEN 325 MG TABLET 650 MG PO (01:27)
[2024-06-17 05:04] LABS: Basophils Percent Auto 0.4 % (0.2-1.2); Eosinophils Absolute Auto 0.1 K/mm3 (0-0.3); Eosinophils Percent Auto 1.3 % (0-4.4); Hematocrit 27.4 % (42.0-52.0); Hemoglobin 8.8 g/dL (14.0-18.0); Immature Granulocyte Absolute 0.06 K/mm3 (0.00-0.031); Immature Granulocyte Percent A 0.7 % (0-0.5); Immature Platelet Fraction Pct 6.9 % (0.9-11.2); Lymphocytes Absolute Auto 1.12 K/mm3 (0.9-3.2); Lymphocytes Percent Auto 13.4 % (18.3-44.2); Mean Corpuscular HGB Conc 32.1 g/dl (32-36); Mean Corpuscular Volume 87.3 fl (80-100); Mean Platelet Volume 12.2 fl (7.4-10.4); Monocytes Absolute Auto 0.7 K/mm3 (0.1-0.6); Monocytes Percent Auto 8.8 % (2.6-8.5); Neutrophils Absolute Auto 6.3 K/mm3 (1.3-6.7); Neutrophils Percent Auto 75.4 % (45.5-73.1); Platelet Count Result 96 k/mm3 (150-375); Red Blood Count 3.14 M/mm3 (4.6-6.20); Red Cell Distribution Width 15.3 % (11.5-14.5); White Blood Count 8.3 K/mm3 (4.5-10.0)
[2024-06-17 05:15] LABS: Alanine Aminotransferase 52 U/L (6-50); Albumin Level 2.7 g/dL (3.5-5.1); Alkaline Phosphatase 262 U/L (38-126); Anion Gap 6 mmol/L (4-12); Aspartate Amino Transferase 74 U/L (17-59); Bilirubin,Total 0.5 mg/dL (0.2-1.3); Blood Urea Nitrogen 25 mg/dL (9-20); Calcium 8.3 mg/dL (8.4-10.2); Carbon Dioxide 30 mmol/L (22-30); Chloride 99 mmol/L (98-107); Estimated CRCL calculation 62 ml/min; Estimated Glomerular Filt Rate > 60; Glucose 118 mg/dL (65-110); Magnesium 1.7 mg/dL (1.6-2.3); Phosphorus 2.8 mg/dL (2.5-4.5); Potassium 3.6 mmol/L (3.4-5.0); Sodium 135 mmol/L (137-145)
[2024-06-17] MEDS: LEVOTHYROXINE SODIUM 50 MCG TABLET PO (05:31)
[2024-06-17] MEDS: cefTRIAXone 2 GM/NS 100 ML 2 GM/100 ML BAG IVPB (08:12)
[2024-06-17] MEDS: DOCUSATE SODIUM 100 MG CAPSULE PO ×2 (08:13→20:45)
[2024-06-17] MEDS: FINASTERIDE 5 MG TABLET PO (08:13)
[2024-06-17] MEDS: ARTIFICIAL TEARS OPHTH SOLN 15 ML BOTTLE 1 DROP EACH EYE ×2 (08:13→20:06)
[2024-06-17] MEDS: TAMSULOSIN HCL 0.4 MG CAPSULE PO (08:13)
[2024-06-17] MEDS: ASPIRIN 325 MG TABLET PO (08:13)
[2024-06-17] MEDS: cycloSPORINE 0.4 ML OPHTH SOLUTION 1 DROP EACH EYE ×2 (08:13→20:06)
[2024-06-17] MEDS: PANTOPRAZOLE SODIUM IV 40 MG VIAL IV PUSH (08:13)
[2024-06-17] MEDS: MIDODRINE HCL 10 MG TABLET PO ×2 (08:13→13:03)
[2024-06-17] MEDS: MEMANTINE 5 MG TABLET PO ×2 (08:13→20:45)
[2024-06-17] MEDS: BETAMETHASONE/CLOTRIMAZOLE CREAM 15 GM TUBE 1 APPLIC TOPICAL (08:14)
--- NOTE | 2024-06-17 09:41 | PC.NURSE ---
This patient, Linwood Cloud, was transferred to [facility] via chair on 06/17/24 at 0941. Personal belongings sent with patient. Report given to NADIR Carter. Appropriate documentation sent with patient.
--- NOTE | 2024-06-17 16:13 | PM.IMPN ---
Progress Note: A&P Assessment and Plan (1) Acute UTI: Code(s): N39.0 - Urinary tract infection, site not specified Status: Acute Assessment and Plan: Urine culture with growth of E. coli and has E. coli in both blood cultures. Responding well to IV ceftriaxone. leukocytosis resolved repeat blood culture pending to dose 2 weeks of abx Blood culture positive for pansensitive E coli (2) Urinary retention: Code(s): R33.9 - Retention of urine, unspecified Status: Acute Assessment and Plan: Secondary to massive prostatomegaly. Placed 14 Kuwaiti coude catheter at bedside 06/12/24 and catheter is draining well at this time. Continue Pérez catheter with monthly changes with home health. Due for next exchange 07/12/2024 Urology following (3) BPH (benign prostatic hyperplasia): Qualifiers: Lower urinary tract symptom presence: symptoms present Lower urinary tract symptom detail: urinary retention Qualified Code(s): N40.1 - Benign prostatic hyperplasia with lower urinary tract symptoms; R33.8 - Other retention of urine Code(s): N40.0 - Benign prostatic hyperplasia without lower urinary tract symptoms Status: Acute Assessment and Plan: Patient with severe BPH, 183 g prostate. Continue Pérez while awaiting prostate artery embolization referral. Continue tamsulosin and finasteride. (4) Kidney stone: Code(s): N20.0 - Calculus of kidney Status: Acute Assessment and Plan: Patient with large nonobstructing right renal stone. Will be addressed at a later date. No need for acute intervention at this time per urology Plan DVT prophylaxis on SCDs, no AC due to Thrombocytopenia, plts 96 Subjective Date/time seen: 06/17/24 16:13 Interval history: Patient comfortable at bedside Review of Systems Review of Systems: All systems reviewed & are unremarkable except as noted in HPI and below Exam Const: Other: , male, frail, ill-appearing HENMT: Face/Nose/Sinus: Normal nares present Mouth: Yes dry mucous membranes Eyes: General: appearance normal, both eyes and all related structures Sclera: sclerae normal Pupils: Equal, round and reactive pupils present EOM: EOMs intact bilaterally Resp: Auscultation: clear to auscultation bilaterally Other: Mild tachypnea Cardio: Rate: regular rate Rhythm: regular rhythm Other: S1-S2 present without murmur, rub, ectopy GI: Other: Abdomen soft, nondistended, nontender. Normoactive to hypoactive bowel sounds throughout. Urinary Catheter: Urinary Catheter: patent and draining, urine dark and urine red Skin: General skin exam: normal color and no rashes or lesions noted Wounds: no wounds Neuro: Cranial nerves: Yes Equal, round and reactive pupils present Other: A&O times 0, patient with brief eye opening to noxious stimuli Extrem: Other: 2+ pitting edema to bilateral lower extremities, symmetric Psych: Other: Unable to assess Objective Data Vital Signs Vital Signs: Vital Signs - 24 hr 06/16/24 18:00 06/16/24 20:00 06/16/24 20:00 Temperature 99.6 F Pulse Rate 69 71 67 Respiratory Rate 21 H Blood Pressure 96/63 L Pulse Oximetry 96 Oxygen Delivery 06/16/24 20:00 06/17/24 00:00 06/17/24 00:00 Temperature 99.1 F Pulse Rate 64 63 Respiratory Rate 19 Blood Pressure 89/51 L Pulse Oximetry 96 96 Oxygen Delivery Room Air 06/17/24 00:00 06/17/24 04:00 06/17/24 04:00 Temperature Pulse Rate 68 71 Respiratory Rate 21 H Blood Pressure 110/60 Pulse Oximetry 96 93 Oxygen Delivery Room Air 06/17/24 04:00 06/17/24 06:00 06/17/24 08:00 Temperature 99.3 F Pulse Rate 66 76 Respiratory Rate 20 Blood Pressure 144/73 H Pulse Oximetry 93 97 Oxygen Delivery Room Air 06/17/24 08:00 06/17/24 08:00 06/17/24 08:34 Temperature Pulse Rate 70 Respiratory Rate Blood Pr
[2024-06-17 18:19] LABS: Iron 20 ug/dL (49-181)
[2024-06-17 18:29] LABS: Percent Iron Saturation 9 % (20-50)
[2024-06-17] MEDS: LATANOPROST 0.005% OP SOLN 2.5 ML BTL 1 DROP EACH EYE (20:06)
[2024-06-17] MEDS: SENNOSIDES 8.6 MG TABLET PO (20:45)
[2024-06-17] MEDS: ATORVASTATIN 10 MG TABLET PO (20:45)
[2024-06-18] VITALS (16 sets, daily range): BP systolic 131–145; BP diastolic 61–80; PULSE 76–101; RESP 16–28; TEMP 36.8–37.7; O2SAT 93–99
[2024-06-18 05:35] LABS: Basophils Percent Auto 0.2 % (0.2-1.2); Eosinophils Percent Auto 0.5 % (0-4.4); Hematocrit 27.4 % (42.0-52.0); Hemoglobin 8.8 g/dL (14.0-18.0); Immature Granulocyte Absolute 0.09 K/mm3 (0.00-0.031); Immature Platelet Fraction Pct 5.9 % (0.9-11.2); Lymphocytes Absolute Auto 1.34 K/mm3 (0.9-3.2); Lymphocytes Percent Auto 15.2 % (18.3-44.2); Mean Corpuscular HGB Conc 32.1 g/dl (32-36); Mean Corpuscular Hemoglobin 28.1 pg (26-34); Mean Corpuscular Volume 87.5 fl (80-100); Mean Platelet Volume 11.5 fl (7.4-10.4); Monocytes Absolute Auto 1.1 K/mm3 (0.1-0.6); Monocytes Percent Auto 12.3 % (2.6-8.5); Neutrophils Absolute Auto 6.2 K/mm3 (1.3-6.7); Neutrophils Percent Auto 70.8 % (45.5-73.1); Platelet Count Result 123 k/mm3 (150-375); Red Blood Count 3.13 M/mm3 (4.6-6.20); Red Cell Distribution Width 15.4 % (11.5-14.5); White Blood Count 8.8 K/mm3 (4.5-10.0)
[2024-06-18 06:01] LABS: Alanine Aminotransferase 39 U/L (6-50); Albumin Level 2.6 g/dL (3.5-5.1); Alkaline Phosphatase 211 U/L (38-126); Anion Gap 5 mmol/L (4-12); Aspartate Amino Transferase 46 U/L (17-59); Bilirubin,Total 0.5 mg/dL (0.2-1.3); Blood Urea Nitrogen 23 mg/dL (9-20); Carbon Dioxide 31 mmol/L (22-30); Chloride 96 mmol/L (98-107); Estimated CRCL calculation 62 ml/min; Estimated Glomerular Filt Rate > 60; Glucose 129 mg/dL (65-110); Magnesium 1.7 mg/dL (1.6-2.3); Phosphorus 2.8 mg/dL (2.5-4.5); Potassium 3.6 mmol/L (3.4-5.0); Sodium 132 mmol/L (137-145)
[2024-06-18] MEDS: LEVOTHYROXINE SODIUM 50 MCG TABLET PO (07:01)
[2024-06-18] MEDS: cycloSPORINE 0.4 ML OPHTH SOLUTION 1 DROP EACH EYE ×2 (08:09→20:32)
[2024-06-18] MEDS: DOCUSATE SODIUM 100 MG CAPSULE PO ×2 (08:09→20:32)
[2024-06-18] MEDS: MEMANTINE 5 MG TABLET PO ×2 (08:09→20:32)
[2024-06-18] MEDS: cefTRIAXone 2 GM/NS 100 ML 2 GM/100 ML BAG IVPB (08:09)
[2024-06-18] MEDS: PANTOPRAZOLE SODIUM IV 40 MG VIAL IV PUSH (08:09)
[2024-06-18] MEDS: TAMSULOSIN HCL 0.4 MG CAPSULE PO (08:09)
[2024-06-18] MEDS: FINASTERIDE 5 MG TABLET PO (08:09)
[2024-06-18] MEDS: ASPIRIN 325 MG TABLET PO (08:09)
--- NOTE | 2024-06-18 08:38 | PCOTNOTE ---
The patient treatment was not able to be completed. Patient was still eating breakfast. Will plan to continue treatment per plan of care.
[2024-06-18] MEDS: IRON SUCROSE COMPLEX 200 MG in SODIUM CHLORIDE 0.9% IV 100 ML 220 MG IVPB (09:50)
[2024-06-18] MEDS: BETAMETHASONE/CLOTRIMAZOLE CREAM 15 GM TUBE 1 APPLIC TOPICAL (09:50)
[2024-06-18] MEDS: ARTIFICIAL TEARS OPHTH SOLN 15 ML BOTTLE 1 DROP EACH EYE ×2 (09:50→20:30)
--- NOTE | 2024-06-18 11:27 | PCOTNOTE ---
Patient unavailable at this time. Patient has a provider in speaking with Patient and his family at this time. Will attempt again this afternoon.
--- NOTE | 2024-06-18 15:37 | PM.IMPN ---
Progress Note: A&P Assessment and Plan (1) Acute UTI: Code(s): N39.0 - Urinary tract infection, site not specified Status: Acute Assessment and Plan: Urine culture with growth of E. coli and has E. coli in both blood cultures. Responding well to IV ceftriaxone. leukocytosis resolved repeat blood culture pending to dose 2 weeks of abx Blood culture positive for pansensitive E coli (2) Urinary retention: Code(s): R33.9 - Retention of urine, unspecified Status: Acute Assessment and Plan: Secondary to massive prostatomegaly. Placed 14 Macedonian coude catheter at bedside 06/12/24 and catheter is draining well at this time. Continue Pérez catheter with monthly changes with home health. Due for next exchange 07/12/2024 Urology following (3) BPH (benign prostatic hyperplasia): Qualifiers: Lower urinary tract symptom presence: symptoms present Lower urinary tract symptom detail: urinary retention Qualified Code(s): N40.1 - Benign prostatic hyperplasia with lower urinary tract symptoms; R33.8 - Other retention of urine Code(s): N40.0 - Benign prostatic hyperplasia without lower urinary tract symptoms Status: Acute Assessment and Plan: Patient with severe BPH, 183 g prostate. Continue Pérez while awaiting prostate artery embolization referral. Continue tamsulosin and finasteride. (4) Kidney stone: Code(s): N20.0 - Calculus of kidney Status: Acute Assessment and Plan: Patient with large nonobstructing right renal stone. Will be addressed at a later date. No need for acute intervention at this time per urology (5) HSV (herpes simplex virus) infection: Code(s): B00.9 - Herpesviral infection, unspecified Status: Acute Assessment and Plan: vesicular rash on lips started on Valcyclovir monitor Plan DVT prophylaxis on Sq lovenox, plts now 123 Subjective Date/time seen: 06/18/24 15:37 Interval history: Patient comfortable at bedside however has vesicular blisters of his lips Review of Systems Review of Systems: All systems reviewed & are unremarkable except as noted in HPI and below ROS unobtainable: Yes unobtainable due to medical condition and unobtainable due to mental status Exam Narrative: General: Awake, alert, comfortable, no acute distress HEENT: Normocephalic, atraumatic, sclerae anicteric Respiratory: Normal respiratory effort, no accessory muscle use Abdomen: Nondistended, soft, nontender : Pérez catheter draining clear yellow urine Skin: vesicular blisters on lips Neurologic: No focal neuro deficits noted Psychiatric: Appropriate mood and affect, judgment and insight intact Const: Other: , male, frail, ill-appearing HENMT: Face/Nose/Sinus: Normal nares present Mouth: Yes dry mucous membranes Eyes: General: appearance normal, both eyes and all related structures Sclera: sclerae normal Pupils: Equal, round and reactive pupils present EOM: EOMs intact bilaterally Resp: Auscultation: clear to auscultation bilaterally Other: Mild tachypnea Cardio: Rate: regular rate Rhythm: regular rhythm Other: S1-S2 present without murmur, rub, ectopy GI: Other: Abdomen soft, nondistended, nontender. Normoactive to hypoactive bowel sounds throughout. Urinary Catheter: Urinary Catheter: patent and draining, urine dark and urine red Skin: General skin exam: normal color and no rashes or lesions noted Wounds: no wounds Neuro: Cranial nerves: Yes Equal, round and reactive pupils present Other: A&O times 0, patient with brief eye opening to noxious stimuli Extrem: Other: 2+ pitting edema to bilateral lower extremities, symmetric Psych: Other: Unable to assess Objective Data Vital Signs Vital Signs: Vital Signs - 24 hr 06/17/24 16:00 06/17/24 16:00 06/17/24 16:00 Temperature 97.8 F Pulse Rate 69 74 Respirat
[2024-06-18] MEDS: HEPARIN SODIUM 5,000 UNITS/ML VIAL 6000 UNITS IV PUSH (17:43)
[2024-06-18] MEDS: HEPARIN SOD/D5W 100 UNITS/ML 25,000 UNITS/250 ML BAG 13 UNITS IV CONT (17:43)
[2024-06-18 18:02] LABS: Basophils Percent Auto 0.2 % (0.2-1.2); Eosinophils Absolute Auto 0.1 K/mm3 (0-0.3); Eosinophils Percent Auto 0.5 % (0-4.4); Hematocrit 26.6 % (42.0-52.0); Hemoglobin 8.7 g/dL (14.0-18.0); Immature Granulocyte Absolute 0.06 K/mm3 (0.00-0.031); Immature Granulocyte Percent A 0.7 % (0-0.5); Immature Platelet Fraction Pct 4.5 % (0.9-11.2); Lymphocytes Absolute Auto 1.19 K/mm3 (0.9-3.2); Mean Corpuscular HGB Conc 32.7 g/dl (32-36); Mean Corpuscular Hemoglobin 27.8 pg (26-34); Mean Platelet Volume 11.4 fl (7.4-10.4); Monocytes Absolute Auto 1.1 K/mm3 (0.1-0.6); Monocytes Percent Auto 12.3 % (2.6-8.5); Neutrophils Absolute Auto 6.7 K/mm3 (1.3-6.7); Neutrophils Percent Auto 73.3 % (45.5-73.1); Platelet Count Result 143 k/mm3 (150-375); Red Blood Count 3.13 M/mm3 (4.6-6.20); Red Cell Distribution Width 15.4 % (11.5-14.5); White Blood Count 9.2 K/mm3 (4.5-10.0)
[2024-06-18 18:15] LABS: INR 1.1; Prothrombin Time 14.6 Seconds (11.1-14.7)
[2024-06-18 18:16] LABS: Partial Thromboplastin Time 32.4 Seconds (22.3-36.8)
[2024-06-18] MEDS: ATORVASTATIN 10 MG TABLET PO (20:31)
[2024-06-18] MEDS: SENNOSIDES 8.6 MG TABLET PO (20:32)
[2024-06-18] MEDS: LATANOPROST 0.005% OP SOLN 2.5 ML BTL 1 DROP EACH EYE (20:32)
[2024-06-18] MEDS: valACYclovir HCL 500 MG TABLET 1000 MG PO (20:32)
[2024-06-19] VITALS (12 sets, daily range): BP systolic 121–157; BP diastolic 47–74; PULSE 18–97; RESP 16–20; TEMP 36.8–37.7; O2SAT 96–100
[2024-06-19 00:21] LABS: Partial Thromboplastin Time 104.2 Seconds (22.3-36.8)
[2024-06-19 05:54] LABS: Basophils Percent Auto 0.3 % (0.2-1.2); Eosinophils Absolute Auto 0.1 K/mm3 (0-0.3); Eosinophils Percent Auto 1.5 % (0-4.4); Hemoglobin 8.3 g/dL (14.0-18.0); Immature Granulocyte Absolute 0.09 K/mm3 (0.00-0.031); Lymphocytes Absolute Auto 1.03 K/mm3 (0.9-3.2); Lymphocytes Percent Auto 11.3 % (18.3-44.2); Mean Corpuscular HGB Conc 31.9 g/dl (32-36); Mean Corpuscular Volume 87.8 fl (80-100); Monocytes Absolute Auto 0.9 K/mm3 (0.1-0.6); Monocytes Percent Auto 10.1 % (2.6-8.5); Neutrophils Absolute Auto 6.9 K/mm3 (1.3-6.7); Neutrophils Percent Auto 75.8 % (45.5-73.1); Platelet Count Result 154 k/mm3 (150-375); Red Blood Count 2.96 M/mm3 (4.6-6.20); Red Cell Distribution Width 15.8 % (11.5-14.5); White Blood Count 9.1 K/mm3 (4.5-10.0)
[2024-06-19 06:09] LABS: Partial Thromboplastin Time 88.4 Seconds (22.3-36.8)
[2024-06-19] MEDS: LEVOTHYROXINE SODIUM 50 MCG TABLET PO (06:56)
[2024-06-19] MEDS: ASPIRIN 325 MG TABLET PO (08:27)
[2024-06-19] MEDS: FINASTERIDE 5 MG TABLET PO (08:27)
[2024-06-19] MEDS: DOCUSATE SODIUM 100 MG CAPSULE PO ×2 (08:27→20:19)
[2024-06-19] MEDS: MEMANTINE 5 MG TABLET PO ×2 (08:27→20:19)
[2024-06-19] MEDS: BETAMETHASONE/CLOTRIMAZOLE CREAM 15 GM TUBE 1 APPLIC TOPICAL (08:28)
[2024-06-19] MEDS: ARTIFICIAL TEARS OPHTH SOLN 15 ML BOTTLE 1 DROP EACH EYE ×2 (08:28→20:20)
[2024-06-19] MEDS: cycloSPORINE 0.4 ML OPHTH SOLUTION 1 DROP EACH EYE ×2 (08:28→20:20)
[2024-06-19] MEDS: valACYclovir HCL 500 MG TABLET 1000 MG PO ×2 (08:28→20:18)
[2024-06-19] MEDS: MIDODRINE HCL 10 MG TABLET PO ×2 (08:28→12:21)
[2024-06-19] MEDS: PANTOPRAZOLE SODIUM IV 40 MG VIAL IV PUSH (08:28)
[2024-06-19] MEDS: TAMSULOSIN HCL 0.4 MG CAPSULE PO (08:28)
--- NOTE | 2024-06-19 10:28 | PCNFU ---
Nutrition Follow-Up Complete: Inadequate oral intake related to loss of appetite as evidenced by PO intake 15-30%, report of poor appetite 1 week Improve PO intake to at least 50-75% meals and supplements Goal: Pt current nutrition is Heart healthy diet, 25-50% intakes so far. Ensure Enlive TID for additional 350 kcal and 20 g protein. Nutrition recommendation: No new nutrition recommendations. Continue current nutrition care plan and orders. Last recorded weight is 75.8 kg. Bowel Motility: Last recorded bowel movement 06/11/24 Labs Reviewed: Hgb 8.3, Hct 26, Alb 2.6, Na 132, BUN 23, Glu 129 Meds Noted: Rocephin, protonix Skin: WNL Additional Notes: Intakes are fair 25-50%. Tele floor. Continue to monitor Monitoring intakes, weights, labs, supplement tolerance, plan of care Follow up in 5 days
[2024-06-19] MEDS: HEPARIN SOD/D5W 100 UNITS/ML 25,000 UNITS/250 ML BAG 13 UNITS IV CONT (12:21)
--- NOTE | 2024-06-19 17:46 | PM.IMPN ---
Progress Note: A&P Assessment and Plan (1) Acute UTI: Code(s): N39.0 - Urinary tract infection, site not specified Status: Acute Assessment and Plan: Urine culture with growth of E. coli and has E. coli in both blood cultures. Responding well to IV ceftriaxone. leukocytosis resolved repeat blood culture pending to dose 2 weeks of abx Blood culture positive for pansensitive E coli monitor (2) Urinary retention: Code(s): R33.9 - Retention of urine, unspecified Status: Acute Assessment and Plan: Secondary to massive prostatomegaly. Placed 14 Frisian coude catheter at bedside 06/12/24 and catheter is draining well at this time. Continue Pérez catheter with monthly changes with home health. Due for next exchange 07/12/2024 Urology following (3) BPH (benign prostatic hyperplasia): Qualifiers: Lower urinary tract symptom presence: symptoms present Lower urinary tract symptom detail: urinary retention Qualified Code(s): N40.1 - Benign prostatic hyperplasia with lower urinary tract symptoms; R33.8 - Other retention of urine Code(s): N40.0 - Benign prostatic hyperplasia without lower urinary tract symptoms Status: Acute Assessment and Plan: Patient with severe BPH, 183 g prostate. Continue Pérez while awaiting prostate artery embolization referral. Continue tamsulosin and finasteride. (4) Kidney stone: Code(s): N20.0 - Calculus of kidney Status: Acute Assessment and Plan: Patient with large nonobstructing right renal stone. Will be addressed at a later date. No need for acute intervention at this time per urology (5) HSV (herpes simplex virus) infection: Code(s): B00.9 - Herpesviral infection, unspecified Status: Acute Assessment and Plan: vesicular rash on lips and right side of the neck started on Valcyclovir, will change to 400mg daily tomorrow monitor (6) DVT (deep venous thrombosis): Code(s): I82.409 - Acute embolism and thrombosis of unspecified deep veins of unspecified lower extremity Status: Acute Assessment and Plan: Oh heparin in fusion Venous doppler showed DVT in righ tlower extremities and superficial thrombosis in right upper extremities On heparin infusion if patient bleeds will transfer to a higher level of care for IVC filter placement (7) Iron deficiency anemia: Code(s): D50.9 - Iron deficiency anemia, unspecified Status: Acute Assessment and Plan: likely from hematuria which has resolved started on Iron infusion 700/1000 Hb 8.3 monitor Plan DVT prophylaxis on Sq lovenox, plts now 123 Subjective Date/time seen: 06/19/24 17:46 Interval history: Patient comfortable at bedside Patient diagnosed on DVT in right lower extremity and thrombosis of cephalis in right upper extremity yesterday and started on heparin infusion Review of Systems Review of Systems: All systems reviewed & are unremarkable except as noted in HPI and below ROS unobtainable: Yes unobtainable due to medical condition and unobtainable due to mental status Exam Narrative: General: Awake, alert, comfortable, no acute distress HEENT: Normocephalic, atraumatic, sclerae anicteric Respiratory: Normal respiratory effort, no accessory muscle use Abdomen: Nondistended, soft, nontender : Pérez catheter draining clear yellow urine Skin: vesicular blisters on lips Neurologic: No focal neuro deficits noted Psychiatric: Appropriate mood and affect, judgment and insight intact Const: Other: , male, frail, ill-appearing HENMT: Face/Nose/Sinus: Normal nares present Mouth: Yes dry mucous membranes Eyes: General: appearance normal, both eyes and all related structures Sclera: sclerae normal Pupils: Equal, round and reactive pupils present EOM: EOMs intact bilaterally Resp: Auscultation: clear to auscultation bilaterally Other: Mild tach
--- NOTE | 2024-06-19 18:22 | PC.NURSE ---
pt transferred in to room 309 via bed, oriented to new room and environment, family at bedside, reviewed plan of care
--- NOTE | 2024-06-19 19:08 | PC.NURSE ---
This patient, Linwood Cloud, was transferred to [facility] on 06/19/24 at 1758. Personal belongings sent with patient. Report given to NADIR Mar. Appropriate documentation sent with patient.
[2024-06-19] MEDS: ACETAMINOPHEN 325 MG TABLET 650 MG PO (20:19)
[2024-06-19] MEDS: ATORVASTATIN 10 MG TABLET PO (20:19)
[2024-06-19] MEDS: LATANOPROST 0.005% OP SOLN 2.5 ML BTL 1 DROP EACH EYE (20:19)
[2024-06-19] MEDS: SENNOSIDES 8.6 MG TABLET PO (20:20)
[2024-06-19] MEDS: IRON SUCROSE COMPLEX 400 MG, IRON SUCROSE COMPLEX 100 MG in SODIUM CHLORIDE 0.9% IV 250 ML 78.57 MG IVPB (20:56)
[2024-06-20] VITALS (10 sets, daily range): BP systolic 122–136; BP diastolic 64–71; PULSE 58–85; RESP 13–18; TEMP 36.6–37.1; O2SAT 94–96
[2024-06-20] MEDS: LEVOTHYROXINE SODIUM 50 MCG TABLET PO (05:32)
[2024-06-20 07:29] LABS: Partial Thromboplastin Time 161.1 Seconds (22.3-36.8)
[2024-06-20] MEDS: TAMSULOSIN HCL 0.4 MG CAPSULE PO (08:17)
[2024-06-20] MEDS: FINASTERIDE 5 MG TABLET PO (08:18)
[2024-06-20] MEDS: valACYclovir HCL 500 MG TABLET 1000 MG PO ×2 (08:18→20:31)
[2024-06-20] MEDS: DOCUSATE SODIUM 100 MG CAPSULE PO ×2 (08:18→20:31)
[2024-06-20] MEDS: MEMANTINE 5 MG TABLET PO ×2 (08:18→20:31)
[2024-06-20] MEDS: ASPIRIN 325 MG TABLET PO (08:18)
[2024-06-20] MEDS: PANTOPRAZOLE SODIUM IV 40 MG VIAL IV PUSH (08:18)
[2024-06-20] MEDS: BETAMETHASONE/CLOTRIMAZOLE CREAM 15 GM TUBE 1 APPLIC TOPICAL (08:20)
[2024-06-20] MEDS: cycloSPORINE 0.4 ML OPHTH SOLUTION 1 DROP EACH EYE ×2 (08:20→20:32)
[2024-06-20] MEDS: ARTIFICIAL TEARS OPHTH SOLN 15 ML BOTTLE 1 DROP EACH EYE ×2 (08:20→20:32)
[2024-06-20] MEDS: IRON SUCROSE COMPLEX 200 MG, IRON SUCROSE COMPLEX 100 MG in SODIUM CHLORIDE 0.9% IV 250 ML 176.67 MG IVPB (09:19)
[2024-06-20] MEDS: HEPARIN SOD/D5W 100 UNITS/ML 25,000 UNITS/250 ML BAG 11 UNITS IV CONT (09:20)
--- NOTE | 2024-06-20 11:41 | PM.IMPN ---
Progress Note: A&P Assessment and Plan (1) Acute UTI: Code(s): N39.0 - Urinary tract infection, site not specified Status: Acute Assessment and Plan: Urine culture with growth of E. coli and has E. coli in both blood cultures. Responding well to IV ceftriaxone. leukocytosis resolved repeat blood culture pending to dose 2 weeks of abx Blood culture positive for pansensitive E coli monitor (2) Urinary retention: Code(s): R33.9 - Retention of urine, unspecified Status: Acute Assessment and Plan: Secondary to massive prostatomegaly. Placed 14 Welsh coude catheter at bedside 06/12/24 and catheter is draining well at this time. Continue Pérez catheter with monthly changes with home health. Due for next exchange 07/12/2024 Urology following (3) BPH (benign prostatic hyperplasia): Qualifiers: Lower urinary tract symptom presence: symptoms present Lower urinary tract symptom detail: urinary retention Qualified Code(s): N40.1 - Benign prostatic hyperplasia with lower urinary tract symptoms; R33.8 - Other retention of urine Code(s): N40.0 - Benign prostatic hyperplasia without lower urinary tract symptoms Status: Acute Assessment and Plan: Patient with severe BPH, 183 g prostate. Continue Pérez while awaiting prostate artery embolization referral. Continue tamsulosin and finasteride. (4) Kidney stone: Code(s): N20.0 - Calculus of kidney Status: Acute Assessment and Plan: Patient with large nonobstructing right renal stone. Will be addressed at a later date. No need for acute intervention at this time per urology (5) HSV (herpes simplex virus) infection: Code(s): B00.9 - Herpesviral infection, unspecified Status: Acute Assessment and Plan: vesicular rash on lips and right side of the neck started on Valcyclovir, will change to 400mg daily tomorrow monitor (6) DVT (deep venous thrombosis): Code(s): I82.409 - Acute embolism and thrombosis of unspecified deep veins of unspecified lower extremity Status: Acute Assessment and Plan: Oh heparin in fusion Venous doppler showed DVT in righ tlower extremities and superficial thrombosis in right upper extremities On heparin infusion if patient bleeds will transfer to a higher level of care for IVC filter placement (7) Iron deficiency anemia: Code(s): D50.9 - Iron deficiency anemia, unspecified Status: Acute Assessment and Plan: likely from hematuria which has resolved started on Iron infusion 1000/1000 Hb 8.3 monitor Plan DVT prophylaxis on Heparin infusion, thrombocytopenia resolved, 154 Subjective Date/time seen: 06/20/24 11:41 Interval history: Patient comfortable at bedside hb 8.3 this morning Still awaiting negative blood cultures for discharge Review of Systems Review of Systems: All systems reviewed & are unremarkable except as noted in HPI and below ROS unobtainable: Yes unobtainable due to medical condition and unobtainable due to mental status Exam Narrative: General: Awake, alert, comfortable, no acute distress HEENT: Normocephalic, atraumatic, sclerae anicteric Respiratory: Normal respiratory effort, no accessory muscle use Abdomen: Nondistended, soft, nontender : Pérez catheter draining clear yellow urine Skin: vesicular blisters on lips Neurologic: No focal neuro deficits noted Psychiatric: Appropriate mood and affect, judgment and insight intact Const: Other: , male, frail, ill-appearing HENMT: Face/Nose/Sinus: Normal nares present Mouth: Yes dry mucous membranes Eyes: General: appearance normal, both eyes and all related structures Sclera: sclerae normal Pupils: Equal, round and reactive pupils present EOM: EOMs intact bilaterally Resp: Auscultation: clear to auscultation bilaterally Other: Mild tachypnea Cardio: Rate: regular rate Rhyt
[2024-06-20 15:12] LABS: Partial Thromboplastin Time 77.6 Seconds (22.3-36.8)
[2024-06-20 20:24] LABS: Partial Thromboplastin Time 127.1 Seconds (22.3-36.8)
[2024-06-20] MEDS: ATORVASTATIN 10 MG TABLET PO (20:31)
[2024-06-20] MEDS: SENNOSIDES 8.6 MG TABLET PO (20:31)
[2024-06-20] MEDS: LATANOPROST 0.005% OP SOLN 2.5 ML BTL 1 DROP EACH EYE (20:32)
[2024-06-21] VITALS (7 sets, daily range): BP systolic 120–140; BP diastolic 54–69; PULSE 69–88; RESP 12–18; TEMP 36.7–36.9; O2SAT 99–100
[2024-06-21 02:52] LABS: Basophils Percent Auto 0.4 % (0.2-1.2); Eosinophils Absolute Auto 0.2 K/mm3 (0-0.3); Eosinophils Percent Auto 3.2 % (0-4.4); Hematocrit 24.5 % (42.0-52.0); Hemoglobin 7.7 g/dL (14.0-18.0); Immature Granulocyte Percent A 1.4 % (0-0.5); Lymphocytes Absolute Auto 1.14 K/mm3 (0.9-3.2); Lymphocytes Percent Auto 15.9 % (18.3-44.2); Mean Corpuscular HGB Conc 31.4 g/dl (32-36); Mean Corpuscular Hemoglobin 27.5 pg (26-34); Mean Corpuscular Volume 87.5 fl (80-100); Mean Platelet Volume 10.9 fl (7.4-10.4); Monocytes Absolute Auto 0.8 K/mm3 (0.1-0.6); Monocytes Percent Auto 10.9 % (2.6-8.5); Neutrophils Absolute Auto 4.9 K/mm3 (1.3-6.7); Neutrophils Percent Auto 68.2 % (45.5-73.1); Platelet Count Result 235 k/mm3 (150-375); White Blood Count 7.2 K/mm3 (4.5-10.0)
[2024-06-21 03:12] LABS: Alanine Aminotransferase 64 U/L (6-50); Albumin Level 2.5 g/dL (3.5-5.1); Alkaline Phosphatase 141 U/L (38-126); Anion Gap 4 mmol/L (4-12); Aspartate Amino Transferase 99 U/L (17-59); Bilirubin,Total 0.4 mg/dL (0.2-1.3); Blood Urea Nitrogen 15 mg/dL (9-20); Calcium 7.9 mg/dL (8.4-10.2); Carbon Dioxide 28 mmol/L (22-30); Chloride 98 mmol/L (98-107); Estimated CRCL calculation 70 ml/min; Estimated Glomerular Filt Rate > 60; Glucose 101 mg/dL (65-110); Magnesium 1.8 mg/dL (1.6-2.3); Potassium 3.5 mmol/L (3.4-5.0); Sodium 130 mmol/L (137-145)
[2024-06-21 03:13] LABS: Partial Thromboplastin Time 100.8 Seconds (22.3-36.8)
[2024-06-21] MEDS: LEVOTHYROXINE SODIUM 50 MCG TABLET PO (05:31)
[2024-06-21 10:26] LABS: Basophils Absolute Auto 0.1 K/mm3 (0.0-0.1); Basophils Percent Auto 0.7 % (0.2-1.2); Eosinophils Absolute Auto 0.1 K/mm3 (0-0.3); Eosinophils Percent Auto 1.8 % (0-4.4); Hematocrit 28.8 % (42.0-52.0); Hemoglobin 8.6 g/dL (14.0-18.0); Immature Granulocyte Absolute 0.08 K/mm3 (0.00-0.031); Immature Granulocyte Percent A 1.1 % (0-0.5); Lymphocytes Absolute Auto 0.99 K/mm3 (0.9-3.2); Lymphocytes Percent Auto 13.5 % (18.3-44.2); Mean Corpuscular HGB Conc 29.9 g/dl (32-36); Mean Corpuscular Hemoglobin 26.9 pg (26-34); Mean Platelet Volume 10.7 fl (7.4-10.4); Monocytes Absolute Auto 0.7 K/mm3 (0.1-0.6); Monocytes Percent Auto 9.6 % (2.6-8.5); Neutrophils Absolute Auto 5.4 K/mm3 (1.3-6.7); Neutrophils Percent Auto 73.3 % (45.5-73.1); Nucleated Red Blood Cells Perc 0.8 % (0.0-0.2); Platelet Count Result 273 k/mm3 (150-375); Red Cell Distribution Width 16.2 % (11.5-14.5); White Blood Count 7.4 K/mm3 (4.5-10.0)
[2024-06-21 10:37] LABS: Anion Gap 6 mmol/L (4-12); Blood Urea Nitrogen 15 mg/dL (9-20); Calcium 8.2 mg/dL (8.4-10.2); Carbon Dioxide 26 mmol/L (22-30); Chloride 97 mmol/L (98-107); Estimated CRCL calculation 70 ml/min; Estimated Glomerular Filt Rate > 60; Glucose 107 mg/dL (65-110); Potassium 3.6 mmol/L (3.4-5.0); Sodium 129 mmol/L (137-145)
[2024-06-21 10:39] LABS: Partial Thromboplastin Time 68.1 Seconds (22.3-36.8)
[2024-06-21] MEDS: valACYclovir HCL 500 MG TABLET 1000 MG PO ×2 (10:47→20:01)
[2024-06-21] MEDS: PANTOPRAZOLE SODIUM IV 40 MG VIAL IV PUSH (10:47)
[2024-06-21] MEDS: FINASTERIDE 5 MG TABLET PO (10:47)
[2024-06-21] MEDS: TAMSULOSIN HCL 0.4 MG CAPSULE PO (10:47)
[2024-06-21] MEDS: DOCUSATE SODIUM 100 MG CAPSULE PO ×2 (10:47→20:01)
[2024-06-21] MEDS: ASPIRIN 325 MG TABLET PO (10:48)
[2024-06-21] MEDS: MEMANTINE 5 MG TABLET PO ×2 (10:48→20:02)
[2024-06-21] MEDS: MIDODRINE HCL 10 MG TABLET PO ×3 (10:48→17:52)
[2024-06-21] MEDS: BETAMETHASONE/CLOTRIMAZOLE CREAM 15 GM TUBE 1 APPLIC TOPICAL (10:49)
[2024-06-21] MEDS: ARTIFICIAL TEARS OPHTH SOLN 15 ML BOTTLE 1 DROP EACH EYE ×2 (10:49→20:02)
[2024-06-21] MEDS: HEPARIN SOD/D5W 100 UNITS/ML 25,000 UNITS/250 ML BAG 11 UNITS IV CONT (10:50)
[2024-06-21] MEDS: cycloSPORINE 0.4 ML OPHTH SOLUTION 1 DROP EACH EYE ×2 (10:50→20:02)
[2024-06-21 10:52] LABS: Anisocytosis 1+; Platelet Estimate Adequate (Adequate); Schistocytes None Seen
[2024-06-21] MEDS: HEPARIN SODIUM 5,000 UNITS/ML VIAL 3000 UNITS IV PUSH (10:59)
--- NOTE | 2024-06-21 15:11 | PM.IMPN ---
Progress Note: A&P Assessment and Plan (1) Acute UTI: Code(s): N39.0 - Urinary tract infection, site not specified Status: Acute Assessment and Plan: Urine culture with growth of E. coli and has E. coli in both blood cultures. Responding well to IV ceftriaxone. leukocytosis resolved repeat blood culture pending to dose 2 weeks of abx Blood culture positive for pansensitive E coli monitor (2) Urinary retention: Code(s): R33.9 - Retention of urine, unspecified Status: Acute Assessment and Plan: Secondary to massive prostatomegaly. Placed 14 Japanese coude catheter at bedside 06/12/24 and catheter is draining well at this time. Continue Pérez catheter with monthly changes with home health. Due for next exchange 07/12/2024 Urology following (3) BPH (benign prostatic hyperplasia): Qualifiers: Lower urinary tract symptom presence: symptoms present Lower urinary tract symptom detail: urinary retention Qualified Code(s): N40.1 - Benign prostatic hyperplasia with lower urinary tract symptoms; R33.8 - Other retention of urine Code(s): N40.0 - Benign prostatic hyperplasia without lower urinary tract symptoms Status: Acute Assessment and Plan: Patient with severe BPH, 183 g prostate. Continue Pérez while awaiting prostate artery embolization referral. Continue tamsulosin and finasteride. (4) Kidney stone: Code(s): N20.0 - Calculus of kidney Status: Acute Assessment and Plan: Patient with large nonobstructing right renal stone. Will be addressed at a later date. No need for acute intervention at this time per urology (5) HSV (herpes simplex virus) infection: Code(s): B00.9 - Herpesviral infection, unspecified Status: Acute Assessment and Plan: vesicular rash on lips and right side of the neck day 3/10 of Valacyclovir monitor (6) DVT (deep venous thrombosis): Code(s): I82.409 - Acute embolism and thrombosis of unspecified deep veins of unspecified lower extremity Status: Acute Assessment and Plan: Oh heparin in fusion Venous doppler showed DVT in righ tlower extremities and superficial thrombosis in right upper extremities On heparin infusion if patient bleeds will transfer to a higher level of care for IVC filter placement (7) Iron deficiency anemia: Code(s): D50.9 - Iron deficiency anemia, unspecified Status: Acute Assessment and Plan: likely from hematuria which has resolved started on Iron infusion 1000/1000 Hb 7.7 monitor Plan DVT prophylaxis on Heparin infusion, thrombocytopenia resolved Subjective Date/time seen: 06/21/24 15:11 Interval history: Patient comfortable at bedside hb 7.7 this morning, s/p 1000mg IV iron Still awaiting negative blood cultures for discharge Review of Systems Review of Systems: All systems reviewed & are unremarkable except as noted in HPI and below ROS unobtainable: Yes unobtainable due to medical condition and unobtainable due to mental status Exam Narrative: General: Awake, alert, comfortable, no acute distress HEENT: Normocephalic, atraumatic, sclerae anicteric Respiratory: Normal respiratory effort, no accessory muscle use Abdomen: Nondistended, soft, nontender : Pérez catheter draining clear yellow urine Skin: vesicular blisters on lips Neurologic: No focal neuro deficits noted Psychiatric: Appropriate mood and affect, judgment and insight intact Const: Other: , male, frail, ill-appearing HENMT: Face/Nose/Sinus: Normal nares present Mouth: Yes dry mucous membranes Eyes: General: appearance normal, both eyes and all related structures Sclera: sclerae normal Pupils: Equal, round and reactive pupils present EOM: EOMs intact bilaterally Resp: Auscultation: clear to auscultation bilaterally Other: Mild tachypnea Cardio: Rate: regular rate Rhythm: regular rhythm Ot
[2024-06-21] MEDS: SENNOSIDES 8.6 MG TABLET PO (20:01)
[2024-06-21] MEDS: ATORVASTATIN 10 MG TABLET PO (20:02)
[2024-06-21] MEDS: LATANOPROST 0.005% OP SOLN 2.5 ML BTL 1 DROP EACH EYE (20:02)
[2024-06-22] VITALS (9 sets, daily range): BP systolic 134–149; BP diastolic 70–82; PULSE 56–96; RESP 12–16; TEMP 36.5–37; O2SAT 95–100
[2024-06-22 00:36] LABS: Partial Thromboplastin Time 116.4 Seconds (22.3-36.8)
[2024-06-22] MEDS: LEVOTHYROXINE SODIUM 50 MCG TABLET PO (05:15)
[2024-06-22 07:04] LABS: Basophils Percent Auto 0.4 % (0.2-1.2); Eosinophils Absolute Auto 0.3 K/mm3 (0-0.3); Eosinophils Percent Auto 3.6 % (0-4.4); Hematocrit 25.4 % (42.0-52.0); Hemoglobin 7.9 g/dL (14.0-18.0); Immature Granulocyte Absolute 0.05 K/mm3 (0.00-0.031); Immature Granulocyte Percent A 0.7 % (0-0.5); Lymphocytes Absolute Auto 1.22 K/mm3 (0.9-3.2); Lymphocytes Percent Auto 16.9 % (18.3-44.2); Mean Corpuscular HGB Conc 31.1 g/dl (32-36); Mean Corpuscular Hemoglobin 27.8 pg (26-34); Mean Corpuscular Volume 89.4 fl (80-100); Mean Platelet Volume 10.2 fl (7.4-10.4); Monocytes Absolute Auto 0.7 K/mm3 (0.1-0.6); Monocytes Percent Auto 9.9 % (2.6-8.5); Neutrophils Absolute Auto 4.9 K/mm3 (1.3-6.7); Neutrophils Percent Auto 68.5 % (45.5-73.1); Platelet Count Result 328 k/mm3 (150-375); Red Blood Count 2.84 M/mm3 (4.6-6.20); Red Cell Distribution Width 16.2 % (11.5-14.5); White Blood Count 7.2 K/mm3 (4.5-10.0)
[2024-06-22 07:16] LABS: Partial Thromboplastin Time 64.2 Seconds (22.3-36.8)
[2024-06-22 07:17] LABS: Alanine Aminotransferase 68 U/L (6-50); Albumin Level 2.6 g/dL (3.5-5.1); Alkaline Phosphatase 128 U/L (38-126); Anion Gap 3 mmol/L (4-12); Aspartate Amino Transferase 94 U/L (17-59); Bilirubin,Total 0.4 mg/dL (0.2-1.3); Blood Urea Nitrogen 15 mg/dL (9-20); Calcium 8.4 mg/dL (8.4-10.2); Carbon Dioxide 29 mmol/L (22-30); Chloride 98 mmol/L (98-107); Estimated CRCL calculation 69 ml/min; Estimated Glomerular Filt Rate > 60; Glucose 126 mg/dL (65-110); Magnesium 1.9 mg/dL (1.6-2.3); Potassium 4.3 mmol/L (3.4-5.0); Sodium 130 mmol/L (137-145)
[2024-06-22] MEDS: HEPARIN SODIUM 5,000 UNITS/ML VIAL 3000 UNITS IV PUSH ×2 (08:14→16:32)
[2024-06-22] MEDS: ASPIRIN 325 MG TABLET PO (08:15)
[2024-06-22] MEDS: TAMSULOSIN HCL 0.4 MG CAPSULE PO (08:16)
[2024-06-22] MEDS: FINASTERIDE 5 MG TABLET PO (08:16)
[2024-06-22] MEDS: valACYclovir HCL 500 MG TABLET 1000 MG PO ×2 (08:16→20:12)
[2024-06-22] MEDS: DOCUSATE SODIUM 100 MG CAPSULE PO ×2 (08:16→20:13)
[2024-06-22] MEDS: MEMANTINE 5 MG TABLET PO ×2 (08:26→20:13)
[2024-06-22] MEDS: cycloSPORINE 0.4 ML OPHTH SOLUTION 1 DROP EACH EYE ×2 (08:26→20:13)
[2024-06-22] MEDS: PANTOPRAZOLE SODIUM IV 40 MG VIAL IV PUSH (08:26)
[2024-06-22] MEDS: HEPARIN SOD/D5W 100 UNITS/ML 25,000 UNITS/250 ML BAG 10 UNITS IV CONT ×2 (08:27→12:48)
[2024-06-22] MEDS: BETAMETHASONE/CLOTRIMAZOLE CREAM 15 GM TUBE 1 APPLIC TOPICAL (10:04)
[2024-06-22] MEDS: ARTIFICIAL TEARS OPHTH SOLN 15 ML BOTTLE 1 DROP EACH EYE ×2 (10:04→20:13)
--- NOTE | 2024-06-22 10:18 | PC.NURSE ---
On 06/22/24, the student, [Anjali Richards], provided care and completed [facility] documentation on this patient. I have reviewed the student's documentation and agree with the findings.
--- NOTE | 2024-06-22 11:36 | PM.IMPN ---
Progress Note: A&P Assessment and Plan (1) Acute UTI: Code(s): N39.0 - Urinary tract infection, site not specified Status: Acute Assessment and Plan: Urine culture with growth of E. coli and has E. coli in both blood cultures. Responding well to IV ceftriaxone. leukocytosis resolved Blood culture positive for pansensitive E coli awaiting finalization of repeat blood culture to dose 2 weeks of abx from negative blood culture monitor (2) Urinary retention: Code(s): R33.9 - Retention of urine, unspecified Status: Acute Assessment and Plan: Secondary to massive prostatomegaly. Placed 14 Citizen Of [place] coude catheter at bedside 06/12/24 and catheter is draining well at this time. Continue Pérez catheter with monthly changes with home health. Due for next exchange 07/12/2024 Urology following (3) BPH (benign prostatic hyperplasia): Qualifiers: Lower urinary tract symptom presence: symptoms present Lower urinary tract symptom detail: urinary retention Qualified Code(s): N40.1 - Benign prostatic hyperplasia with lower urinary tract symptoms; R33.8 - Other retention of urine Code(s): N40.0 - Benign prostatic hyperplasia without lower urinary tract symptoms Status: Acute Assessment and Plan: Patient with severe BPH, 183 g prostate. Continue Pérez while awaiting prostate artery embolization referral. Continue tamsulosin and finasteride. (4) Kidney stone: Code(s): N20.0 - Calculus of kidney Status: Acute Assessment and Plan: Patient with large nonobstructing right renal stone. Will be addressed at a later date. No need for acute intervention at this time per urology (5) HSV (herpes simplex virus) infection: Code(s): B00.9 - Herpesviral infection, unspecified Status: Acute Assessment and Plan: vesicular rash on lips and right side of the neck day 4/14 of Valacyclovir monitor (6) DVT (deep venous thrombosis): Code(s): I82.409 - Acute embolism and thrombosis of unspecified deep veins of unspecified lower extremity Status: Acute Assessment and Plan: Oh heparin in fusion Venous doppler showed DVT in right lower extremities and superficial thrombosis in right upper extremities switch to PO anticoagulation on discharge (7) Iron deficiency anemia: Code(s): D50.9 - Iron deficiency anemia, unspecified Status: Acute Assessment and Plan: likely from hematuria which has resolved started on Iron infusion 1000/1000 Hb 7.9, improving monitor Plan DVT prophylaxis on Heparin infusion, thrombocytopenia resolved Subjective Date/time seen: 06/22/24 11:36 Interval history: Patient comfortable at bedside hb 7.9 this morning, Improving, s/p 1000mg IV iron Still awaiting negative blood cultures for discharge Review of Systems Review of Systems: All systems reviewed & are unremarkable except as noted in HPI and below ROS unobtainable: Yes unobtainable due to medical condition and unobtainable due to mental status Exam Narrative: General: Awake, alert, comfortable, no acute distress HEENT: Normocephalic, atraumatic, sclerae anicteric Respiratory: Normal respiratory effort, no accessory muscle use Abdomen: Nondistended, soft, nontender : Pérez catheter draining clear yellow urine Skin: vesicular blisters on lips Neurologic: No focal neuro deficits noted Psychiatric: Appropriate mood and affect, judgment and insight intact Const: Other: , male, frail, ill-appearing HENMT: Face/Nose/Sinus: Normal nares present Mouth: Yes dry mucous membranes Eyes: General: appearance normal, both eyes and all related structures Sclera: sclerae normal Pupils: Equal, round and reactive pupils present EOM: EOMs intact bilaterally Resp: Auscultation: clear to auscultation bilaterally Other: Mild tachypnea Cardio: Rate: regular rate Rhythm: regular rhy
[2024-06-22 15:32] LABS: Partial Thromboplastin Time 58.9 Seconds (22.3-36.8)
[2024-06-22] MEDS: SENNOSIDES 8.6 MG TABLET PO (20:13)
[2024-06-22] MEDS: LATANOPROST 0.005% OP SOLN 2.5 ML BTL 1 DROP EACH EYE (20:13)
[2024-06-22] MEDS: ATORVASTATIN 10 MG TABLET PO (20:13)
[2024-06-22 20:58] LABS: Glucose Point of Care 119 mg/dl (65-105)
[2024-06-23] VITALS (9 sets, daily range): BP systolic 120–132; BP diastolic 65–80; PULSE 78–125; RESP 16–18; TEMP 36.4–37.2; O2SAT 97–100
[2024-06-23 00:28] LABS: Partial Thromboplastin Time 70.5 Seconds (22.3-36.8)
[2024-06-23 06:01] LABS: Basophils Percent Auto 0.6 % (0.2-1.2); Eosinophils Absolute Auto 0.2 K/mm3 (0-0.3); Eosinophils Percent Auto 3.5 % (0-4.4); Hematocrit 23.7 % (42.0-52.0); Hemoglobin 7.3 g/dL (14.0-18.0); Immature Granulocyte Absolute 0.07 K/mm3 (0.00-0.031); Immature Granulocyte Percent A 1.1 % (0-0.5); Lymphocytes Absolute Auto 1.52 K/mm3 (0.9-3.2); Mean Corpuscular HGB Conc 30.8 g/dl (32-36); Mean Corpuscular Hemoglobin 27.7 pg (26-34); Mean Corpuscular Volume 89.8 fl (80-100); Mean Platelet Volume 9.9 fl (7.4-10.4); Monocytes Absolute Auto 0.6 K/mm3 (0.1-0.6); Monocytes Percent Auto 8.6 % (2.6-8.5); Neutrophils Absolute Auto 4.2 K/mm3 (1.3-6.7); Neutrophils Percent Auto 63.2 % (45.5-73.1); Platelet Count Result 419 k/mm3 (150-375); Red Blood Count 2.64 M/mm3 (4.6-6.20); Red Cell Distribution Width 16.4 % (11.5-14.5); White Blood Count 6.6 K/mm3 (4.5-10.0)
[2024-06-23 06:11] LABS: Partial Thromboplastin Time 63.4 Seconds (22.3-36.8)
[2024-06-23 06:15] LABS: Lactic Acid Reflex 0.7 mmol/L (0.7-2.0)
[2024-06-23 06:20] LABS: Alanine Aminotransferase 66 U/L (6-50); Albumin Level 2.6 g/dL (3.5-5.1); Alkaline Phosphatase 129 U/L (38-126); Anion Gap 5 mmol/L (4-12); Aspartate Amino Transferase 93 U/L (17-59); Bilirubin,Total 0.3 mg/dL (0.2-1.3); Blood Urea Nitrogen 13 mg/dL (9-20); Calcium 8.4 mg/dL (8.4-10.2); Carbon Dioxide 25 mmol/L (22-30); Chloride 102 mmol/L (98-107); Estimated CRCL calculation 69 ml/min; Estimated Glomerular Filt Rate > 60; Glucose 109 mg/dL (65-110); Magnesium 1.9 mg/dL (1.6-2.3); Potassium 3.6 mmol/L (3.4-5.0); Sodium 132 mmol/L (137-145)
[2024-06-23] MEDS: LEVOTHYROXINE SODIUM 50 MCG TABLET PO (06:44)
[2024-06-23] MEDS: HEPARIN SODIUM 5,000 UNITS/ML VIAL 3000 UNITS IV PUSH (06:44)
[2024-06-23] MEDS: BETAMETHASONE/CLOTRIMAZOLE CREAM 15 GM TUBE 1 APPLIC TOPICAL (08:53)
[2024-06-23] MEDS: MEMANTINE 5 MG TABLET PO ×2 (08:54→20:36)
[2024-06-23] MEDS: TAMSULOSIN HCL 0.4 MG CAPSULE PO (08:54)
[2024-06-23] MEDS: valACYclovir HCL 500 MG TABLET 1000 MG PO ×2 (08:54→20:36)
[2024-06-23] MEDS: cycloSPORINE 0.4 ML OPHTH SOLUTION 1 DROP EACH EYE ×2 (08:54→20:49)
[2024-06-23] MEDS: PANTOPRAZOLE SODIUM IV 40 MG VIAL IV PUSH (08:54)
[2024-06-23] MEDS: ARTIFICIAL TEARS OPHTH SOLN 15 ML BOTTLE 1 DROP EACH EYE ×2 (08:54→20:48)
[2024-06-23] MEDS: DOCUSATE SODIUM 100 MG CAPSULE PO ×2 (08:54→20:36)
[2024-06-23] MEDS: FINASTERIDE 5 MG TABLET PO (08:54)
[2024-06-23] MEDS: ASPIRIN 325 MG TABLET PO (08:54)
[2024-06-23] MEDS: HEPARIN SOD/D5W 100 UNITS/ML 25,000 UNITS/250 ML BAG 12 UNITS IV CONT (11:58)
[2024-06-23 12:44] LABS: Partial Thromboplastin Time 86.7 Seconds (22.3-36.8)
--- NOTE | 2024-06-23 17:04 | WPDPN ---
Progress Note: A&P Assessment and Plan (1) Acute UTI: Code(s): N39.0 - Urinary tract infection, site not specified Status: Acute Assessment and Plan: Urine culture with growth of E. coli and has E. coli in both blood cultures. Responding well to IV ceftriaxone. leukocytosis resolved Blood culture positive for pansensitive E coli awaiting finalization of repeat blood culture to dose 2 weeks of abx from negative blood culture monitor (2) Urinary retention: Code(s): R33.9 - Retention of urine, unspecified Status: Acute Assessment and Plan: Secondary to massive prostatomegaly. Placed 14 [place] coude catheter at bedside 06/12/24 and catheter is draining well at this time. Continue Pérez catheter with monthly changes with home health. Due for next exchange 07/12/2024 Urology following (3) BPH (benign prostatic hyperplasia): Qualifiers: Lower urinary tract symptom presence: symptoms present Lower urinary tract symptom detail: urinary retention Qualified Code(s): N40.1 - Benign prostatic hyperplasia with lower urinary tract symptoms; R33.8 - Other retention of urine Code(s): N40.0 - Benign prostatic hyperplasia without lower urinary tract symptoms Status: Acute Assessment and Plan: Patient with severe BPH, 183 g prostate. Continue Pérez while awaiting prostate artery embolization referral. Continue tamsulosin and finasteride. (4) Kidney stone: Code(s): N20.0 - Calculus of kidney Status: Acute Assessment and Plan: Patient with large nonobstructing right renal stone. Will be addressed at a later date. No need for acute intervention at this time per urology (5) HSV (herpes simplex virus) infection: Code(s): B00.9 - Herpesviral infection, unspecified Status: Acute Assessment and Plan: vesicular rash on lips and right side of the neck day 4/14 of Valacyclovir monitor (6) DVT (deep venous thrombosis): Code(s): I82.409 - Acute embolism and thrombosis of unspecified deep veins of unspecified lower extremity Status: Acute Assessment and Plan: Oh heparin in fusion Venous doppler showed DVT in right lower extremities and superficial thrombosis in right upper extremities today we will switch to PO eliquis 5mg BID in anticipation of discharge soon. (7) Iron deficiency anemia: Code(s): D50.9 - Iron deficiency anemia, unspecified Status: Acute Assessment and Plan: likely from hematuria which has resolved started on Iron infusion 1000/1000 Hb 7.3 improving monitor Plan DVT prophylaxis on eliquis Subjective Date/time seen: 06/23/24 17:04 Interval history: Patient comfortable sitting in the chair just finished PT and now waiting for breakfast. hb 7.3 this morning, patient has iron deficiency anemia and being treated with IV iron. Still awaiting negative blood cultures for discharge Review of Systems Review of Systems: All systems reviewed & are unremarkable except as noted in HPI and below Exam Narrative: Patient is comfortable, NAD HEENT: eyes are clear and none icteric LUNGS:CTA HEART: RR S1S2 ABD: BS+, Soft and nontender Lower extremities: no edema SKIN: nonjaundiced Neuro: grossly intact. Const: Other: , male, frail, ill-appearing Objective Data Vital Signs Vital Signs: Vital Signs - 24 hr 06/22/24 20:00 06/22/24 23:57 06/22/24 20:00 Temperature 37.0 C Pulse Rate 86 92 Respiratory Rate 12 Blood Pressure 136/82 Pulse Oximetry 95 Oxygen Delivery Room Air 06/23/24 00:00 06/23/24 04:00 06/23/24 08:20 Temperature Pulse Rate 81 80 125 H Respiratory Rate Blood Pressure Pulse Oximetry Oxygen Delivery 06/23/24 08:00 06/23/24 08:53 06/23/24 12:09 Temperature 36.6 C Pulse Rate 90 Respiratory Rate 18 Blood Pressure 124/65 120/65 Pulse Oximetry 98 Oxygen Delivery Fabienne
[2024-06-23 19:59] LABS: Partial Thromboplastin Time 30.1 Seconds (22.3-36.8)
[2024-06-23] MEDS: APIXABAN 5 MG TABLET PO (20:36)
[2024-06-23] MEDS: SENNOSIDES 8.6 MG TABLET PO (20:37)
[2024-06-23] MEDS: ATORVASTATIN 10 MG TABLET PO (20:37)
[2024-06-23] MEDS: LATANOPROST 0.005% OP SOLN 2.5 ML BTL 1 DROP EACH EYE (20:49)
[2024-06-24] VITALS: PULSE 76
[2024-06-24] MEDS: MELATONIN 5 MG TABLET PO
[2024-06-24 04:00] VITALS: PULSE 73
[2024-06-24] MEDS: LEVOTHYROXINE SODIUM 50 MCG TABLET PO (05:56)
[2024-06-24 06:23] LABS: Hematocrit 24.3 % (42.0-52.0); Hemoglobin 7.3 g/dL (14.0-18.0); Mean Corpuscular Hemoglobin 27.2 pg (26-34); Mean Corpuscular Volume 90.7 fl (80-100); Mean Platelet Volume 9.6 fl (7.4-10.4); Platelet Count Result 501 k/mm3 (150-375); Red Blood Count 2.68 M/mm3 (4.6-6.20); Red Cell Distribution Width 17.2 % (11.5-14.5); White Blood Count 6.2 K/mm3 (4.5-10.0)
[2024-06-24 07:55] VITALS: BP 124/76; PULSE 66; RESP 16; TEMP 36.9; O2SAT 100
[2024-06-24 08:03] VITALS: PULSE 67
[2024-06-24 08:26] LABS: Anion Gap 6 mmol/L (4-12); Blood Urea Nitrogen 12 mg/dL (9-20); Calcium 8.4 mg/dL (8.4-10.2); Carbon Dioxide 26 mmol/L (22-30); Chloride 98 mmol/L (98-107); Estimated CRCL calculation 67 ml/min; Estimated Glomerular Filt Rate > 60; Glucose 111 mg/dL (65-110); Magnesium 1.9 mg/dL (1.6-2.3); Sodium 130 mmol/L (137-145)
[2024-06-24] MEDS: MEMANTINE 5 MG TABLET PO (09:46)
[2024-06-24] MEDS: MIDODRINE HCL 10 MG TABLET PO ×2 (09:46→14:09)
[2024-06-24] MEDS: ARTIFICIAL TEARS OPHTH SOLN 15 ML BOTTLE 1 DROP EACH EYE (09:47)
[2024-06-24] MEDS: ASPIRIN 325 MG TABLET PO (09:47)
[2024-06-24] MEDS: FINASTERIDE 5 MG TABLET PO (09:47)
[2024-06-24] MEDS: valACYclovir HCL 500 MG TABLET 1000 MG PO (09:47)
[2024-06-24] MEDS: TAMSULOSIN HCL 0.4 MG CAPSULE PO (09:47)
[2024-06-24] MEDS: cycloSPORINE 0.4 ML OPHTH SOLUTION 1 DROP EACH EYE (09:47)
[2024-06-24] MEDS: DOCUSATE SODIUM 100 MG CAPSULE PO (09:47)
[2024-06-24] MEDS: APIXABAN 5 MG TABLET PO (09:47)
[2024-06-24] MEDS: PANTOPRAZOLE SODIUM IV 40 MG VIAL IV PUSH (09:48)
[2024-06-24] MEDS: BETAMETHASONE/CLOTRIMAZOLE CREAM 15 GM TUBE 1 APPLIC TOPICAL (09:48)
--- NOTE | 2024-06-24 11:36 | PCNFU ---
Nutrition Follow-Up Complete: Inadequate oral intake related to loss of appetite as evidenced by PO intake 15-30%, report of poor appetite 1 week Improve PO intake to at least 50-75% meals and supplements -Goal is being met. Continue with same goal Goal: Pt current nutrition is Heart healthy diet. Ensure Enlive TID for additional 350 kcal and 20 g protein each. Nutrition recommendation: No new nutrition recommendations. Continue current nutrition care plan and orders Last recorded weight is 70.3 kg. Bowel Motility: Been a few days ; No BM recorded in EMR. Bowel regimen added today Labs Reviewed: Hgb 7.3, Hct 24.3, NA 130, Glu 111 Meds Noted: Protonix, colace, senna, zofran Skin: No pressure injuries Additional Notes: Pt was in good spirits today and ate breakfast with good appetite. Progressing with intakes 10-100%, 58% average. Continue current orders. Agree with orders Monitoring intakes, weights, labs, supplement tolerance, plan of care Follow up in 5 days
[2024-06-24 12:00] VITALS: PULSE 83
--- NOTE | 2024-06-24 14:02 | PM.DS ---
DS: Admitting Diagnosis Discharge Date 06/24/24 Admitting Diagnosis Abdominal Pain DS: Discharge Diagnosis Discharge Diagnosis (1) UTI (urinary tract infection) due to urinary indwelling catheter: Code(s): T83.511A - Infection and inflammatory reaction due to indwelling urethral catheter, initial encounter; N39.0 - Urinary tract infection, site not specified Status: Acute (2) Urinary retention: Code(s): R33.9 - Retention of urine, unspecified Status: Acute (3) BPH (benign prostatic hyperplasia): Qualifiers: Lower urinary tract symptom detail: urinary retention Lower urinary tract symptom presence: symptoms present Qualified Code(s): N40.1 - Benign prostatic hyperplasia with lower urinary tract symptoms; R33.8 - Other retention of urine Code(s): N40.0 - Benign prostatic hyperplasia without lower urinary tract symptoms Status: Acute (4) Kidney stone: Code(s): N20.0 - Calculus of kidney Status: Acute (5) DVT (deep venous thrombosis): Code(s): I82.409 - Acute embolism and thrombosis of unspecified deep veins of unspecified lower extremity Status: Acute (6) HSV (herpes simplex virus) infection: Code(s): B00.9 - Herpesviral infection, unspecified Status: Acute (7) Iron deficiency anemia: Code(s): D50.9 - Iron deficiency anemia, unspecified Status: Acute DS: Summary Hospital Course Hospital Course: Urine culture with growth of E. coli and has E. coli in both blood cultures. Responding well to IV ceftriaxone. leukocytosis resolved Blood culture positive for pansensitive E coli, patient was switched to oral abx and completed the course awaiting finalization of repeat blood culture to dose 2 weeks of abx from negative blood culture monitor patient with urinary retention most likely secondary to massive prostatomegaly. Placed 14 [place] coude catheter at bedside 06/12/24 and catheter is draining well at this time. Continue Pérez catheter with monthly changes with home health. Due for next exchange 07/12/2024 patient will follow up with urologist as scheduled, patient is clinically stable, will discharge patient today. Time Spent with Patient Time attestation: Total time spent providing and/or coordinating discharge services: DS: Data Data Completed and Pending Labs on day of discharge: Labs from last 24 hours 09/25/24 09/24/24 05:54 19:39 WBC 6.2 RBC 2.68 L Hgb 7.3 L Hct 24.3 L MCV 90.7 MCH 27.2 MCHC 30.0 L RDW 17.2 H Plt Count 501 H MPV 9.6 APTT 30.1 Sodium 130 L Potassium 4.0 Chloride 98 Carbon Dioxide 26 Anion Gap 6 BUN 12 Creatinine 0.70 Estim Creat Clear Calc 67 Estimated GFR > 60 Glucose 111 H Calcium 8.4 Magnesium 1.9 Preliminary micro results at discharge 06/19/24 10:21 Blood Culture - Preliminary Blood 06/19/24 10:20 Blood Culture - Preliminary Blood Discharge Plan Discharge Attending physician on discharge: Pipo Gardiner Consulting providers: Lalo Benavides; Gypsy Lizama; Lauro Cuevas; Abena Hahn; Hany Woodward; Inderjit Cruz; Jose Henson; Yared Ibanez; Edwin Obrien; Justin Wren; Juan Rodríguez V.; Dyllan Milan Discharging Clinician: Hien Choi Patient Disposition: Inpatient Rehab Facility Activity: as tolerated Diet: heart healthy Discharge Instructions: patient is being discharged to [facility]. patient to follow up with his primary care provider as soon as possible Follow-up/Referrals: Joao,Leah Smith MD [Primary Care Provider] - Celia Huitron MD [Physician] - Discharge Medications: New midodrine 10 mg Tablet 10 mg PO TID Qty: 90 0RF melatonin 5 mg Tablet 5 mg PO HS PRN (Reason: Sleep) Qty: 30 0RF valacyclovir [Valtrex] 500 mg Tablet 1,000 mg PO Q12HR Qty: 20 0RF Continued atorvastatin 10 mg tablet
== END 2024-06-24 15:10 | DRG 698 ==
LOC: ANHED 06-12 11:13 → ANHIMU 06-12 13:27 → ANHICU 06-12 19:00 → ANHIMU 06-13 20:52 → ANHICU 06-13 21:13 → ANHIMU 06-17 09:52 → ANH3MEDSUR 06-19 18:04
PROVIDERS: Emergency Medicine; Internal Medicine; Student in an Organized Health Care Education/Training Program; Admitting Provider General Practice; Emergency Provider Emergency Medicine; PCP Internal Medicine; Visit Provider Family Medicine
DX: T83.511A Infection and inflammatory reaction due to indwelling urethral catheter, initial encounter; A41.51 Sepsis due to Escherichia coli [E. coli]; R65.21 Severe sepsis with septic shock; N17.9 Acute kidney failure, unspecified; G61.81 Chronic inflammatory demyelinating polyneuritis; I82.413 Acute embolism and thrombosis of femoral vein, bilateral; I82.431 Acute embolism and thrombosis of right popliteal vein; I82.611 Acute embolism and thrombosis of superficial veins of right upper extremity; N39.0 Urinary tract infection, site not specified; I10 Essential (primary) hypertension; E53.8 Deficiency of other specified B group vitamins; E78.00 Pure hypercholesterolemia, unspecified; E03.9 Hypothyroidism, unspecified; D69.6 Thrombocytopenia, unspecified; D64.9 Anemia, unspecified; B00.9 Herpesviral infection, unspecified; B96.20 Unspecified Escherichia coli [E. coli] as the cause of diseases classified elsewhere; K21.9 Gastro-esophageal reflux disease without esophagitis; K40.20 Bilateral inguinal hernia, without obstruction or gangrene, not specified as recurrent; K44.9 Diaphragmatic hernia without obstruction or gangrene; N40.1 Benign prostatic hyperplasia with lower urinary tract symptoms; R33.8 Other retention of urine; N20.0 Calculus of kidney; G62.9 Polyneuropathy, unspecified; F32.A Depression, unspecified; F41.9 Anxiety disorder, unspecified; Z96.652 Presence of left artificial knee joint; Z79.82 Long term (current) use of aspirin
CPT/HCPCS: 36415; 71045; 73030; 73070; 74177; 76705; 80048; 80053; 80074; 81001; 82550; 82728; 82948; 83540; 83550; 83605; 83690; 83735; 84100; 84145; 85025; 85027; 85055; 85384; 85610; 85730; 87040; 87077; 87086; 87088; 87186; 87641; 93005; 93970; 93971; 96361; 96365; 96366; 96367; 96368; 96375; 97110; 97116; 97162; 97165; 97530; 97535; 99285; A9270; C1751; C8929; G0378; J0613; J0696; J1644; J1756; J2185; J2405; J2470; J3370; J7030; J7050; J7070; J7120; P9047; Q9957; Q9967

== ENCOUNTER 2024-06-25 14:34 | Emergency (ER) | payer MEDICARE, SELFPAY ==
[2024-06-25] VITALS (24 sets, daily range): BP systolic 93–140; BP diastolic 54–81; PULSE 71–110; RESP 13–26; TEMP 36.6; O2SAT 95–100
--- NOTE | ~2024-06-25 | XR_ITS ---
EXAMINATION: XR chest 1V portable Exam Date/Time: 06/25/2024 15:10 CDT HISTORY: tachycardia Comparison: 06/12/2024. RESULT: Lines, tubes, and devices: None. Lungs and pleura: Low volumes with crowding. Minimal streaky bibasilar atelectasis/scar. Cardiomediastinal silhouette: Stable. Other: No acute osseous or upper abdominal finding. IMPRESSION: No acute cardiopulmonary process. Reviewed, dictated and finalized at location K.
--- NOTE | 2024-06-25 14:53 | ECG_ITS ---
Test Date: 2024-06-25 14:39:11 Measurements Intervals [place] Rate: 110 P: 36 TX: 154 QRS: -34 QRSD: 92 T: 57 QT: 346 QTc: 469 Interpretive Statements SINUS TACHYCARDIA LEFT AXIS DEVIATION DELAYED PRECORDIAL R/S TRANSITION BORDERLINE ST-T WAVE ABNORMALITY- HIGH LATERAL LEADS BASELINE ARTIFACT- I, II, III, AVR, AVL, AVF, V1-V6 ABNORMAL ECG Compared to ECG 06/12/2024 10:55:15 HEART RATE HAS DECREASED Electronically Signed On 06-25-2024 15:09:10 CDT by Jose Henson D.O.
[2024-06-25 15:18] LABS: Basophils Percent Auto 0.4 % (0.2-1.2); Eosinophils Absolute Auto 0.1 K/mm3 (0-0.3); Eosinophils Percent Auto 1.1 % (0-4.4); Hematocrit 28.8 % (42.0-52.0); Hemoglobin 8.8 g/dL (14.0-18.0); Immature Granulocyte Absolute 0.07 K/mm3 (0.00-0.031); Immature Granulocyte Percent A 0.8 % (0-0.5); Lymphocytes Absolute Auto 1.13 K/mm3 (0.9-3.2); Lymphocytes Percent Auto 13.2 % (18.3-44.2); Mean Corpuscular HGB Conc 30.6 g/dl (32-36); Mean Corpuscular Hemoglobin 28.1 pg (26-34); Mean Platelet Volume 9.4 fl (7.4-10.4); Monocytes Absolute Auto 0.8 K/mm3 (0.1-0.6); Monocytes Percent Auto 9.1 % (2.6-8.5); Neutrophils Absolute Auto 6.5 K/mm3 (1.3-6.7); Neutrophils Percent Auto 75.4 % (45.5-73.1); Platelet Count Result 801 k/mm3 (150-375); Red Blood Count 3.13 M/mm3 (4.6-6.20); Red Cell Distribution Width 18.6 % (11.5-14.5); White Blood Count 8.6 K/mm3 (4.5-10.0)
[2024-06-25 15:27] LABS: Lactic Acid Reflex 2.1 mmol/L (0.7-2.0)
[2024-06-25 15:29] LABS: Alanine Aminotransferase 63 U/L (6-50); Albumin Level 3.5 g/dL (3.5-5.1); Alkaline Phosphatase 140 U/L (38-126); Anion Gap 10 mmol/L (4-12); Aspartate Amino Transferase 67 U/L (17-59); Bilirubin,Total 0.4 mg/dL (0.2-1.3); Blood Urea Nitrogen 15 mg/dL (9-20); Carbon Dioxide 23 mmol/L (22-30); Chloride 101 mmol/L (98-107); Estimated CRCL calculation 60 ml/min; Estimated Glomerular Filt Rate > 60; Glucose 178 mg/dL (65-110); Sodium 134 mmol/L (137-145)
--- NOTE | 2024-06-25 15:31 | ED.ARRPALP ---
HPI - Arrhythmia/Palpitations General Chief Complaint: Arrhythmia/Palpitations Stated Complaint: chest tightness Time Seen by Provider: 06/25/24 14:34 History of Present Illness HPI narrative: 84-year-old male presents to the emergency department for evaluation for suspected AFib with RVR. Patient does it have a recent hospitalization for urinary tract infection. Patient does have a indwelling Pérez catheter that was reportedly difficult to place. This morning staff states that the patient had a rapid heart rate said the did EKG and it showed AFib with RVR. Patient has no prior history of AFib with RVR. Upon arrival emergency department patient EKG showed sinus tachycardia. Patient denies any pain or complaints. Related Data Home Medications Medication Instructions Recorded Confirmed atorvastatin 10 mg tablet 10 mg PO HS 10/10/23 06/24/24 bimatoprost 0.01 % eye drops 1 drp EACH EYE HS 10/10/23 06/24/24 (Lumigan) calcium carbonate 500 mg PO PRN PRN Indigestion 10/10/23 06/24/24 cholecalciferol (vitamin D3) 50 50 mcg PO DAILY 10/10/23 06/24/24 mcg (2,000 unit) tablet citalopram 40 mg tablet 20 mg PO BID 10/10/23 06/24/24 coQ10 (ubiquinol) 100 mg capsule 100 mg PO DAILY 10/10/23 06/24/24 cyanocobalamin (vitamin B-12) 2,500 mcg PO DAILY 10/10/23 06/24/24 1,000 mcg tablet cyclosporine 0.05 % eye drops 1 drp EACH EYE BID 10/10/23 06/24/24 levothyroxine 50 mcg tablet 50 mcg PO QAM 10/10/23 06/24/24 pantoprazole 40 mg tablet,delayed 40 mg PO DAILY 10/10/23 06/24/24 release sennosides 8.6 mg tablet (senna) 8.6 mg PO HS 10/10/23 06/24/24 aspirin 325 mg tablet 325 mg PO DAILY 04/15/24 06/24/24 carboxymethylcellulose sodium 0.25 1 drp EACH EYE BID 04/15/24 06/24/24 % eye drops (TheraTears) clotrimazole-betamethasone 1 1 applic topical DAILY 04/15/24 06/24/24 %-0.05 % topical cream memantine 5 mg tablet 5 mg PO BID 04/15/24 06/24/24 finasteride 5 mg tablet (Proscar) 5 mg PO DAILY 06/24/24 06/24/24 Allergies Allergy/AdvReac Type Severity Reaction Status Date / Time No Known Allergies Allergy Verified 06/25/24 14:46 Review of Systems Review of Systems: All systems reviewed & are unremarkable except as noted in HPI and below PMFSH Past Medical History Medical History Anxiety and depression B12 deficiency Bilateral inguinal hernia BPH (benign prostatic hyperplasia) CIDP (chronic inflammatory demyelinating polyneuropathy) DILCIA (generalized anxiety disorder) H/O gastroesophageal reflux (GERD) Hiatal hernia High cholesterol HTN (hypertension) Hypothyroid Neuropathy Thyroid disease Tremor of both hands Surgical History Surgical History History of colonoscopy at least 10-15 years ago per patient's History of left knee replacement Family History Family History Father Malignant neoplasm of prostate Mother Stomach cancer Social History Social History Smoking status: Never smoker Alcohol intake: former Substance use: never Do You Feel Safe in your Home?: Yes Lack of Transportation: No Lack of Food: Never True Current Housing: I Have Housing Concerned About Future Housing: No Difficulty Paying Gas/Electric Bills: No Difficulty Paying for Meds: No Currently Unemployed: No Education: Trade/Vocational Certificate Difficulty w/ Childcare or Family Care: No Living arrangements: with family Occupation/Education: retired Gender identity (if verbalized by the patient): Male Sexual Orientation (if Verbalized by the Patient): Straight or Heterosexual Spiritual care concerns: No Exam Narrative: APPEARANCE: Well appearing, no pain, no distress, well-nourished. HEAD: normocephalic, atraumatic. EYES: PERRLA/EOMI, conjunctivae clear. NOSE: Normal no drainage EAR
[2024-06-25 15:40] LABS: NT Pro B Type Natriuretic Pept 417 pg/mL (19.9-100); Troponin I 0.027 ng/mL (0.000-0.034)
[2024-06-25 15:44] LABS: INR 1.2; Prothrombin Time 15.6 Seconds (11.1-14.7)
[2024-06-25 15:45] LABS: Partial Thromboplastin Time 31.8 Seconds (22.3-36.8)
--- NOTE | 2024-06-25 15:59 | PC.NURSE ---
Per MD Pollack, aguilera catheter does not need changed out at this time d/t urology recommendation.
[2024-06-25 16:27] LABS: Add Urine Microscopic? YES; Appearance Urine Clear (Clear); Bacteria Urine None Seen /hpf; Bilirubin Urine Negative (Negative); Blood Urine 3+ (Negative); Color Urine Yellow (Yellow); Glucose Urine UA Negative (Negative); Ketones Urine Negative (Negative); Leukocyte Esterase Ur 1+ LEU/UL (Negative); Nitrate Urine Negative (Negative); Non Pathogenic Casts 0-2; Protein Urine 1+ mg/dL (Negative); RBC Urine >100 /hpf (0-2); Specific Grav Ur 1.017 (1.001-1.035); Squamous Epithelial Cell Urine None Seen /hpf (Few)
[2024-06-25] MEDS: SODIUM CHLORIDE 0.9% IV 500 ML 999 ML IV CONT (16:35)
[2024-06-25 16:52] LABS: Magnesium 1.9 mg/dL (1.6-2.3)
--- NOTE | 2024-06-25 17:38 | ECG_ITS ---
Test Date: 2024-06-25 18:00:04 Measurements Intervals [place] Rate: 82 P: -1 [place]: 165 QRS: -35 QRSD: 93 T: -7 QT: 388 QTc: 455 Interpretive Statements SINUS RHYTHM WITH OCCASIONAL SUPRAVENTRICULAR PREMATURE COMPLEXES LEFT AXIS DEVIATION NONSPECIFIC ST-T WAVE ABNORMALITY- INF/HIGH LAT LEADS BASELINE ARTIFACT- I, II, III, AVR, AVL, AVF BORDERLINE ECG Compared to ECG 06/25/2024 14:39:11 HEART RATE HAS DECREASED Electronically Signed On 06-25-2024 19:43:21 CDT by Jose Henson D.O.
[2024-06-25 18:15] LABS: Reflex Lactic Acid Yes or No Add Lactic
[2024-06-25 18:18] LABS: Troponin I 0.026 ng/mL (0.000-0.034)
--- NOTE | 2024-06-25 18:45 | PC.NURSE ---
D/c instructions reviewed with pt and at bedside. All questions answered. This RN also called report to [facility]. Report given to NADIR Lezama. All questions answered.
== END 2024-06-25 22:42 ==
PROVIDERS: Emergency Provider Emergency Medicine; PCP Internal Medicine
DX: T83.511A Infection and inflammatory reaction due to indwelling urethral catheter, initial encounter (principal); I48.91 Unspecified atrial fibrillation; F41.8 Other specified anxiety disorders; E53.8 Deficiency of other specified B group vitamins; I10 Essential (primary) hypertension; E78.00 Pure hypercholesterolemia, unspecified; E03.9 Hypothyroidism, unspecified
CPT/HCPCS: 36415; 71045; 80053; 81001; 83605; 83735; 83880; 84484; 85025; 85610; 85730; 87040; 87086; 93005; 96361; 96365; 99284; J0696; J7040

== ENCOUNTER 2024-06-26 11:24 | Inpatient (IN) | payer MEDICARE, SELFPAY ==
[2024-06-26] VITALS (13 sets, daily range): BP systolic 101–146; BP diastolic 63–79; PULSE 71–107; RESP 15–30; TEMP 36.2–36.4; O2SAT 98–100; BMI 21.3
--- NOTE | ~2024-06-26 | XR_ITS ---
MODIFIED ESOPHAGRAM HISTORY: Dysphagia. TECHNIQUE: Modified barium esophagram was performed by speech pathologist under radiologist fluorosco pic guidance. This was recorded on tape. The exam was reviewed on 06/27/2024 11:43 CDT. The DAP for this procedure was 0.74 Gycm2. Fluoroscopy time is 1.3 minutes. FINDINGS: Lateral projection of the cervical spine demonstrates normal alignment. There is reduced laryngeal elevation. There is reduced pharyngeal squeeze. There is residue in the follicular, pirifor m sinus and pharyngeal wall. There is laryngeal penetration. No aspiration identified.. IMPRESSION: 1: Laryngeal penetration without aspiration. 2: Please refer to speech pathologist report for additional detail. Reviewed, dictated and finalized at location B.
--- NOTE | ~2024-06-26 | CT_ITS ---
CTA chest PE protocol Ordering provider: Enio Singh MD History: 84 years Male with . Hypoxia, tachycardia . Comparison: None. Technique: CT angiogram chest was performed following timed intravenous injection of contrast. Thin s lice axial images and reformatted coronal images were obtained. Three dimensional reformatted images of the chest were also obtained using a [email or web address] workstation. . Automated exposure control and iterati ve reconstruction technique were employed. The dose-length product was 382.22 mGy-cm. 100 mL Omnipaqu e 350 was given IV. Findings: PULMONARY ARTERIES: No pulmonary embolus. VISUALIZED THORACIC INLET: Normal. MEDIASTINUM: Aorta/coronary arteries: Mild atheromatous disease. Heart/other: The heart is not enlarged. Minimal pericardial effusion. Lymph nodes: No mediastinal or hilar adenopathy. LUNGS: No pulmonary nodules or masses. Right basilar atelectasis versus pneumonia with mild to moderate effu minor. Minimal atelectasis in the left lung bases with minimal effusion. No pneumothorax. VISUALIZED UPPER ABDOMEN: Sliding hiatus hernia. Left renal cysts. Otherwise, the visualized upper ab domen is normal. MUSCULOSKELETAL: Soft tissues: The superficial soft tissues are normal. Bones: Age appropriate degenerative changes of the spine. IMPRESSION: 1. No pulmonary embolism. 2. Right basilar atelectasis versus pneumonia with moderate pleural effusion. 3. Left basilar atelectasis with minimal effusion. 4. Sliding hiatus hernia. Reviewed, dictated and finalized at location A.
--- NOTE | ~2024-06-26 | XR_ITS ---
XR chest 1V portable 06/26/2024 12:22 Indication: Hypoxia. Respiratory distress. Procedure: AP portable chest Comparison: 06/25/2024 Findings: Bibasilar atelectasis. Heart size normal. No focal pneumonia, pleural effusion or pneumotho rax. No acute osseous abnormality. Severe osteoarthritis of the glenohumeral joints. Impression: 1: Bibasilar atelectasis. Reviewed, dictated and finalized at location B. Impression: 1: Bibasilar atelectasis.
--- NOTE | 2024-06-26 11:26 | ECG_ITS ---
Test Date: 2024-06-26 11:29:56 Measurements Intervals [place] Rate: 105 P: 36 SC: 160 QRS: -35 QRSD: 85 T: 50 QT: 345 QTc: 456 Interpretive Statements SINUS TACHYCARDIA LEFT AXIS DEVIATION BORDERLINE ST-T WAVE ABNORMALITY- LAT/HIGH LAT LEADS BASELINE ARTIFACT- I, III, AVR, AVL, AVF, V5 BORDERLINE ECG Compared to ECG 06/25/2024 18:00:04 HEART RATE HAS INCREASED Electronically Signed On 06-26-2024 11:52:37 CDT by Jose Henson D.O.
[2024-06-26 12:00] LABS: Basophils Absolute Auto 0.1 K/mm3 (0.0-0.1); Basophils Percent Auto 1.2 % (0.2-1.2); Eosinophils Absolute Auto 0.1 K/mm3 (0-0.3); Hematocrit 27.5 % (42.0-52.0); Hemoglobin 8.4 g/dL (14.0-18.0); Immature Granulocyte Absolute 0.06 K/mm3 (0.00-0.031); Immature Granulocyte Percent A 0.8 % (0-0.5); Lymphocytes Absolute Auto 1.21 K/mm3 (0.9-3.2); Lymphocytes Percent Auto 16.8 % (18.3-44.2); Mean Corpuscular HGB Conc 30.5 g/dl (32-36); Mean Corpuscular Hemoglobin 28.3 pg (26-34); Mean Corpuscular Volume 92.6 fl (80-100); Mean Platelet Volume 9.2 fl (7.4-10.4); Monocytes Absolute Auto 0.7 K/mm3 (0.1-0.6); Neutrophils Absolute Auto 5.1 K/mm3 (1.3-6.7); Neutrophils Percent Auto 71.2 % (45.5-73.1); Platelet Count Result 836 k/mm3 (150-375); Red Blood Count 2.97 M/mm3 (4.6-6.20); Red Cell Distribution Width 18.8 % (11.5-14.5); White Blood Count 7.2 K/mm3 (4.5-10.0)
[2024-06-26 12:07] LABS: Alveolar/Arterial O2 Gradient 120.6 mmHg; Base Excess ABG -1.5 mEq/l (+/-2.0); Fractional Inspired Oxygen 40 %; HCO3 ABG 20.7 mEq/l (22.0-26.0); Oxygen Content ABG 12.9 %vol (16.0-22.0); Oxyhemoglobin 98.4 % THb (90.0-100.0); PCO2 ABG 26.2 mmHg (35.0-45.0); PO2 ABG 134.5 mmHg (80.0-100.0); PO2 FiO2 Ratio Arterial Blood 3.36 %; Total Hemoglobin 9.1 g/dL (12.0-18.0)
[2024-06-26 12:08] LABS: pH ABG 7.515 (7.350-7.450)
[2024-06-26 12:09] LABS: Device NON-INVASIVE VENT; Site Drawn LEFT BRACHIAL
[2024-06-26 12:09] LABS: Lactic Acid Reflex 2.5 mmol/L (0.7-2.0)
[2024-06-26 12:10] LABS: Alanine Aminotransferase 53 U/L (6-50); Albumin Level 3.4 g/dL (3.5-5.1); Alkaline Phosphatase 148 U/L (38-126); Anion Gap 10 mmol/L (4-12); Aspartate Amino Transferase 56 U/L (17-59); Bilirubin,Total 0.4 mg/dL (0.2-1.3); Blood Urea Nitrogen 16 mg/dL (9-20); Carbon Dioxide 22 mmol/L (22-30); Chloride 103 mmol/L (98-107); Estimated CRCL calculation 59 ml/min; Estimated Glomerular Filt Rate > 60; Glucose 165 mg/dL (65-110); Magnesium 3.9 mg/dL (1.6-2.3); Sodium 135 mmol/L (137-145)
[2024-06-26 12:10] LABS: Non-Invasive Expiratory Pressure 7 CMH2O; Non-Invasive Inspiratory Pressure 14 CMH2O; Non-Invasive Vent Rate 14 /MIN
--- NOTE | 2024-06-26 12:12 | PCRCNOTE ---
HAD TO WAIT TO DRAW ABG DUE TO PT. ONLY HAVING ONE ARM AVAILABLE TO STICK. PT. WAS ALSO A DIFFICULT STICK.
[2024-06-26 12:22] LABS: NT Pro B Type Natriuretic Pept 472 pg/mL (19.9-100); Troponin I 0.034 ng/mL (0.000-0.034)
--- NOTE | 2024-06-26 12:26 | ED_ITS ---
HPI - SOB/Dyspnea General Chief Complaint: Shortness of Breath/Dyspnea Stated Complaint: dyspnea Source: EMS Mode of arrival: EMS Limitations: clinical condition History of Present Illness HPI Narrative: HPI limited by acuity of illness. EMS reports the patient was complaining of difficulty breathing at his rehab f [facility] [place]. On their arrival the patient was tachypneic with increased work of breathing. The patient was reportedly given nitroglycerin by staff at the rehab facility though the number of medications is unknown. The patient was placed on CPAP and given Solu-Medrol, magnesium and albuterol with somewhat improved work of breathing. Vital signs remarkable for tachycardia. Related Data Home Medications Medication Instructions Recorded Confirmed atorvastatin 10 mg tablet 10 mg PO HS 10/10/23 06/24/24 bimatoprost 0.01 % eye drops 1 drp EACH EYE HS 10/10/23 06/24/24 (Lumigan) calcium carbonate 500 mg PO PRN PRN Indigestion 10/10/23 06/24/24 cholecalciferol (vitamin D3) 50 50 mcg PO DAILY 10/10/23 06/24/24 mcg (2,000 unit) tablet citalopram 40 mg tablet 20 mg PO BID 10/10/23 06/24/24 coQ10 (ubiquinol) 100 mg capsule 100 mg PO DAILY 10/10/23 06/24/24 cyanocobalamin (vitamin B-12) 2,500 mcg PO DAILY 10/10/23 06/24/24 1,000 mcg tablet cyclosporine 0.05 % eye drops 1 drp EACH EYE BID 10/10/23 06/24/24 levothyroxine 50 mcg tablet 50 mcg PO QAM 10/10/23 06/24/24 pantoprazole 40 mg tablet,delayed 40 mg PO DAILY 10/10/23 06/24/24 release sennosides 8.6 mg tablet (senna) 8.6 mg PO HS 10/10/23 06/24/24 aspirin 325 mg tablet 325 mg PO DAILY 04/15/24 06/24/24 carboxymethylcellulose sodium 0.25 1 drp EACH EYE BID 04/15/24 06/24/24 % eye drops (TheraTears) clotrimazole-betamethasone 1 1 applic topical DAILY 04/15/24 06/24/24 %-0.05 % topical cream memantine 5 mg tablet 5 mg PO BID 04/15/24 06/24/24 finasteride 5 mg tablet (Proscar) 5 mg PO DAILY 06/24/24 06/24/24 Allergies Allergy/AdvReac Type Severity Reaction Status Date / Time No Known Allergies Allergy Verified 06/26/24 11:34 Review of Systems Review of Systems: ROS unobtainable: Yes unobtainable due to medical condition PMFSH Past Medical History Medical History Anxiety and depression B12 deficiency Bilateral inguinal hernia BPH (benign prostatic hyperplasia) CIDP (chronic inflammatory demyelinating polyneuropathy) DILCIA (generalized anxiety disorder) H/O gastroesophageal reflux (GERD) Hiatal hernia High cholesterol HTN (hypertension) Hypothyroid Neuropathy Thyroid disease Tremor of both hands Surgical History Surgical History History of colonoscopy at least 10-15 years ago per patient's History of left knee replacement Family History Family History Father Malignant neoplasm of prostate Mother Stomach cancer Social History Social History Smoking status: Never smoker Alcohol intake: former Substance use: never Do You Feel Safe in your Home?: Yes Lack of Transportation: No Lack of Food: Never True Current Housing: I Have Housing Concerned About Future Housing: No Difficulty Paying Gas/Electric Bills: No Difficulty Paying for Meds: No Currently Unemployed: No Education: Trade/Vocational Certificate Difficulty w/ Childcare or Family Care: No Living arrangements: with family Occupation/Education: retired Gender identity (if verbalized by the patient): Male Sexual Orientation (if Verbalized by the Patient): Straight or Heterosexual Spiritual care concerns: No Exam Narrative: GENERAL: Well-developed, well-nourished, in moderate respiratory distress HEAD: Normocephalic, atraumatic. EYES: PERRLA and EOMI. ENT: Nares clear, no rhinorrhea or epistaxis. Mucous membranes dry. Oropharynx without tonsillar hypertrophy exudate or other lesions. There are multiple scabs noted on the upper and lower lip, consistent with shingles NECK: Supple. No adenopathy or masses. No carotid bruits or JVD CHEST: Clear to auscultation. Tachypneic using accessory muscles of respiration. In moderate respiratory distress. No wheezes rales or rhonchi HEART: Tachycardic with regular rhythm. No murmur heard. Normal peripheral pulses. ABDOMEN: Soft, nontender, nondistended, normal active bowel sounds. EXTREMITIES: Normal range of motion. Bilateral lower extremity 1+ edema to the ankles SKIN: Warm, dry, no rash. NEURO: Alert and oriented x3. No focal deficit. Moving all 4 limbs spontaneously PSYCH: Normal mood and affect. Course Course Emergency Course: 11:26 - Bedside cardiac ultrasound by me in the parasternal long-axis view demonstrates a normal appearing RV and good ePSS. Bilateral lung windows are not concerning for B-lines. Chart review shows the patient was recently diagnosed with bilateral lower extremity DVTs. I have a strong suspicion for PE. The patient was briefly taken off CPAP and quickly desaturated from 100% to 85%. Will start BiPAP. Will give nebs, obtain labs and reassess. 11:52 - The patient is not triggering sepsis. Will start antibiotics for pos sible pneumonia. 14:13 - CBC demonstrates anemia with hemoglobin of 8.4 that appears to be the patient's baseline as well as thrombocytosis with platelet count a 36 but is otherwise unremarkable. ABG demonstrates respiratory alkalosis with pH of 7.51 with pCO2 of 26 and bicarb of 20.7. PO2 adequate at 01:34. The patient's FiO2 was titrated down. Chemistries demonstrate mild hyponatremia with sodium 135. Lactic acid mildly elevated at 2.5. Troponin initially elevated at 0.038 and has improved to 0.034. BNP mildly elevated at 472. The patient tested negative for COVID, influenza and RSV. CT angiogram of the chest was not concerning for PE, but did demonstrate right lower lobe consolidation and parapneumonic effusion concerning for pneumonia. Start the patient on cefepime and vancomycin with doxycycline. The patient's work of breathing has improved with BiPAP, though he quickly decompensates without it. I discussed the patient with hospitalist, TRISTA Landers, who accepts admission IMU. Vital Signs Vital signs: Vital Signs Temperature 97.3 F L 06/26/24 11:34 Pulse Rate 107 H 06/26/24 11:34 Respiratory Rate 21 H 06/26/24 11:34 Blood Pressure 101/73 06/26/24 11:34 Pulse Oximetry 100 06/26/24 11:34 Oxygen Delivery BiPAP 06/26/24 11:34 Temperature 97.3 F L 06/26/24 11:34 Pulse Rate 105 H 06/26/24 13:05 Respiratory Rate 19 06/26/24 13:05 Blood Pressure 101/73 06/26/24 11:34 Pulse Oximetry 100 06/26/24 13:05 Oxygen Delivery BiPAP 06/26/24 13:11 MDM - SOB/Dyspnea MDM Narrative Medical decision making narrative: Plan: Labs, EKG, troponin, bedside ultrasound, imaging, BiPAP, reassess Differential Diagnosis Differential diagnosis: Likely acute exacerbation of chronic obstructive airways disease, congestive heart failure, pulmonary embolism and other (Hospital- acquired pneumonia, fluid, COVID, RSV, ACS, metabolic abnormality, other) Lab Data 06/26/24 11:52 06/26/24 11:52 Labs: Lab Results 06/26/24 06/26/24 06/26/24 Range/Units 11:52 12:03 13:14 WBC 7.2 (4.5-10.0) K/mm3 RBC 2.97 L (4.6-6.20) M/mm3 Hgb 8.4 L (14.0-18.0) g/dL Hct 27.5 L (42.0-52.0) % MCV 92.6 (80-100) fl MCH 28.3 (26-34) pg MCHC 30.5 L (32-36) g/dl RDW 18.8 H (11.5-14.5) % Plt Count 836 H (150-375) k/mm3 MPV 9.2 (7.4-10.4) fl Immature Gran % (Auto) 0.8 H (0-0.5) % Neut % (Auto) 71.2 (45.5-73.1) % Lymph % (Auto) 16.8 L (18.3-44.2) % Crawford % (Auto) 9.0 H (2.6-8.5) % Eos % (Auto) 1.0 (0-4.4) % Baso % (Auto) 1.2 (0.2-1.2) % Lymph # (Auto) 1.21 (0.9-3.2) K/mm3 Crawford # (Auto) 0.7 H (0.1-0.6) K/mm3 Eos # (Auto) 0.1 (0-0.3) K/mm3 Baso # (Auto) 0.1 (0.0-0.1) K/mm3 Abs Immat Gran (auto) 0.06 H (0.00-0.031) K/mm3 Absolute Neuts (auto) 5.1 (1.3-6.7) K/mm3 Absolute Nucleated RBC 0.000 (0.0-0.012) K/mm3 Nucleated RBC % 0.0 (0.0-0.2) % Expiratory Pressure 7 CMH2O Inspiratory Pressure 14 CMH2O Sodium 135 L (137-145) mmol/L Potassium 4.0 (3.4-5.0) mmol/L Chloride 103 (98-107) mmol/L Carbon Dioxide 22 (22-30) mmol/L Anion Gap 10 (4-12) mmol/L BUN 16 (9-20) mg/dL Creatinine 0.80 (0.7-1.3) mg/dL Estim Creat Clear Calc 59 ml/min Estimated GFR > 60 (59 - ) Glucose 165 H (65-110) mg/dL Lactic Acid 2.5 H (0.7-2.0) mmol/L Calcium 9.0 (8.4-10.2) mg/dL Magnesium 3.9 H (1.6-2.3) mg/dL Total Bilirubin 0.4 (0.2-1.3) mg/dL AST 56 (17-59) U/L ALT 53 H (6-50) U/L Alkaline Phosphatase 148 H (38-126) U/L Troponin I 0.034 (0.000-0.034) ng/mL NT-Pro-B Natriuret Pep 472 H (19.9-100) pg/mL Total Protein 8.0 (6.3-8.2) g/dL Albumin 3.4 L (3.5-5.1) g/dL Nasal MRSA (PCR) Pending Influenza A (RT-PCR) Negative (Negative) Influenza B (RT-PCR) Negative (Negative) RSV (RT-PCR) Negative (Negative) SARS-CoV-2 RNA (RT-PCR) Negative (Negative) ABG Data ABG results: 06/26/24 12:03 Puncture Site Left brachial ABG pH 7.515 H* ABG pCO2 26.2 L ABG pO2 134.5 H ABG PO2/FiO2 Ratio 3.36 ABG HCO3 20.7 L ABG O2 Saturation 99.0 ABG O2 Content 12.9 L ABG Base Excess -1.5 A-a Gradient 120.6 Oxyhemoglobin 98.4 Total Hemoglobin 9.1 L O2 Delivery Device Non-invasive vent O2 Liters/Min 0.0 Vent Rate 14 FiO2 40 Critical Care Time Critical Care Time Critical Care Time: Yes Total Critical Care Time: 35 Discharge Plan Discharge Clinical Impression: Acute respiratory distress, Acidosis, lactic, Sepsis, Hypoxia, Right lower lobe pneumonia Patient Disposition: Still a Patient Condition: Serious Prescriptions: No Action citalopram 40 mg tablet 20 mg PO BID atorvastatin 10 mg tablet 10 mg PO HS levothyroxine 50 mcg tablet 50 mcg PO QAM pantoprazole 40 mg tablet,delayed release (DR/EC) 40 mg PO DAILY Lumigan 0.01 % drops 1 drp EACH EYE HS sennosides [senna] 8.6 mg Tablet 8.6 mg PO HS cyanocobalamin (vitamin B-12) 1,000 mcg Tablet 2,500 mcg PO DAILY calcium carbonate 500 mg calcium (1,250 mg) Tablet,Chewable 500 mg PO PRN PRN (Reason: Indigestion) cholecalciferol (vitamin D3) 50 mcg (2,000 unit) Tablet 50 mcg PO DAILY coQ10 (ubiquinol) 100 mg Capsule 100 mg PO DAILY cyclosporine 0.05 % Drops 1 drp EACH EYE BID aspirin 325 mg Tablet 325 mg PO DAILY memantine 5 mg Tablet 5 mg PO BID TheraTears 0.25 % Drops 1 drp EACH EYE BID clotrimazole-betamethasone 1-0.05 % cream 1 applic TOPICAL DAILY docusate sodium 100 mg Capsule 100 mg PO Q12HR Qty: 60 0RF tamsulosin 0.4 mg capsule 0.4 mg PO DAILY Qty: 30 0RF midodrine 10 mg Tablet 10 mg PO TID Qty: 90 0RF Eliquis 5 mg Tablet 2.5 mg PO Q12HR Qty: 30 0RF melatonin 5 mg Tablet 5 mg PO HS PRN (Reason: Sleep) Qty: 30 0RF valacyclovir [Valtrex] 500 mg Tablet 1,000 mg PO Q12HR Qty: 20 0RF cephalexin 500 mg capsule 500 mg PO Q6H 7 Days Qty: 28 0RF finasteride [Proscar] 5 mg tablet 5 mg PO DAILY Follow-up/Referrals: Joao,Leah Smith MD [Primary Care Provider] - Time of Disposition: 14:13
[2024-06-26 12:35] LABS: Influenza A QL RT-PCR Negative (Negative); Influenza B QL RT-PCR Negative (Negative); RSV RNA, RT-PCR Negative (Negative); SARS-CoV-2 RNA PCR Negative (Negative)
[2024-06-26] MEDS: CEFEPIME 2 GM/NS 50 ML 2 GM/50 ML BAG IVPB (13:11)
[2024-06-26] MEDS: VANCOMYCIN 1,750 MG/NS 500 ML BAG 250 MG IVPB (13:11)
[2024-06-26] MEDS: SODIUM CHLORIDE 0.9% IV 1,000 ML 30 ML IV CONT (13:11)
[2024-06-26 14:44] LABS: MRSA (PCR) NOT DETECTED (NOT DETECTE)
[2024-06-26 14:57] LABS: Reflex Lactic Acid Yes or No Add Lactic
--- NOTE | 2024-06-26 15:24 | PC.NURSE ---
This RN received report from RESPIRATORY SERVICES MANAGER.
[2024-06-26] MEDS: DOXYCYCLINE 100 MG/NS 100 ML 100 MG/100 ML BAG IVPB (15:28)
[2024-06-26 15:36] LABS: Lactic Acid 1.2 mmol/L (0.7-2.0)
--- NOTE | 2024-06-26 15:42 | ADMGEN ---
This patient, Linwood Cloud, was admitted to IMU Room 200-01 @ . Patient/family oriented to hospital policies and general routines including ID bracelet, bed and alarms, visiting hours, pain management, procedures, bathroom and other care routines, personal items, smoking policy, room service/diet, and visiting hours. Information on how to activate the Rapid Response Team has been discussed. Patient/Family are encouraged to report perceived risks to care and to ask questions if they do not understand what they are told or what they should do.
--- NOTE | 2024-06-26 16:20 | P.HP_ITS ---
H&P: HPI History of Present Illness Date/Time: 06/26/24 16:20 Chief Complaint: Chest pain and shortness of breath. Narrative: This is a pleasant 84-year-old male with history of heart failure with reduced ejection fraction, hypertension, hyperlipidemia, benign prostatic hyperplasia with indwelling Pérez catheter, chronic inflammatory demyelinating polyneuropathy, gastroesophageal reflux disease, hypothyroidism, and anxiety who presented to the emergency depart via EMS from [facility] for evaluation of chest pain and shortness of breath. The patient provides the following history and multiple family members at bedside provide additional information with the patient's permission. He was discharged to [facility] on 06/24/2024 following an admission for urosepsis and acute kidney injury. Yesterday mid morning he was sent to the ED for evaluation of tachycardia/possible atrial fibrillation, though his EKG showed sinus tachycardia. Workup at that time showed an abnormal urinalysis and he was discharged on cephalexin. This morning family came to visit and they report that the patient was sitting in a chair trembling with complaints of shortness of breath and chest pain. He was administered sublingual nitroglycerin and EMS was summoned. EMS placed him on CPAP and he was given albuterol, methylprednisone, and magnesium en route to the hospital. In the ED: He was afebrile on arrival. SpO2 was 100% on CPAP. He quickly desaturated from 100% to 85% when CPAP was removed and he was placed on BiPAP. Blood pressures have been stable. He was diagnosed with DVTs during his last visit and was sent for a chest CTA which was negative for pulmonary embolism but did show right lower lobe atelectasis versus pneumonia with a moderate pleural effusion. He was negative for influenza, RSV, and COVID. Chest x-ray showed sinus tachycardia with borderline ST T-wave abnormalities in the lateral and high lateral leads. Labs were significant for WBC count of 7.2, hemoglobin 8.4, platelet 836, sodium 135, lactic acid 2.5, proBNP 472, troponin 0.038. He received cefepime, doxycycline, and vancomycin for possible pneumonia and IV fluid bolus. He was admitted to the IMU in this setting. At the time of my evaluation the patient seemed to be doing just fine on the BiPAP with an SpO2 of 100%. BiPAP was removed and he has been on 2 L nasal cannula since that time. With further questioning he has noted lower extremity edema since his recent hospitalization and describes mild orthopnea. He has not had a cough and denies fever, sweats, sinus congestion, and sore throat. Appetite has been okay. He denies nausea and vomiting. Family members notice that he seems to clear his throat and sometimes cough with eating and drinking. The patient denies concerns for aspiration. He has not had any abdominal or back pain. He has not had any chest pain since arrival. Review of Systems Review of Systems: 12 systems were reviewed and are negativ e except for as per HPI. [facility] Past Medical History Medical History Anxiety and depression B12 deficiency Bilateral inguinal hernia BPH (benign prostatic hyperplasia) CIDP (chronic inflammatory demyelinating polyneuropathy) DILCIA (generalized anxiety disorder) H/O gastroesophageal reflux (GERD) Heart failure with reduced ejection fraction Hiatal hernia High cholesterol HTN (hypertension) Hypothyroid Neuropathy Thyroid disease Tremor of both hands Surgical History Surgical History History of colonoscopy at least 10-15 years ago per patient's History of left knee replacement Family History Family History Father Malignant neoplasm of prostate Mother Stomach cancer Social History Social History Social History: Surrogate medical decision maker: Valeria Cloud, spouse. Code status: Full code. Smoking status: Never smoker Alcohol intake: former Substance use: never Do You Feel Safe in your Home?: Yes Lack of Transportation: No Lack of Food: Never True Current Housing: I Have Housing Concerned About Future Housing: No Difficulty Paying Gas/Electric Bills: No Difficulty Paying for Meds: No Currently Unemployed: No Education: Trade/Vocational Certificate Difficulty w/ Childcare or Family Care: No Living arrangements: with family Occupation/Education: retired Spiritual care concerns: No Meds Home Medications and Allergies Home Medications Medication Instructions Recorded Confirmed Type atorvastatin 10 mg tablet 10 mg PO HS 10/10/23 06/26/24 History bimatoprost 0.01 % eye drops 1 drp EACH EYE HS 10/10/23 06/26/24 History (Lumigan) calcium carbonate 500 mg PO PRN PRN Indigestion 10/10/23 06/26/24 History cholecalciferol (vitamin D3) 50 50 mcg PO DAILY 10/10/23 06/26/24 History mcg (2,000 unit) tablet citalopram 40 mg tablet 20 mg PO BID 10/10/23 06/26/24 History coQ10 (ubiquinol) 100 mg capsule 100 mg PO DAILY 10/10/23 06/26/24 History cyanocobalamin (vitamin B-12) 2,500 mcg PO DAILY 10/10/23 06/26/24 History 1,000 mcg tablet cyclosporine 0.05 % eye drops 1 drp EACH EYE BID 10/10/23 06/26/24 History levothyroxine 50 mcg tablet 50 mcg PO QAM 10/10/23 06/26/24 History pantoprazole 40 mg tablet,delayed 40 mg PO DAILY 10/10/23 06/26/24 History release sennosides 8.6 mg tablet (senna) 8.6 mg PO HS 10/10/23 06/26/24 History aspirin 325 mg tablet 325 mg PO DAILY 04/15/24 06/26/24 History carboxymethylcellulose sodium 0.25 1 drp EACH EYE BID 04/15/24 06/26/24 History % eye drops (TheraTears) clotrimazole-betamethasone 1 1 applic topical DAILY 04/15/24 06/26/24 History %-0.05 % topical cream memantine 5 mg tablet 5 mg PO BID 04/15/24 06/26/24 History docusate sodium 100 mg capsule 100 mg PO Q12HR #60 caps 04/17/24 06/26/24 Rx tamsulosin 0.4 mg capsule 0.4 mg PO DAILY #30 caps 04/17/24 06/26/24 Rx apixaban 5 mg tablet (Eliquis) 2.5 mg PO Q12HR #30 tabs 06/24/24 06/26/24 Rx finasteride 5 mg tablet (Proscar) 5 mg PO DAILY 06/24/24 06/26/24 History melatonin 5 mg tablet 5 mg PO HS PRN Sleep #30 tabs 06/24/24 06/26/24 Rx midodrine 10 mg tablet 10 mg PO TID #90 tabs 06/24/24 06/26/24 Rx valacyclovir 500 mg tablet 1,000 mg PO Q12HR #20 tabs 06/24/24 06/26/24 Rx (Valtrex) cephalexin 500 mg capsule 500 mg PO Q6H 7 days #28 caps 06/25/24 06/26/24 Rx lorazepam 0.5 mg tablet 0.5 mg PO TID 06/26/24 06/26/24 History Allergies Allergy/AdvReac Type Severity Reaction Status Date / Time No Known Allergies Allergy Verified 06/26/24 11:34 Vital Signs Vital Signs - 24 hr 06/26/24 11:34 06/26/24 11:35 06/26/24 13:05 Temperature 97.3 F L Pulse Rate 107 H 106 H 105 H Respiratory Rate 21 H 30 H 19 Blood Pressure 101/73 Pulse Oximetry 100 100 100 Oxygen Delivery BiPAP BiPAP BiPAP 06/26/24 13:11 06/26/24 14:54 06/26/24 16:00 Temperature 97.1 F L Pulse Rate 71 84 Respiratory Rate 15 21 H Blood Pressure 114/63 146/79 H Pulse Oximetry 100 100 Oxygen Delivery BiPAP Exam Narrative: General: Chronically ill but nontoxic-appearing male sitting up in bed. Weight: 67.5 kg. BMI: 21.4. HEENT: PERRL, EOMI. Sclera anicteric. Oral mucosa moist. Oropharynx clear. Neck: Supple. No JVD. Respiratory: Respirations are nonlabored and he is speaking in full sentences. Lung sounds are diminished at the right base with faint crackles at the left base. Cardiovascular: Regular rate and rhythm with S1-S2. Gastrointestinal: Abdomen is soft, nontender, and nondistended with positive bowel sounds. Genitourinary: Pérez catheter draining clear yellow urine. Skin: Warm and dry. Healing scabbed areas on the upper lip. Extremities: No cyanosis or clubbing. Bilateral lower extremity edema, left greater than right. Radial and pedal pulses intact. Neurological: Alert. Cranial nerves 2-12 are grossly intact. Faint tremors of the hands. No gross focal deficits to casual conversation. Psychiatric: Pleasant and cooperative with appropriate mood. Slightly anxious on BiPAP which improved after was removed. H&P: Results Labs Labs: Short CBC 06/26/24 Range/Units 11:52 WBC 7.2 (4.5-10.0) K/mm3 Hgb 8.4 L (14.0-18.0) g/dL Hct 27.5 L (42.0-52.0) % Plt Count 836 H (150-375) k/mm3 BMP 06/26/24 11:52 Sodium 135 L Potassium 4.0 Chloride 103 Carbon Dioxide 22 BUN 16 Creatinine 0.80 Glucose 165 H Calcium 9.0 Cardiac Enzymes 06/26/24 Range/Units 11:52 Troponin I 0.034 (0.000-0.034) ng/mL Liver Function 06/26/24 Range/Units 11:52 Total Bilirubin 0.4 (0.2-1.3) mg/dL AST 56 (17-59) U/L ALT 53 H (6-50) U/L Alkaline Phosphatase 148 H (38-126) U/L Albumin 3.4 L (3.5-5.1) g/dL Impressions Chest X-Ray 06/26/24 12:23 Impression: 1: Bibasilar atelectasis. Chest CTA 06/26/24 13:16 IMPRESSION: 1. No pulmonary embolism. 2. Right basilar atelectasis versus pneumonia with moderate pleural effusion. 3. Left basilar atelectasis with minimal effusion. 4. Sliding hiatus hernia. ABG ABG results: 06/26/24 12:03 Puncture Site Left brachial ABG pH 7.515 H* ABG pCO2 26.2 L ABG pO2 134.5 H ABG PO2/FiO2 Ratio 3.36 ABG HCO3 20.7 L ABG O2 Saturation 99.0 ABG O2 Content 12.9 L ABG Base Excess -1.5 A-a Gradient 120.6 Oxyhemoglobin 98.4 Total Hemoglobin 9.1 L O2 Delivery Device Non-invasive vent O2 Liters/Min 0.0 Vent Rate 14 FiO2 40 Assessment and Plan Assessment and plan (1) Hypoxia: Code(s): R09.02 - Hypoxemia Status: Acute (2) Pleural effusion on right: Code(s): J90 - Pleural effusion, not elsewhere classified Status: Acute (3) Heart failure with reduced ejection fraction: Code(s): I50.20 - Unspecified systolic (congestive) heart failure Status: Acute (4) Elevated lactic acid level: Code(s): R79.89 - Other specified abnormal findings of blood chemistry Status: Acute (5) Benign prostatic hyperplasia with urinary retention: Code(s): N40.1 - Benign prostatic hyperplasia with lower urinary tract symptoms; R33.8 - Other retention of urine Status: Acute (6) Anemia: Code(s): D64.9 - Anemia, unspecified Status: Acute (7) Thrombocytosis: Code(s): D75.839 - Thrombocytosis, unspecified Status: Acute (8) Dysphagia: Code(s): R13.10 - Dysphagia, unspecified Status: Acute Plan The patient presented to the emergency department for evaluation of chest and pain shortness a breath as detailed in HPI. Labs, imaging, EKG, and all reports were personally reviewed. Chest CT was negative for pulmonary embolism but did note moderate size right pleural effusion with associated atelectasis and/or pn eumonia. His history is not consistent with pneumonia and he is afebrile with normal white blood cell count. As such will hold on further antibiotics for now. He may very well have some volume overload from his recent hospitalization in which he was treated for urosepsis and acute kidney failure. Echocardiogram during that stay showed a reduced ejection fraction of 40 to 45%. Furosemide 40 mg IV x1 has been ordered. Consult Cardiology for their input regarding recent echocardiogram. Encourage incentive spirometry as he has bibasilar atelectasis. Initial lactic acid level was barely elevated and may be related to lab draw technique or hypoxia. He is currently on 2 L nasal cannula with an SpO2 in the upper 90s to 100%. Oxygen will be weaned as tolerated. Blood pressures were reviewed and they are stable. Anemia stable and will be monitored. Thrombocytosis may be reactive and will be monitored. Swallow study ordered given reports mild dysphagia. His home medications will be reviewed and resumed as appropriate. Findings and treatment plan were discussed with the patient and his family members. Questions were solicited and answered to satisfaction. The patient's medical management will be taken over by the hospitalist team in a.m. Quality VTE Prophylaxis VTE prophylaxis: pharmacologic ordered (on apixaban) Hospitalist [facility] Advance Care Plan I have confirmed that the patient's Advanced Care Plan is present, code status is documented, or surrogate decision maker is listed in patient medical record.: Yes Medication Reconciliation I have utilized all available resources to obtain, update and review the patients current medications (includes all prescriptions, OTC, herbals, cannabis, and nutritional supplements).: Yes
[2024-06-26] MEDS: FUROSEMIDE INJ 40 MG/4 ML VIAL IV PUSH (19:21)
[2024-06-26 19:51] LABS: CRP 2.3 mg/dL (<1.0)
[2024-06-26 20:00] LABS: Troponin I 0.029 ng/mL (0.000-0.034)
[2024-06-26 20:05] LABS: Procalcitonin 0.3 ng/mL
[2024-06-26] MEDS: ATORVASTATIN 10 MG TABLET PO (22:10)
[2024-06-26] MEDS: ARTIFICIAL TEARS OPHTH SOLN 15 ML BOTTLE 1 DROP EACH EYE (22:10)
[2024-06-26] MEDS: APIXABAN 2.5 MG TABLET PO (22:10)
[2024-06-26] MEDS: cycloSPORINE 0.4 ML OPHTH SOLUTION 1 DROP EACH EYE (22:11)
[2024-06-26] MEDS: DOCUSATE SODIUM 100 MG CAPSULE PO (22:11)
[2024-06-26] MEDS: LATANOPROST 0.005% OP SOLN 2.5 ML BTL 1 DROP EACH EYE (22:11)
[2024-06-26] MEDS: SENNOSIDES 8.6 MG TABLET PO (22:12)
[2024-06-26] MEDS: valACYclovir HCL 500 MG TABLET 1000 MG PO (22:12)
[2024-06-26] MEDS: MELATONIN 5 MG TABLET PO (22:12)
[2024-06-27] VITALS (17 sets, daily range): BP systolic 105–140; BP diastolic 52–90; PULSE 57–84; RESP 16–21; TEMP 36.1–36.8; O2SAT 95–100
[2024-06-27 04:59] LABS: Basophils Absolute Auto 0.1 K/mm3 (0.0-0.1); Basophils Percent Auto 0.8 % (0.2-1.2); Eosinophils Percent Auto 0.2 % (0-4.4); Hematocrit 24.1 % (42.0-52.0); Hemoglobin 7.4 g/dL (14.0-18.0); Immature Granulocyte Absolute 0.07 K/mm3 (0.00-0.031); Immature Granulocyte Percent A 1.1 % (0-0.5); Lymphocytes Absolute Auto 1.54 K/mm3 (0.9-3.2); Mean Corpuscular HGB Conc 30.7 g/dl (32-36); Mean Corpuscular Hemoglobin 28.5 pg (26-34); Mean Corpuscular Volume 92.7 fl (80-100); Mean Platelet Volume 9.2 fl (7.4-10.4); Monocytes Absolute Auto 0.6 K/mm3 (0.1-0.6); Monocytes Percent Auto 9.7 % (2.6-8.5); Neutrophils Absolute Auto 4.1 K/mm3 (1.3-6.7); Neutrophils Percent Auto 64.2 % (45.5-73.1); Platelet Count Result 722 k/mm3 (150-375); Red Cell Distribution Width 19.7 % (11.5-14.5); White Blood Count 6.4 K/mm3 (4.5-10.0)
[2024-06-27 05:14] LABS: Anion Gap 7 mmol/L (4-12); Blood Urea Nitrogen 20 mg/dL (9-20); Calcium 8.9 mg/dL (8.4-10.2); Carbon Dioxide 25 mmol/L (22-30); Chloride 102 mmol/L (98-107); Estimated CRCL calculation 52 ml/min; Estimated Glomerular Filt Rate > 60; Glucose 115 mg/dL (65-110); Potassium 3.9 mmol/L (3.4-5.0); Sodium 134 mmol/L (137-145)
[2024-06-27] MEDS: LEVOTHYROXINE SODIUM 50 MCG TABLET PO (06:19)
[2024-06-27] MEDS: MIDODRINE HCL 10 MG TABLET PO ×3 (09:34→17:58)
[2024-06-27] MEDS: CHOLECALCIFEROL 1,000 UNITS TABLET 2000 UNITS PO (09:34)
[2024-06-27] MEDS: ASPIRIN 325 MG TABLET PO (09:34)
[2024-06-27] MEDS: CYANOCOBALAMIN 500 MCG TABLET 2500 MCG PO (09:34)
[2024-06-27] MEDS: APIXABAN 2.5 MG TABLET PO ×2 (09:34→20:35)
[2024-06-27] MEDS: PANTOPRAZOLE 40 MG TABLET PO (09:34)
[2024-06-27] MEDS: cycloSPORINE 0.4 ML OPHTH SOLUTION 1 DROP EACH EYE ×2 (09:35→20:36)
[2024-06-27] MEDS: MEMANTINE 5 MG TABLET PO ×2 (09:35→17:58)
[2024-06-27] MEDS: FINASTERIDE 5 MG TABLET PO (09:35)
[2024-06-27] MEDS: valACYclovir HCL 500 MG TABLET 1000 MG PO ×2 (09:35→20:35)
[2024-06-27] MEDS: DOCUSATE SODIUM 100 MG CAPSULE PO ×2 (09:35→20:35)
[2024-06-27] MEDS: TAMSULOSIN HCL 0.4 MG CAPSULE PO (09:36)
[2024-06-27] MEDS: BETAMETHASONE/CLOTRIMAZOLE CREAM 15 GM TUBE 1 APPLIC TOPICAL (09:36)
[2024-06-27] MEDS: CITALOPRAM HYDROBROMIDE 20 MG TABLET 40 MG PO (09:36)
[2024-06-27] MEDS: ARTIFICIAL TEARS OPHTH SOLN 15 ML BOTTLE 1 DROP EACH EYE ×2 (09:36→20:39)
--- NOTE | 2024-06-27 10:56 | PM.CNCAR ---
Assessment and Plan Assessment and plan (1) Heart failure with reduced ejection fraction: Code(s): I50.20 - Unspecified systolic (congestive) heart failure Status: Acute Assessment and Plan: 84-year-old male CHF with mildly reduced ejection fraction; hypertension, hyperlipidemia, recent bilateral lower extremity DVT (venous duplex from 06/18/2024 reported Deep vein thrombosis involving right femoral and popliteal veins and left common femoral vein); BPH with indwelling Pérez catheter and recent UTI, chronic anemia, chronic inflammatory demyelinating polyneuropathy, GERD, hypothyroidism on thyroxine replacement and anxiety. -patient has CHF with mildly reduced from recent echocardiogram. No active cardiac ischemic symptoms. May add low-dose carvedilol 3.125 mg with holding parameters. Other medications including ARNI and SGLT2 inhibitor can be considered as an outpatient. Patient recently had GE and UTI, therefore, may hold off on ARNI and SGLT2 inhibitor for now. Gentle diuresis as needed. Need for ischemic evaluation to be determined as an outpatient. (2) Acute respiratory distress: Code(s): R06.03 - Acute respiratory distress Status: Acute Assessment and Plan: Management as per primary team. Imaging showed atelectasis. Incentive spirometer Need for any antibiotics to be determined by primary team (3) Benign prostatic hyperplasia with urinary retention: Code(s): N40.1 - Benign prostatic hyperplasia with lower urinary tract symptoms; R33.8 - Other retention of urine Status: Acute Assessment and Plan: Management as per primary team. (4) History of DVT (deep vein thrombosis): Code(s): Z86.718 - Personal history of other venous thrombosis and embolism Status: Acute Assessment and Plan: Recent bilateral lower extremity DVT (venous duplex from 06/18/2024 reported Deep vein thrombosis involving right femoral and popliteal veins and left common femoral vein). On anticoagulation with apixaban. Monitor H&H. If patient develops a contraindication for anticoagulation, then he may be considered for IVC filter placement. History of Present Illness History of Present Illness Consult date/time: 06/27/24 10:56 Requesting physician: Leesa Banuelos PA-C Consult reason: Other (Reduced EF) Reason For Visit: Pneumonia, Hypoxic Respiratory Failure Narrative: DATE OF CONSULT: 06/19/2024 REASON FOR CONSULT: Reduced EF REQUESTING PHYSICIAN: DAVID Barr CHIEF COMPLAINT: Shortness of breath HPI: 84-year-old male CHF with mildly reduced ejection fraction; hypertension, hyperlipidemia, recent bilateral lower extremity DVT (venous duplex from 06/18/2024 reported Deep vein thrombosis involving right femoral and popliteal veins and left common femoral vein); BPH with indwelling Pérez catheter and recent UTI, chronic anemia, chronic inflammatory demyelinating polyneuropathy, GERD, hypothyroidism on thyroxine replacement and anxiety Patient was brought to [facility] Emergency Room on 06/26/2024 via EMS from [facility] with complaints of shortness of breath. Patient was found to be hypoxemic in the ER. At the time of evaluation, patient was lying down in the bed without ongoing cardiovascular symptoms including chest pain or shortness of breath. His and son were present in the room. They report that until recently, he was able to walk at home with cane and walker. No known prior cardiac history. EKG on my personal interpretation showed sinus tachycardia, heart rate 105 beats per minute, leftward axis. No acute ST segment abnormality. CTA chest negative for PE but reported right basilar atelectasis versus pneumonia with moderate pleural effusion. NT proBNP mildly elevated at 472. One of the troponins minimally elevated, others negative. Recent echocardiogram from 06/15/2024 reportedly showed mild LV enlargement, LVEF 40-45%, grade 1 diastolic dysfunction; no significant valve abnormality. Review of Systems Review of Systems: General: Positive for generalized fatigue Psychological: Negative for anxiety, depression Ophthalmic: negative for loss of vision ENT: Negative for epistaxis, headaches Allergy and immunology: Negative for hives, nasal congestion Hematologic and lymphatic: Negative for overt bleeding problems Endocrine: Negative for hot flashes, palpitations Respiratory: Negative for cough, hemoptysis Cardiovascular: Negative for chest pain, positive for dyspnea Gastrointestinal: Negative for abdominal pain, nausea, vomiting, hematochezia Musculoskeletal: Negative for myalgia, joint pains Neurological: Positive for generalized weakness Dermatological: Positive for scab around mouth PMFSH Past Medical History Medical History Anxiety and depression B12 deficiency Bilateral inguinal hernia BPH (benign prostatic hyperplasia) CIDP (chronic inflammatory demyelinating polyneuropathy) DILCIA (generalized anxiety disorder) H/O gastroesophageal reflux (GERD) Heart failure with reduced ejection fraction Hiatal hernia High cholesterol HTN (hypertension) Hypothyroid Neuropathy Thyroid disease Tremor of both hands Surgical History Surgical History History of colonoscopy at least 10-15 years ago per patient's History of left knee replacement Family History Family History Father Malignant neoplasm of prostate Mother Stomach cancer Social History Social History Social History: Surrogate medical decision maker: Valeria Cloud, spouse. Code status: Full code. Smoking status: Never smoker Alcohol intake: former Substance use: never Do You Feel Safe in your Home?: Yes Lack of Transportation: No Lack of Food: Never True Current Housing: I Have Housing Concerned About Future Housing: No Difficulty Paying Gas/Electric Bills: No Difficulty Paying for Meds: No Currently Unemployed: No Education: Trade/Vocational Certificate Difficulty w/ Childcare or Family Care: No Living arrangements: with family Occupation/Education: retired Spiritual care concerns: No Meds Home Medications and Allergies Home Medications Medication Instructions Recorded Confirmed Type atorvastatin 10 mg tablet 10 mg PO HS 10/10/23 06/26/24 History bimatoprost 0.01 % eye drops 1 drp EACH EYE HS 10/10/23 06/26/24 History (Lumigan) calcium carbonate 500 mg PO PRN PRN Indigestion 10/10/23 06/26/24 History cholecalciferol (vitamin D3) 50 50 mcg PO DAILY 10/10/23 06/26/24 History mcg (2,000 unit) tablet citalopram 40 mg tablet 20 mg PO BID 10/10/23 06/26/24 History coQ10 (ubiquinol) 100 mg capsule 100 mg PO DAILY 10/10/23 06/26/24 History cyanocobalamin (vitamin B-12) 2,500 mcg PO DAILY 10/10/23 06/26/24 History 1,000 mcg tablet cyclosporine 0.05 % eye drops 1 drp EACH EYE BID 10/10/23 06/26/24 History levothyroxine 50 mcg tablet 50 mcg PO QAM 10/10/23 06/26/24 History pantoprazole 40 mg tablet,delayed 40 mg PO DAILY 10/10/23 06/26/24 History release sennosides 8.6 mg tablet (senna) 8.6 mg PO HS 10/10/23 06/26/24 History aspirin 325 mg tablet 325 mg PO DAILY 04/15/24 06/26/24 History carboxymethylcellulose sodium 0.25 1 drp EACH EYE BID 04/15/24 06/26/24 History % eye drops (TheraTears) clotrimazole-betamethasone 1 1 applic topical DAILY 04/15/24 06/26/24 History %-0.05 % topical cream memantine 5 mg tablet 5 mg PO BID 04/15/24 06/26/24 History docusate sodium 100 mg capsule 100 mg PO Q12HR #60 caps 04/17/24 06/26/24 Rx tamsulosin 0.4 mg capsule 0.4 mg PO DAILY #30 caps 04/17/24 06/26/24 Rx apixaban 5 mg tablet (Eliquis) 2.5 mg PO Q12HR #30 tabs 06/24/24 06/26/24 Rx finasteride 5 mg tablet (Proscar) 5 mg PO DAILY 06/24/24 06/26/24 History melatonin 5 mg tablet 5 mg PO HS PRN Sleep #30 tabs 06/24/24 06/26/24 Rx midodrine 10 mg tablet 10 mg PO TID #90 tabs 06/24/24 06/26/24 Rx valacyclovir 500 mg tablet 1,000 mg PO Q12HR #20 tabs 06/24/24 06/26/24 Rx (Valtrex) cephalexin 500 mg capsule 500 mg PO Q6H 7 days #28 caps 06/25/24 06/26/24 Rx lorazepam 0.5 mg tablet 0.5 mg PO TID 06/26/24 06/26/24 History Allergies Allergy/AdvReac Type Severity Reaction Status Date / Time No Known Allergies Allergy Verified 06/26/24 11:34 Vital Signs Vital Signs - 24 hr 06/26/24 11:34 06/26/24 11:35 06/26/24 13:05 Temperature 36.3 C L Pulse Rate 107 H 106 H 105 H Respiratory Rate 21 H 30 H 19 Blood Pressure 101/73 Pulse Oximetry 100 100 100 Oxygen Delivery BiPAP BiPAP BiPAP Oxygen Flow Rate Fraction of Inspired Oxygen 06/26/24 13:11 06/26/24 14:54 06/26/24 15:55 Temperature Pulse Rate 71 85 Respiratory Rate 15 26 H Blood Pressure 114/63 Pulse Oximetry 100 100 Oxygen Delivery BiPAP BiPAP Oxygen Flow Rate Fraction of Inspired Oxygen 06/26/24 16:00 06/26/24 16:00 06/26/24 16:00 Temperature 36.2 C L Pulse Rate 84 91 Respiratory Rate 21 H Blood Pressure 146/79 H Pulse Oximetry 100 100 Oxygen Delivery BiPAP Oxygen Flow Rate Fraction of Inspired Oxygen 30 06/26/24 18:18 06/26/24 18:00 06/26/24 19:15 Temperature Pulse Rate 97 85 Respiratory Rate 27 H Blood Pressure Pulse Oximetry 100 98 Oxygen Delivery BiPAP Nasal Cannula Oxygen Flow Rate 2 Fraction of Inspired Oxygen 06/26/24 17:30 06/26/24 20:42 06/26/24 20:00 Temperature 36.4 C Pulse Rate 89 89 Respiratory Rate 21 H 21 H Blood Pressure 143/76 H Pulse Oximetry 100 100 100 Oxygen Delivery Nasal Cannula Nasal Cannula Oxygen Flow Rate 2 2 Fraction of Inspired Oxygen 06/27/24 00:00 06/27/24 00:00 06/26/24 20:00 Temperature 36.4 C Pulse Rate 77 77 84 Respiratory Rate 21 H 21 H Blood Pressure 140/75 Pulse Oximetry 100 100 Oxygen Delivery Nasal Cannula Oxygen Flow Rate 2 Fraction of Inspired Oxygen 06/26/24 22:00 06/27/24 00:00 06/27/24 02:00 Temperature Pulse Rate 84 64 59 L Respiratory Rate Blood Pressure Pulse Oximetry Oxygen Delivery Oxygen Flow Rate Fraction of Inspired Oxygen 06/27/24 03:51 06/27/24 04:00 06/27/24 04:30 Temperature 36.1 C L Pulse Rate 78 78 57 L Respiratory Rate 21 H 21 H 20 Blood Pressure 120/90 Pulse Oximetry 100 100 100 Oxygen Delivery Nasal Cannula Nasal Cannula Oxygen Flow Rate 2 1 Fraction of Inspired Oxygen 06/27/24 04:00 06/27/24 05:43 06/27/24 06:40 Temperature Pulse Rate 60 71 74 Respiratory Rate 20 Blood Pressure Pulse Oximetry 100 Oxygen Delivery Nasal Cannula Oxygen Flow Rate 1 Fraction of Inspired Oxygen 06/27/24 07:15 06/27/24 07:25 06/27/24 07:36 Temperature 36.4 C L Pulse Rate 68 64 Respiratory Rate 20 16 Blood Pressure 137/66 Pulse Oximetry 100 100 100 Oxygen Delivery Room Air Room Air Oxygen Flow Rate Fraction of Inspired Oxygen 06/27/24 08:00 06/27/24 08:00 06/27/24 10:00 Temperature Pulse Rate 84 80 Respiratory Rate Blood Pressure Pulse Oximetry 98 Oxygen Delivery Room Air Oxygen Flow Rate Fraction of Inspired Oxygen Exam Narrative: PHYSICAL EXAMINATION: GENERAL: Ill-appearing, elderly male, alert, no acute distress MENTAL STATUS: affect appropriate to mood EYES: Extraocular movements intact, pallor EARS: External ears appear normal, hearing grossly normal NOSE: Normal and patent, no discharge MOUTH: Mucous membranes moist, tongue normal NECK: Supple, no JVD CHEST: Decreased effort, decreased breath sounds at base HEART: Normal rate, regular rhythm, normal S1 and S2, no audible murmurs ABDOMEN: Soft, nontender NEUROLOGICAL: Alert, oriented, normal speech, no gross motor deficits MUSCULOSKELETAL: No major deformity, no amputation; muscle wasting EXTREMITIES: No pedal edema, no clubbing, no cyanosis SKIN: Scab around mouth GENITOURINARY: Pérez catheter in place PSYCHIATRIC: No agitation Results Labs and Meds 06/27/24 04:20 06/27/24 04:20 Lab results: Cardiac Enzymes 06/26/24 06/26/24 Range/Units 11:52 19:22 AST 56 (17-59) U/L Troponin I 0.034 0.029 (0.000-0.034) ng/mL CBC 06/26/24 06/27/24 Range/Units 11:52 04:20 WBC 7.2 6.4 (4.5-10.0) K/mm3 RBC 2.97 L 2.60 L (4.6-6.20) M/mm3 Hgb 8.4 L 7.4 L (14.0-18.0) g/dL Hct 27.5 L 24.1 L (42.0-52.0) % Plt Count 836 H 722 H (150-375) k/mm3 Lymph # (Auto) 1.21 1.54 (0.9-3.2) K/mm3 [place] # (Auto) 0.7 H 0.6 (0.1-0.6) K/mm3 Eos # (Auto) 0.1 0.0 (0-0.3) K/mm3 Baso # (Auto) 0.1 0.1 (0.0-0.1) K/mm3 Comprehensive Metabolic Panel 06/26/24 06/27/24 Range/Units 11:52 04:20 Sodium 135 L 134 L (137-145) mmol/L Potassium 4.0 3.9 (3.4-5.0) mmol/L Chloride 103 102 (98-107) mmol/L Carbon Dioxide 22 25 (22-30) mmol/L BUN 16 20 (9-20) mg/dL Creatinine 0.80 0.90 (0.7-1.3) mg/dL Glucose 165 H 115 H (65-110) mg/dL Calcium 9.0 8.9 (8.4-10.2) mg/dL AST 56 (17-59) U/L ALT 53 H (6-50) U/L Alkaline Phosphatase 148 H (38-126) U/L Total Protein 8.0 (6.3-8.2) g/dL Albumin 3.4 L (3.5-5.1) g/dL Intake and Output 06/26/24 06/27/24 06/27/24 23:59 07:59 15:59 Intake Total 289.5 550 360 Output Total 200 1600 Balance 89.5 -1050 360 Intake: IV 229.5 Sodium Chloride 0.9% IV 1,000 129.5 ml @ 30 mls/hr IV CONT .Q24H STA Rx#:[id number] Doxycycline 100 mg/Ns 100 ml 100 100 mg In 100 ml @ 100 mls/hr IVPB ONCE ONE Rx#:[id number] Oral 60 550 360 Output: Urine 200 1600 Patient Weight 06/27/24 23:59 Weight 68.2 kg
--- NOTE | 2024-06-27 12:13 | REHSTMBS ---
Assessment and note entered by DONNELL Armstrong Modified Barium Swallow Evaluation Feeding Type Recommended Oral Food Consistency Soft and Bite Size, Level Liquid Consistency Mildly Thick (2) Treatment Recommendations Laryngeal Elevation Exerc,Tongue Base Exercise ST Clinical Summary MODIFIED BARIUM SWALLOW STUDY This 84-year-old male patient was seen for an MBS on this date. Pt reports that he ?might? have trouble swallowing. Family members notice that he seems to clear his throat and sometimes cough with eating and drinking. This is a pleasant 84-year- old male with history of heart failure with reduced ejection fraction, hypertension, hyperlipidemia, benign prostatic hyperplasia with indwelling Pérez catheter, chronic inflammatory demyelinating polyneuropathy, gastroesophageal reflux disease, hypothyroidism, and anxiety who presented to the emergency depart via EMS from [facility] for evaluation of chest pain and shortness of breath. He was administered thin liquids via spoon and straw, mixed consistency via spoon, pureed consistency via spoon, and mildly thick liquid via straw. REHAB SPEC noted reduced laryngeal elevation, reduced tongue base retraction, reduced pharyngeal squeeze, and vallecular residue, pyriform sinus residue and some pharyngeal wall residue. Laryngeal penetration was noted with thin liquids and significantly decreased with mildly thickened liquids. Patient was edentulous, stating that he had dentures but was not wearing them. Due to lack of teeth, patient had to spit out the fruit pieces in the mixed consistency due to trouble breaking down the food, therefore solid consistency was not administered at this time. REHAB SPEC provided education to patient and his family post-MBS on what the MBS is for and how speech therapy services will help current deficits. REHAB SPEC recommends a diet of Level 2 liquids (mildly thickened liquids) and Level 6 food (soft and bite -sized). Speech therapy services warranted at this time to target patient?s tongue base retraction, laryngeal elevation, and laryngeal adduction deficits. Thank you for this referral!
[2024-06-27] MEDS: LORazepam (*CRX) 0.5 MG TABLET PO (13:39)
--- NOTE | 2024-06-27 16:37 | PM.IMPN ---
Progress Note: A&P Assessment and Plan (1) Hypoxia: Code(s): R09.02 - Hypoxemia Status: Acute (2) Pleural effusion on right: Code(s): J90 - Pleural effusion, not elsewhere classified Status: Acute (3) Heart failure with reduced ejection fraction: Code(s): I50.20 - Unspecified systolic (congestive) heart failure Status: Acute (4) Elevated lactic acid level: Code(s): R79.89 - Other specified abnormal findings of blood chemistry Status: Acute (5) Benign prostatic hyperplasia with urinary retention: Code(s): N40.1 - Benign prostatic hyperplasia with lower urinary tract symptoms; R33.8 - Other retention of urine Status: Acute (6) Anemia: Code(s): D64.9 - Anemia, unspecified Status: Acute (7) Thrombocytosis: Code(s): D75.839 - Thrombocytosis, unspecified Status: Acute (8) Dysphagia: Code(s): R13.10 - Dysphagia, unspecified Status: Acute Plan The patient presented to the emergency department for evaluation of chest and pain shortness a breath as detailed in HPI. Labs, imaging, EKG, and all reports were personally reviewed. Chest CT was negative for pulmonary embolism but did note moderate size right pleural effusion with associated atelectasis and/or pneumonia. His history is not consistent with pneumonia and he is afebrile with normal white blood cell count. As such will hold on further antibiotics for now. He may very well have some volume overload from his recent hospitalization in which he was treated for urosepsis and acute kidney failure. Echocardiogram during that stay showed a reduced ejection fraction of 40 to 45%. Furosemide 40 mg IV x1 has been ordered. Consult Cardiology for their input regarding recent echocardiogram. Encourage incentive spirometry as he has bibasilar atelectasis. Initial lactic acid level was barely elevated and may be related to lab draw technique or hypoxia. He is currently on 2 L nasal cannula with an SpO2 in the upper 90s to 100%. Oxygen will be weaned as tolerated. Blood pressures were reviewed and they are stable. Anemia stable and will be monitored. Thrombocytosis may be reactive and will be monitored. Swallow study ordered given reports mild dysphagia. His home medications will be reviewed and resumed as appropriate. 06/27: -Patient had recent bilateral lower extremity DVT and currently on apixaban. -Retention of urine secondary to massive prostatomegaly. Placed 14 [place] coude catheter at bedside 06/12/24 and catheter is draining well at this time. Continue Pérez catheter with monthly changes with home health. Due for next exchange 07/12/2024. -OP awaiting prostate artery embolization -Cardiology evaluated today and added low-dose carvedilol 3.125 mg with holding parameters. Other medications including ARNI and SGLT2 inhibitor can be considered as an outpatient. Patient recently had GE and UTI, therefore, may hold off on ARNI and SGLT2 inhibitor for now. Gentle diuresis as needed. Subjective Date/time seen: 06/27/24 16:37 Interval history: Discussed with the patient's about the goal of care. Patient was previously admitted due to urinary obstruction due to prostatomegaly. Cardiology added low-dose of carvedilol. Review of Systems Review of Systems: 12 systems were reviewed and are negative except for as per HPI. Exam Narrative: General: Chronically ill but nontoxic-appearing male sitting up in bed. Weight: 67.5 kg. BMI: 21.4. HEENT: PERRL, EOMI. Sclera anicteric. Oral mucosa moist. Oropharynx clear. Neck: Supple. No JVD. Respiratory: Respirations are nonlabored and he is speaking in full sentences. Lung sounds are diminished at the right base with faint crackles at the left base. Cardiovascular: Regular rate and rhythm with S1-S2. Gastrointestinal: Abdomen is soft, nontender, and nondistended with positive bowel sounds. Genitourinary: Pérez catheter draining clear yellow urine. Skin: Warm and dry. Healing scabbed areas on the upper lip. Extremities: No cyanosis or clubbing. Bilateral lower extremity edema, left greater than right. Radial and pedal pulses intact. Neurological: Alert. Cranial nerves 2-12 are grossly intact. Faint tremors of the hands. No gross focal deficits to casual conversation. Psychiatric: Pleasant and cooperative with appropriate mood. Slightly anxious on BiPAP which improved after was removed. Objective Data Vital Signs Vital Signs: Vital Signs - 24 hr 06/26/24 18:18 06/26/24 18:00 06/26/24 19:15 Temperature Pulse Rate 97 85 Respiratory Rate 27 H Blood Pressure Pulse Oximetry 100 98 Oxygen Delivery BiPAP Nasal Cannula Oxygen Flow Rate 2 06/26/24 17:30 06/26/24 20:42 06/26/24 20:00 Temperature 97.6 F Pulse Rate 89 89 Respiratory Rate 21 H 21 H Blood Pressure 143/76 H Pulse Oximetry 100 100 100 Oxygen Delivery Nasal Cannula Nasal Cannula Oxygen Flow Rate 2 2 06/27/24 00:00 06/27/24 00:00 06/26/24 20:00 Temperature 97.6 F Pulse Rate 77 77 84 Respiratory Rate 21 H 21 H Blood Pressure 140/75 Pulse Oximetry 100 100 Oxygen Delivery Nasal Cannula Oxygen Flow Rate 2 06/26/24 22:00 06/27/24 00:00 06/27/24 02:00 Temperature Pulse Rate 84 64 59 L Respiratory Rate Blood Pressure Pulse Oximetry Oxygen Delivery Oxygen Flow Rate 06/27/24 03:51 06/27/24 04:00 06/27/24 04:30 Temperature 97.0 F L Pulse Rate 78 78 57 L Respiratory Rate 21 H 21 H 20 Blood Pressure 120/90 Pulse Oximetry 100 100 100 Oxygen Delivery Nasal Cannula Nasal Cannula Oxygen Flow Rate 2 1 06/27/24 04:00 06/27/24 05:43 06/27/24 06:40 Temperature Pulse Rate 60 71 74 Respiratory Rate 20 Blood Pressure Pulse Oximetry 100 Oxygen Delivery Nasal Cannula Oxygen Flow Rate 1 06/27/24 07:15 06/27/24 07:25 06/27/24 07:36 Temperature 97.5 F L Pulse Rate 68 64 Respiratory Rate 20 16 Blood Pressure 137/66 Pulse Oximetry 100 100 100 Oxygen Delivery Room Air Room Air Oxygen Flow Rate 06/27/24 08:00 06/27/24 08:00 06/27/24 10:00 Temperature Pulse Rate 84 80 Respiratory Rate Blood Pressure Pulse Oximetry 98 Oxygen Delivery Room Air Oxygen Flow Rate 06/27/24 11:33 06/27/24 12:00 06/27/24 12:00 Temperature 98.1 F Pulse Rate 64 76 Respiratory Rate 20 Blood Pressure 123/61 Pulse Oximetry 100 100 Oxygen Delivery Room Air Oxygen Flow Rate 06/27/24 16:00 Temperature 98.1 F Pulse Rate 70 Respiratory Rate 16 Blood Pressure 105/52 L Pulse Oximetry 98 Oxygen Delivery Oxygen Flow Rate Intake/Output Intake/Output: Intake & Output 06/24/24 06/25/24 06/26/24 06/27/24 23:59 23:59 23:59 23:59 Intake Total 839.5 1270 Output Total 200 1600 Balance 639.5 -330 Meds/Results Medications: Active Medications Generic Name Dose Route Start Last Admin Trade Name Leonardoq PRN Reason Stop Dose Admin Apixaban 2.5 mg 06/26/24 21:00 06/27/24 09:34 Apixaban 2.5 Mg Tablet PO 2.5 mg Q12HR LUCILLE Administration Artificial Tears 1 drop 06/26/24 21:00 06/27/24 09:36 Artificial Tears Ophth Soln 15 Ml Bottle EACH EYE 1 drop Q12HR LUCILLE Administration Aspirin 325 mg 06/27/24 09:00 06/27/24 09:34 Aspirin 325 Mg Tablet PO 325 mg DAILY LUCILLE Administration Atorvastatin Calcium 10 mg 06/26/24 21:00 06/26/24 22:10 Atorvastatin 10 Mg Tablet PO 10 mg HS LUCILLE Administration Calcium Carbonate 200 mg 06/26/24 18:51 Calcium Carbonate (Tums) 500 Mg (200 Mg Elemental) PO PRN PRN Indigestion Citalopram Hydrobromide 40 mg 06/27/24 09:00 06/27/24 09:36 Citalopram Hydrobromide 20 Mg Tablet PO 40 mg QAM LUCILLE Administration Clotrimazole 1 applic 06/27/24 09:00 06/27/24 09:36 Betamethasone/Clotrimazole Cream 15 Gm Tube TOPICAL 1 applic DAILY LUCILLE Administration Cyanocobalamin 2,500 mcg 06/27/24 09:00 06/27/24 09:34 Cyanocobalamin 500 Mcg Tablet PO 2,500 mcg DAILY LUCILLE Administration Cyclosporine 1 drop 06/26/24 21:00 06/27/24 09:35 Cyclosporine 0.4 Ml Ophth Solution EACH EYE 1 drop Q12HR LUCILLE Administration Docusate Sodium 100 mg 06/26/24 21:00 06/27/24 09:35 Docusate Sodium 100 Mg Capsule PO 100 mg Q12HR LUCILLE Administration Finasteride 5 mg 06/27/24 09:00 06/27/24 09:35 Finasteride 5 Mg Tablet PO 5 mg DAILY LUCILLE Administration Latanoprost 1 drop 06/26/24 21:00 06/26/24 22:11 Latanoprost 0.005% Op Soln 2.5 Ml Btl EACH EYE 1 drop HS LUCILLE Administration Levothyroxine Sodium 50 mcg 06/27/24 06:30 06/27/24 06:19 Levothyroxine Sodium 50 Mcg Tablet PO 50 mcg DAILY@0630 LUCILLE Administration Lorazepam 0.5 mg 06/26/24 23:38 06/27/24 13:39 Lorazepam (*Crx) 0.5 Mg Tablet PO 0.5 mg TID PRN Administration Anxiety Melatonin 5 mg 06/26/24 18:51 06/26/24 22:12 Melatonin 5 Mg Tablet PO 5 mg HS PRN Administration Sleep Memantine 5 mg 06/27/24 09:00 06/27/24 09:35 Memantine 5 Mg Tablet PO 5 mg BID LUCILLE Administration Midodrine 10 mg 06/27/24 09:00 06/27/24 13:20 Midodrine Hcl 10 Mg Tablet PO 10 mg TID LUCILLE Administration Non-Formulary Medication 100 mg 06/27/24 09:00 Coq10 (Ubiquinol) PO 07/27/24 08:59 DAILY LUCILLE Pantoprazole Sodium 40 mg 06/27/24 09:00 06/27/24 09:34 Pantoprazole 40 Mg Tablet PO 40 mg DAILY LUCILLE Administration Senna 8.6 mg 06/26/24 21:00 06/26/24 22:12 Sennosides 8.6 Mg Tablet PO 8.6 mg HS LUCILLE Administration Tamsulosin HCl 0.4 mg 06/27/24 09:00 06/27/24 09:36 Tamsulosin Hcl 0.4 Mg Capsule PO 0.4 mg DAILY LUCILLE Administration Valacyclovir HCl 1,000 mg 06/26/24 21:00 06/27/24 09:35 Valacyclovir Hcl 500 Mg Tablet PO 1,000 mg Q12HR LUCILLE Administration Vitamin D 2,000 units 06/27/24 09:00 06/27/24 09:34 Cholecalciferol 1,000 Units Tablet PO 2,000 units DAILY LUCILLE Administration Radiology Results: ITS Impressions Chest X-Ray 06/26/24 12:23 Impression: 1: Bibasilar atelectasis. Chest CTA 06/26/24 13:16 IMPRESSION: 1. No pulmonary embolism. 2. Right basilar atelectasis versus pneumonia with moderate pleural effusion. 3. Left basilar atelectasis with minimal effusion. 4. Sliding hiatus hernia. Modified Barium Swallow 06/27/24 11:43 IMPRESSION: 1: Laryngeal penetration without aspiration. 2: Please refer to speech pathologist report for additional detail. Labs Labs: Laboratory Results - last 24 hr 06/26/24 06/27/24 19:22 04:20 WBC 6.4 RBC 2.60 L Hgb 7.4 L Hct 24.1 L MCV 92.7 MCH 28.5 MCHC 30.7 L RDW 19.7 H Plt Count 722 H MPV 9.2 Immature Gran % (Auto) 1.1 H Neut % (Auto) 64.2 Lymph % (Auto) 24.0 [place] % (Auto) 9.7 H Eos % (Auto) 0.2 Baso % (Auto) 0.8 Lymph # (Auto) 1.54 [place] # (Auto) 0.6 Eos # (Auto) 0.0 Baso # (Auto) 0.1 Abs Immat Gran (auto) 0.07 H Absolute Neuts (auto) 4.1 Absolute Nucleated RBC 0.000 Nucleated RBC % 0.0 Sodium 134 L Potassium 3.9 Chloride 102 Carbon Dioxide 25 Anion Gap 7 BUN 20 Creatinine 0.90 Estim Creat Clear Calc 52 Estimated GFR > 60 Glucose 115 H Calcium 8.9 Troponin I 0.029 C-Reactive Protein 2.3 H Procalcitonin 0.3 Quality VTE Prophylaxis VTE prophylaxis: pharmacologic ordered (on apixaban) Hospitalist [facility] Advance Care Plan I have confirmed that the patient's Advanced Care Plan is present, code status is documented, or surrogate decision maker is listed in patient medical record.: Yes Medication Reconciliation I have utilized all available resources to obtain, update and review the patients current medications (includes all prescriptions, OTC, herbals, cannabis, and nutritional supplements).: Yes
--- NOTE | 2024-06-27 20:07 | PC.NURSE ---
This patient, Linwood Cloud, was received from [ /] on 06/27/24 at 2006. Patient/family oriented to unit policies and routines
--- NOTE | 2024-06-27 20:14 | PC.NURSE ---
This patient, Linwood Cloud, was transferred to [[id number] ] on 06/27/24 at 2006. Personal belongings sent with patient. Report given to [Anita SCHMITZ ]. Appropriate documentation sent with patient.
[2024-06-27] MEDS: ATORVASTATIN 10 MG TABLET PO (20:36)
[2024-06-27] MEDS: SENNOSIDES 8.6 MG TABLET PO (20:36)
[2024-06-27] MEDS: LATANOPROST 0.005% OP SOLN 2.5 ML BTL 1 DROP EACH EYE (20:39)
[2024-06-28 05:52] LABS: Hematocrit 23.2 % (42.0-52.0); Mean Corpuscular HGB Conc 30.2 g/dl (32-36); Mean Corpuscular Hemoglobin 28.8 pg (26-34); Mean Corpuscular Volume 95.5 fl (80-100); Platelet Count Result 649 k/mm3 (150-375); Red Blood Count 2.43 M/mm3 (4.6-6.20); Red Cell Distribution Width 20.7 % (11.5-14.5); White Blood Count 5.1 K/mm3 (4.5-10.0)
[2024-06-28 06:00] VITALS: BP 123/67; PULSE 67; RESP 18; TEMP 36.7; O2SAT 99
[2024-06-28] MEDS: LEVOTHYROXINE SODIUM 50 MCG TABLET PO (06:04)
[2024-06-28 06:06] LABS: Alanine Aminotransferase 39 U/L (6-50); Albumin Level 2.8 g/dL (3.5-5.1); Alkaline Phosphatase 96 U/L (38-126); Anion Gap 6 mmol/L (4-12); Aspartate Amino Transferase 42 U/L (17-59); Bilirubin,Total 0.2 mg/dL (0.2-1.3); Blood Urea Nitrogen 19 mg/dL (9-20); Calcium 8.5 mg/dL (8.4-10.2); Carbon Dioxide 24 mmol/L (22-30); Chloride 104 mmol/L (98-107); Estimated CRCL calculation 52 ml/min; Estimated Glomerular Filt Rate > 60; Glucose 84 mg/dL (65-110); Potassium 3.7 mmol/L (3.4-5.0); Sodium 134 mmol/L (137-145)
[2024-06-28] MEDS: CITALOPRAM HYDROBROMIDE 20 MG TABLET 40 MG PO (08:54)
[2024-06-28] MEDS: CYANOCOBALAMIN 500 MCG TABLET 2500 MCG PO (08:54)
[2024-06-28] MEDS: MEMANTINE 5 MG TABLET PO ×2 (08:54→17:48)
[2024-06-28] MEDS: PANTOPRAZOLE 40 MG TABLET PO (08:54)
[2024-06-28] MEDS: TAMSULOSIN HCL 0.4 MG CAPSULE PO (08:54)
[2024-06-28] MEDS: valACYclovir HCL 500 MG TABLET 1000 MG PO ×2 (08:54→20:33)
[2024-06-28] MEDS: APIXABAN 2.5 MG TABLET PO ×2 (08:54→20:33)
[2024-06-28] MEDS: FINASTERIDE 5 MG TABLET PO (08:55)
[2024-06-28] MEDS: cycloSPORINE 0.4 ML OPHTH SOLUTION 1 DROP EACH EYE ×2 (08:55→20:33)
[2024-06-28] MEDS: DOCUSATE SODIUM 100 MG CAPSULE PO ×2 (08:55→20:33)
[2024-06-28] MEDS: BETAMETHASONE/CLOTRIMAZOLE CREAM 15 GM TUBE 1 APPLIC TOPICAL (08:55)
[2024-06-28] MEDS: CHOLECALCIFEROL 1,000 UNITS TABLET 2000 UNITS PO (08:55)
[2024-06-28] MEDS: ASPIRIN 325 MG TABLET PO (08:55)
[2024-06-28] MEDS: MIDODRINE HCL 10 MG TABLET PO ×3 (08:55→17:48)
[2024-06-28] MEDS: ARTIFICIAL TEARS OPHTH SOLN 15 ML BOTTLE 1 DROP EACH EYE ×2 (08:56→20:33)
--- NOTE | 2024-06-28 10:38 | P.CONUR_ITS ---
Assessment and Plan Assessment and plan (1) Benign prostatic hyperplasia with urinary retention: Code(s): N40.1 - Benign prostatic hyperplasia with lower urinary tract symptoms; R33.8 - Other retention of urine Status: Acute Assessment and Plan: No new recommendations. Continue with monthly catheter changes. He is scheduled for a prostate artery embolization consultation later in the month as long as he is medically stable. Urology Consult Note HPI Date Seen: 06/28/24 Time Seen: 10:39 Requesting Physician: Vj Riggs MD Primary Care Provider: Leah Shepherd, Consult Narrative Reason for consult: Urinary retention with chronic indwelling Pérez- prostatomegaly Narrative: Linwood Cloud is a 84 year old male who is known to our service. He had just been seen 06/12/2024 by our nurse practitioner. There is no new recommendations other than continue chronic indwelling Pérez with monthly catheter changes. He is scheduled for a consultation for prostate artery embolization on the and that will be confirmed by our nurse practitioner as long as he is medically stable. Review of Systems Review of Systems: All systems reviewed & are unremarkable except as noted in HPI and below PMFSH Past Medical History Medical History Anxiety and depression B12 deficiency Bilateral inguinal hernia BPH (benign prostatic hyperplasia) CIDP (chronic inflammatory demyelinating polyneuropathy) DILCIA (generalized anxiety disorder) H/O gastroesophageal reflux (GERD) Heart failure with reduced ejection fraction Hiatal hernia High cholesterol HTN (hypertension) Hypothyroid Neuropathy Thyroid disease Tremor of both hands Surgical History Surgical History History of colonoscopy at least 10-15 years ago per patient's History of left knee replacement Family History Family History Father Malignant neoplasm of prostate Mother Stomach cancer Social History Social History Social History: Surrogate medical decision maker: Valeria Cloud, spouse. Code status: Full code. Smoking status: Never smoker Alcohol intake: former Substance use: never Do You Feel Safe in your Home?: Yes Lack of Transportation: No Lack of Food: Never True Current Housing: I Have Housing Concerned About Future Housing: No Difficulty Paying Gas/Electric Bills: No Difficulty Paying for Meds: No Currently Unemployed: No Education: Trade/Vocational Certificate Difficulty w/ Childcare or Family Care: No Living arrangements: with family Occupation/Education: retired Spiritual care concerns: No Meds Home Medications and Allergies Home Medications Medication Instructions Recorded Confirmed Type atorvastatin 10 mg tablet 10 mg PO HS 10/10/23 06/26/24 History bimatoprost 0.01 % eye drops 1 drp EACH EYE HS 10/10/23 06/26/24 History (Lumigan) calcium carbonate 500 mg PO PRN PRN Indigestion 10/10/23 06/26/24 History cholecalciferol (vitamin D3) 50 50 mcg PO DAILY 10/10/23 06/26/24 History mcg (2,000 unit) tablet citalopram 40 mg tablet 20 mg PO BID 10/10/23 06/26/24 History coQ10 (ubiquinol) 100 mg capsule 100 mg PO DAILY 10/10/23 06/26/24 History cyanocobalamin (vitamin B-12) 2,500 mcg PO DAILY 10/10/23 06/26/24 History 1,000 mcg tablet cyclosporine 0.05 % eye drops 1 drp EACH EYE BID 10/10/23 06/26/24 History levothyroxine 50 mcg tablet 50 mcg PO QAM 10/10/23 06/26/24 History pantoprazole 40 mg tablet,delayed 40 mg PO DAILY 10/10/23 06/26/24 History release sennosides 8.6 mg tablet (senna) 8.6 mg PO HS 10/10/23 06/26/24 History aspirin 325 mg tablet 325 mg PO DAILY 04/15/24 06/26/24 History carboxymethylcellulose sodium 0.25 1 drp EACH EYE BID 04/15/24 06/26/24 History % eye drops (TheraTears) clotrimazole-betamethasone 1 1 applic topical DAILY 04/15/24 06/26/24 History %-0.05 % topical cream memantine 5 mg tablet 5 mg PO BID 04/15/24 06/26/24 History docusate sodium 100 mg capsule 100 mg PO Q12HR #60 caps 04/17/24 06/26/24 Rx tamsulosin 0.4 mg capsule 0.4 mg PO DAILY #30 caps 04/17/24 06/26/24 Rx apixaban 5 mg tablet (Eliquis) 2.5 mg PO Q12HR #30 tabs 06/24/24 06/26/24 Rx finasteride 5 mg tablet (Proscar) 5 mg PO DAILY 06/24/24 06/26/24 History melatonin 5 mg tablet 5 mg PO HS PRN Sleep #30 tabs 06/24/24 06/26/24 Rx midodrine 10 mg tablet 10 mg PO TID #90 tabs 06/24/24 06/26/24 Rx valacyclovir 500 mg tablet 1,000 mg PO Q12HR #20 tabs 06/24/24 06/26/24 Rx (Valtrex) cephalexin 500 mg capsule 500 mg PO Q6H 7 days #28 caps 06/25/24 06/26/24 Rx lorazepam 0.5 mg tablet 0.5 mg PO TID 06/26/24 06/26/24 History Allergies Allergy/AdvReac Type Severity Reaction Status Date / Time No Known Allergies Allergy Verified 06/26/24 11:34 Vital Signs Vital Signs - 24 hr 06/27/24 11:33 06/27/24 12:00 06/27/24 12:00 Temperature 36.7 C Pulse Rate 64 76 Respiratory Rate 20 Blood Pressure 123/61 Pulse Oximetry 100 100 Oxygen Delivery Room Air 06/27/24 16:00 06/27/24 19:32 06/27/24 20:09 Temperature 36.7 C 36.8 C Pulse Rate 70 78 Respiratory Rate 16 18 Blood Pressure 105/52 L 125/67 Pulse Oximetry 98 95 97 Oxygen Delivery Room Air 06/27/24 20:43 06/28/24 06:00 06/28/24 08:54 Temperature 36.7 C Pulse Rate 67 Respiratory Rate 18 Blood Pressure 123/67 Pulse Oximetry 99 Oxygen Delivery Room Air Room Air Exam Const: General: cooperative and comfortable Resp: Effort & Inspection: normal respiratory effort Cardio: Rate: regular rate Rhythm: regular rhythm Results Labs 06/28/24 05:24 06/28/24 05:24 Labs: Short CBC 06/28/24 Range/Units 05:24 WBC 5.1 (4.5-10.0) K/mm3 Hgb 7.0 L (14.0-18.0) g/dL Hct 23.2 L (42.0-52.0) % Plt Count 649 H (150-375) k/mm3 BMP 06/28/24 05:24 Sodium 134 L Potassium 3.7 Chloride 104 Carbon Dioxide 24 BUN 19 Creatinine 0.90 Glucose 84 Calcium 8.5 Liver Function 06/28/24 Range/Units 05:24 Total Bilirubin 0.2 (0.2-1.3) mg/dL AST 42 (17-59) U/L ALT 39 (6-50) U/L Alkaline Phosphatase 96 (38-126) U/L Albumin 2.8 L (3.5-5.1) g/dL
--- NOTE | 2024-06-28 11:32 | P.PNIM_ITS ---
Progress Note: A&P Assessment and Plan (1) Hypoxia: Code(s): R09.02 - Hypoxemia Status: Acute (2) Pleural effusion on right: Code(s): J90 - Pleural effusion, not elsewhere classified Status: Acute (3) Heart failure with reduced ejection fraction: Code(s): I50.20 - Unspecified systolic (congestive) heart failure Status: Acute (4) Elevated lactic acid level: Code(s): R79.89 - Other specified abnormal findings of blood chemistry Status: Acute (5) Benign prostatic hyperplasia with urinary retention: Code(s): N40.1 - Benign prostatic hyperplasia with lower urinary tract symptoms; R33.8 - Other retention of urine Status: Acute (6) Anemia: Code(s): D64.9 - Anemia, unspecified Status: Acute (7) Thrombocytosis: Code(s): D75.839 - Thrombocytosis, unspecified Status: Acute (8) Dysphagia: Code(s): R13.10 - Dysphagia, unspecified Status: Acute Plan The patient presented to the emergency department for evaluation of chest and pain shortness a breath as detailed in HPI. Labs, imaging, EKG, and all reports were personally reviewed. Chest CT was negative for pulmonary embolism but did note moderate size right pleural effusion with associated atelectasis and/or pneumonia. His history is not consistent with pneumonia and he is afebrile with normal white blood cell count. As such will hold on further antibiotics for now. He may very well have some volume overload from his recent hospitalization in which he was treated for urosepsis and acute kidney failure. Echocardiogram during that stay showed a reduced ejection fraction of 40 to 45%. Furosemide 40 mg IV x1 has been ordered. Consult Cardiology for their input regarding recent echocardiogram. Encourage incentive spirometry as he has bibasilar atelectasis. Initial lactic acid level was barely elevated and may be related to lab draw technique or hypoxia. He is currently on 2 L nasal cannula with an SpO2 in the upper 90s to 100%. Oxygen will be weaned as tolerated. Blood pressures were reviewed and they are stable. Anemia stable and will be monitored. Thrombocytosis may be reactive and will be monitored. Swallow study ordered given reports mild dysphagia. His home medications will be reviewed and resumed as appropriate. 06/28: -currently hemoglobin is 7.1. -discussed the goal of care with the family and want to continue full code -as per Urology no new plan. Perform prostate artery embolization as an outpatient -FOBT pending. No evidence of hematuria -Patient had recent bilateral lower extremity DVT and currently on apixaban. -Retention of urine secondary to massive prostatomegaly. Placed 14 [place] coude catheter at bedside 06/12/24 and catheter is draining well at this time. Continue Pérez catheter with monthly changes with home health. Due for next exchange 07/12/2024. -OP awaiting prostate artery embolization -Cardiology evaluated and added low-dose carvedilol 3.125 mg with holding parameters. Other medications including ARNI and SGLT2 inhibitor can be considered as an outpatient. Patient recently had GE and UTI, therefore, may hold off on ARNI and SGLT2 inhibitor for now. Gentle diuresis as needed. Subjective Date/time seen: 06/28/24 11:32 Interval history: Patient was evaluated at the bedside with the aside. Urology planning to do prostate artery embolization as an outpatient. Patient hemoglobin is 7.1 and will repeat a H&H around 1:00 p.m. patient is currently on anticoagulant because of the bilateral lower extremity DVT. FOBT has been ordered. Urine looks clear and no evidence of hematuria. Review of Systems Review of Systems: 12 systems were reviewed and are negativ e except for as per HPI. Exam Narrative: General: Chronically ill but nontoxic-appearing male sitting up in bed. Weight: 67.5 kg. BMI: 21.4. HEENT: PERRL, EOMI. Sclera anicteric. Oral mucosa moist. Oropharynx clear. Neck: Supple. No JVD. Respiratory: Respirations are nonlabored and he is speaking in full sentences. Lung sounds are diminished at the right base with faint crackles at the left base. Cardiovascular: Regular rate and rhythm with S1-S2. Gastrointestinal: Abdomen is soft, nontender, and nondistended with positive bowel sounds. Genitourinary: Pérez catheter draining clear yellow urine. Skin: Warm and dry. Healing scabbed areas on the upper lip. Extremities: No cyanosis or clubbing. Bilateral lower extremity edema, left greater than right. Radial and pedal pulses intact. Neurological: Alert. Cranial nerves 2-12 are grossly intact. Faint tremors of the hands. No gross focal deficits to casual conversation. Psychiatric: Pleasant and cooperative with appropriate mood. Slightly anxious on BiPAP which improved after was removed. Objective Data Vital Signs Vital Signs: Vital Signs - 24 hr 06/27/24 11:33 06/27/24 12:00 06/27/24 12:00 Temperature 98.1 F Pulse Rate 64 76 Respiratory Rate 20 Blood Pressure 123/61 Pulse Oximetry 100 100 Oxygen Delivery Room Air 06/27/24 16:00 06/27/24 19:32 06/27/24 20:09 Temperature 98.1 F 98.2 F Pulse Rate 70 78 Respiratory Rate 16 18 Blood Pressure 105/52 L 125/67 Pulse Oximetry 98 95 97 Oxygen Delivery Room Air 06/27/24 20:43 06/28/24 06:00 06/28/24 08:54 Temperature 98.1 F Pulse Rate 67 Respiratory Rate 18 Blood Pressure 123/67 Pulse Oximetry 99 Oxygen Delivery Room Air Room Air Intake/Output Intake/Output: Intake & Output 06/25/24 06/26/24 06/27/24 06/28/24 23:59 23:59 23:59 23:59 Intake Total 839.5 1570 570 Output Total 200 2150 350 Balance 639.5 -580 220 Meds/Results Medications: Active Medications Generic Name Dose Route Start Last Admin Trade Name Freq PRN Reason Stop Dose Admin Apixaban 2.5 mg 06/26/24 21:00 06/28/24 08:54 Apixaban 2.5 Mg Tablet PO 2.5 mg Q12HR LUCILLE Administration Artificial Tears 1 drop 06/26/24 21:00 06/28/24 08:56 Artificial Tears Ophth Soln 15 Ml Bottle EACH EYE 1 drop Q12HR LUCILLE Administration Aspirin 325 mg 06/27/24 09:00 06/28/24 08:55 Aspirin 325 Mg Tablet PO 325 mg DAILY LUCILLE Administration Atorvastatin Calcium 10 mg 06/26/24 21:00 06/27/24 20:36 Atorvastatin 10 Mg Tablet PO 10 mg HS LUCILLE Administration Calcium Carbonate 200 mg 06/26/24 18:51 Calcium Carbonate (Tums) 500 Mg (200 Mg Elemental) PO PRN PRN Indigestion Citalopram Hydrobromide 40 mg 06/27/24 09:00 06/28/24 08:54 Citalopram Hydrobromide 20 Mg Tablet PO 40 mg QAM LUCILLE Administration Clotrimazole 1 applic 06/27/24 09:00 06/28/24 08:55 Betamethasone/Clotrimazole Cream 15 Gm Tube TOPICAL 1 applic DAILY LUCILLE Administration Cyanocobalamin 2,500 mcg 06/27/24 09:00 06/28/24 08:54 Cyanocobalamin 500 Mcg Tablet PO 2,500 mcg DAILY LUCILLE Administration Cyclosporine 1 drop 06/26/24 21:00 06/28/24 08:55 Cyclosporine 0.4 Ml Ophth Solution EACH EYE 1 drop Q12HR LUCILLE Administration Docusate Sodium 100 mg 06/26/24 21:00 06/28/24 08:55 Docusate Sodium 100 Mg Capsule PO 100 mg Q12HR LUCILLE Administration Finasteride 5 mg 06/27/24 09:00 06/28/24 08:55 Finasteride 5 Mg Tablet PO 5 mg DAILY LUCILLE Administration Latanoprost 1 drop 06/26/24 21:00 06/27/24 20:39 Latanoprost 0.005% Op Soln 2.5 Ml Btl EACH EYE 1 drop HS LUCILLE Administration Levothyroxine Sodium 50 mcg 06/27/24 06:30 06/28/24 06:04 Levothyroxine Sodium 50 Mcg Tablet PO 50 mcg DAILY@0630 LUCILLE Administration Lorazepam 0.5 mg 06/26/24 23:38 06/27/24 13:39 Lorazepam (*Crx) 0.5 Mg Tablet PO 0.5 mg TID PRN Administration Anxiety Melatonin 5 mg 06/26/24 18:51 06/26/24 22:12 Melatonin 5 Mg Tablet PO 5 mg HS PRN Administration Sleep Memantine 5 mg 06/27/24 09:00 06/28/24 08:54 Memantine 5 Mg Tablet PO 5 mg BID LUCILLE Administration Midodrine 10 mg 06/27/24 09:00 06/28/24 08:55 Midodrine Hcl 10 Mg Tablet PO 10 mg TID LUCILLE Administration Non-Formulary Medication 100 mg 06/27/24 09:00 Coq10 (Ubiquinol) PO 07/27/24 08:59 DAILY LUCILLE Pantoprazole Sodium 40 mg 06/27/24 09:00 06/28/24 08:54 Pantoprazole 40 Mg Tablet PO 40 mg DAILY LUCILLE Administration Senna 8.6 mg 06/26/24 21:00 06/27/24 20:36 Sennosides 8.6 Mg Tablet PO 8.6 mg HS LUCILLE Administration Tamsulosin HCl 0.4 mg 06/27/24 09:00 06/28/24 08:54 Tamsulosin Hcl 0.4 Mg Capsule PO 0.4 mg DAILY LUCILLE Administration Valacyclovir HCl 1,000 mg 06/26/24 21:00 06/28/24 08:54 Valacyclovir Hcl 500 Mg Tablet PO 1,000 mg Q12HR LUCILLE Administration Vitamin D 2,000 units 06/27/24 09:00 06/28/24 08:55 Cholecalciferol 1,000 Units Tablet PO 2,000 units DAILY LUCILLE Administration Radiology Results: ITS Impressions Chest X-Ray 06/26/24 12:23 Impression: 1: Bibasilar atelectasis. Chest CTA 06/26/24 13:16 IMPRESSION: 1. No pulmonary embolism. 2. Right basilar atelectasis versus pneumonia with moderate pleural effusion. 3. Left basilar atelectasis with minimal effusion. 4. Sliding hiatus hernia. Modified Barium Swallow 06/27/24 11:43 IMPRESSION: 1: Laryngeal penetration without aspiration. 2: Please refer to speech pathologist report for additional detail. Labs Labs: Laboratory Results - last 24 hr 06/28/24 05:24 WBC 5.1 RBC 2.43 L Hgb 7.0 L Hct 23.2 L MCV 95.5 MCH 28.8 MCHC 30.2 L RDW 20.7 H Plt Count 649 H MPV 9.0 Sodium 134 L Potassium 3.7 Chloride 104 Carbon Dioxide 24 Anion Gap 6 BUN 19 Creatinine 0.90 Estim Creat Clear Calc 52 Estimated GFR > 60 Glucose 84 Calcium 8.5 Total Bilirubin 0.2 AST 42 ALT 39 Alkaline Phosphatase 96 Total Protein 6.0 L Albumin 2.8 L Quality VTE Prophylaxis VTE prophylaxis: pharmacologic ordered (on apixaban) Hospitalist [facility] Advance Care Plan I have confirmed that the patient's Advanced Care Plan is present, code status is documented, or surrogate decision maker is listed in patient medical record.: Yes Medication Reconciliation I have utilized all available resources to obtain, update and review the patient s current medications (includes all prescriptions, OTC, herbals, cannabis, and nutritional supplements).: Yes
[2024-06-28 12:13] LABS: Hematocrit 23.6 % (42.0-52.0); Hemoglobin 7.1 g/dL (14.0-18.0)
--- NOTE | 2024-06-28 12:13 | PC.NURSE ---
RN [facility] update [facility] [place] in regards to patient.
[2024-06-28 15:07] VITALS: BP 118/55; PULSE 68; RESP 20; TEMP 36.8; O2SAT 98
[2024-06-28] MEDS: SENNOSIDES 8.6 MG TABLET PO (20:33)
[2024-06-28] MEDS: ATORVASTATIN 10 MG TABLET PO (20:33)
[2024-06-28] MEDS: LATANOPROST 0.005% OP SOLN 2.5 ML BTL 1 DROP EACH EYE (20:33)
[2024-06-28 21:49] VITALS: BP 125/66; PULSE 72; RESP 18; TEMP 36.2; O2SAT 99
[2024-06-29 05:32] LABS: Hematocrit 26.5 % (42.0-52.0); Hemoglobin 7.8 g/dL (14.0-18.0); Mean Corpuscular HGB Conc 29.4 g/dl (32-36); Mean Corpuscular Hemoglobin 28.2 pg (26-34); Mean Corpuscular Volume 95.7 fl (80-100); Platelet Count Result 730 k/mm3 (150-375); Red Blood Count 2.77 M/mm3 (4.6-6.20); Red Cell Distribution Width 21.2 % (11.5-14.5); White Blood Count 5.2 K/mm3 (4.5-10.0)
[2024-06-29 05:45] LABS: Alanine Aminotransferase 38 U/L (6-50); Albumin Level 3.1 g/dL (3.5-5.1); Alkaline Phosphatase 103 U/L (38-126); Anion Gap 8 mmol/L (4-12); Aspartate Amino Transferase 40 U/L (17-59); Bilirubin,Total 0.3 mg/dL (0.2-1.3); Blood Urea Nitrogen 17 mg/dL (9-20); Calcium 8.7 mg/dL (8.4-10.2); Carbon Dioxide 21 mmol/L (22-30); Chloride 106 mmol/L (98-107); Estimated CRCL calculation 58 ml/min; Estimated Glomerular Filt Rate > 60; Glucose 82 mg/dL (65-110); Potassium 3.7 mmol/L (3.4-5.0); Sodium 135 mmol/L (137-145)
[2024-06-29 06:00] VITALS: BP 116/59; PULSE 59; RESP 20; TEMP 36.1; O2SAT 99
[2024-06-29] MEDS: LEVOTHYROXINE SODIUM 50 MCG TABLET PO (06:12)
[2024-06-29] MEDS: MIDODRINE HCL 10 MG TABLET PO ×3 (08:47→17:20)
[2024-06-29] MEDS: CYANOCOBALAMIN 500 MCG TABLET 2500 MCG PO (08:47)
[2024-06-29] MEDS: DOCUSATE SODIUM 100 MG CAPSULE PO (08:47)
[2024-06-29] MEDS: valACYclovir HCL 500 MG TABLET 1000 MG PO ×2 (08:47→20:09)
[2024-06-29] MEDS: cycloSPORINE 0.4 ML OPHTH SOLUTION 1 DROP EACH EYE ×2 (08:47→20:09)
[2024-06-29] MEDS: MEMANTINE 5 MG TABLET PO ×2 (08:48→17:20)
[2024-06-29] MEDS: TAMSULOSIN HCL 0.4 MG CAPSULE PO (08:48)
[2024-06-29] MEDS: APIXABAN 2.5 MG TABLET PO ×2 (08:48→20:09)
[2024-06-29] MEDS: PANTOPRAZOLE 40 MG TABLET PO (08:48)
[2024-06-29] MEDS: CITALOPRAM HYDROBROMIDE 20 MG TABLET 40 MG PO (08:48)
[2024-06-29] MEDS: FINASTERIDE 5 MG TABLET PO (08:48)
[2024-06-29] MEDS: CHOLECALCIFEROL 1,000 UNITS TABLET 2000 UNITS PO (08:48)
[2024-06-29] MEDS: ASPIRIN 325 MG TABLET PO (08:48)
[2024-06-29] MEDS: ARTIFICIAL TEARS OPHTH SOLN 15 ML BOTTLE 1 DROP EACH EYE ×2 (08:49→20:07)
[2024-06-29] MEDS: BETAMETHASONE/CLOTRIMAZOLE CREAM 15 GM TUBE 1 APPLIC TOPICAL (08:50)
--- NOTE | 2024-06-29 09:27 | P.PNUR_ITS ---
Progress Note: A&P Assessment and Plan (1) Benign prostatic hyperplasia with urinary retention: Code(s): N40.1 - Benign prostatic hyperplasia with lower urinary tract symptoms; R33.8 - Other retention of urine Status: Acute Assessment and Plan: Patient with severe BPH, 183 g prostate. * Will continue Pérez catheter with monthly changes while awaiting prostate artery embolization referral. * Due for next Pérez catheter exchange on 07/12/2024. This was previously being managed by home health, can now be managed at rehab facility. Recommend use of coude catheter given BPH. * Continue tamsulosin and finasteride. * PAE referral is scheduled for 07/29/2024. Aware of need for follow-up if he is medically stable at that time Subjective Subjective Date/Time Seen: 06/29/24 09:27 Interval history: [place] is feeling well today. Offers no complaints. No issues with Pérez catheter which is draining clear yellow urine. Tolerating his diet. Review of Systems Review of Systems: All systems reviewed & are unremarkable except as noted in HPI and below Exam Narrative: General: Awake, alert, comfortable, no acute distress HEENT: Normocephalic, atraumatic, sclerae anicteric Respiratory: Normal respiratory effort, no accessory muscle use Abdomen: Nondistended, soft, nontender : Pérez catheter draining clear yellow urine Skin: Normal coloration, warm and dry Neurologic: No focal neuro deficits noted, slight resting tremor of upper extremities Psychiatric: Appropriate mood and affect, judgment and insight intact Objective Data Vital Signs Vital Signs: Vital Signs - 24 hr 06/28/24 15:07 06/28/24 21:49 06/28/24 20:30 Temperature 98.3 F 97.2 F L Pulse Rate 68 72 Respiratory Rate 20 18 Blood Pressure 118/55 L 125/66 Pulse Oximetry 98 99 Oxygen Delivery Room Air 06/29/24 06:00 Temperature 97.0 F L Pulse Rate 59 L Respiratory Rate 20 Blood Pressure 116/59 L Pulse Oximetry 99 Oxygen Delivery Intake/Output Intake/Output: Intake & Output 06/26/24 06/27/24 06/28/24 06/29/24 23:59 23:59 23:59 23:59 Intake Total 839.5 1570 930 240 Output Total 200 2150 800 1800 Balance 639.5 -580 130 -1560 Meds/Results Medications: Active Medications Generic Name Dose Route Start Last Admin Trade Name Freq PRN Reason Stop Dose Admin Apixaban 2.5 mg 06/26/24 21:00 06/29/24 08:48 Apixaban 2.5 Mg Tablet PO 2.5 mg Q12HR LUCILLE Administration Artificial Tears 1 drop 06/26/24 21:00 06/29/24 08:49 Artificial Tears Ophth Soln 15 Ml Bottle EACH EYE 1 drop Q12HR LUCILLE Administration Aspirin 325 mg 06/27/24 09:00 06/29/24 08:48 Aspirin 325 Mg Tablet PO 325 mg DAILY LUCILLE Administration Atorvastatin Calcium 10 mg 06/26/24 21:00 06/28/24 20:33 Atorvastatin 10 Mg Tablet PO 10 mg HS LUCILLE Administration Calcium Carbonate 200 mg 06/26/24 18:51 Calcium Carbonate (Tums) 500 Mg (200 Mg Elemental) PO PRN PRN Indigestion Citalopram Hydrobromide 40 mg 06/27/24 09:00 06/29/24 08:48 Citalopram Hydrobromide 20 Mg Tablet PO 40 mg QAM LUCILLE Administration Clotrimazole 1 applic 06/27/24 09:00 06/29/24 08:50 Betamethasone/Clotrimazole Cream 15 Gm Tube TOPICAL 1 applic DAILY LUCILLE Administration Cyanocobalamin 2,500 mcg 06/27/24 09:00 06/29/24 08:47 Cyanocobalamin 500 Mcg Tablet PO 2,500 mcg DAILY LUCILLE Administration Cyclosporine 1 drop 06/26/24 21:00 06/29/24 08:47 Cyclosporine 0.4 Ml Ophth Solution EACH EYE 1 drop Q12HR LUCILLE Administration Docusate Sodium 100 mg 06/26/24 21:00 06/29/24 08:47 Docusate Sodium 100 Mg Capsule PO 100 mg Q12HR LUCILLE Administration Finasteride 5 mg 06/27/24 09:00 06/29/24 08:48 Finasteride 5 Mg Tablet PO 5 mg DAILY LUCILLE Administration Latanoprost 1 drop 06/26/24 21:00 06/28/24 20:33 Latanoprost 0.005% Op Soln 2.5 Ml Btl EACH EYE 1 drop HS LUCILLE Administration Levothyroxine Sodium 50 mcg 06/27/24 06:30 06/29/24 06:12 Levothyroxine Sodium 50 Mcg Tablet PO 50 mcg DAILY@0630 LUCILLE Administration Lorazepam 0.5 mg 06/26/24 23:38 06/27/24 13:39 Lorazepam (*Crx) 0.5 Mg Tablet PO 0.5 mg TID PRN Administration Anxiety Melatonin 5 mg 06/26/24 18:51 06/26/24 22:12 Melatonin 5 Mg Tablet PO 5 mg HS PRN Administration Sleep Memantine 5 mg 06/27/24 09:00 06/29/24 08:48 Memantine 5 Mg Tablet PO 5 mg BID LUCILLE Administration Midodrine 10 mg 06/27/24 09:00 06/29/24 08:47 Midodrine Hcl 10 Mg Tablet PO 10 mg TID LUCILLE Administration Non-Formulary Medication 100 mg 06/27/24 09:00 Coq10 (Ubiquinol) PO 07/27/24 08:59 DAILY LUCILLE Pantoprazole Sodium 40 mg 06/27/24 09:00 06/29/24 08:48 Pantoprazole 40 Mg Tablet PO 40 mg DAILY LUCILLE Administration Senna 8.6 mg 06/26/24 21:00 06/28/24 20:33 Sennosides 8.6 Mg Tablet PO 8.6 mg HS LUCILLE Administration Tamsulosin HCl 0.4 mg 06/27/24 09:00 06/29/24 08:48 Tamsulosin Hcl 0.4 Mg Capsule PO 0.4 mg DAILY LUCILLE Administration Valacyclovir HCl 1,000 mg 06/26/24 21:00 06/29/24 08:47 Valacyclovir Hcl 500 Mg Tablet PO 1,000 mg Q12HR LUCILLE Administration Vitamin D 2,000 units 06/27/24 09:00 06/29/24 08:48 Cholecalciferol 1,000 Units Tablet PO 2,000 units DAILY LUCILLE Administration Radiology Results: ITS Impressions Chest X-Ray 06/26/24 12:23 Impression: 1: Bibasilar atelectasis. Chest CTA 06/26/24 13:16 IMPRESSION: 1. No pulmonary embolism. 2. Right basilar atelectasis versus pneumonia with moderate pleural effusion. 3. Left basilar atelectasis with minimal effusion. 4. Sliding hiatus hernia. Modified Barium Swallow 06/27/24 11:43 IMPRESSION: 1: Laryngeal penetration without aspiration. 2: Please refer to speech pathologist report for additional detail. Labs Labs: Laboratory Results - last 24 hr 06/28/24 06/29/24 12:08 05:16 WBC 5.2 RBC 2.77 L Hgb 7.1 L 7.8 L Hct 23.6 L 26.5 L MCV 95.7 MCH 28.2 MCHC 29.4 L RDW 21.2 H Plt Count 730 H MPV 9.0 Sodium 135 L Potassium 3.7 Chloride 106 Carbon Dioxide 21 L Anion Gap 8 BUN 17 Creatinine 0.80 Estim Creat Clear Calc 58 Estimated GFR > 60 Glucose 82 Calcium 8.7 Total Bilirubin 0.3 AST 40 ALT 38 Alkaline Phosphatase 103 Total Protein 7.0 Albumin 3.1 L Vancomycin Trough Cancelled
[2024-06-29] MEDS: LORazepam (*CRX) 0.5 MG TABLET PO ×2 (10:38→21:05)
--- NOTE | 2024-06-29 11:40 | ECG_ITS ---
Test Date: 2024-06-29 12:04:54 Measurements Intervals [place] Rate: 65 P: 10 NE: 167 QRS: -44 QRSD: 101 T: -6 QT: 424 QTc: 441 Interpretive Statements SINUS RHYTHM LEFT AXIS DEVIATION PATTERN CONSISTENT WITH PULMONARY DISEASE VOLTAGE CRITERIA FOR LVH CANNOT R/O SEPTAL INFARCT, AGE INDETERMINATE BORDERLINE T WAVE ABNORMALITY- INF/LAT LEADS BASELINE ARTIFACT- I, II, III, AVR, AVL, AVF ABNORMAL ECG Compared to ECG 06/26/2024 11:29:56 HEART RATE HAS DECREASED Electronically Signed On 06-29-2024 13:45:44 CDT by Jose Henson D.O.
--- NOTE | 2024-06-29 11:54 | PCPTNOTE ---
Attempted PT evaluation, pt waiting on stat test per RN. Will follow.
--- NOTE | 2024-06-29 11:55 | PC.NURSE ---
RN called EKG to confirm they received the stat EKG. Cardiology stated they were with an outpatient and would be up here shortly.
[2024-06-29 13:05] LABS: Troponin I 0.025 ng/mL (0.000-0.034)
[2024-06-29 14:00] VITALS: BP 106/57; PULSE 77; RESP 16; TEMP 36.7; O2SAT 100
--- NOTE | 2024-06-29 16:01 | P.PNIM_ITS ---
Progress Note: A&P Assessment and Plan (1) Benign prostatic hyperplasia with urinary retention: Code(s): N40.1 - Benign prostatic hyperplasia with lower urinary tract symptoms; R33.8 - Other retention of urine Status: Acute Assessment and Plan: Patient with severe BPH, 183 g prostate. * Will continue Pérez catheter with monthly changes while awaiting prostate artery embolization referral. * Due for next Pérez catheter exchange on 07/12/2024. This was previously being managed by home health, can now be managed at rehab facility. Recommend use of coude catheter given BPH. * Continue tamsulosin and finasteride. * PAE referral is scheduled for 07/29/2024. Aware of need for follow-up if he is medically stable at that time Plan The patient presented to the emergency department for evaluation of chest and pain shortness a breath as detailed in HPI. Labs, imaging, EKG, and all reports were personally reviewed. Chest CT was negative for pulmonary embolism but did note moderate size right pleural effusion with associated atelectasis and/or pneumonia. His history is not consistent with pneumonia and he is afebrile with normal white blood cell count. As such will hold on further antibiotics for now. He may very well have some volume overload from his recent hospitalization in which he was treated for urosepsis and acute kidney failure. Echocardiogram during that stay showed a reduced ejection fraction of 40 to 45%. Furosemide 40 mg IV x1 has been ordered. Consult Cardiology for their input regarding recent echocardiogram. Encourage incentive spirometry as he has bibasilar atelectasis. Initial lactic acid level was barely elevated and may be related to lab draw technique or hypoxia. He is currently on 2 L nasal cannula with an SpO2 in the upper 90s to 100%. Oxygen will be weaned as tolerated. Blood pressures were reviewed and they are stable. Anemia stable and will be monitored. Thrombocytosis may be reactive and will be monitored. Swallow study ordered given reports mild dysphagia. His home medications will be reviewed and resumed as appropriate. 06/29: -currently hemoglobin is 7.8. -discussed the goal of care with the family and want to continue full code -as per Urology no new plan. Perform prostate artery embolization as an outpatient -06/28 HgB was 7. Ordered FOBT -pending. No evidence of hematuria -Patient had recent bilateral lower extremity DVT and currently on apixaban. -Retention of urine secondary to massive prostatomegaly. Placed 14 [place] coude catheter at bedside 06/12/24 and catheter is draining well at this time. Continue Pérez catheter with monthly changes with home health. Due for next exchange 07/12/2024. -OP awaiting prostate artery embolization -Cardiology evaluated and added low-dose carvedilol 3.125 mg with holding parameters. Other medications including ARNI and SGLT2 inhibitor can be considered as an outpatient. Patient recently had GE and UTI, therefore, may hold off on ARNI and SGLT2 inhibitor for now. Gentle diuresis as needed. Subjective Date/time seen: 06/29/24 16:01 Interval history: Patient complained of left-sided chest pain radiating to the left arm but denies any diaphoresis or shortness of breath. Patient's was at the bedside reports that he has left-sided chest pain on and off chronically. The EKG was insignificant for any ST changes and the troponin was negative. The patient was able to reproducible by palpation. Tomorrow PT OT will evaluate the patient and will be transferred to rehab. Review of Systems Review of Systems: 12 systems were reviewed and are negativ e except for as per HPI. All systems reviewed & are unremarkable except as noted in HPI and below Exam Narrative: General: Awake, alert, comfortable, no acute distress HEENT: Normocephalic, atraumatic, sclerae anicteric Respiratory: Normal respiratory effort, no accessory muscle use Abdomen: Nondistended, soft, nontender : Pérez catheter draining clear yellow urine Skin: Normal coloration, warm and dry Neurologic: No focal neuro deficits noted, slight resting tremor of upper extremities Psychiatric: Appropriate mood and affect, judgment and insight intact Objective Data Vital Signs Vital Signs: Vital Signs - 24 hr 06/28/24 21:49 06/28/24 20:30 06/29/24 06:00 Temperature 97.2 F L 97.0 F L Pulse Rate 72 59 L Respiratory Rate 18 20 Blood Pressure 125/66 116/59 L Pulse Oximetry 99 99 Oxygen Delivery Room Air 06/29/24 08:48 06/29/24 14:00 06/29/24 14:04 Temperature 98.0 F Pulse Rate 77 Respiratory Rate 16 Blood Pressure 106/57 L Pulse Oximetry 100 Oxygen Delivery Room Air Room Air Intake/Output Intake/Output: Intake & Output 06/26/24 06/27/24 06/28/24 06/29/24 23:59 23:59 23:59 23:59 Intake Total 839.5 1570 930 480 Output Total 200 2150 800 1800 Balance 639.5 580 130 -1320 Meds/Results Medications: Active Medications Generic Name Dose Route Start Last Admin Trade Name Freq PRN Reason Stop Dose Admin Apixaban 2.5 mg 06/26/24 21:00 06/29/24 08:48 Apixaban 2.5 Mg Tablet PO 2.5 mg Q12HR LUCILLE Administration Artificial Tears 1 drop 06/26/24 21:00 06/29/24 08:49 Artificial Tears Ophth Soln 15 Ml Bottle EACH EYE 1 drop Q12HR LUCILLE Administration Aspirin 325 mg 06/27/24 09:00 06/29/24 08:48 Aspirin 325 Mg Tablet PO 325 mg DAILY LUCILLE Administration Atorvastatin Calcium 10 mg 06/26/24 21:00 06/28/24 20:33 Atorvastatin 10 Mg Tablet PO 10 mg HS LUCILLE Administration Calcium Carbonate 200 mg 06/26/24 18:51 Calcium Carbonate (Tums) 500 Mg (200 Mg Elemental) PO PRN PRN Indigestion Citalopram Hydrobromide 40 mg 06/27/24 09:00 06/29/24 08:48 Citalopram Hydrobromide 20 Mg Tablet PO 40 mg QAM LUCILLE Administration Clotrimazole 1 applic 06/27/24 09:00 06/29/24 08:50 Betamethasone/Clotrimazole Cream 15 Gm Tube TOPICAL 1 applic DAILY LUCILLE Administration Cyanocobalamin 2,500 mcg 06/27/24 09:00 06/29/24 08:47 Cyanocobalamin 500 Mcg Tablet PO 2,500 mcg DAILY LUCILLE Administration Cyclosporine 1 drop 06/26/24 21:00 06/29/24 08:47 Cyclosporine 0.4 Ml Ophth Solution EACH EYE 1 drop Q12HR LUCILLE Administration Docusate Sodium 100 mg 06/26/24 21:00 06/29/24 08:47 Docusate Sodium 100 Mg Capsule PO 100 mg Q12HR LUCILLE Administration Finasteride 5 mg 06/27/24 09:00 06/29/24 08:48 Finasteride 5 Mg Tablet PO 5 mg DAILY LUCILLE Administration Latanoprost 1 drop 06/26/24 21:00 06/28/24 20:33 Latanoprost 0.005% Op Soln 2.5 Ml Btl EACH EYE 1 drop HS LUCILLE Administration Levothyroxine Sodium 50 mcg 06/27/24 06:30 06/29/24 06:12 Levothyroxine Sodium 50 Mcg Tablet PO 50 mcg DAILY@0630 LUCILLE Administration Lorazepam 0.5 mg 06/26/24 23:38 06/29/24 10:38 Lorazepam (*Crx) 0.5 Mg Tablet PO 0.5 mg TID PRN Administration Anxiety Melatonin 5 mg 06/26/24 18:51 06/26/24 22:12 Melatonin 5 Mg Tablet PO 5 mg HS PRN Administration Sleep Memantine 5 mg 06/27/24 09:00 06/29/24 08:48 Memantine 5 Mg Tablet PO 5 mg BID LUCILLE Administration Midodrine 10 mg 06/27/24 09:00 06/29/24 13:37 Midodrine Hcl 10 Mg Tablet PO 10 mg TID LUCILLE Administration Non-Formulary Medication 100 mg 06/27/24 09:00 Coq10 (Ubiquinol) PO 07/27/24 08:59 DAILY LUCILLE Pantoprazole Sodium 40 mg 06/27/24 09:00 06/29/24 08:48 Pantoprazole 40 Mg Tablet PO 40 mg DAILY LUCILLE Administration Senna 8.6 mg 06/26/24 21:00 06/28/24 20:33 Sennosides 8.6 Mg Tablet PO 8.6 mg HS LUCILLE Administration Tamsulosin HCl 0.4 mg 06/27/24 09:00 06/29/24 08:48 Tamsulosin Hcl 0.4 Mg Capsule PO 0.4 mg DAILY LUCILLE Administration Valacyclovir HCl 1,000 mg 06/26/24 21:00 06/29/24 08:47 Valacyclovir Hcl 500 Mg Tablet PO 1,000 mg Q12HR LUCILLE Administration Vitamin D 2,000 units 06/27/24 09:00 06/29/24 08:48 Cholecalciferol 1,000 Units Tablet PO 2,000 units DAILY LUCILLE Administration Radiology Results: ITS Impressions Chest X-Ray 06/26/24 12:23 Impression: 1: Bibasilar atelectasis. Chest CTA 06/26/24 13:16 IMPRESSION: 1. No pulmonary embolism. 2. Right basilar atelectasis versus pneumonia with moderate pleural effusion. 3. Left basilar atelectasis with minimal effusion. 4. Sliding hiatus hernia. Modified Barium Swallow 06/27/24 11:43 IMPRESSION: 1: Laryngeal penetration without aspiration. 2: Please refer to speech pathologist report for additional detail. Labs Labs: Laboratory Results - last 24 hr 06/29/24 06/29/24 05:16 12:34 WBC 5.2 RBC 2.77 L Hgb 7.8 L Hct 26.5 L MCV 95.7 MCH 28.2 MCHC 29.4 L RDW 21.2 H Plt Count 730 H MPV 9.0 Sodium 135 L Potassium 3.7 Chloride 106 Carbon Dioxide 21 L Anion Gap 8 BUN 17 Creatinine 0.80 Estim Creat Clear Calc 58 Estimated GFR > 60 Glucose 82 Calcium 8.7 Total Bilirubin 0.3 AST 40 ALT 38 Alkaline Phosphatase 103 Troponin I 0.025 Total Protein 7.0 Albumin 3.1 L Quality VTE Prophylaxis VTE prophylaxis: pharmacologic ordered (on apixaban) Hospitalist [facility] Advance Care Plan I have confirmed that the patient's Advanced Care Plan is present, code status is documented, or surrogate decision maker is listed in patient medical record.: Yes Medication Reconciliation I have utilized all available resources to obtain, update and review the patients current medications (includes all prescriptions, OTC, herbals, cannabis, and nutritional supplements).: Yes
[2024-06-29] MEDS: ATORVASTATIN 10 MG TABLET PO (20:09)
[2024-06-29] MEDS: LATANOPROST 0.005% OP SOLN 2.5 ML BTL 1 DROP EACH EYE (20:09)
[2024-06-29] MEDS: MELATONIN 5 MG TABLET PO (21:05)
[2024-06-29 21:12] VITALS: BP 115/64; PULSE 59; RESP 20; TEMP 36.3; O2SAT 100
[2024-06-30] MEDS: LEVOTHYROXINE SODIUM 50 MCG TABLET PO (05:52)
[2024-06-30 06:00] VITALS: BP 121/66; PULSE 64; RESP 20; TEMP 36.3; O2SAT 99
[2024-06-30 06:49] LABS: Hematocrit 25.8 % (42.0-52.0); Hemoglobin 7.9 g/dL (14.0-18.0); Mean Corpuscular HGB Conc 30.6 g/dl (32-36); Mean Corpuscular Hemoglobin 29.6 pg (26-34); Mean Corpuscular Volume 96.6 fl (80-100); Mean Platelet Volume 9.2 fl (7.4-10.4); Platelet Count Result 648 k/mm3 (150-375); Red Blood Count 2.67 M/mm3 (4.6-6.20); Red Cell Distribution Width 21.8 % (11.5-14.5); White Blood Count 4.7 K/mm3 (4.5-10.0)
[2024-06-30 07:02] LABS: Potassium 4.2 mmol/L (3.4-5.0)
[2024-06-30 07:05] LABS: Alanine Aminotransferase 31 U/L (6-50); Albumin Level 2.9 g/dL (3.5-5.1); Alkaline Phosphatase 92 U/L (38-126); Anion Gap 4 mmol/L (4-12); Aspartate Amino Transferase 38 U/L (17-59); Bilirubin,Total 0.2 mg/dL (0.2-1.3); Blood Urea Nitrogen 16 mg/dL (9-20); Calcium 8.7 mg/dL (8.4-10.2); Carbon Dioxide 27 mmol/L (22-30); Chloride 105 mmol/L (98-107); Estimated CRCL calculation 53 ml/min; Estimated Glomerular Filt Rate > 60; Glucose 93 mg/dL (65-110); Sodium 136 mmol/L (137-145)
--- NOTE | 2024-06-30 09:08 | P.CDI_ITS ---
CDI Query Clarification Request CHF has been documented in progress note. Please specify type and acuity of heart failure if known. Clinical Indicators: Chief complaint on admission SOB, BNP 472 * Acute * Chronic * Acute on Chronic * Unknown * Systolic * Diastolic * Combined Systolic and Diastolic * Unknown Sepsis has been documented by ED provider using the CDC definitions below, please clarify the appropriate diagnosis for your patients clinical presentation and severity of illness. Please specify if sepsis has been ruled in or ruled out. Clinical Indicators: lactic on admission 0.7 then increased to 2.1, 1.0, 2.5 Treatment: IV antibiotics started on 06/26 * Septicemia: Systemic disease (sepsis) associated with positive blood cultures. * Sepsis: An infection-induced syndrome without organ dysfunction. * Severe Sepsis: Sepsis with associated acute organ dysfunction. * Septic Shock: Severe sepsis in which the cardiovascular system begins to fail, blood pressure drops, and vital organs are deprived of adequate blood supply. <Lo lEaine RN - Last Filed: 06/30/24 09:14> Provider Comments Chronic Combined Systolic and Diastolic <Justin Wren MD - Last Filed: 06/30/24 11:41>
--- NOTE | 2024-06-30 09:08 | WPDCDIQUERY2 ---
CDI Query Clarification Request CHF has been documented in progress note. Please specify type and acuity of heart failure if known. Clinical Indicators: Chief complaint on admission SOB, BNP 472 Acute Chronic Acute on Chronic Unknown Systolic Diastolic Combined Systolic and Diastolic Unknown Sepsis has been documented by ED provider using the CDC definitions below, please clarify the appropriate diagnosis for your patients clinical presentation and severity of illness. Please specify if sepsis has been ruled in or ruled out. Clinical Indicators: lactic on admission 0.7 then increased to 2.1, 1.0, 2.5 Treatment: IV antibiotics started on 06/26 Septicemia: Systemic disease (sepsis) associated with positive blood cultures. Sepsis: An infection-induced syndrome without organ dysfunction. Severe Sepsis: Sepsis with associated acute organ dysfunction. Septic Shock: Severe sepsis in which the cardiovascular system begins to fail, blood pressure drops, and vital organs are deprived of adequate blood supply. <Lo Elaine RN - Last Filed: 06/30/24 09:14> Provider Comments Chronic Combined Systolic and Diastolic <Justin Wren MD - Last Filed: 06/30/24 11:41>
[2024-06-30] MEDS: MIDODRINE HCL 10 MG TABLET PO ×2 (09:29→12:29)
[2024-06-30] MEDS: cycloSPORINE 0.4 ML OPHTH SOLUTION 1 DROP EACH EYE (09:29)
[2024-06-30] MEDS: CYANOCOBALAMIN 500 MCG TABLET 2500 MCG PO (09:29)
[2024-06-30] MEDS: CITALOPRAM HYDROBROMIDE 20 MG TABLET 40 MG PO (09:29)
[2024-06-30] MEDS: valACYclovir HCL 500 MG TABLET 1000 MG PO (09:29)
[2024-06-30] MEDS: BETAMETHASONE/CLOTRIMAZOLE CREAM 15 GM TUBE 1 APPLIC TOPICAL (09:29)
[2024-06-30] MEDS: APIXABAN 2.5 MG TABLET PO (09:29)
[2024-06-30] MEDS: MEMANTINE 5 MG TABLET PO (09:29)
[2024-06-30] MEDS: DOCUSATE SODIUM 100 MG CAPSULE PO (09:29)
[2024-06-30] MEDS: ASPIRIN 325 MG TABLET PO (09:29)
[2024-06-30] MEDS: TAMSULOSIN HCL 0.4 MG CAPSULE PO (09:29)
[2024-06-30] MEDS: FINASTERIDE 5 MG TABLET PO (09:29)
[2024-06-30] MEDS: PANTOPRAZOLE 40 MG TABLET PO (09:29)
[2024-06-30] MEDS: CHOLECALCIFEROL 1,000 UNITS TABLET 2000 UNITS PO (09:29)
[2024-06-30] MEDS: ARTIFICIAL TEARS OPHTH SOLN 15 ML BOTTLE 1 DROP EACH EYE (09:30)
[2024-06-30] MEDS: LORazepam (*CRX) 0.5 MG TABLET PO (12:29)
[2024-06-30] MEDS: CALCIUM CARBONATE (TUMS) 500 MG (200 MG ELEMENTAL) PO (12:29)
[2024-06-30 13:50] VITALS: BP 111/59; PULSE 70; RESP 16; TEMP 36.2; O2SAT 100
--- NOTE | 2024-06-30 14:00 | PM.DS ---
DS: Admitting Diagnosis Discharge Date 06/30/2024 Admitting Diagnosis SOB DS: Discharge Diagnosis Discharge Diagnosis (1) Heart failure with reduced ejection fraction: Code(s): I50.20 - Unspecified systolic (congestive) heart failure Status: Acute DS: Summary Hospital Course Hospital Course: This is a pleasant 84-year-old male with history of heart failure with reduced ejection fraction, hypertension, hyperlipidemia, benign prostatic hyperplasia with indwelling Pérez catheter, chronic inflammatory demyelinating polyneuropathy, gastroesophageal reflux disease, hypothyroidism, and anxiety who presented to the emergency depart via EMS from [facility] for evaluation of chest pain and shortness of breath. The patient provides the following history and multiple family members at bedside provide additional information with the patient's permission. He was discharged to [facility] on 06/24/2024 following an admission for urosepsis and acute kidney injury. Yesterday mid morning he was sent to the ED for evaluation of tachycardia/possible atrial fibrillation, though his EKG showed sinus tachycardia. Workup at that time showed an abnormal urinalysis and he was discharged on cephalexin. This morning family came to visit and they report that the patient was sitting in a chair trembling with complaints of shortness of breath and chest pain. He was administered sublingual nitroglycerin and EMS was summoned. EMS placed him on CPAP and he was given albuterol, methylprednisone, and magnesium en route to the hospital. In the ED: He was afebrile on arrival. SpO2 was 100% on CPAP. He quickly desaturated from 100% to 85% when CPAP was removed and he was placed on BiPAP. Blood pressures have been stable. He was diagnosed with DVTs during his last visit and was sent for a chest CTA which was negative for pulmonary embolism but did show right lower lobe atelectasis versus pneumonia with a moderate pleural effusion. He was negative for influenza, RSV, and COVID. Chest x-ray showed sinus tachycardia with borderline ST T-wave abnormalities in the lateral and high lateral leads. Labs were significant for WBC count of 7.2, hemoglobin 8.4, platelet 836, sodium 135, lactic acid 2.5, proBNP 472, troponin 0.038. He received cefepime, doxycycline, and vancomycin for possible pneumonia and IV fluid bolus. He was admitted to the IMU in this setting. Patient was placed on BiPAP initially and diuresed with Lasix and Was successfully weaned to room air. ECHo showed EF 40-45% and grade I diastolic, cardiology was consulted who evaluated and recommended outpatient ischemic workup and titrate cardiac meds outpatient. Patient was continue follow up with urology for Prostate artery embolism. Continue other home meds and f/u with PCP in 3-5 days, f/u with cardiology and urology as instructed patient discharged to Rehab Assessment and Plan (1) Benign prostatic hyperplasia with urinary retention: Code(s): N40.1 - Benign prostatic hyperplasia with lower urinary tract symptoms; R33.8 - Other retention of urine Status: Acute Assessment and Plan: Patient with severe BPH, 183 g prostate. Will continue Pérez catheter with monthly changes while awaiting prostate artery embolization referral. Due for next Pérez catheter exchange on 07/12/2024. This was previously being managed by home health, can now be managed at rehab facility. Recommend use of coude catheter given BPH. Continue tamsulosin and finasteride. PAE referral is scheduled for 07/29/2024. Aware of need for follow-up if he is medically stable at that time Time Spent with Patient Time attestation: Total time spent providing and/or coordinating discharge services: DS: Data Data Completed and Pending Labs on day of discharge: Labs from last 24 hours 06/30/24 06:08 WBC 4.7 RBC 2.67 L Hgb 7.9 L Hct 25.8 L MCV 96.6 MCH 29.6 MCHC 30.6 L RDW 21.8 H Plt Count 648 H MPV 9.2 Sodium 136 L Potassium 4.2 Chloride 105 Carbon Dioxide 27 Anion Gap 4 BUN 16 Creatinine 0.80 Estim Creat Clear Calc 53 Estimated GFR > 60 Glucose 93 Calcium 8.7 Total Bilirubin 0.2 AST 38 ALT 31 Alkaline Phosphatase 92 Total Protein 6.0 L Albumin 2.9 L Discharge Plan Discharge Attending physician on discharge: Justin Wren Consulting providers: Amy Cruz; Tr Pulido Discharging Clinician: Justin Wren Anticipated Discharge Date/Time: 06/30/24 13:47 Patient Disposition: Inpatient Rehab Facility Activity: as tolerated Diet: as tolerated Patient Instructions: Apixaban (By mouth) Stand Alone Forms: General Discharge Information Follow-up/Referrals: Jake Lang MD [Physician] - [facility],Leah Smith MD [Primary Care Provider] - (F/u with PCP in 3-5 days ) Tr Pulido MD [Physician] - (F/u with Urology as instructed ) Discharge Medications: New furosemide [Lasix] 20 mg tablet 20 mg PO DAILY Qty: 10 0RF Continued citalopram 40 mg tablet 20 mg PO BID atorvastatin 10 mg tablet 10 mg PO HS levothyroxine 50 mcg tablet 50 mcg PO QAM pantoprazole 40 mg tablet,delayed release (DR/EC) 40 mg PO DAILY Lumigan 0.01 % drops 1 drp EACH EYE HS sennosides [senna] 8.6 mg Tablet 8.6 mg PO HS cyanocobalamin (vitamin B-12) 1,000 mcg Tablet 2,500 mcg PO DAILY calcium carbonate 500 mg calcium (1,250 mg) Tablet,Chewable 500 mg PO PRN PRN (Reason: Indigestion) cholecalciferol (vitamin D3) 50 mcg (2,000 unit) Tablet 50 mcg PO DAILY coQ10 (ubiquinol) 100 mg Capsule 100 mg PO DAILY cyclosporine 0.05 % Drops 1 drp EACH EYE BID aspirin 325 mg Tablet 325 mg PO DAILY memantine 5 mg Tablet 5 mg PO BID TheraTears 0.25 % Drops 1 drp EACH EYE BID clotrimazole-betamethasone 1-0.05 % cream 1 applic TOPICAL DAILY docusate sodium 100 mg Capsule 100 mg PO Q12HR Qty: 60 0RF tamsulosin 0.4 mg capsule 0.4 mg PO DAILY Qty: 30 0RF midodrine 10 mg Tablet 10 mg PO TID Qty: 90 0RF Eliquis 5 mg Tablet 2.5 mg PO Q12HR Qty: 30 0RF melatonin 5 mg Tablet 5 mg PO HS PRN (Reason: Sleep) Qty: 30 0RF valacyclovir [Valtrex] 500 mg Tablet 1,000 mg PO Q12HR Qty: 20 0RF cephalexin 500 mg capsule 500 mg PO Q6H 7 Days Qty: 28 0RF lorazepam 0.5 mg tablet 0.5 mg PO TID finasteride [Proscar] 5 mg tablet 5 mg PO DAILY Date of admission: 06/26/24 15:35 Primary Care Provider: Joao,Leah Smith Admitting Provider: Edwin Riggs Attending physician on admission: Edwin Riggs Condition: Serious
== END 2024-06-30 15:19 | DRG 291 ==
LOC: ANHED 12:32 → ANHIMU 15:10 → ANH3MED 06-27 20:15
PROVIDERS: General Practice; Physician Assistant; Admitting Provider Internal Medicine; Emergency Provider Preventive Medicine Aerospace Medicine; PCP Internal Medicine; Visit Provider Internal Medicine
DX: I11.0 Hypertensive heart disease with heart failure (principal); I50.23 Acute on chronic systolic (congestive) heart failure; J18.9 Pneumonia, unspecified organism; E87.1 Hypo-osmolality and hyponatremia; G61.81 Chronic inflammatory demyelinating polyneuritis; I82.431 Acute embolism and thrombosis of right popliteal vein; I82.413 Acute embolism and thrombosis of femoral vein, bilateral; D64.9 Anemia, unspecified; D75.839 Thrombocytosis, unspecified; K21.9 Gastro-esophageal reflux disease without esophagitis; K44.9 Diaphragmatic hernia without obstruction or gangrene; E78.00 Pure hypercholesterolemia, unspecified; E53.8 Deficiency of other specified B group vitamins; E03.9 Hypothyroidism, unspecified; N40.1 Benign prostatic hyperplasia with lower urinary tract symptoms; R33.8 Other retention of urine; R13.10 Dysphagia, unspecified; R09.02 Hypoxemia; G62.9 Polyneuropathy, unspecified; F32.A Depression, unspecified; F41.9 Anxiety disorder, unspecified; Z20.822 Contact with and (suspected) exposure to COVID-19; Z96.652 Presence of left artificial knee joint; Z79.82 Long term (current) use of aspirin; Z79.01 Long term (current) use of anticoagulants
CPT/HCPCS: 36415; 36600; 71045; 71275; 80048; 80053; 81001; 82805; 82810; 83605; 83735; 83880; 84145; 84484; 85014; 85018; 85025; 85027; 85610; 85730; 86140; 87040; 87086; 87637; 87641; 92526; 92611; 93005; 94002; 96361; 96365; 96366; 96367; 97161; 97166; 97530; 97535; 99284; 99285; A9270; G0378; J0692; J0696; J1940; J3370; J7030; J7040; Q9967

== ENCOUNTER 2024-07-28 03:32 | Emergency (ER) | payer MEDICARE, SELFPAY ==
[2024-07-28 03:42] VITALS: BP 186/99; PULSE 76; RESP 17; TEMP 36.6; O2SAT 100
--- NOTE | 2024-07-28 04:03 | ED.GENADULT ---
HPI - General Adult General Chief complaint: Urogenital-Male Stated complaint: catheter clogged Time Seen by Provider: 07/28/24 03:53 History of Present Illness HPI narrative: Patient is a 84-year-old gentleman who presents emergency department with chief complaint of Pérez obstruction. Patient reports that he recently had a catheter placed patient was seen by Urology in the office and had blood tinged urine at that time. The patient reports that his catheter plugged this evening but upon arrival the emergency department it became unplugged and started draining again Related Data Home Medications Medication Instructions Recorded Confirmed atorvastatin 10 mg tablet 10 mg PO HS 10/10/23 06/30/24 bimatoprost 0.01 % eye drops 1 drp EACH EYE HS 10/10/23 06/30/24 (Lumigan) calcium carbonate 500 mg PO PRN PRN Indigestion 10/10/23 06/30/24 cholecalciferol (vitamin D3) 50 50 mcg PO DAILY 10/10/23 06/30/24 mcg (2,000 unit) tablet coQ10 (ubiquinol) 100 mg capsule 100 mg PO DAILY 10/10/23 06/30/24 cyanocobalamin (vitamin B-12) 2,500 mcg PO DAILY 10/10/23 06/30/24 1,000 mcg tablet cyclosporine 0.05 % eye drops 1 drp EACH EYE BID 10/10/23 06/30/24 levothyroxine 50 mcg tablet 50 mcg PO QAM 10/10/23 06/30/24 pantoprazole 40 mg tablet,delayed 40 mg PO DAILY 10/10/23 06/30/24 release sennosides 8.6 mg tablet (senna) 8.6 mg PO HS 10/10/23 06/30/24 aspirin 325 mg tablet 325 mg PO DAILY 04/15/24 06/30/24 carboxymethylcellulose sodium 0.25 1 drp EACH EYE BID 04/15/24 06/30/24 % eye drops (TheraTears) clotrimazole-betamethasone 1 1 applic topical DAILY 04/15/24 06/30/24 %-0.05 % topical cream memantine 5 mg tablet 5 mg PO BID 04/15/24 06/30/24 lorazepam 0.5 mg tablet 0.5 mg PO TID 06/26/24 06/30/24 apixaban 2.5 mg tablet 2.5 mg PO BID 06/30/24 06/30/24 citalopram 20 mg tablet 20 mg PO BID 06/30/24 06/30/24 Allergies Allergy/AdvReac Type Severity Reaction Status Date / Time No Known Allergies Allergy Verified 06/30/24 16:27 Review of Systems Review of Systems: A 10 system review of systems was completed on the patient and is negative except for what is stated in the HPI. Nursing and ancillary documentation was reviewed. [facility] Past Medical History Medical History Anxiety and depression B12 deficiency Bilateral inguinal hernia BPH (benign prostatic hyperplasia) CIDP (chronic inflammatory demyelinating polyneuropathy) DILCIA (generalized anxiety disorder) H/O gastroesophageal reflux (GERD) Heart failure with reduced ejection fraction Hiatal hernia High cholesterol HTN (hypertension) Hypothyroid Neuropathy Thyroid disease Tremor of both hands Surgical History Surgical History History of colonoscopy at least 10-15 years ago per patient's History of left knee replacement Family History Family History Father Malignant neoplasm of prostate Mother Stomach cancer Social History Social History Social History: Surrogate medical decision maker: Valeria Cloud, spouse. Code status: Full code. Smoking status: Never smoker Alcohol intake: former Substance use: never Do You Feel Safe in your Home?: Yes Lack of Transportation: No Lack of Food: Never True Current Housing: I Have Housing Concerned About Future Housing: No Difficulty Paying Gas/Electric Bills: No Difficulty Paying for Meds: No Currently Unemployed: No Education: Trade/Vocational Certificate Difficulty w/ Childcare or Family Care: No Living arrangements: with family Occupation/Education: retired Spiritual care concerns: No Exam Narrative: GENERAL: Well-appearing, well-nourished, and in no acute distress. HEAD: Normocephalic, atraumatic. EYES: PERRLA and EOMI. ENT: Nares clear, no rhinorrhea or epistaxis. Mucous membranes moist. NECK: Supple. CHEST: Clear to auscultation. No respiratory distress. HEART: Regular rate and rhythm. No murmur heard. Normal peripheral pulses. ABDOMEN: Soft, nontender, nondistended, normal active bowel sounds. : There is a Pérez catheter in place with blood tinged urine draining from it EXTREMITIES: Normal range of motion. No edema. SKIN: Warm, dry, no rash. NEURO: No focal deficits. Alert and oriented x3. PSYCH: Normal mood and affect. Course Vital Signs Vital signs: Vital Signs Temperature 36.6 C 07/28/24 03:42 Pulse Rate 76 07/28/24 03:42 Respiratory Rate 17 07/28/24 03:42 Blood Pressure 186/99 H 07/28/24 03:42 Pulse Oximetry 100 07/28/24 03:42 Oxygen Delivery Room Air 07/28/24 03:42 Temperature 36.6 C 07/28/24 03:42 Pulse Rate 76 07/28/24 03:42 Respiratory Rate 17 07/28/24 03:42 Blood Pressure 186/99 H 07/28/24 03:42 Pulse Oximetry 100 07/28/24 03:42 Oxygen Delivery Room Air 07/28/24 03:42 Medical Decision Making [facility] Narrative Medical decision making narrative: Differential diagnosis includes Pérez catheter obstruction The patient's Pérez catheter was able to drain without difficulty the patient is currently asymptomatic Vital Signs Vital Signs: Vital Signs Temperature 36.6 C 07/28/24 03:42 Pulse Rate 76 07/28/24 03:42 Respiratory Rate 17 07/28/24 03:42 Blood Pressure 186/99 H 07/28/24 03:42 Pulse Oximetry 100 07/28/24 03:42 Oxygen Delivery Room Air 07/28/24 03:42 Temperature 36.6 C 07/28/24 03:42 Pulse Rate 76 07/28/24 03:42 Respiratory Rate 17 07/28/24 03:42 Blood Pressure 186/99 H 07/28/24 03:42 Pulse Oximetry 100 07/28/24 03:42 Oxygen Delivery Room Air 07/28/24 03:42 Discharge Plan Discharge Clinical Impression: Acute urinary obstruction Patient Disposition: Home, Self-Care Condition: Stable Instructions: Antibiotic Form, Pérez Catheter Placement and Care (ED) Additional Instructions: Please follow-up with your urologist if you develop urinary obstruction and the catheter is unable to be cleared please return to the emergency department for re-evaluation Prescriptions: No Action atorvastatin 10 mg tablet 10 mg PO HS levothyroxine 50 mcg tablet 50 mcg PO QAM pantoprazole 40 mg tablet,delayed release (DR/EC) 40 mg PO DAILY Lumigan 0.01 % drops 1 drp EACH EYE HS sennosides [senna] 8.6 mg Tablet 8.6 mg PO HS cyanocobalamin (vitamin B-12) 1,000 mcg Tablet 2,500 mcg PO DAILY calcium carbonate 500 mg calcium (1,250 mg) Tablet,Chewable 500 mg PO PRN PRN (Reason: Indigestion) cholecalciferol (vitamin D3) 50 mcg (2,000 unit) Tablet 50 mcg PO DAILY coQ10 (ubiquinol) 100 mg Capsule 100 mg PO DAILY cyclosporine 0.05 % Drops 1 drp EACH EYE BID aspirin 325 mg Tablet 325 mg PO DAILY memantine 5 mg Tablet 5 mg PO BID TheraTears 0.25 % Drops 1 drp EACH EYE BID clotrimazole-betamethasone 1-0.05 % cream 1 applic TOPICAL DAILY docusate sodium 100 mg Capsule 100 mg PO Q12HR Qty: 60 0RF tamsulosin 0.4 mg capsule 0.4 mg PO DAILY Qty: 30 0RF midodrine 10 mg Tablet 10 mg PO TID Qty: 90 0RF melatonin 5 mg Tablet 5 mg PO HS PRN (Reason: Sleep) Qty: 30 0RF valacyclovir [Valtrex] 500 mg Tablet 1,000 mg PO Q12HR Qty: 20 0RF lorazepam 0.5 mg tablet 0.5 mg PO TID furosemide [Lasix] 20 mg tablet 20 mg PO DAILY Qty: 10 0RF citalopram 20 mg Tablet 20 mg PO BID apixaban 2.5 mg Tablet 2.5 mg PO BID Follow-up/Referrals: Joao,Leah Smith MD [Primary Care Provider] -
--- NOTE | 2024-07-28 04:13 | PC.NURSE ---
Patient's catheter was irrigated and flowing right away.
[2024-07-28 04:32] VITALS: BP 132/85; PULSE 98; RESP 15; O2SAT 96
== END 2024-07-28 04:34 | disposition home or self-care (01) ==
LOC: ANHED 04:08
PROVIDERS: Emergency Provider Emergency Medicine; PCP Internal Medicine
DX: T83.091A Other mechanical complication of indwelling urethral catheter, initial encounter (principal); I50.9 Heart failure, unspecified; I11.0 Hypertensive heart disease with heart failure; E78.00 Pure hypercholesterolemia, unspecified; E03.9 Hypothyroidism, unspecified; G62.9 Polyneuropathy, unspecified; G61.81 Chronic inflammatory demyelinating polyneuritis; K21.9 Gastro-esophageal reflux disease without esophagitis; N40.0 Benign prostatic hyperplasia without lower urinary tract symptoms; F41.1 Generalized anxiety disorder; F32.A Depression, unspecified; Z96.659 Presence of unspecified artificial knee joint; Y84.6 Urinary catheterization as the cause of abnormal reaction of the patient, or of later complication, without mention of misadventure at the time of the procedure
CPT/HCPCS: 99282

== ENCOUNTER 2024-07-29 23:09 | Inpatient (IN) | payer MEDICARE, SELFPAY ==
--- NOTE | ~2024-07-29 | CT_ITS ---
Non-contrast CT scan of the Abdomen and Pelvis Clinical indication: Hematuria Technique: 2.5 mm axial scans were obtained through the abdomen and pelvis without intravenous or or al contrast. Dose reduction technique was used on this scan by utilizing automated exposure control a nd iterative reconstruction technique. The dose-length product (DLP) was 354.78 mGy-cm. COMPARISON: 06/12/2024 Findings: Images through the lung bases reveal linear right basilar atelectasis and small right pleu ral effusion. Moderate hiatal hernia also present. There is mild to moderate bilateral hydroureteronephrosis. There is a 9 mm nonobstructing right lower pole renal stone. There is an additional 3 mm stone within the distended right renal pelvis. No left renal stone evident. The liver, spleen, pancreas, gallbladder, and adrenals appear normal. There are atherosclerotic calci fications of the aorta. . There is no evidence of bowel obstruction. Images through the pelvis were performed. There is no evidence of ascites or lymphadenopathy. Urinary bladder is markedly distended. Questionable focal mass or debris at the posterior urinary bladder, m easuring up to approximately 2 cm in maximum diameter (axial image 147). Prostate gland is also marke dly enlarged. There is mild chronic compression of L1 with diffuse degenerative spondylosis of lumbar spine. Impression: Possible 2 cm mass at the posterior urinary bladder versus possibly debris or blood products, or exte nsion of prostate gland. Cystoscopy advised for further evaluation. Markedly enlarged prostate gland. Mild bilateral hydroureteronephrosis, with nonobstructing right nephrolithiasis, as detailed above. Moderate hiatal hernia and small right pleural effusion. Reviewed, dictated and finalized at location M. Impression: Possible 2 cm mass at the posterior urinary bladder versus possibly debris or b lood products, or extension of prostate gland. Cystoscopy advised for further e valuation. Markedly enlarged prostate gland. Mild bilateral hydroureteronephrosis, with nonobstructing right nephrolithiasis , as detailed above. Moderate hiatal hernia and small right pleural effusion.
[2024-07-29 23:17] VITALS: BP 144/79; PULSE 65; RESP 16; TEMP 36.7; O2SAT 93
[2024-07-30] VITALS (13 sets, daily range): BP systolic 128–164; BP diastolic 71–99; PULSE 74–92; RESP 16–24; TEMP 36.6–37.2; O2SAT 93–100; BMI 24.4
--- NOTE | 2024-07-30 02:18 | PC.NURSE ---
Pérez catheter access attempted five times. Two times nursing staff attempted an 18Fr Pérez and then a 24Fr 3-way Pérez. Neither successful; EDP Dr. Obrien notified. EDP Dr. Obrien attempted Pérez access three times; once with a 24Fr 3-way, another with a 20 Fr 3-way, and last a 12Fr coude. None successful. Per EDP Camille he will have to consult with urology.
--- NOTE | 2024-07-30 02:28 | ED_ITS ---
HPI - General Adult General Chief complaint: Urogenital-Male Stated complaint: clogged catheter Time Seen by Provider: 07/30/24 02:02 History of Present Illness HPI narrative: Patient is a 84-year-old gentleman presents emergency department with chief complaint of Pérez catheter clogged. Patient has a chronic indwelling Pérez catheter is scheduled to have a procedure on his prostate in the near future the patient reports that he is on apixaban has had some blood in his urine for some time but reports he started passing large clots and reports that his catheter is obstructed. Related Data Home Medications Medication Instructions Recorded Confirmed atorvastatin 10 mg tablet 10 mg PO HS 10/10/23 06/30/24 bimatoprost 0.01 % eye drops 1 drp EACH EYE HS 10/10/23 06/30/24 (Paragigan) calcium carbonate 500 mg PO PRN PRN Indigestion 10/10/23 06/30/24 cholecalciferol (vitamin D3) 50 50 mcg PO DAILY 10/10/23 06/30/24 mcg (2,000 unit) tablet coQ10 (ubiquinol) 100 mg capsule 100 mg PO DAILY 10/10/23 06/30/24 cyanocobalamin (vitamin B-12) 2,500 mcg PO DAILY 10/10/23 06/30/24 1,000 mcg tablet cyclosporine 0.05 % eye drops 1 drp EACH EYE BID 10/10/23 06/30/24 levothyroxine 50 mcg tablet 50 mcg PO QAM 10/10/23 06/30/24 pantoprazole 40 mg tablet,delayed 40 mg PO DAILY 10/10/23 06/30/24 release sennosides 8.6 mg tablet (senna) 8.6 mg PO HS 10/10/23 06/30/24 aspirin 325 mg tablet 325 mg PO DAILY 04/15/24 06/30/24 carboxymethylcellulose sodium 0.25 1 drp EACH EYE BID 04/15/24 06/30/24 % eye drops (TheraTears) clotrimazole-betamethasone 1 1 applic topical DAILY 04/15/24 06/30/24 %-0.05 % topical cream memantine 5 mg tablet 5 mg PO BID 04/15/24 06/30/24 lorazepam 0.5 mg tablet 0.5 mg PO TID 06/26/24 06/30/24 apixaban 2.5 mg tablet 2.5 mg PO BID 06/30/24 06/30/24 citalopram 20 mg tablet 20 mg PO BID 06/30/24 06/30/24 Allergies Allergy/AdvReac Type Severity Reaction Status Date / Time No Known Allergies Allergy Verified 06/30/24 16:27 Review of Systems Review of Systems: A 10 system review of systems was completed on the patient and is negative except for what is stated in the HPI. Nursing and ancillary documentation was reviewed. [facility], [facility] Past Medical History Medical History Anxiety and depression B12 deficiency Bilateral inguinal hernia BPH (benign prostatic hyperplasia) CIDP (chronic inflammatory demyelinating polyneuropathy) DILCIA (generalized anxiety disorder) H/O gastroesophageal reflux (GERD) Heart failure with reduced ejection fraction Hiatal hernia High cholesterol HTN (hypertension) Hypothyroid Neuropathy Thyroid disease Tremor of both hands Surgical History Surgical History History of colonoscopy at least 10-15 years ago per patient's History of left knee replacement Family History Family History Father Malignant neoplasm of prostate Mother Stomach cancer Social History Social History Social History: Surrogate medical decision maker: Valeria Cloud, spouse. Code status: Full code. Smoking status: Never smoker Alcohol intake: former Substance use: never Do You Feel Safe in your Home?: Yes Lack of Transportation: No Lack of Food: Never True Current Housing: I Have Housing Concerned About Future Housing: No Difficulty Paying Gas/Electric Bills: No Difficulty Paying for Meds: No Currently Unemployed: No Education: Trade/Vocational Certificate Difficulty w/ Childcare or Family Care: No Living arrangements: with family Occupation/Education: retired Spiritual care concerns: No Exam Narrative: GENERAL: Well-appearing, well-nourished, and in no acute distress. HEAD: Normocephalic, atraumatic. EYES: PERRLA and EOMI. ENT: Nares clear, no rhinorrhea or epistaxis. Mucous membranes moist. NECK: Supple. CHEST: Clear to auscultation. No respiratory distress. HEART: Regular rate and rhythm. No murmur heard. Normal peripheral pulses. ABDOMEN: Soft, nontender, nondistended, normal active bowel sounds. : There are large clots in the past from the urethral meatus. EXTREMITIES: Normal range of motion. No edema. SKIN: Warm, dry, no rash. NEURO: No focal deficits. Alert and oriented x3. PSYCH: Normal mood and affect. Course Vital Signs Vital signs: Vital Signs Temperature 36.7 C 07/29/24 23:17 Pulse Rate 65 07/29/24 23:17 Respiratory Rate 16 07/29/24 23:17 Blood Pressure 144/79 H 07/29/24 23:17 Pulse Oximetry 93 07/29/24 23:17 Temperature 36.9 C 07/30/24 02:46 Pulse Rate 90 07/30/24 04:16 Respiratory Rate 24 H 07/30/24 02:18 Blood Pressure 161/96 H 07/30/24 04:16 Pulse Oximetry 98 07/30/24 04:16 Medical Decision Making [facility] Narrative Medical decision making narrative: Differential diagnosis includes ureteral obstruction secondary to hematuria Attempts were made to place a Pérez catheter by both nursing staff and myself without success. The case was discussed with the urologist on-call Dr. Pulido A CT scan laboratory studies were ordered on the patient. Plan will be to admit the patient to the hospitalist with urological consultation Vital Signs Vital Signs: Vital Signs Temperature 36.7 C 07/29/24 23:17 Pulse Rate 65 07/29/24 23:17 Respiratory Rate 16 07/29/24 23:17 Blood Pressure 144/79 H 07/29/24 23:17 Pulse Oximetry 93 07/29/24 23:17 Temperature 36.9 C 07/30/24 02:46 Pulse Rate 90 07/30/24 04:16 Respiratory Rate 24 H 07/30/24 02:18 Blood Pressure 161/96 H 07/30/24 04:16 Pulse Oximetry 98 07/30/24 04:16 Lab Data 07/30/24 02:37 07/30/24 02:37 Labs: Lab Results 07/30/24 Range/Units 02:37 WBC 10.2 H (4.5-10.0) K/mm3 RBC 3.27 L (4.6-6.20) M/mm3 Hgb 10.3 L (14.0-18.0) g/dL Hct 31.1 L (42.0-52.0) % MCV 95.1 (80-100) fl MCH 31.5 (26-34) pg MCHC 33.1 (32-36) g/dl RDW 17.8 H (11.5-14.5) % Plt Count 258 (150-375) k/mm3 MPV 10.3 (7.4-10.4) fl Immature Gran % (Auto) 0.3 (0-0.5) % Neut % (Auto) 60.9 (45.5-73.1) % Lymph % (Auto) 26.0 (18.3-44.2) % [place] % (Auto) 9.9 H (2.6-8.5) % Eos % (Auto) 2.2 (0-4.4) % Baso % (Auto) 0.7 (0.2-1.2) % Lymph # (Auto) 2.65 (0.9-3.2) K/mm3 [place] # (Auto) 1.0 H (0.1-0.6) K/mm3 Eos # (Auto) 0.2 (0-0.3) K/mm3 Baso # (Auto) 0.1 (0.0-0.1) K/mm3 Abs Immat Gran (auto) 0.03 (0.00-0.031) K/mm3 Absolute Neuts (auto) 6.2 (1.3-6.7) K/mm3 Absolute Nucleated RBC 0.000 (0.0-0.012) K/mm3 Nucleated RBC % 0.0 (0.0-0.2) % PT 14.9 H (11.1-14.7) Seconds INR 1.1 APTT 28.9 (22.3-36.8) Seconds Sodium 135 L (137-145) mmol/L Potassium 3.7 (3.4-5.0) mmol/L Chloride 101 (98-107) mmol/L Carbon Dioxide 25 (22-30) mmol/L Anion Gap 9 (4-12) mmol/L BUN 13 (9-20) mg/dL Creatinine 0.80 (0.7-1.3) mg/dL Estim Creat Clear Calc 60 ml/min Estimated GFR > 60 (59 - ) Glucose 104 (65-110) mg/dL Calcium 9.5 (8.4-10.2) mg/dL Total Bilirubin 0.7 (0.2-1.3) mg/dL AST 27 (17-59) U/L ALT 12 (6-50) U/L Alkaline Phosphatase 95 (38-126) U/L Total Protein 8.0 (6.3-8.2) g/dL Albumin 3.9 (3.5-5.1) g/dL Discharge Plan Discharge Clinical Impression: Hematuria, Acute urinary obstruction Patient Disposition: Still a Patient Condition: Stable Prescriptions: No Action atorvastatin 10 mg tablet 10 mg PO HS levothyroxine 50 mcg tablet 50 mcg PO QAM pantoprazole 40 mg tablet,delayed release (DR/EC) 40 mg PO DAILY Lumigan 0.01 % drops 1 drp EACH EYE HS sennosides [senna] 8.6 mg Tablet 8.6 mg PO HS cyanocobalamin (vitamin B-12) 1,000 mcg Tablet 2,500 mcg PO DAILY calcium carbonate 500 mg calcium (1,250 mg) Tablet,Chewable 500 mg PO PRN PRN (Reason: Indigestion) cholecalciferol (vitamin D3) 50 mcg (2,000 unit) Tablet 50 mcg PO DAILY coQ10 (ubiquinol) 100 mg Capsule 100 mg PO DAILY cyclosporine 0.05 % Drops 1 drp EACH EYE BID aspirin 325 mg Tablet 325 mg PO DAILY memantine 5 mg Tablet 5 mg PO BID TheraTears 0.25 % Drops 1 drp EACH EYE BID clotrimazole-betamethasone 1-0.05 % cream 1 applic TOPICAL DAILY docusate sodium 100 mg Capsule 100 mg PO Q12HR Qty: 60 0RF tamsulosin 0.4 mg capsule 0.4 mg PO DAILY Qty: 30 0RF midodrine 10 mg Tablet 10 mg PO TID Qty: 90 0RF melatonin 5 mg Tablet 5 mg PO HS PRN (Reason: Sleep) Qty: 30 0RF valacyclovir [Valtrex] 500 mg Tablet 1,000 mg PO Q12HR Qty: 20 0RF lorazepam 0.5 mg tablet 0.5 mg PO TID furosemide [Lasix] 20 mg tablet 20 mg PO DAILY Qty: 10 0RF citalopram 20 mg Tablet 20 mg PO BID apixaban 2.5 mg Tablet 2.5 mg PO BID Follow-up/Referrals: Joao,Leah Smith MD [Primary Care Provider] - Time of Disposition: 05:23
[2024-07-30 02:45] LABS: Basophils Absolute Auto 0.1 K/mm3 (0.0-0.1); Basophils Percent Auto 0.7 % (0.2-1.2); Eosinophils Absolute Auto 0.2 K/mm3 (0-0.3); Eosinophils Percent Auto 2.2 % (0-4.4); Hematocrit 31.1 % (42.0-52.0); Hemoglobin 10.3 g/dL (14.0-18.0); Immature Granulocyte Absolute 0.03 K/mm3 (0.00-0.031); Immature Granulocyte Percent A 0.3 % (0-0.5); Lymphocytes Absolute Auto 2.65 K/mm3 (0.9-3.2); Mean Corpuscular HGB Conc 33.1 g/dl (32-36); Mean Corpuscular Hemoglobin 31.5 pg (26-34); Mean Corpuscular Volume 95.1 fl (80-100); Mean Platelet Volume 10.3 fl (7.4-10.4); Monocytes Percent Auto 9.9 % (2.6-8.5); Neutrophils Absolute Auto 6.2 K/mm3 (1.3-6.7); Neutrophils Percent Auto 60.9 % (45.5-73.1); Platelet Count Result 258 k/mm3 (150-375); Red Blood Count 3.27 M/mm3 (4.6-6.20); Red Cell Distribution Width 17.8 % (11.5-14.5); White Blood Count 10.2 K/mm3 (4.5-10.0)
--- NOTE | 2024-07-30 02:52 | PC.NURSE ---
Pt denies pain but states it feels off because it feels like I have to go to the bathroom
[2024-07-30 02:55] LABS: Alanine Aminotransferase 12 U/L (6-50); Albumin Level 3.9 g/dL (3.5-5.1); Alkaline Phosphatase 95 U/L (38-126); Anion Gap 9 mmol/L (4-12); Aspartate Amino Transferase 27 U/L (17-59); Bilirubin,Total 0.7 mg/dL (0.2-1.3); Blood Urea Nitrogen 13 mg/dL (9-20); Calcium 9.5 mg/dL (8.4-10.2); Carbon Dioxide 25 mmol/L (22-30); Chloride 101 mmol/L (98-107); Estimated CRCL calculation 60 ml/min; Estimated Glomerular Filt Rate > 60; Glucose 104 mg/dL (65-110); INR 1.1; Potassium 3.7 mmol/L (3.4-5.0); Prothrombin Time 14.9 Seconds (11.1-14.7); Sodium 135 mmol/L (137-145)
[2024-07-30 02:56] LABS: Partial Thromboplastin Time 28.9 Seconds (22.3-36.8)
--- NOTE | 2024-07-30 03:25 | PC.NURSE ---
Pt states he feels like he needs to go to the bathroom but cannot, male external catheter placed on pt
[2024-07-30] MEDS: MORPHINE SULFATE (*CRX) 4 MG/ML INJ IV PUSH (04:29)
--- NOTE | 2024-07-30 07:21 | P.CONUR_ITS ---
Assessment and Plan Assessment and plan (1) Hematuria: Code(s): R31.9 - Hematuria, unspecified Status: Acute (2) Acute urinary obstruction: Code(s): N13.9 - Obstructive and reflux uropathy, unspecified Status: Acute (3) Benign prostatic hyperplasia with urinary retention: Code(s): N40.1 - Benign prostatic hyperplasia with lower urinary tract symptoms; R33.8 - Other retention of urine Status: Acute Assessment and Plan: * At the bedside I placed a 22 F hematuria catheter with ease. His bladder irrigated well without evidence of significant clot. * Will admit for CBI. Plan to leave indwelling catheter. He has been seen in consultation and scheduled for prostate artery embolization in early August Urology Consult Note HPI Date Seen: 07/30/24 Requesting Physician: Gala Isidro DO Primary Care Provider: Leah Shepherd, MD Consult Narrative Narrative: Linwood Cloud is a 84 year old male well known to our prostate with a massive ( 185 g) prostate it causes urinary retention and intermittently bleeds. He was seen in the emergency department with hematuria. His indwelling catheter was removed and a new 1 was unable to be replaced. CT imaging demonstrates a distended bladder with only a possible small clot. Review of Systems Cardiovascular: Cardiovascular: Denies chest pain, Denies lightheadedness, Denies palpitations and Denies dyspnea Respiratory: Respiratory: Denies dyspnea Gastrointestinal: Gastrointestinal: Denies diarrhea, Denies nausea and Denies vomiting Genitourinary: Genitourinary: Reports hematuria, Denies dysuria and Reports other ( Urinary retention) Endocrine: Endocrine: Denies palpitations PMFSH Past Medical History Medical History Anxiety and depression B12 deficiency Bilateral inguinal hernia BPH (benign prostatic hyperplasia) CIDP (chronic inflammatory demyelinating polyneuropathy) DILCIA (generalized anxiety disorder) H/O gastroesophageal reflux (GERD) Heart failure with reduced ejection fraction Hiatal hernia High cholesterol HTN (hypertension) Hypothyroid Neuropathy Thyroid disease Tremor of both hands Surgical History Surgical History History of colonoscopy at least 10-15 years ago per patient's History of left knee replacement Family History Family History Father Malignant neoplasm of prostate Mother Stomach cancer Social History Social History Social History: Surrogate medical decision maker: Valeria Cloud, spouse. Code status: Full code. Smoking status: Never smoker Alcohol intake: former Substance use: never Do You Feel Safe in your Home?: Yes Lack of Transportation: No Lack of Food: Never True Current Housing: I Have Housing Concerned About Future Housing: No Difficulty Paying Gas/Electric Bills: No Difficulty Paying for Meds: No Currently Unemployed: No Education: Trade/Vocational Certificate Difficulty w/ Childcare or Family Care: No Living arrangements: with family Occupation/Education: retired Spiritual care concerns: No Meds Home Medications and Allergies Home Medications Medication Instructions Recorded Confirmed Type atorvastatin 10 mg tablet 10 mg PO HS 10/10/23 06/30/24 History bimatoprost 0.01 % eye drops 1 drp EACH EYE HS 10/10/23 06/30/24 History (Lumigan) calcium carbonate 500 mg PO PRN PRN Indigestion 10/10/23 06/30/24 History cholecalciferol (vitamin D3) 50 50 mcg PO DAILY 10/10/23 06/30/24 History mcg (2,000 unit) tablet coQ10 (ubiquinol) 100 mg capsule 100 mg PO DAILY 10/10/23 06/30/24 History cyanocobalamin (vitamin B-12) 2,500 mcg PO DAILY 10/10/23 06/30/24 History 1,000 mcg tablet cyclosporine 0.05 % eye drops 1 drp EACH EYE BID 10/10/23 06/30/24 History levothyroxine 50 mcg tablet 50 mcg PO QAM 10/10/23 06/30/24 History pantoprazole 40 mg tablet,delayed 40 mg PO DAILY 10/10/23 06/30/24 History release sennosides 8.6 mg tablet (senna) 8.6 mg PO HS 10/10/23 06/30/24 History aspirin 325 mg tablet 325 mg PO DAILY 04/15/24 06/30/24 History carboxymethylcellulose sodium 0.25 1 drp EACH EYE BID 04/15/24 06/30/24 History % eye drops (TheraTears) clotrimazole-betamethasone 1 1 applic topical DAILY 04/15/24 06/30/24 History %-0.05 % topical cream memantine 5 mg tablet 5 mg PO BID 04/15/24 06/30/24 History docusate sodium 100 mg capsule 100 mg PO Q12HR #60 caps 04/17/24 06/30/24 Rx tamsulosin 0.4 mg capsule 0.4 mg PO DAILY #30 caps 04/17/24 06/30/24 Rx melatonin 5 mg tablet 5 mg PO HS PRN Sleep #30 tabs 06/24/24 06/30/24 Rx midodrine 10 mg tablet 10 mg PO TID #90 tabs 06/24/24 06/30/24 Rx valacyclovir 500 mg tablet 1,000 mg PO Q12HR #20 tabs 06/24/24 06/30/24 Rx (Valtrex) lorazepam 0.5 mg tablet 0.5 mg PO TID 06/26/24 06/30/24 History apixaban 2.5 mg tablet 2.5 mg PO BID 06/30/24 06/30/24 History citalopram 20 mg tablet 20 mg PO BID 06/30/24 06/30/24 History furosemide 20 mg tablet (Lasix) 20 mg PO DAILY #10 tabs 06/30/24 06/30/24 Rx Allergies Allergy/AdvReac Type Severity Reaction Status Date / Time No Known Allergies Allergy Verified 06/30/24 16:27 Vital Signs Vital Signs - 24 hr 07/29/24 23:17 07/30/24 02:18 07/30/24 02:46 Temperature 98.1 F 98 F 98.4 F Pulse Rate 65 85 Respiratory Rate 16 24 H Blood Pressure 144/79 H 152/99 H Pulse Oximetry 93 100 07/30/24 02:46 07/30/24 03:32 07/30/24 04:16 Temperature Pulse Rate 91 90 Respiratory Rate Blood Pressure 164/87 H 139/97 H 161/96 H Pulse Oximetry 93 98 07/30/24 05:02 07/30/24 05:46 07/30/24 06:02 Temperature Pulse Rate 92 89 88 Respiratory Rate 20 20 Blood Pressure 161/82 H 128/99 H 156/86 H Pulse Oximetry 98 95 96 07/30/24 06:15 07/30/24 06:17 07/30/24 06:31 Temperature Pulse Rate 88 87 85 Respiratory Rate Blood Pressure 132/71 Pulse Oximetry Exam Const: General: no acute distress Resp: Effort & Inspection: normal respiratory effort GI: Inspection: non-distended GI Palp: No abdominal tenderness and No Guarding due to palpation present (GI) Auscultation: normal bowel sounds Results Labs 07/30/24 02:37 07/30/24 02:37 Labs: Short CBC 07/30/24 Range/Units 02:37 WBC 10.2 H (4.5-10.0) K/mm3 Hgb 10.3 L (14.0-18.0) g/dL Hct 31.1 L (42.0-52.0) % Plt Count 258 (150-375) k/mm3 BMP 07/30/24 02:37 Sodium 135 L Potassium 3.7 Chloride 101 Carbon Dioxide 25 BUN 13 Creatinine 0.80 Glucose 104 Calcium 9.5 Liver Function 07/30/24 Range/Units 02:37 Total Bilirubin 0.7 (0.2-1.3) mg/dL AST 27 (17-59) U/L ALT 12 (6-50) U/L Alkaline Phosphatase 95 (38-126) U/L Albumin 3.9 (3.5-5.1) g/dL
--- NOTE | 2024-07-30 08:05 | PC.NURSE ---
This patient, Linwood Cloud, was admitted to [facility] Surg Room 325-01. Patient/family oriented to hospital policies and general routines including ID bracelet, bed and alarms, visiting hours, pain management, procedures, bathroom and other care routines, personal items, smoking policy, room service/diet, and visiting hours. Information on how to activate the Rapid Response Team has been discussed. Patient/Family are encouraged to report perceived risks to care and to ask questions if they do not understand what they are told or what they should do.
--- NOTE | 2024-07-30 08:32 | PM.IMHP ---
H&P: HPI History of Present Illness Date/Time: 07/30/24 08:32 Chief Complaint: hematuria Narrative: Patient is a 84-year-old gentleman presents emergency department with chief complaint of Pérez catheter clogged. Patient has a chronic indwelling Pérez catheter is scheduled to have a procedure on his prostate in the near future the patient reports that he is on apixaban has had some blood in his urine for some time but reports he started passing large clots and reports that his catheter is obstructed. Review of Systems Review of Systems: - CONSTITUTIONAL: Denies weight loss, fever and chills. - HEENT: Denies changes in vision and hearing - RESPIRATORY: Denies SOB and cough. - CV: Denies palpitations and CP. - GI: Denies abdominal pain, nausea, vomiting and diarrhea. - : Reports dysuria and hematuria and denies urinary frequency. - MSK: Denies myalgia and joint pain. - SKIN: Denies rash and pruritus. - NEUROLOGICAL: Denies headache and syncope. - PSYCHIATRIC: Denies recent changes in mood. Denies anxiety and depression. [facility] Past Medical History Medical History Anxiety and depression B12 deficiency Bilateral inguinal hernia BPH (benign prostatic hyperplasia) CIDP (chronic inflammatory demyelinating polyneuropathy) DILCIA (generalized anxiety disorder) H/O gastroesophageal reflux (GERD) Heart failure with reduced ejection fraction Hiatal hernia High cholesterol HTN (hypertension) Hypothyroid Neuropathy Thyroid disease Tremor of both hands Surgical History Surgical History History of colonoscopy at least 10-15 years ago per patient's History of left knee replacement Family History Family History Father Malignant neoplasm of prostate Mother Stomach cancer Social History Social History Social History: Surrogate medical decision maker: Valeriabartolo Cloud, spouse. Code status: Full code. Smoking status: Never smoker Alcohol intake: never Substance use: never Do You Feel Safe in your Home?: Yes Lack of Transportation: No Lack of Food: Never True Current Housing: I Have Housing Concerned About Future Housing: Decline to Answer Difficulty Paying Gas/Electric Bills: Decline to Answer Difficulty Paying for Meds: Decline to Answer Currently Unemployed: Decline to Answer Education: Trade/Vocational Certificate Difficulty w/ Childcare or Family Care: Decline to Answer Living arrangements: with family Occupation/Education: retired Spiritual care concerns: No Meds Home Medications and Allergies Home Medications Medication Instructions Recorded Confirmed Type atorvastatin 10 mg tablet 10 mg PO HS 10/10/23 07/30/24 History bimatoprost 0.01 % eye drops 1 drp EACH EYE HS 10/10/23 07/30/24 History (Lumigan) calcium carbonate 500 mg PO DAILY Indigestion 10/10/23 07/30/24 History cholecalciferol (vitamin D3) 50 50 mcg PO DAILY 10/10/23 07/30/24 History mcg (2,000 unit) tablet coQ10 (ubiquinol) 100 mg capsule 100 mg PO DAILY 10/10/23 07/30/24 History cyanocobalamin (vitamin B-12) 2,500 mcg PO DAILY 10/10/23 07/30/24 History 1,000 mcg tablet cyclosporine 0.05 % eye drops 1 drp EACH EYE BID 10/10/23 07/30/24 History levothyroxine 50 mcg tablet 50 mcg PO QAM 10/10/23 07/30/24 History pantoprazole 40 mg tablet,delayed 40 mg PO DAILY 10/10/23 07/30/24 History release sennosides 8.6 mg tablet (senna) 8.6 mg PO HS 10/10/23 07/30/24 History aspirin 325 mg tablet 325 mg PO DAILY 04/15/24 07/30/24 History carboxymethylcellulose sodium 0.25 1 drp EACH EYE BID 04/15/24 07/30/24 History % eye drops (TheraTears) clotrimazole-betamethasone 1 1 applic topical DAILY 04/15/24 07/30/24 History %-0.05 % topical cream memantine 5 mg tablet 5 mg PO Q12H 04/15/24 07/30/24 History docusate sodium 100 mg capsule 100 mg PO Q12HR #60 caps 04/17/24 07/30/24 Rx lorazepam 0.5 mg tablet 0.5 mg PO 08,15,21 06/26/24 07/30/24 History apixaban 2.5 mg tablet 2.5 mg PO Q12H 06/30/24 07/30/24 History citalopram 20 mg tablet 20 mg PO Q12H 06/30/24 07/30/24 History melatonin 5 mg tablet 5 mg PO HS Sleep 07/30/24 07/30/24 History midodrine 10 mg tablet 10 mg PO 08,15,21 07/30/24 07/30/24 History Allergies Allergy/AdvReac Type Severity Reaction Status Date / Time No Known Allergies Allergy Verified 07/30/24 08:40 Vital Signs Vital Signs - 24 hr 07/29/24 23:17 07/30/24 02:18 07/30/24 02:46 Temperature 98.1 F 98 F 98.4 F Pulse Rate 65 85 Respiratory Rate 16 24 H Blood Pressure 144/79 H 152/99 H Pulse Oximetry 93 100 07/30/24 02:46 07/30/24 03:32 07/30/24 04:16 Temperature Pulse Rate 91 90 Respiratory Rate Blood Pressure 164/87 H 139/97 H 161/96 H Pulse Oximetry 93 98 07/30/24 05:02 07/30/24 05:46 07/30/24 06:02 Temperature Pulse Rate 92 89 88 Respiratory Rate 20 20 Blood Pressure 161/82 H 128/99 H 156/86 H Pulse Oximetry 98 95 96 07/30/24 06:15 07/30/24 06:17 07/30/24 06:31 Temperature Pulse Rate 88 87 85 Respiratory Rate Blood Pressure 132/71 Pulse Oximetry Exam Narrative: GENERAL: Well-appearing, well-nourished, and in no acute distress. HEAD: Normocephalic, atraumatic. EYES: PERRLA and EOMI. ENT: Nares clear, no rhinorrhea or epistaxis. Mucous membranes moist. NECK: Supple. CHEST: Clear to auscultation. No respiratory distress. HEART: Regular rate and rhythm. No murmur heard. Normal peripheral pulses. ABDOMEN: Soft, nontender, nondistended, normal active bowel sounds. : Hematuria catheter in situ dried blood around urethra EXTREMITIES: Normal range of motion. No edema. SKIN: Warm, dry, no rash. NEURO: No focal deficits. Alert and oriented x3. PSYCH: Normal mood and affect. H&P: Results Labs Labs: Short CBC 07/30/24 Range/Units 02:37 WBC 10.2 H (4.5-10.0) K/mm3 Hgb 10.3 L (14.0-18.0) g/dL Hct 31.1 L (42.0-52.0) % Plt Count 258 (150-375) k/mm3 BMP 07/30/24 02:37 Sodium 135 L Potassium 3.7 Chloride 101 Carbon Dioxide 25 BUN 13 Creatinine 0.80 Glucose 104 Calcium 9.5 Liver Function 07/30/24 Range/Units 02:37 Total Bilirubin 0.7 (0.2-1.3) mg/dL AST 27 (17-59) U/L ALT 12 (6-50) U/L Alkaline Phosphatase 95 (38-126) U/L Albumin 3.9 (3.5-5.1) g/dL Assessment and Plan Assessment and plan (1) Hematuria: Code(s): R31.9 - Hematuria, unspecified Status: Acute (2) Acute urinary obstruction: Code(s): N13.9 - Obstructive and reflux uropathy, unspecified Status: Acute (3) History of DVT (deep vein thrombosis): Code(s): Z86.718 - Personal history of other venous thrombosis and embolism Status: Acute (4) Anemia: Code(s): D64.9 - Anemia, unspecified Status: Acute (5) Benign prostatic hyperplasia with urinary retention: Code(s): N40.1 - Benign prostatic hyperplasia with lower urinary tract symptoms; R33.8 - Other retention of urine Status: Acute (6) Heart failure with reduced ejection fraction: Code(s): I50.20 - Unspecified systolic (congestive) heart failure Status: Acute Plan Patient is a 84-year-old gentleman presents emergency department with chief complaint of Pérez catheter clogged. Patient has a chronic indwelling Pérez catheter is scheduled For prostate artery embolization in early August For ongoing intermittent hematuria. he reports he has been passing large clots and reports that his catheter is obstructed. In the ED is vitals were stable except for mildly elevated blood pressure. Laboratory evaluation showed WBC 10 K hemoglobin 10 came g was unremarkable INR 1.[address] abdomen and pelvis showed possible 2 cm mass in the posterior urinary bladder versus possibly depressed or blood products or extension of prostate gland. Cystoscopy advised. Markedly enlarged prostate gland. Mild bilateral hydroureteronephrosis with nonobstructing right nephrolithiasis noted. Moderate hiatal hernia and small right pleural effusion. Pérez catheter placement was attempted however was unsuccessful. Urology has been consulted and placed a hematuria catheter and CBI has been started. Chronic anemia Moderate hiatal hernia History of DVT on anticoagulation Anxiety and depression BPH Heart failure with reduced ejection fraction Hypertension Hyperlipidemia Hypothyroidism GERD DVT prophylaxis on apixaban Code status full code Hospitalist MIPS Advance Care Plan I have confirmed that the patient's Advanced Care Plan is present, code status is documented, or surrogate decision maker is listed in patient medical record.: Yes Medication Reconciliation I have utilized all available resources to obtain, update and review the patients current medications (includes all prescriptions, OTC, herbals, cannabis, and nutritional supplements).: Yes
[2024-07-30] MEDS: MIDODRINE HCL 10 MG TABLET PO ×2 (15:46→21:18)
[2024-07-30] MEDS: LORazepam (*CRX) 0.5 MG TABLET PO ×2 (15:46→21:18)
[2024-07-30] MEDS: ARTIFICIAL TEARS OPHTH SOLN 15 ML BOTTLE 1 DROP EACH EYE (15:49)
[2024-07-30] MEDS: cycloSPORINE 0.4 ML OPHTH SOLUTION 1 DROP EACH EYE (15:49)
[2024-07-30] MEDS: SENNOSIDES 8.6 MG TABLET PO (21:18)
[2024-07-30] MEDS: ATORVASTATIN 10 MG TABLET PO (21:18)
[2024-07-30] MEDS: MEMANTINE 5 MG TABLET PO (21:18)
[2024-07-30] MEDS: LATANOPROST 0.005% OP SOLN 2.5 ML BTL 1 DROP EACH EYE (21:18)
[2024-07-30] MEDS: APIXABAN 2.5 MG TABLET PO (21:18)
[2024-07-30] MEDS: CITALOPRAM HYDROBROMIDE 20 MG TABLET PO (21:18)
[2024-07-30] MEDS: DOCUSATE SODIUM 100 MG CAPSULE PO (21:18)
[2024-07-30] MEDS: MELATONIN 5 MG TABLET PO (21:19)
[2024-07-30 22:22] LABS: Add Urine Microscopic? YES; Appearance Urine Cloudy (Clear); Bacteria Urine 4+ /hpf; Bilirubin Urine Negative (Negative); Blood Urine 3+ (Negative); Color Urine Yellow (Yellow); Glucose Urine UA Negative (Negative); Ketones Urine Negative (Negative); Leukocyte Esterase Ur 3+ LEU/UL (Negative); Nitrate Urine Positive (Negative); Non Pathogenic Casts 0-2; Protein Urine 1+ mg/dL (Negative); RBC Urine >100 /hpf (0-2); Specific Grav Ur 1.007 (1.001-1.035); Squamous Epithelial Cell Urine None Seen /hpf (Few); Urobilinogen Urine 0.2 mg/dL (<2.0); WBC Urine >100 /hpf (0-3); pH Urine 6.5 (5.0-9.0)
[2024-07-31 05:40] VITALS: BP 163/92; PULSE 84; RESP 16; TEMP 36.8; O2SAT 98
[2024-07-31] MEDS: LEVOTHYROXINE SODIUM 50 MCG TABLET PO (05:40)
[2024-07-31 06:41] LABS: Basophils Absolute Auto 0.1 K/mm3 (0.0-0.1); Basophils Percent Auto 1.1 % (0.2-1.2); Eosinophils Absolute Auto 0.1 K/mm3 (0-0.3); Eosinophils Percent Auto 2.3 % (0-4.4); Hemoglobin 10.1 g/dL (14.0-18.0); Immature Granulocyte Absolute 0.04 K/mm3 (0.00-0.031); Immature Granulocyte Percent A 0.7 % (0-0.5); Lymphocytes Absolute Auto 0.76 K/mm3 (0.9-3.2); Lymphocytes Percent Auto 13.5 % (18.3-44.2); Mean Corpuscular HGB Conc 30.6 g/dl (32-36); Mean Corpuscular Hemoglobin 31.2 pg (26-34); Mean Corpuscular Volume 101.9 fl (80-100); Mean Platelet Volume 10.6 fl (7.4-10.4); Monocytes Absolute Auto 0.6 K/mm3 (0.1-0.6); Monocytes Percent Auto 10.5 % (2.6-8.5); Neutrophils Absolute Auto 4.1 K/mm3 (1.3-6.7); Neutrophils Percent Auto 71.9 % (45.5-73.1); Platelet Count Result 208 k/mm3 (150-375); Red Blood Count 3.24 M/mm3 (4.6-6.20); Red Cell Distribution Width 17.5 % (11.5-14.5); White Blood Count 5.6 K/mm3 (4.5-10.0)
[2024-07-31 07:00] LABS: Alanine Aminotransferase 10 U/L (6-50); Albumin Level 3.4 g/dL (3.5-5.1); Alkaline Phosphatase 82 U/L (38-126); Anion Gap 7 mmol/L (4-12); Aspartate Amino Transferase 22 U/L (17-59); Bilirubin,Total 0.5 mg/dL (0.2-1.3); Blood Urea Nitrogen 16 mg/dL (9-20); Calcium 8.8 mg/dL (8.4-10.2); Carbon Dioxide 27 mmol/L (22-30); Chloride 100 mmol/L (98-107); Estimated CRCL calculation 45 ml/min; Estimated Glomerular Filt Rate > 60; Glucose 114 mg/dL (65-110); Magnesium 1.8 mg/dL (1.6-2.3); Potassium 3.6 mmol/L (3.4-5.0); Sodium 134 mmol/L (137-145)
--- NOTE | 2024-07-31 07:05 | WPDUROPN2 ---
Progress Note: A&P Assessment and Plan (1) Hematuria: Code(s): R31.9 - Hematuria, unspecified Status: Acute (2) Acute urinary obstruction: Code(s): N13.9 - Obstructive and reflux uropathy, unspecified Status: Acute Assessment and Plan: Urinary retention and hematuria have resolved with place a catheter Can stop CBI and discharge with indwelling catheter at any time from our standpoint Patient has plans for prostate artery embolization in early August. He should keep an indwelling catheter until then Subjective Subjective Date/Time Seen: 07/31/24 07:05 Interval history: Patient comfortable and urine has cleared with placement of a new catheter for Review of Systems Cardiovascular: Cardiovascular: Denies chest pain, Denies lightheadedness, Denies palpitations and Denies dyspnea Respiratory: Respiratory: Denies dyspnea Gastrointestinal: Gastrointestinal: Denies diarrhea, Denies nausea and Denies vomiting Genitourinary: Genitourinary: Denies hematuria and Denies dysuria Endocrine: Endocrine: Denies palpitations Exam Const: General: no acute distress Resp: Effort & Inspection: normal respiratory effort GI: Inspection: non-distended GI Palp: No abdominal tenderness and No Guarding due to palpation present (GI) Auscultation: normal bowel sounds Urinary Catheter: Urinary Catheter: patent and draining and urine clear Objective Data Vital Signs Vital Signs: Vital Signs - 24 hr 07/30/24 09:16 07/30/24 08:20 07/30/24 14:00 Temperature 99.0 F 97.9 F Pulse Rate 80 78 Respiratory Rate 18 20 Blood Pressure 137/99 H 155/87 H Pulse Oximetry 98 98 Oxygen Delivery Room Air 07/30/24 21:05 07/30/24 21:20 07/31/24 05:40 Temperature 98.2 F 98.2 F Pulse Rate 74 84 Respiratory Rate 16 16 Blood Pressure 152/90 H 163/92 H Pulse Oximetry 99 98 Oxygen Delivery Room Air Intake/Output Intake/Output: Intake & Output 07/28/24 07/29/24 07/30/24 07/31/24 23:59 23:59 23:59 23:59 Intake Total 240 120 Output Total 4350 4000 Balance -0469 -5280 Meds/Results Medications: Active Medications Generic Name Dose Route Start Last Admin Trade Name Freq PRN Reason Stop Dose Admin Apixaban 2.5 mg 07/30/24 21:00 07/30/24 21:18 Apixaban 2.5 Mg Tablet PO 2.5 mg Q12HR LUCILLE Administration Artificial Tears 1 drop 07/30/24 17:00 07/30/24 15:49 Artificial Tears Ophth Soln 15 Ml Bottle EACH EYE 1 drop BID LUCILLE Administration Aspirin 325 mg 07/31/24 09:00 Aspirin 325 Mg Tablet PO DAILY LUCILLE Atorvastatin Calcium 10 mg 07/30/24 21:00 07/30/24 21:18 Atorvastatin 10 Mg Tablet PO 10 mg HS LUCILLE Administration Calcium Carbonate 500 mg 07/31/24 09:00 Calcium Carbonate (Tums) 500 Mg (200 Mg Elemental) PO DAILY [facility] Citalopram Hydrobromide 20 mg 07/30/24 21:00 07/30/24 21:18 Citalopram Hydrobromide 20 Mg Tablet PO 20 mg Q12HR LUCILLE Administration Clotrimazole 1 applic 07/31/24 09:00 Betamethasone/Clotrimazole Cream 15 Gm Tube TOPICAL DAILY [facility] Cyanocobalamin 2,500 mcg 07/31/24 09:00 Cyanocobalamin 500 Mcg Tablet PO DAILY [facility] Cyclosporine 1 drop 07/30/24 17:00 07/30/24 15:49 Cyclosporine 0.4 Ml Ophth Solution EACH EYE 1 drop BID LUCILLE Administration Docusate Sodium 100 mg 07/30/24 21:00 07/30/24 21:18 Docusate Sodium 100 Mg Capsule PO 100 mg Q12HR LUCILLE Administration Latanoprost 1 drop 07/30/24 21:00 07/30/24 21:18 Latanoprost 0.005% Op Soln 2.5 Ml Btl EACH EYE 1 drop HS LUCILLE Administration Levothyroxine Sodium 50 mcg 07/31/24 06:30 07/31/24 05:40 Levothyroxine Sodium 50 Mcg Tablet PO 50 mcg DAILY@0630 LUCILLE Administration Lorazepam 0.5 mg 07/30/24 15:00 07/30/24 21:18 Lorazepam (*Crx) 0.5 Mg Tablet PO 0.5 mg 08,15,21 LUCILLE Administration Melatonin 5 mg 07/30/24 21:00 07/30/24 21:19 Melatonin 5 Mg Tablet PO 5 mg HS LUCILLE Administration Memantine 5 mg 07/30/24 21:00 07/30/24 21:18 Memantine 5 Mg Tablet PO 5 mg Q12HR LUCILLE Administration Midodrine 10 mg 07/30/24 15:00 07/30/24 21:18 Midodrine Hcl 10 Mg Tablet PO 10 mg 08,15,21 [facility] Administration Morphine Sulfate 2 mg 07/30/24 05:21 Morphine Sulfate (*Crx) 2 Mg/Ml Inj IV PUSH Q2H PRN Pain Rated 7-10 Coq10 (Ubiquinol) 1 each 07/30/24 13:34 100 Mg Capsule XX 07/31/24 13:33 PRN PRN PROTOCOL Ondansetron HCl 4 mg 07/30/24 05:21 Ondansetron Inj 4 Mg/2 Ml Vial IV PUSH Q4H PRN Nausea Pantoprazole Sodium 40 mg 07/31/24 09:00 Pantoprazole 40 Mg Tablet PO DAILY [facility] Senna 8.6 mg 07/30/24 21:00 07/30/24 21:18 Sennosides 8.6 Mg Tablet PO 8.6 mg HS [facility] Administration Vitamin D 2,000 units 07/31/24 09:00 Cholecalciferol 1,000 Units Tablet PO DAILY [facility] Radiology Results: ITS Impressions Abdomen/Pelvis CT 07/30/24 05:56 Impression: Possible 2 cm mass at the posterior urinary bladder versus possibly debris or blood products, or extension of prostate gland. Cystoscopy advised for further evaluation. Markedly enlarged prostate gland. Mild bilateral hydroureteronephrosis, with nonobstructing right nephrolithiasis, as detailed above. Moderate hiatal hernia and small right pleural effusion. Labs Labs: Laboratory Results - last 24 hr 07/30/24 07/31/24 22:09 06:17 WBC 5.6 RBC 3.24 L Hgb 10.1 L Hct 33.0 L MCV 101.9 H D MCH 31.2 MCHC 30.6 L RDW 17.5 H Plt Count 208 MPV 10.6 H Immature Gran % (Auto) 0.7 H Neut % (Auto) 71.9 Lymph % (Auto) 13.5 L [place] % (Auto) 10.5 H Eos % (Auto) 2.3 Baso % (Auto) 1.1 Lymph # (Auto) 0.76 L [place] # (Auto) 0.6 Eos # (Auto) 0.1 Baso # (Auto) 0.1 Abs Immat Gran (auto) 0.04 H Absolute Neuts (auto) 4.1 Absolute Nucleated RBC 0.000 Nucleated RBC % 0.0 Sodium 134 L Potassium 3.6 Chloride 100 Carbon Dioxide 27 Anion Gap 7 BUN 16 Creatinine 0.90 Estim Creat Clear Calc 45 Estimated GFR > 60 Glucose 114 H Calcium 8.8 Magnesium 1.8 Total Bilirubin 0.5 AST 22 ALT 10 Alkaline Phosphatase 82 Total Protein 7.0 Albumin 3.4 L Urine Color Yellow Urine Appearance Cloudy H Urine pH 6.5 Ur Specific [place] 1.007 Urine Protein 1+ H Urine Glucose (UA) Negative Urine Ketones Negative Ur Blood (Man) 3+ H Urine Nitrate Positive H Urine Bilirubin Negative Urine Urobilinogen 0.2 Leukocyte Esterase Rfl 3+ H Urine RBC >100 H Urine WBC >100 H Ur Squamous Epith Cells None seen Urine Bacteria 4+ H Urine Casts 0-2
[2024-07-31] MEDS: LORazepam (*CRX) 0.5 MG TABLET PO (09:10)
[2024-07-31] MEDS: APIXABAN 2.5 MG TABLET PO (09:10)
[2024-07-31] MEDS: CALCIUM CARBONATE (TUMS) 500 MG (200 MG ELEMENTAL) PO (09:10)
[2024-07-31] MEDS: ASPIRIN 325 MG TABLET PO (09:10)
[2024-07-31] MEDS: DOCUSATE SODIUM 100 MG CAPSULE PO (09:11)
[2024-07-31] MEDS: PANTOPRAZOLE 40 MG TABLET PO (09:12)
[2024-07-31] MEDS: MEMANTINE 5 MG TABLET PO (09:12)
[2024-07-31] MEDS: CHOLECALCIFEROL 1,000 UNITS TABLET 2000 UNITS PO (09:12)
[2024-07-31] MEDS: CYANOCOBALAMIN 500 MCG TABLET 2500 MCG PO (09:12)
[2024-07-31] MEDS: CITALOPRAM HYDROBROMIDE 20 MG TABLET PO (09:12)
[2024-07-31] MEDS: ARTIFICIAL TEARS OPHTH SOLN 15 ML BOTTLE 1 DROP EACH EYE (09:14)
[2024-07-31] MEDS: cycloSPORINE 0.4 ML OPHTH SOLUTION 1 DROP EACH EYE (09:22)
--- NOTE | 2024-07-31 12:09 | P.DS_ITS ---
DS: Admitting Diagnosis Discharge Date 07/31/2024 Admitting Diagnosis Urinary symptoms DS: Discharge Diagnosis Discharge Diagnosis (1) Hematuria: Code(s): R31.9 - Hematuria, unspecified Status: Acute (2) Acute urinary obstruction: Code(s): N13.9 - Obstructive and reflux uropathy, unspecified Status: Acute (3) History of DVT (deep vein thrombosis): Code(s): Z86.718 - Personal history of other venous thrombosis and embolism Status: Acute (4) Anemia: Code(s): D64.9 - Anemia, unspecified Status: Acute (5) Benign prostatic hyperplasia with urinary retention: Code(s): N40.1 - Benign prostatic hyperplasia with lower urinary tract symptoms; R33.8 - Other retention of urine Status: Acute (6) Heart failure with reduced ejection fraction: Code(s): I50.20 - Unspecified systolic (congestive) heart failure Status: Acute DS: Summary Hospital Course Hospital Course: Patient is a 84-year-old gentleman presents emergency department with chief complaint of Pérez catheter clogged. Patient has a chronic indwelling Pérez catheter is scheduled For prostate artery embolization in early August For ongoing intermittent hematuria. he reports he has been passing large clots and reports that his catheter is obstructed. In the ED is vitals were stable except for mildly elevated blood pressure. Laboratory evaluation showed WBC 10 K hemoglobin 10 came g was unremarkable INR 1.[address] abdomen and pelvis showed possible 2 cm mass in the posterior urinary bladder versus possibly depressed or blood products or extension of prostate gland. Cystoscopy advised. Markedly enlarged prostate gland. Mild bilateral hydroureteronephrosis with nonobstructing right nephrolithiasis noted. Moderate hiatal hernia and small right pleural effusion. Pérez catheter placement was attempted however was unsuccessful. Urology has been consulted and placed a hematuria catheter and CBI has been started. Hematuria resolved. CBI was discontinued and was okayed for discharge. He is already scheduled for prostate artery embolization next week due to cancellation. Chronic anemia Moderate hiatal hernia History of DVT on anticoagulation Anxiety and depression BPH Heart failure with reduced ejection fraction Hypertension Hyperlipidemia Hypothyroidism GERD DVT prophylaxis on apixaban Code status full code Time Spent with Patient Time attestation: Total time spent providing and/or coordinating discharge services: 40 minutes Exam Narrative: GENERAL: Well-appearing, well-nourished, and in no acute distress. HEAD: Normocephalic, atraumatic. EYES: PERRLA and EOMI. ENT: Nares clear, no rhinorrhea or epistaxis. Mucous membranes moist. NECK: Supple. CHEST: Clear to auscultation. No respiratory distress. HEART: Regular rate and rhythm. No murmur heard. Normal peripheral pulses. ABDOMEN: Soft, nontender, nondistended, normal active bowel sounds. : Hematuria catheter in situ dried blood around urethra EXTREMITIES: Normal range of motion. No edema. SKIN: Warm, dry, no rash. NEURO: No focal deficits. Alert and oriented x3. PSYCH: Normal mood and affect. DS: Data Data Completed and Pending Labs on day of discharge: Labs from last 24 hours 07/31/24 07/30/24 06:17 22:09 WBC 5.6 RBC 3.24 L Hgb 10.1 L Hct 33.0 L MCV 101.9 H D MCH 31.2 MCHC 30.6 L RDW 17.5 H Plt Count 208 MPV 10.6 H Immature Gran % (Auto) 0.7 H Neut % (Auto) 71.9 Lymph % (Auto) 13.5 L [place] % (Auto) 10.5 H Eos % (Auto) 2.3 Baso % (Auto) 1.1 Lymph # (Auto) 0.76 L [place] # (Auto) 0.6 Eos # (Auto) 0.1 Baso # (Auto) 0.1 Abs Immat Gran (auto) 0.04 H Absolute Neuts (auto) 4.1 Absolute Nucleated RBC 0.000 Nucleated RBC % 0.0 Sodium 134 L Potassium 3.6 Chloride 100 Carbon Dioxide 27 Anion Gap 7 BUN 16 Creatinine 0.90 Estim Creat Clear Calc 45 Estimated GFR > 60 Glucose 114 H Calcium 8.8 Magnesium 1.8 Total Bilirubin 0.5 AST 22 ALT 10 Alkaline Phosphatase 82 Total Protein 7.0 Albumin 3.4 L Urine Color Yellow Urine Appearance Cloudy H Urine pH 6.5 Ur Specific [place] 1.007 Urine Protein 1+ H Urine Glucose (UA) Negative Urine Ketones Negative Ur Blood (Man) 3+ H Urine Nitrate Positive H Urine Bilirubin Negative Urine Urobilinogen 0.2 Leukocyte Esterase Rfl 3+ H Urine RBC >100 H Urine WBC >100 H Ur Squamous Epith Cells None seen Urine Bacteria 4+ H Urine Casts 0-2 Imaging Radiologist's impression: ITS Impressions Abdomen/Pelvis CT 07/30/24 05:56 Impression: Possible 2 cm mass at the posterior urinary bladder versus possibly debris or blood products, or extension of prostate gland. Cystoscopy advised for further evaluation. Markedly enlarged prostate gland. Mild bilateral hydroureteronephrosis, with nonobstructing right nephrolithiasis, as detailed above. Moderate hiatal hernia and small right pleural effusion. Discharge Plan Discharge Attending physician on discharge: Rod Newell Consulting providers: Tr Pulido Discharging Clinician: Rod Newell Anticipated Discharge Date/Time: 07/31/24 12:11 Patient Disposition: Home Health Service Activity: as tolerated Diet: heart healthy Discharge Instructions: Per Care Coordination: [employer] ([phone]) will call to resume services at discharge. RN please fax discharge summary and reports to [phone] Patient Instructions: Antibiotic Form, Safe Use of Anticoagulants (GEN) Stand Alone Forms: General Discharge Information Follow-up/Referrals: Joao,Leah Smith MD [Primary Care Provider] - 1 Week Tr Pulido MD [Physician] - Keep Reg. Scheduled Appt. Discharge Medications: Continued atorvastatin 10 mg tablet 10 mg PO HS levothyroxine 50 mcg tablet 50 mcg PO QAM pantoprazole 40 mg tablet,delayed release (DR/EC) 40 mg PO DAILY [place] 0.01 % drops 1 drp EACH EYE HS sennosides [senna] 8.6 mg Tablet 8.6 mg PO HS cyanocobalamin (vitamin B-12) 1,000 mcg Tablet 2,500 mcg PO DAILY calcium carbonate 500 mg calcium (1,250 mg) Tablet,Chewable 500 mg PO DAILY cholecalciferol (vitamin D3) 50 mcg (2,000 unit) Tablet 50 mcg PO DAILY coQ10 (ubiquinol) 100 mg Capsule 100 mg PO DAILY cyclosporine 0.05 % Drops 1 drp EACH EYE BID memantine 5 mg Tablet 5 mg PO Q12H TheraTears 0.25 % Drops 1 drp EACH EYE BID clotrimazole-betamethasone 1-0.05 % cream 1 applic TOPICAL DAILY Rx Instructions: on feet docusate sodium 100 mg Capsule 100 mg PO Q12HR Qty: 60 0RF lorazepam 0.5 mg tablet 0.5 mg PO 08,15,21 Rx Instructions: takes at 0800,1500, and HS midodrine 10 mg tablet 10 mg PO 08,15,21 melatonin 5 mg tablet 5 mg PO HS citalopram 20 mg Tablet 20 mg PO Q12H apixaban 2.5 mg Tablet 2.5 mg PO Q12H Discontinued aspirin 325 mg Tablet 325 mg PO DAILY Date of admission: 07/30/24 08:59 Primary Care Provider: Joao,Leah Smith Admitting Provider: Gala Isidro Attending physician on admission: Gala Isidro Condition: Stable
== END 2024-07-31 14:20 | disposition home health service (06) | DRG 726 ==
LOC: ANHED 07-30 05:23 → ANH3MEDSUR 07-30 06:39
PROVIDERS: Admitting Provider Internal Medicine; Emergency Provider Emergency Medicine; PCP Internal Medicine; Visit Provider Internal Medicine
DX: N40.1 Benign prostatic hyperplasia with lower urinary tract symptoms (principal); G61.81 Chronic inflammatory demyelinating polyneuritis; I50.22 Chronic systolic (congestive) heart failure; T83.091A Other mechanical complication of indwelling urethral catheter, initial encounter; R31.9 Hematuria, unspecified; I11.0 Hypertensive heart disease with heart failure; R33.8 Other retention of urine; K21.9 Gastro-esophageal reflux disease without esophagitis; K44.9 Diaphragmatic hernia without obstruction or gangrene; K40.20 Bilateral inguinal hernia, without obstruction or gangrene, not specified as recurrent; E78.00 Pure hypercholesterolemia, unspecified; E53.8 Deficiency of other specified B group vitamins; E03.9 Hypothyroidism, unspecified; R25.1 Tremor, unspecified; G62.9 Polyneuropathy, unspecified; F41.9 Anxiety disorder, unspecified; F32.A Depression, unspecified; Z96.652 Presence of left artificial knee joint; Z79.01 Long term (current) use of anticoagulants; Z86.718 Personal history of other venous thrombosis and embolism
CPT/HCPCS: 36415; 74176; 80053; 81001; 83735; 85025; 85610; 85730; 87086; 87186; 96374; 99282; 99285; A9270; G0378; J2270

== ENCOUNTER 2024-08-20 13:07 | Observation (INO) | payer MEDICARE, SELFPAY ==
--- NOTE | ~2024-08-20 | CT_ITS ---
CLINICAL INDICATION: Blood clot in bladder suspected COMPARISON: 07/30/2024. TECHNIQUE: Multiple contiguous axial images of the abdomen and pelvis were performed without the admi nistration of intravenous contrast The dose-length product (DLP) was 248.29 mGy-cm. Automated exposure control and iterative reconstruction technique were employed. FINDINGS/OBSERVATIONS: Visualized lower thorax: Bibasilar atelectasis, left greater than right The heart is of normal size, without pericardial effusion. Moderate hiatal hernia is present. Liver: The liver demonstrates homogeneous attenuation and is not enlarged measuring 14 cm in longitudinal di mension. Gallbladder and biliary system: The gallbladder is decompressed, and otherwise unremarkable. Pancreas: Limited evaluation of the pancreas secondary to the lack of intravenous contrast. Spleen: The spleen demonstrates homogeneous attenuation and is not enlarged measuring 10 cm in longitudinal d imension. Kidneys: Redemonstration of a 7.5 mm calculus within the lower pole of the right kidney. Interval enlargement of a 2 mm calculus within the upper pole of the right kidney, now measuring 5 mm . Interval resolution of the left-sided hydronephrosis when compared with previous examination. Decreased right-sided hydronephrosis. Adrenal glands: Unremarkable. Gastrointestinal tract: Fecal stasis within the colon. Appendix: The appendix is not definitively visualized. However, no pericecal inflammatory change is identified suggest the presence of acute appendicitis. Vasculature: Calcified atherosclerotic disease. Lymph nodes: No pathologically enlarged or morphologically suspicious lymph nodes within the retroperitoneum or at the root of the mesentery. Pelvic structures: The bladder is drained with a Pérez catheter. Soft tissue attenuation focus within the posterior wall of the bladder, nearly encompassing the entir ety of the bladder. This focus is similar in attenuation to the prostate gland, possibly representing mass effect rather than acute hematoma. The prostate gland is markedly enlarged, similar in size to previous examination. Body wall and musculoskeletal: Significant degenerative disease within the lumbosacral spine, with osteophyte formation, disc space narrowing, endplate changes and vacuum phenomena. Facet arthropathy is also noted. IMPRESSION: Soft tissue attenuation focus along the posterior wall of the base of the bladder similar in attenuat ion to the prostate gland, which is significantly enlarged, unchanged from prior. Reviewed, dictated and finalized at location [facility] IMPRESSION: Soft tissue attenuation focus along the posterior wall of the base of the bladd er similar in attenuation to the prostate gland, which is significantly enlarge d, unchanged from prior.
[2024-08-20 13:17] VITALS: BP 106/84; PULSE 102; RESP 16; TEMP 36.8; O2SAT 99
[2024-08-20 15:10] VITALS: BP 135/88; PULSE 110; RESP 18; O2SAT 99
[2024-08-20 16:33] VITALS: BP 141/89; PULSE 97; RESP 18; O2SAT 100
--- NOTE | 2024-08-20 17:09 | ED_ITS ---
HPI - Male Genitourinary General Chief complaint: Urogenital-Male Stated complaint: Catheter pain Time Seen by Provider: 08/20/24 16:35 History of Present Illness HPI Narrative: 84-year-old male presenting with clogged Aguilera catheter. Patient's family the bedside and helps with the history. States that he has had a Aguilera catheter for at least the last 6 months. He has had many episodes of bleeding from it. He had a procedure about 2 weeks ago for his prostate. States he was doing well until today when he started complaining of blood in his Aguilera bag. States that then the Aguilera catheter stopped draining and he developed pain and pressure. Similar to prior episodes. Related Data Home Medications Medication Instructions Recorded Confirmed atorvastatin 10 mg tablet 10 mg PO HS 10/10/23 07/30/24 bimatoprost 0.01 % eye drops 1 drp EACH EYE HS 10/10/23 07/30/24 (Lumigan) calcium carbonate 500 mg PO DAILY Indigestion 10/10/23 07/30/24 cholecalciferol (vitamin D3) 50 50 mcg PO DAILY 10/10/23 07/30/24 mcg (2,000 unit) tablet coQ10 (ubiquinol) 100 mg capsule 100 mg PO DAILY 10/10/23 07/30/24 cyanocobalamin (vitamin B-12) 2,500 mcg PO DAILY 10/10/23 07/30/24 1,000 mcg tablet cyclosporine 0.05 % eye drops 1 drp EACH EYE BID 10/10/23 07/30/24 levothyroxine 50 mcg tablet 50 mcg PO QAM 10/10/23 07/30/24 pantoprazole 40 mg tablet,delayed 40 mg PO DAILY 10/10/23 07/30/24 release sennosides 8.6 mg tablet (senna) 8.6 mg PO HS 10/10/23 07/30/24 carboxymethylcellulose sodium 0.25 1 drp EACH EYE BID 04/15/24 07/30/24 % eye drops (TheraTears) clotrimazole-betamethasone 1 1 applic topical DAILY 04/15/24 07/30/24 %-0.05 % topical cream memantine 5 mg tablet 5 mg PO Q12H 04/15/24 07/30/24 lorazepam 0.5 mg tablet 0.5 mg PO 08,15,21 24 10/31/24 apixaban 2.5 mg tablet 2.5 mg PO Q12H 06/30/24 07/30/24 citalopram 20 mg tablet 20 mg PO Q12H 06/30/24 07/30/24 melatonin 5 mg tablet 5 mg PO HS Sleep 07/30/24 07/30/24 midodrine 10 mg tablet 10 mg PO ,,07/30/24 07/30/24 Allergies Allergy/AdvReac Type Severity Reaction Status Date / Time No Known Allergies Allergy Verified 08/20/24 15:12 Review of Systems Review of Systems: All systems reviewed & are unremarkable except as noted in HPI and below PMFSH Past Medical History Medical History Anxiety and depression B12 deficiency Bilateral inguinal hernia BPH (benign prostatic hyperplasia) CIDP (chronic inflammatory demyelinating polyneuropathy) DILCIA (generalized anxiety disorder) H/O gastroesophageal reflux (GERD) Heart failure with reduced ejection fraction Hiatal hernia High cholesterol HTN (hypertension) Hypothyroid Neuropathy Thyroid disease Tremor of both hands Surgical History Surgical History History of colonoscopy at least 10-15 years ago per patient's History of left knee replacement Family History Family History Father Malignant neoplasm of prostate Mother Stomach cancer Social History Social History Social History: Surrogate medical decision maker: Valeria Cloud, spouse. Code status: Full code. Smoking status: Never smoker Alcohol intake: never Substance use: never Do You Feel Safe in your Home?: Yes Lack of Transportation: No Lack of Food: Never True Current Housing: I Have Housing Concerned About Future Housing: Decline to Answer Difficulty Paying Gas/Electric Bills: Decline to Answer Difficulty Paying for Meds: Decline to Answer Currently Unemployed: Decline to Answer Education: Trade/Vocational Certificate Difficulty w/ Childcare or Family Care: Decline to Answer Living arrangements: with family Occupation/Education: retired Spiritual care concerns: No Exam Narrative: GENERAL: Chronically ill-appearing, frail, pleasant and cooperative HEAD: Normocephalic, atraumatic. EYES: PERRLA and EOMI. ENT: Mucous membranes dry. NECK: Supple. CHEST: Clear to auscultation. No respiratory distress. HEART: Regular rate and rhythm ABDOMEN: Soft, nontender, nondistended. : aguilera catheter in place with small amount of blood surrounding aguilera at the meatus EXTREMITIES: Normal range of motion. SKIN: Warm, dry, no rash. NEURO: at baseline PSYCH: Normal mood and affect. Course Vital Signs Vital signs: Vital Signs Temperature 98.2 F 08/20/24 13:17 Pulse Rate 102 H 08/20/24 13:17 Respiratory Rate 16 08/20/24 13:17 Blood Pressure 106/84 08/20/24 13:17 Pulse Oximetry 99 08/20/24 13:17 Temperature 97.6 F 08/20/24 18:44 Pulse Rate 88 08/20/24 18:44 Respiratory Rate 18 08/20/24 18:44 Blood Pressure 116/76 08/20/24 18:44 Pulse Oximetry 99 08/20/24 18:44 MDM - Male Genitourinary MDM Narrative Medical decision making narrative: 84-year-old male presenting with hematuria and clogged Aguilera catheter. Vitals are stable. Exam remarkable for the above. Aguilera catheter was replaced and he is undergoing CBI. Continues to be blood tinged despite several L of irrigation already. Blood work with a slight drop in hemoglobin from earlier this month. Renal function appears stable. Patient requires admission for continuous bladder irrigation and further management. He and his family are agreeable this plan. I spoke with the hospitalist who has accepted him for admission. Consult is in for Urology in the morning. Differential Diagnosis Differential diagnosis: Likely urinary tract infection, acute retention of urine and other (Hematuria) Medical Records Attestation: I reviewed the patient's medical records. Lab Data Attestation: I reviewed the patient's lab results. 08/20/24 18:10 08/20/24 18:10 Labs: Lab Results 08/20/24 08/20/24 Range/Units 16:31 18:10 WBC 11.4 H (4.5-10.0) K/mm3 RBC 2.92 L (4.6-6.20) M/mm3 Hgb 8.9 L (14.0-18.0) g/dL Hct 26.4 L (42.0-52.0) % MCV 90.4 (80-100) fl MCH 30.5 (26-34) pg MCHC 33.7 (32-36) g/dl RDW 15.5 H (11.5-14.5) % Plt Count 388 H D (150-375) k/mm3 MPV 9.4 (7.4-10.4) fl Immature Gran % (Auto) 0.5 (0-0.5) % Neut % (Auto) 70.1 (45.5-73.1) % Lymph % (Auto) 18.2 L (18.3-44.2) % [place] % (Auto) 10.0 H (2.6-8.5) % Eos % (Auto) 0.3 (0-4.4) % Baso % (Auto) 0.9 (0.2-1.2) % Lymph # (Auto) 2.07 (0.9-3.2) K/mm3 [place] # (Auto) 1.1 H (0.1-0.6) K/mm3 Eos # (Auto) 0.0 (0-0.3) K/mm3 Baso # (Auto) 0.1 (0.0-0.1) K/mm3 Abs Immat Gran (auto) 0.06 H (0.00-0.031) K/mm3 Absolute Neuts (auto) 8.0 H (1.3-6.7) K/mm3 Absolute Nucleated RBC 0.000 (0.0-0.012) K/mm3 Nucleated RBC % 0.0 (0.0-0.2) % PT 14.5 (11.1-14.7) Seconds INR 1.1 APTT 30.7 (22.3-36.8) Seconds Sodium 132 L (137-145) mmol/L Potassium 4.8 (3.4-5.0) mmol/L Chloride 101 (98-107) mmol/L Carbon Dioxide 23 (22-30) mmol/L Anion Gap 8 (4-12) mmol/L BUN 23 H (9-20) mg/dL Creatinine 1.10 (0.7-1.3) mg/dL Estim Creat Clear Calc 38 ml/min Estimated GFR > 60 (59 - ) Glucose 120 H (65-110) mg/dL Calcium 10.1 (8.4-10.2) mg/dL Total Bilirubin 0.6 (0.2-1.3) mg/dL AST 27 (17-59) U/L ALT 15 (6-50) U/L Alkaline Phosphatase 102 (38-126) U/L Total Protein 9.0 H (6.3-8.2) g/dL Albumin 3.9 (3.5-5.1) g/dL Urine Color Red H (Yellow) Urine Appearance Cloudy H (Clear) Urine pH TNP Ur Specific [place] TNP Urine Protein TNP Urine Glucose (UA) TNP Urine Ketones TNP Ur Blood (Man) TNP Urine Nitrate TNP Urine Bilirubin TNP Urine Urobilinogen TNP Add Ur Microanalysis Reviewed Leukocyte Esterase Rfl TNP Urine RBC >100 H (0-2) /hpf Urine WBC >100 H (0-3) /hpf Urine WBC Clumps Present H (None) /HPF Ur Squamous Epith Cells None seen (Few) /hpf Urine Bacteria 4+ H /hpf Urine Casts 3-5 Critical Care Time Critical Care Time Critical Care Time: No Discharge Plan Discharge Clinical Impression: Hematuria, Obstructed Aguilera catheter Patient Disposition: Still a Patient Condition: Stable
[2024-08-20 17:10] LABS: Bacteria Urine 4+ /hpf; Need Manual Microscopic Reviewed; RBC Urine >100 /hpf (0-2); Squamous Epithelial Cell Urine None Seen /hpf (Few); WBC Clumps Urine Present /HPF; WBC Urine >100 /hpf (0-3)
[2024-08-20 17:11] LABS: Add Urine Microscopic? YES; Appearance Urine Cloudy (Clear)
[2024-08-20 17:12] LABS: Color Urine Red (Yellow)
[2024-08-20] MEDS: LORazepam (*CRX) 0.5 MG TABLET PO (18:01)
[2024-08-20 18:16] LABS: Basophils Absolute Auto 0.1 K/mm3 (0.0-0.1); Basophils Percent Auto 0.9 % (0.2-1.2); Eosinophils Percent Auto 0.3 % (0-4.4); Hematocrit 26.4 % (42.0-52.0); Hemoglobin 8.9 g/dL (14.0-18.0); Immature Granulocyte Absolute 0.06 K/mm3 (0.00-0.031); Immature Granulocyte Percent A 0.5 % (0-0.5); Lymphocytes Absolute Auto 2.07 K/mm3 (0.9-3.2); Lymphocytes Percent Auto 18.2 % (18.3-44.2); Mean Corpuscular HGB Conc 33.7 g/dl (32-36); Mean Corpuscular Hemoglobin 30.5 pg (26-34); Mean Corpuscular Volume 90.4 fl (80-100); Mean Platelet Volume 9.4 fl (7.4-10.4); Monocytes Absolute Auto 1.1 K/mm3 (0.1-0.6); Neutrophils Percent Auto 70.1 % (45.5-73.1); Platelet Count Result 388 k/mm3 (150-375); Red Blood Count 2.92 M/mm3 (4.6-6.20); Red Cell Distribution Width 15.5 % (11.5-14.5); White Blood Count 11.4 K/mm3 (4.5-10.0)
[2024-08-20 18:25] LABS: Alanine Aminotransferase 15 U/L (6-50); Albumin Level 3.9 g/dL (3.5-5.1); Alkaline Phosphatase 102 U/L (38-126); Anion Gap 8 mmol/L (4-12); Aspartate Amino Transferase 27 U/L (17-59); Bilirubin,Total 0.6 mg/dL (0.2-1.3); Blood Urea Nitrogen 23 mg/dL (9-20); Calcium 10.1 mg/dL (8.4-10.2); Carbon Dioxide 23 mmol/L (22-30); Chloride 101 mmol/L (98-107); Estimated CRCL calculation 38 ml/min; Estimated Glomerular Filt Rate > 60; Glucose 120 mg/dL (65-110); Potassium 4.8 mmol/L (3.4-5.0); Sodium 132 mmol/L (137-145)
[2024-08-20 18:30] LABS: INR 1.1; Prothrombin Time 14.5 Seconds (11.1-14.7)
[2024-08-20 18:31] LABS: Partial Thromboplastin Time 30.7 Seconds (22.3-36.8)
[2024-08-20 18:44] VITALS: BP 116/76; PULSE 88; RESP 18; TEMP 36.4; O2SAT 99
[2024-08-20] MEDS: LIDOCAINE HCL 2% GEL UROJET 10 ML PKG (18:44)
--- NOTE | 2024-08-20 20:15 | P.HP_ITS ---
H&P: HPI History of Present Illness Date/Time: 08/20/24 20:15 Chief Complaint: hematuria Review of Systems Review of Systems: hematuria [facility] Past Medical History Medical History Anxiety and depression B12 deficiency Bilateral inguinal hernia BPH (benign prostatic hyperplasia) CIDP (chronic inflammatory demyelinating polyneuropathy) DILCIA (generalized anxiety disorder) H/O gastroesophageal reflux (GERD) Heart failure with reduced ejection fraction Hiatal hernia High cholesterol HTN (hypertension) Hypothyroid Neuropathy Thyroid disease Tremor of both hands Surgical History Surgical History History of colonoscopy at least 10-15 years ago per patient's History of left knee replacement Family History Family History Father Malignant neoplasm of prostate Mother Stomach cancer Social History Social History Social History: Surrogate medical decision maker: Valeria Cloud, spouse. Code status: Full code. Smoking status: Never smoker Alcohol intake: never Substance use: never Do You Feel Safe in your Home?: Yes Lack of Transportation: No Lack of Food: Never True Current Housing: I Have Housing Concerned About Future Housing: No Difficulty Paying Gas/Electric Bills: No Difficulty Paying for Meds: No Currently Unemployed: No Education: Trade/Vocational Certificate Difficulty w/ Childcare or Family Care: No Living arrangements: with family Occupation/Education: retired Spiritual care concerns: No Meds Home Medications and Allergies Home Medications Medication Instructions Recorded Confirmed Type atorvastatin 10 mg tablet 10 mg PO HS 10/10/23 08/20/24 History bimatoprost 0.01 % eye drops 1 drp EACH EYE HS 10/10/23 08/20/24 History ([place]umigan) calcium carbonate 500 mg PO DAILY Indigestion 10/10/23 08/20/24 History cholecalciferol (vitamin D3) 50 50 mcg PO DAILY 10/10/23 08/20/24 History mcg (2,000 unit) tablet coQ10 (ubiquinol) 100 mg capsule 100 mg PO DAILY 10/10/23 08/20/24 History cyanocobalamin (vitamin B-12) 2,500 mcg PO DAILY 10/10/23 08/20/24 History 1,000 mcg tablet cyclosporine 0.05 % eye drops 1 drp EACH EYE BID 10/10/23 08/20/24 History levothyroxine 50 mcg tablet 50 mcg PO QAM 10/10/23 08/20/24 History pantoprazole 40 mg tablet,delayed 40 mg PO DAILY 10/10/23 08/20/24 History release sennosides 8.6 mg tablet (senna) 8.6 mg PO HS 10/10/23 08/20/24 History carboxymethylcellulose sodium 0.25 1 drp EACH EYE BID 04/15/24 08/20/24 History % eye drops (TheraTears) clotrimazole-betamethasone 1 1 applic topical DAILY 04/15/24 08/20/24 History %-0.05 % topical cream memantine 5 mg tablet 5 mg PO Q12H 04/15/24 08/20/24 History docusate sodium 100 mg capsule 100 mg PO Q12HR #60 caps 04/17/24 08/20/24 Rx lorazepam 0.5 mg tablet 0.5 mg PO ,,06/26/24 08/20/24 History apixaban 2.5 mg tablet 2.5 mg PO Q12H 06/30/24 08/20/24 History citalopram 20 mg tablet 20 mg PO Q12H 06/30/24 08/20/24 History melatonin 5 mg tablet 5 mg PO HS Sleep 07/30/24 08/20/24 History midodrine 10 mg tablet 10 mg PO ,15,21 07/30/24 08/20/24 History Allergies Allergy/AdvReac Type Severity Reaction Status Date / Time No Known Allergies Allergy Verified 08/20/24 21:47 Vital Signs Vital Signs - 24 hr 08/20/24 13:17 08/20/24 15:10 08/20/24 16:33 Temperature 98.2 F Pulse Rate 102 H 110 H 97 Respiratory Rate 16 18 18 Blood Pressure 106/84 135/88 141/89 H Pulse Oximetry 99 99 100 08/20/24 18:44 Temperature 97.6 F Pulse Rate 88 Respiratory Rate 18 Blood Pressure 116/76 Pulse Oximetry 99 H&P: Results Labs Labs: Short CBC 08/20/24 Range/Units 18:10 WBC 11.4 H (4.5-10.0) K/mm3 Hgb 8.9 L (14.0-18.0) g/dL Hct 26.4 L (42.0-52.0) % Plt Count 388 H D (150-375) k/mm3 BMP 08/20/24 18:10 Sodium 132 L Potassium 4.8 Chloride 101 Carbon Dioxide 23 BUN 23 H Creatinine 1.10 Glucose 120 H Calcium 10.1 Liver Function 08/20/24 Range/Units 18:10 Total Bilirubin 0.6 (0.2-1.3) mg/dL AST 27 (17-59) U/L ALT 15 (6-50) U/L Alkaline Phosphatase 102 (38-126) U/L Albumin 3.9 (3.5-5.1) g/dL Urine 08/20/24 Range/Units 16:31 Urine Color Red H (Yellow) Urine Appearance Cloudy H (Clear) Urine pH TNP Ur Specific [place] TNP Urine Protein TNP Urine Glucose (UA) TNP Assessment and Plan Assessment and plan (1) Hematuria: Code(s): R31.9 - Hematuria, unspecified Status: Acute Assessment and Plan: admit to regular medical floor on continues bladder irrigation urology consult holding apixaban (2) Chronic indwelling Pérez catheter: Code(s): Z97.8 - Presence of other specified devices Status: Acute Assessment and Plan: catheter care (3) Gait abnormality: Code(s): R26.9 - Unspecified abnormalities of gait and mobility Status: Acute Assessment and Plan: patient wears special shoes (4) Bilateral foot-drop: Code(s): M21.371 - Foot drop, right foot; M21.372 - Foot drop, left foot Status: Acute Assessment and Plan: patient on a special shoes (5) CIDP (chronic inflammatory demyelinating polyneuropathy): Code(s): G61.81 - Chronic inflammatory demyelinating polyneuritis Status: Chronic Assessment and Plan: follow-up in outpatient setting stable Hospitalist MIPS Advance Care Plan I have confirmed that the patient's Advanced Care Plan is present, code status is documented, or surrogate decision maker is listed in patient medical record.: Yes Medication Reconciliation I have utilized all available resources to obtain, update and review the patients current medications (includes all prescriptions, OTC, herbals, cannabis, and nutritional supplements).: Yes
--- NOTE | 2024-08-20 21:25 | ADMGEN ---
This patient, Linwood Cloud, was admitted to Medical Room 341-01. Patient/family oriented to hospital policies and general routines including ID bracelet, bed and alarms, visiting hours, pain management, procedures, bathroom and other care routines, personal items, smoking policy, room service/diet, and visiting hours. Information on how to activate the Rapid Response Team has been discussed. Patient/Family are encouraged to report perceived risks to care and to ask questions if they do not understand what they are told or what they should do.
[2024-08-21 01:05] VITALS: BMI 19.8
[2024-08-21 01:06] VITALS: BP 127/79; PULSE 73; RESP 20; TEMP 36.6; O2SAT 100
[2024-08-21 06:00] VITALS: BP 132/70; PULSE 74; RESP 20; TEMP 36.3; O2SAT 99
[2024-08-21] MEDS: LEVOTHYROXINE SODIUM 50 MCG TABLET PO (06:41)
--- NOTE | 2024-08-21 08:21 | PM.IMPN ---
Progress Note: A&P Assessment and Plan (1) Hematuria: Code(s): R31.9 - Hematuria, unspecified Status: Acute Assessment and Plan: on continues bladder irrigation urology consult holding apixaban (2) Chronic indwelling Aguilera catheter: Code(s): Z97.8 - Presence of other specified devices Status: Acute Assessment and Plan: catheter care see above (3) Gait abnormality: Code(s): R26.9 - Unspecified abnormalities of gait and mobility Status: Acute Assessment and Plan: patient wears special shoes pt/ot will be ordered once able to participate (4) Bilateral foot-drop: Code(s): M21.371 - Foot drop, right foot; M21.372 - Foot drop, left foot Status: Acute Assessment and Plan: patient on a special shoes (5) CIDP (chronic inflammatory demyelinating polyneuropathy): Code(s): G61.81 - Chronic inflammatory demyelinating polyneuritis Status: Chronic Assessment and Plan: follow-up in outpatient setting stable Time Spent With Patient Time with patient: Greater than 35 minutes Subjective Date/time seen: 08/21/24 08:21 Interval history: 84 y.o male with Aguilera for the last 6 months admitted for Obstructed aguilera cath. Aguilera catheter was replaced in ED and he was undergoing CBI. Continues to be blood tinged despite several L of irrigation already. Blood work with a slight drop in hemoglobin. Renal function appears stable. Urology was consulted. 08/21- pt is seen and examined. Review of Systems Review of Systems: hematuria Cardiovascular: Cardiovascular: Denies chest pain Respiratory: Respiratory: Denies chest congestion Gastrointestinal: Gastrointestinal: Denies abdominal pain Genitourinary: Genitourinary: Reports hematuria Exam Narrative: cbi in place Const: General: comfortable Objective Data Vital Signs Vital Signs: Vital Signs - 24 hr 08/20/24 13:17 08/20/24 15:10 08/20/24 16:33 Temperature 98.2 F Pulse Rate 102 H 110 H 97 Respiratory Rate 16 18 18 Blood Pressure 106/84 135/88 141/89 H Pulse Oximetry 99 99 100 Oxygen Delivery 08/20/24 18:44 08/21/24 00:07 08/21/24 01:06 Temperature 97.6 F 97.9 F Pulse Rate 88 73 Respiratory Rate 18 20 Blood Pressure 116/76 127/79 Pulse Oximetry 99 100 Oxygen Delivery Room Air 08/21/24 06:00 Temperature 97.4 F L Pulse Rate 74 Respiratory Rate 20 Blood Pressure 132/70 Pulse Oximetry 99 Oxygen Delivery Intake/Output Intake/Output: Intake & Output 08/18/24 08/19/24 08/20/24 08/21/24 23:59 23:59 23:59 23:59 Intake Total 9000 Output Total 20073 1000 Balance -3550 -1000 Meds/Results Medications: Active Medications Generic Name Dose Route Start Last Admin Trade Name Freq PRN Reason Stop Dose Admin Artificial Tears 1 drop 08/21/24 09:00 Artificial Tears Ophth Soln 15 Ml Bottle EACH EYE BID [facility] Atorvastatin Calcium 10 mg 08/21/24 21:00 Atorvastatin 10 Mg Tablet PO HS [facility] Calcium Carbonate 500 mg 08/21/24 09:00 Calcium Carbonate (Tums) 500 Mg (200 Mg Elemental) PO DAILY [facility] Citalopram Hydrobromide 20 mg 08/21/24 09:00 Citalopram Hydrobromide 20 Mg Tablet PO Q12HR [facility] Docusate Sodium 100 mg 08/21/24 09:00 Docusate Sodium 100 Mg Capsule PO Q12HR [facility] Latanoprost 1 drop 08/21/24 21:00 Latanoprost 0.005% Op Soln 2.5 Ml Btl EACH EYE HS [facility] Levothyroxine Sodium 50 mcg 08/21/24 06:30 08/21/24 06:41 Levothyroxine Sodium 50 Mcg Tablet PO 50 mcg DAILY@0630 [facility] Administration Lorazepam 0.5 mg 08/21/24 08:00 Lorazepam (*Crx) 0.5 Mg Tablet PO [facility] Melatonin 5 mg 08/21/24 21:00 Melatonin 5 Mg Tablet PO HS [facility] Memantine 5 mg 08/21/24 09:00 Memantine 5 Mg Tablet PO Q12HR [facility] Midodrine 10 mg 08/21/24 08:00 Midodrine Hcl 10 Mg Tablet PO [facility] Pantoprazole Sodium 40 mg 08/21/24 09:00 Pantoprazole 40 Mg Tablet PO DAILY [facility] Labs Labs: Laboratory Results - last 24 hr 08/20/24 08/20/24 16:31 18:10 WBC 11.4 H RBC 2.92 L Hgb 8.9 L Hct 26.4 L MCV 90.4 MCH 30.5 MCHC 33.7 RDW 15.5 H Plt Count 388 H D MPV 9.4 Immature Gran % (Auto) 0.5 Neut % (Auto) 70.1 Lymph % (Auto) 18.2 L [place] % (Auto) 10.0 H Eos % (Auto) 0.3 Baso % (Auto) 0.9 Lymph # (Auto) 2.07 [place] # (Auto) 1.1 H Eos # (Auto) 0.0 Baso # (Auto) 0.1 Abs Immat Gran (auto) 0.06 H Absolute Neuts (auto) 8.0 H Absolute Nucleated RBC 0.000 Nucleated RBC % 0.0 PT 14.5 INR 1.1 APTT 30.7 Sodium 132 L Potassium 4.8 Chloride 101 Carbon Dioxide 23 Anion Gap 8 BUN 23 H Creatinine 1.10 Estim Creat Clear Calc 38 Estimated GFR > 60 Glucose 120 H Calcium 10.1 Total Bilirubin 0.6 AST 27 ALT 15 Alkaline Phosphatase 102 Total Protein 9.0 H Albumin 3.9 Urine Color Red H Urine Appearance Cloudy H Urine pH TNP Ur Specific [place] TNP Urine Protein TNP Urine Glucose (UA) TNP Urine Ketones TNP Ur Blood (Man) TNP Urine Nitrate TNP Urine Bilirubin TNP Urine Urobilinogen TNP Add Ur Microanalysis Reviewed Leukocyte Esterase Rfl TNP Urine RBC >100 H Urine WBC >100 H Urine WBC Clumps Present H Ur Squamous Epith Cells None seen Urine Bacteria 4+ H Urine Casts 3-5 Quality VTE Prophylaxis VTE prophylaxis: mechanical ordered
[2024-08-21] MEDS: PANTOPRAZOLE 40 MG TABLET PO (08:54)
[2024-08-21] MEDS: CALCIUM CARBONATE (TUMS) 500 MG (200 MG ELEMENTAL) PO (08:54)
[2024-08-21] MEDS: DOCUSATE SODIUM 100 MG CAPSULE PO (08:54)
[2024-08-21] MEDS: ARTIFICIAL TEARS OPHTH SOLN 15 ML BOTTLE 1 DROP EACH EYE (08:55)
[2024-08-21] MEDS: MEMANTINE 5 MG TABLET PO (08:55)
[2024-08-21] MEDS: CITALOPRAM HYDROBROMIDE 20 MG TABLET PO (08:55)
[2024-08-21] MEDS: LORazepam (*CRX) 0.5 MG TABLET PO ×2 (08:58→15:08)
[2024-08-21] MEDS: MIDODRINE HCL 10 MG TABLET PO ×2 (08:58→15:08)
[2024-08-21 11:52] VITALS: BMI 19.8
--- NOTE | 2024-08-21 13:07 | P.CONUR_ITS ---
Assessment and Plan Assessment and plan (1) Chronic indwelling Pérez catheter: Code(s): Z97.8 - Presence of other specified devices Status: Acute (2) Hematuria: Code(s): R31.9 - Hematuria, unspecified Status: Acute (3) Obstructed Pérez catheter: Code(s): T83.091A - Other mechanical complication of indwelling urethral catheter, initial encounter Status: Acute Plan 84-year-old gentleman with extremely enlarged prostate status post prostate artery embolization. He presented with hematuria that has now resolved. -- Okay to send patient home with his current [address]. -- Plan follow-up as scheduled in urology office for void trial in 2 weeks. Urology Consult Note HPI Date Seen: 08/21/24 Requesting Physician: Rebecca Remy MD Primary Care Provider: Leah ShepherdMD Consult Narrative Narrative: Linwood Cloud is a 84 year old male well known to our Service with a ex tremely enlarged prostate prostate ( 185 g) prostate it causes urinary retention and intermittently bleeds. the patient is 2 weeks status post prostate artery embolization. He presented to the ER yesterday as his catheter was clogged. The patient had replacement Pérez to a [address] catheter. Urine is now clear off CBI. CT scan performed this morning showed persistent enlargement of his prostate without clots present. [facility] Past Medical History Medical History Anxiety and depression B12 deficiency Bilateral inguinal hernia BPH (benign prostatic hyperplasia) CIDP (chronic inflammatory demyelinating polyneuropathy) DILCIA (generalized anxiety disorder) H/O gastroesophageal reflux (GERD) Heart failure with reduced ejection fraction Hiatal hernia High cholesterol HTN (hypertension) Hypothyroid Neuropathy Thyroid disease Tremor of both hands Surgical History Surgical History History of colonoscopy at least 10-15 years ago per patient's History of left knee replacement Family History Family History Father Malignant neoplasm of prostate Mother Stomach cancer Social History Social History Social History: Surrogate medical decision maker: Valeria Cloud, spouse. Code status: Full code. Smoking status: Never smoker Alcohol intake: never Substance use: never Do You Feel Safe in your Home?: Yes Lack of Transportation: No Lack of Food: Never True Current Housing: I Have Housing Concerned About Future Housing: No Difficulty Paying Gas/Electric Bills: No Difficulty Paying for Meds: No Currently Unemployed: No Education: Trade/Vocational Certificate Difficulty w/ Childcare or Family Care: No Living arrangements: with family Occupation/Education: retired Spiritual care concerns: No Meds Home Medications and Allergies Home Medications Medication Instructions Recorded Confirmed Type atorvastatin 10 mg tablet 10 mg PO HS 10/10/23 08/20/24 History bimatoprost 0.01 % eye drops 1 drp EACH EYE HS 10/10/23 08/20/24 History (Lumigan) calcium carbonate 500 mg PO DAILY Indigestion 10/10/23 08/20/24 History cholecalciferol (vitamin D3) 50 50 mcg PO DAILY 10/10/23 08/20/24 History mcg (2,000 unit) tablet coQ10 (ubiquinol) 100 mg capsule 100 mg PO DAILY 10/10/23 08/20/24 History cyanocobalamin (vitamin B-12) 2,500 mcg PO DAILY 10/10/23 08/20/24 History 1,000 mcg tablet cyclosporine 0.05 % eye drops 1 drp EACH EYE BID 10/10/23 08/20/24 History levothyroxine 50 mcg tablet 50 mcg PO QAM 10/10/23 08/20/24 History pantoprazole 40 mg tablet,delayed 40 mg PO DAILY 10/10/23 08/20/24 History release sennosides 8.6 mg tablet (senna) 8.6 mg PO HS 10/10/23 08/20/24 History carboxymethylcellulose sodium 0.25 1 drp EACH EYE BID 04/15/24 08/20/24 History % eye drops (TheraTears) clotrimazole-betamethasone 1 1 applic topical DAILY 04/15/24 08/20/24 History %-0.05 % topical cream memantine 5 mg tablet 5 mg PO Q12H 04/15/24 08/20/24 History docusate sodium 100 mg capsule 100 mg PO Q12HR #60 caps 04/17/24 08/20/24 Rx lorazepam 0.5 mg tablet 0.5 mg PO ,06/26/24 08/20/24 History apixaban 2.5 mg tablet 2.5 mg PO Q12H 06/30/24 08/20/24 History citalopram 20 mg tablet 20 mg PO Q12H 06/30/24 08/20/24 History melatonin 5 mg tablet 5 mg PO HS Sleep 07/30/24 08/20/24 History midodrine 10 mg tablet 10 mg PO ,07/30/24 08/20/24 History Allergies Allergy/AdvReac Type Severity Reaction Status Date / Time No Known Allergies Allergy Verified 08/20/24 21:47 Vital Signs Vital Signs - 24 hr 08/20/24 13:17 08/20/24 15:10 08/20/24 16:33 Temperature 36.8 C Pulse Rate 102 H 110 H 97 Respiratory Rate 16 18 18 Blood Pressure 106/84 135/88 141/89 H Pulse Oximetry 99 99 100 Oxygen Delivery 08/20/24 18:44 08/21/24 00:07 08/21/24 01:06 Temperature 36.4 C 36.6 C Pulse Rate 88 73 Respiratory Rate 18 20 Blood Pressure 116/76 127/79 Pulse Oximetry 99 100 Oxygen Delivery Room Air 08/21/24 06:00 08/21/24 09:18 Temperature 36.3 C L Pulse Rate 74 Respiratory Rate 20 Blood Pressure 132/70 Pulse Oximetry 99 Oxygen Delivery Room Air Exam Narrative: The patient is awake alert. He is no acute distress. Breathing easily. Abdomen soft nontender nondistended. The patient's 22 F Pérez catheters in place the CBI is off and there is clear urine. Results Labs 08/20/24 18:10 08/20/24 18:10 Labs: Short CBC 08/20/24 Range/Units 18:10 WBC 11.4 H (4.5-10.0) K/mm3 Hgb 8.9 L (14.0-18.0) g/dL Hct 26.4 L (42.0-52.0) % Plt Count 388 H D (150-375) k/mm3 BMP 08/20/24 18:10 Sodium 132 L Potassium 4.8 Chloride 101 Carbon Dioxide 23 BUN 23 H Creatinine 1.10 Glucose 120 H Calcium 10.1 Liver Function 11/21/24 Range/Units 18:10 Total Bilirubin 0.6 (0.2-1.3) mg/dL AST 27 (17-59) U/L ALT 15 (6-50) U/L Alkaline Phosphatase 102 (38-126) U/L Albumin 3.9 (3.5-5.1) g/dL Urine 08/20/24 Range/Units 16:31 Urine Color Red H (Yellow) Urine Appearance Cloudy H (Clear) Urine pH TNP Ur Specific [place] TNP Urine Protein TNP Urine Glucose (UA) TNP Imaging Radiologist's impression: Ordering Physician: Celia Huitron MD Date of Service: 08/21/24 Procedure(s): CT abdomen pelvis wo con Accession Number(s): [id number] cc: Joao, Leah LICEA; Rebecca Remy MD; Celia Huitron MD~ CLINICAL INDICATION: Blood clot in bladder suspected COMPARISON: 07/30/2024. TECHNIQUE: Multiple contiguous axial images of the abdomen and pelvis were performed without the administration of intravenous contrast The dose-length product (DLP) was 248.29 mGy-cm. Automated exposure control and iterative reconstruction technique were employed. FINDINGS/OBSERVATIONS: Visualized lower thorax: Bibasilar atelectasis, left greater than right The heart is of normal size, without pericardial effusion. Moderate hiatal hernia is present. Liver: The liver demonstrates homogeneous attenuation and is not enlarged measuring 14 cm in longitudinal dimension. Gallbladder and biliary system: The gallbladder is decompressed, and otherwise unremarkable. Pancreas: Limited evaluation of the pancreas secondary to the lack of intravenous c ontrast. Spleen: The spleen demonstrates homogeneous attenuation and is not enlarged measuring 10 cm in longitudinal dimension. Kidneys: Redemonstration of a 7.5 mm calculus within the lower pole of the right kidney. Interval enlargement of a 2 mm calculus within the upper pole of the right kidney, now measuring 5 mm. Interval resolution of the left-sided hydronephrosis when compared with previous examination. Decreased right-sided hydronephrosis. Adrenal glands: Unremarkable. Gastrointestinal tract: Fecal stasis within the colon. Appendix: The appendix is not definitively visualized. However, no pericecal inflammatory change is identified suggest the presence of acute appendicitis. Vasculature: Calcified atherosclerotic disease. Lymph nodes: No pathologically enlarged or morphologically suspicious lymph nodes within the retroperitoneum or at the root of the mesentery. Pelvic structures: The bladder is drained with a Pérez catheter. Soft tissue attenuation focus within the posterior wall of the bladder, nearly encompassing the entirety of the bladder. This focus is similar in attenuation to the prostate gland, possibly representing mass effect rather than acute hematoma. The prostate gland is markedly enlarged, similar in size to previous examination. Body wall and musculoskeletal: Significant degenerative disease within the lumbosacral spine, with osteophyte formation, disc space narrowing, endplate changes and vacuum phenomena. Facet arthropathy is also noted. IMPRESSION: Soft tissue attenuation focus along the posterior wall of the base of the bladder similar in attenuation to the prostate gland, which is significantly enlarged, unchanged from prior. Reviewed, dictated and finalized at location A. COUNSELOR
[2024-08-21 14:00] VITALS: BP 132/70; PULSE 72; RESP 18; TEMP 36.8; O2SAT 98
--- NOTE | 2024-08-21 14:57 | P.DS_ITS ---
DS: Admitting Diagnosis Discharge Date 08/21 Admitting Diagnosis blood in urine DS: Discharge Diagnosis Discharge Diagnosis (1) Hematuria: Code(s): R31.9 - Hematuria, unspecified Status: Acute Assessment and Plan: on continues bladder irrigation urology consult holding apixaban (2) Chronic indwelling Pérez catheter: Code(s): Z97.8 - Presence of other specified devices Status: Acute Assessment and Plan: catheter care see above (3) Gait abnormality: Code(s): R26.9 - Unspecified abnormalities of gait and mobility Status: Acute Assessment and Plan: patient wears special shoes pt/ot will be ordered once able to participate (4) Bilateral foot-drop: Code(s): M21.371 - Foot drop, right foot; M21.372 - Foot drop, left foot Status: Acute Assessment and Plan: patient on a special shoes (5) CIDP (chronic inflammatory demyelinating polyneuropathy): Code(s): G61.81 - Chronic inflammatory demyelinating polyneuritis Status: Chronic Assessment and Plan: follow-up in outpatient setting stable DS: Summary Hospital Course Hospital Course: Linwood Cloud is a 84 year old male with a extremely enlarged prostate prostate ( 185 g) prostate it causes urinary retention and intermittently bleeds. the patient is 2 weeks status post prostate artery embolization. He presented to the ER yesterday as his catheter was clogged. The patient had replacement Pérez to a [address]. Urine is now clear off CBI. CT scan performed this morning showed persistent enlargement of his prostate without clots present. He was on eliquis for blood clot- 06/18/24- was on eliquis. Pt's and son report that f/u screening was done and no more dvt was detected. i don't have any records here to review. So we will hold eliquis for now and leave it to PCP to ensure no dvd nd pt completed required therapy. Okay to send patient home with his current [address] per urology. -- Plan follow-up as scheduled in urology office for void trial in 2 weeks. Status at Discharge Functional status at discharge: independent ambulation Overall status at discharge: patient is progressing back to baseline Time Spent with Patient Time attestation: Total time spent providing and/or coordinating discharge services: Time spent: Greater than 30 minutes Exam Narrative: cbi in place Const: General: comfortable DS: Data Data Completed and Pending Completed studies during hospitalization: abd pelvis ct Labs on day of discharge: Labs from last 24 hours 08/20/24 08/20/24 18:10 16:31 WBC 11.4 H RBC 2.92 L Hgb 8.9 L Hct 26.4 L MCV 90.4 MCH 30.5 MCHC 33.7 RDW 15.5 H Plt Count 388 H D MPV 9.4 Immature Gran % (Auto) 0.5 Neut % (Auto) 70.1 Lymph % (Auto) 18.2 L [place] % (Auto) 10.0 H Eos % (Auto) 0.3 Baso % (Auto) 0.9 Lymph # (Auto) 2.07 [place] # (Auto) 1.1 H Eos # (Auto) 0.0 Baso # (Auto) 0.1 Abs Immat Gran (auto) 0.06 H Absolute Neuts (auto) 8.0 H Absolute Nucleated RBC 0.000 Nucleated RBC % 0.0 PT 14.5 INR 1.1 APTT 30.7 Sodium 132 L Potassium 4.8 Chloride 101 Carbon Dioxide 23 Anion Gap 8 BUN 23 H Creatinine 1.10 Estim Creat Clear Calc 38 Estimated GFR > 60 Glucose 120 H Calcium 10.1 Total Bilirubin 0.6 AST 27 ALT 15 Alkaline Phosphatase 102 Total Protein 9.0 H Albumin 3.9 Urine Color Red H Urine Appearance Cloudy H Urine pH TNP Ur Specific [place] TNP Urine Protein TNP Urine Glucose (UA) TNP Urine Ketones TNP Ur Blood (Man) TNP Urine Nitrate TNP Urine Bilirubin TNP Urine Urobilinogen TNP Add Ur Microanalysis Reviewed Leukocyte Esterase Rfl TNP Urine RBC >100 H Urine WBC >100 H Urine WBC Clumps Present H Ur Squamous Epith Cells None seen Urine Bacteria 4+ H Urine Casts 3-5 Discharge Plan Discharge Attending physician on discharge: Edwin Riggs Consulting providers: Celia Huitron Discharging Clinician: Le Heath Patient Disposition: Home, Self-Care Activity: january shower Diet: as tolerated and regular Discharge Instructions: you were admitted with a clogged catheter. we had replaced it. Urine is now clear off CBI. CT scan performed this morning showed persistent enlargement of his prostate without clots present. Urology saw you and were Okay with you going home with his current [address]. -- Plan follow-up as scheduled in urology office for void trial in 2 weeks. As we discussed- do not restart eliquis and f/u with pcp for further instructions. If ultrasound was done, and you no longer have DVT- you may not need to be on eliquis. Patient Instructions: Antibiotic Form Stand Alone Forms: General Discharge Information Follow-up/Referrals: Celia Huitron MD [Physician] - 2 Weeks Discharge Medications: Continued atorvastatin 10 mg tablet 10 mg PO HS levothyroxine 50 mcg tablet 50 mcg PO QAM pantoprazole 40 mg tablet,delayed release (DR/EC) 40 mg PO DAILY [place] 0.01 % drops 1 drp EACH EYE HS sennosides [senna] 8.6 mg Tablet 8.6 mg PO HS cyanocobalamin (vitamin B-12) 1,000 mcg Tablet 2,500 mcg PO DAILY calcium carbonate 500 mg calcium (1,250 mg) Tablet,Chewable 500 mg PO DAILY cholecalciferol (vitamin D3) 50 mcg (2,000 unit) Tablet 50 mcg PO DAILY coQ10 (ubiquinol) 100 mg Capsule 100 mg PO DAILY cyclosporine 0.05 % Drops 1 drp EACH EYE BID memantine 5 mg Tablet 5 mg PO Q12H TheraTears 0.25 % Drops 1 drp EACH EYE BID clotrimazole-betamethasone 1-0.05 % cream 1 applic TOPICAL DAILY Patient Comments: APPLY TO FEET Rx Instructions: on feet docusate sodium 100 mg Capsule 100 mg PO Q12HR Qty: 60 0RF lorazepam 0.5 mg tablet 0.5 mg PO 08,15,21 Rx Instructions: takes at 0800,1500, and HS midodrine 10 mg tablet 10 mg PO 08,15,21 melatonin 5 mg tablet 5 mg PO HS citalopram 20 mg Tablet 20 mg PO Q12H Discontinued apixaban 2.5 mg Tablet 2.5 mg PO Q12H Date of admission: 08/20/24 20:08 Primary Care Provider: Joao,Leah Smith Admitting Provider: Rebecca Remy V. Attending physician on admission: Rebecca Remy V. Condition: Stable Quality VTE Prophylaxis VTE prophylaxis: mechanical ordered Hospitalist MIPS Heart Failure (Exclusion) Patient has history of Heart Transplant or Left Ventricular Assistive Device?: No IF YES, STOP HERE Heart Failure (Qualifier) Patient has current or prior documentation of LVEF less than or equal to 40%, or mod/servere depressed LVSF?: No IF NO, STOP HERE
[2024-08-21] MEDS: INFLUENZA VACCINE HIGH DOSE (>64) 180 MCG/0.5 ML SYRINGE IM (15:50)
== END 2024-08-21 16:02 | disposition home or self-care (01) ==
LOC: ANHED 17:09 → ANH3MED 21:23
PROVIDERS: Admitting Provider Internal Medicine; Emergency Provider Emergency Medicine; PCP Internal Medicine; Visit Provider Internal Medicine
DX: T83.091A Other mechanical complication of indwelling urethral catheter, initial encounter (principal); N40.1 Benign prostatic hyperplasia with lower urinary tract symptoms; R33.8 Other retention of urine; R31.9 Hematuria, unspecified; Z98.890 Other specified postprocedural states; R26.9 Unspecified abnormalities of gait and mobility; M21.372 Foot drop, left foot; M21.371 Foot drop, right foot; F32.A Depression, unspecified; E53.8 Deficiency of other specified B group vitamins; G61.81 Chronic inflammatory demyelinating polyneuritis; F41.1 Generalized anxiety disorder; K21.9 Gastro-esophageal reflux disease without esophagitis; I11.0 Hypertensive heart disease with heart failure; I50.20 Unspecified systolic (congestive) heart failure; K44.9 Diaphragmatic hernia without obstruction or gangrene; E78.00 Pure hypercholesterolemia, unspecified; E03.9 Hypothyroidism, unspecified; R25.1 Tremor, unspecified; Z23 Encounter for immunization; Z79.01 Long term (current) use of anticoagulants; Z79.899 Other long term (current) drug therapy; Z96.652 Presence of left artificial knee joint; Z86.718 Personal history of other venous thrombosis and embolism
CPT/HCPCS: 36415; 51700; 74176; 80053; 81001; 85025; 85610; 85730; 87077; 87086; 87186; 90471; 90662; 99285; A9270; G0008; G0378

== ENCOUNTER 2024-11-13 14:26 | Emergency (ER) | payer MEDICARE, SELFPAY ==
--- NOTE | ~2024-11-13 | XR_ITS ---
EXAMINATION: XR hand LT min 3V DATE: 11/13/2024 15:14 INDICATION: Left hand swelling and pain TECHNIQUE: Posteroanterior, oblique and lateral views of the left hand were obtained. COMPARISON: None. FINDINGS: Diffuse osteopenia. Slight ulnar subluxation at the second and third metacarpophalangeal joints. No f racture. Polyarticular osteoarthritis, severe at the first carpometacarpal joint, moderate severity a t the wrist, first-third metacarpophalangeal and at the distal interphalangeal joints and mild at the triscaphe and remaining interphalangeal joints. Chondrocalcinosis in the region of the triangular fi brocartilage complex. Dystrophic calcifications at the palmar and dorsal aspects of the carpus. Addit ional dystrophic calcification at the medial side of the third metacarpophalangeal joint with possibl e chronic erosion with sclerotic margins at the medial head of the third metacarpal. Nonspecific 9 x 3 mm ovoid soft tissue density nodule with central 2 mm coarse calcification in the subcutaneous fat at the radial side of the second proximal phalanx. IMPRESSION: 1. No acute osseous abnormality. 2. 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 3. Nonspecific dystrophic calcifications in the hand as detailed above and chronic appearing degenera tive subarticular erosion at the radial head of the third metacarpal which suggests possibility of a crystalline arthropathy such as gout or calcium pyrophosphate deposition (CPPD) disease. 4. Indeterminate 9 x 3 mm soft tissue nodule surrounding a small calcific density in the subcutaneous fat at the radial aspect of the second proximal phalanx. Differential would include chronic fat necr osis, phlebolith or foreign body with surrounding granulomatous reaction. Reviewed, dictated and finalized at location A. 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 No acute osseous abnormality. 2. 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 3. Nonspecific dystrophic calcifications in the hand as detailed above and jet operator emmanuel appearing degenerative subarticular erosion at the radial head of the third metacarpal which suggests possibility of a crystalline arthropathy such as gou t or calcium pyrophosphate deposition (CPPD) disease. 4. Indeterminate 9 x 3 mm soft tissue nodule surrounding a small calcific densi ty in the subcutaneous fat at the radial aspect of the second proximal phalanx. Differential would include chronic fat necrosis, phlebolith or foreign body wi th surrounding granulomatous reaction.
[2024-11-13 14:37] VITALS: BP 149/97; PULSE 87; RESP 16; TEMP 36.9; O2SAT 99
--- NOTE | 2024-11-13 14:39 | ED_ITS ---
HPI - Extremity Problem General Chief complaint: Extremity Problem,Nontraumatic Stated complaint: Left Hand Swollen Time Seen by Provider: 11/13/24 14:28 Source: patient Mode of arrival: ambulatory Limitations: no limitations History of Present Illness HPI Narrative: Patient is an 84-year-old male who presents with left hand swelling for 2 and half to 3 weeks. Patient denies any injury to hand. However he does state after his hospitalization [facility] this past fall he feels like his memory has declined. Patient does have neuropathy but declines significant pain in hand. Patient still able to move fingers and hand normally. Patient does have contracture in middle finger. There is no redness or warmth to hand. Patient concerned for blood clot. Patient states he had 1 hand right hand while in the hospital after IV catheter placement. Related Data Home Medications ?Medication ?Instructions ?Recorded ?Confirmed ?Last Taken ?Type atorvastatin 10 mg tablet 10 mg PO HS 10/10/23 08/20/24 08/19/24 History bimatoprost 0.01 % eye drops 1 drp EACH EYE HS 10/10/23 08/20/24 08/19/24 History (Lumigan) calcium carbonate 500 mg PO DAILY Indigestion 10/10/23 08/20/24 08/20/24 History cholecalciferol (vitamin D3) 50 50 mcg PO DAILY 10/10/23 08/20/24 08/20/24 History mcg (2,000 unit) tablet coQ10 (ubiquinol) 100 mg capsule 100 mg PO DAILY 10/10/23 08/20/24 08/20/24 History cyanocobalamin (vitamin B-12) 2,500 mcg PO DAILY 10/10/23 08/20/24 08/20/24 History 1,000 mcg tablet cyclosporine 0.05 % eye drops 1 drp EACH EYE BID 10/10/23 08/20/24 08/20/24 History levothyroxine 50 mcg tablet 50 mcg PO QAM 10/10/23 08/20/24 08/20/24 History pantoprazole 40 mg tablet,delayed 40 mg PO DAILY 10/10/23 08/20/24 08/20/24 History release sennosides 8.6 mg tablet (senna) 8.6 mg PO HS 10/10/23 08/20/24 08/19/24 History carboxymethylcellulose sodium 0.25 1 drp EACH EYE BID 04/15/24 08/20/24 08/20/24 History % eye drops (TheraTears) clotrimazole-betamethasone 1 1 applic topical DAILY 04/15/24 08/20/24 08/20/24 History %-0.05 % topical cream memantine 5 mg tablet 5 mg PO Q12H 04/15/24 08/20/24 08/20/24 09:00 History lorazepam 0.5 mg tablet 0.5 mg PO ,,06/26/24 08/20/24 08/20/24 15:00 History citalopram 20 mg tablet 20 mg PO Q12H 06/30/24 08/20/24 08/20/24 09:00 History melatonin 5 mg tablet 5 mg PO HS Sleep 07/30/24 08/20/24 08/19/24 History midodrine 10 mg tablet 10 mg PO ,,07/30/24 08/20/24 08/20/24 15:00 History Allergies Allergy/AdvReac Type Severity Reaction Status Date / Time No Known Allergies Allergy Verified 11/13/24 14:30 Review of Systems Review of Systems: All systems reviewed & are unremarkable except as noted in HPI and below Constitutional: Constitutional: Denies body ache(s), Denies chills, Denies fatigue, Denies fever(s), Denies headache(s), Denies malaise and Denies weakness Eyes: Eyes: Denies blurry vision, Denies irritation and Denies loss of vision ENT: Denies otalgia, Denies headache(s), Denies nasal discharge, Denies sinus pain and Denies sore throat Cardiovascular: Cardiovascular: Denies chest pain, Denies irregular heart rhythm and Denies dyspnea Respiratory: Respiratory: Denies dyspnea Gastrointestinal: Gastrointestinal: Denies abdominal pain, Denies melena, Denies hematochezia, Denies diarrhea, Denies nausea and Denies vomiting Musculoskeletal: Musculoskeletal: Denies back pain, Denies myalgias, Denies arthralgias and Reports joint swelling Integumentary/Breasts: Skin/Breast: Denies pruritus and Denies rash Neurologic: Denies headache(s), Denies loss of vision and Denies weakness Psychiatric: Psychiatric: Reports no additional psychiatric complaints Endocrine: Endocrine: Denies fatigue PMFSH Past Medical History Medical History Heart failure with reduced ejection fraction HTN (hypertension) BPH (benign prostatic hyperplasia) Hiatal hernia Bilateral inguinal hernia Tremor of both hands B12 deficiency DILCIA (generalized anxiety disorder) CIDP (chronic inflammatory demyelinating polyneuropathy) Hypothyroid Neuropathy H/O gastroesophageal reflux (GERD) Thyroid disease High cholesterol Anxiety and depression Surgical History Surgical History History of colonoscopy at least 10-15 years ago per patient's History of left knee replacement Family History Family History Father Malignant neoplasm of prostate Mother Stomach cancer Social History Social History Social History: Surrogate medical decision maker: Valeria Cloud, spouse. Code status: Full code. Smoking status: Never smoker Alcohol intake: never Substance use: never Do You Feel Safe in your Home?: Yes Lack of Transportation: No Lack of Food: Never True Current Housing: I Have Housing Concerned About Future Housing: No Difficulty Paying Gas/Electric Bills: No Difficulty Paying for Meds: No Currently Unemployed: No Education: Trade/Vocational Certificate Difficulty w/ Childcare or Family Care: No Living arrangements: with family Occupation/Education: retired Spiritual care concerns: No Comments At time of signature, agree with nursing past medical, surgical, social and family history. There is no relevant family history pertinent to the presenting complaint. Exam Const: General: cooperative, healthy appearing, comfortable, no acute distress and well nourished Nutritional Appearance: well nourished Orientation/consciousness: patient oriented x3 Limitations: no limitations HENMT: Head: normal to inspection, normocephalic and atraumatic Ears: hearing grossly normal bilaterally and external ears normal Face/Nose/Sinus: Normal external nose present, normal facial exam and face symmetric Face and sinus: normal facial exam and face symmetric Mouth: Yes lip normal Eyes: General: appearance normal, both eyes and all related structures Alignment and Position: alignment normal and position normal Periorbital: periorbital findings normal Eyelids: eyelids normal Pupils: Equal, round and reactive pupils present EOM: EOMs intact bilaterally Neck: Neck: normal visual inspection, full ROM and supple Chest: Chest palpation & inspection: normal inspection of the chest Resp: Effort & Inspection: normal respiratory effort and able to speak in complete sentences Auscultation: clear to auscultation bilaterally Cardio: Rate: regular rate Rhythm: regular rhythm Heart sounds: S1 normal heart sound present and S2 normal heart sound present GI: Inspection: normal to inspection Skin: General skin exam: normal color and no rashes or lesions noted Neuro: General: patient oriented x3 and moves all extremities Cranial nerves: Yes Equal, round and reactive pupils present Speech: normal speech Gait exam (Neuro): Normal gait present Extrem: General: normal to inspection, full ROM and no edema Left upper extremity: wrist normal to inspection, normal ROM, normal vascular exam and radial pulse present; no tenderness and no swelling and hand normal to inspection, normal capillary refill, neuromotor exam normal Details: wrist extension normal, thumb opposition normal, thumb IP flexion normal, thumb ADduction normal and fingers 2-5 ABduction normal, neurosensory exam normal Details: radial nerve sensory function normal, ulnar nerve sensory function normal, median nerve sensory function normal and digital nerve sensory function normal, tendon exam normal Location: of all digits Details: extensor tendon, flexor digitorum profundus and flexor digitorum superficialis, tenderness of the 2nd digit at the MCP joint (on palpation when hand is in fist), of the 3rd digit at the MCP joint (on palpation when hand is in fist) and of the 4th digit at the MCP joint (on palpation when hand is in fist), vascular exam radial pulse present and normal capillary refill, normal ROM of fingers, warmth of the dorsal hand and swelling of the dorsal hand (entire hand); no ecchymosis Psych: Appearance: grossly normal and well kempt Mental Status: mental status grossly normal Speech and movement: Normal speech and movement present Affect: normal affect Attitude: cooperative Thought process: Normal thought process present Course Course Emergency Course: Patient is aware of diagnosis, understands and agrees to treatment plan. Anticipatory guidance given. Patient agrees to follow-up as directed and is aware of reasons to seek care at the emergency department. Portions of this record may have been created with voice recognition software Level of Care: Express Care Visit Vital Signs Vital signs: Vital Signs Temperature 36.9 C 11/13/24 14:37 Pulse Rate 87 11/13/24 14:37 Respiratory Rate 16 11/13/24 14:37 Blood Pressure 149/97 H 11/13/24 14:37 Pulse Oximetry 99 11/13/24 14:37 Oxygen Delivery Room Air 11/13/24 14:37 Temperature 36.9 C 11/13/24 14:37 Pulse Rate 87 11/13/24 14:37 Respiratory Rate 16 11/13/24 14:37 Blood Pressure 149/97 H 11/13/24 14:37 Pulse Oximetry 99 11/13/24 14:37 Oxygen Delivery Room Air 11/13/24 14:37 Reviewed MDM - Extremity (Nontraumatic) MDM Narrative Medical decision making narrative: Discussed importance of following up with PCP or going straight to the emergency department with any signs of worsening symptoms. Per x-ray will treat for arthritis/possible gout with indomethacin. Patient's estimated creatinine clearance was 38 at last draw while he was in hospital in July. Prior to that his range was 53 to 63. Because of that Keflex was reduced to twice a day instead of 4 times a day in case creatinine clearance has not improved. Discussed the need for ultrasound to rule out blood clot if symptoms persist after treatment course. Pt well hydrated appearing, in no respiratory distress, hemodynamically stable. Recommend supportive care. The patient is stable at time of discharge the clinical impression was discussed and the patient was given the opportunity to ask questions, which were addressed as completely as possible given the information available at present. Anticipatory guidance and return to care precautions were discussed and the importance of primary care follow-up was stressed and encouraged. The patient voiced understanding of the plan, indications to return, and the need for follow-up. Exam findings show no acute concerns or changes Patient is appropriate for outpatient treatment and follow-up. Differential Diagnosis Differential diagnosis: Likely gout, cellulitis, superficial thrombophlebitis, deep venous thrombosis of upper extremity and other (Arthritis) Imaging Data Radiologist's impression: IMPRESSION: 1. No acute osseous abnormality. 2. 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 3. Nonspecific dystrophic calcifications in the hand as detailed above and chronic appearing degenerative subarticular erosion at the radial head of the third metacarpal which suggests possibility of a crystalline arthropathy such as gout or calcium pyrophosphate deposition (CPPD) disease. 4. Indeterminate 9 x 3 mm soft tissue nodule surrounding a small calcific density in the subcutaneous fat at the radial aspect of the second proximal phalanx. Differential would include chronic fat necrosis, phlebolith or foreign body with surrounding granulomatous reaction. Discharge Plan Discharge Clinical Impression: Cellulitis, Arthritis Patient Disposition: Home, Self-Care Condition: Stable Instructions: Cellulitis (ED), Arthritis (ED) Additional Instructions: Take indomethacin as prescribed. Please take Antibiotics as directed Please follow up with your Primary Care Doctor within 48-72 hours - call for an appointment. Rest and elevate affected area; apply moist heat 3-4 times daily for 10-15 minutes. If you experience any worsening redness, swelling, streaking (red lines), fever or chills please go to the ER Your blood pressure was elevated above 120/80 today at Urgent Care. This puts you above the threshold for follow up visit with a primary care provider. High blood pressure does not usually cause any symptoms, however it may lead to kidney failure, stroke, heart disease just to name a few if untreated . Many people are anxious when seeing a provider or nurse. As a result, you are not diagnosed with hypertension at this time unless your blood pressure is persistently high at two office visits at least one week apart. Some things that can help lower blood pressure are lifestyle modifications, such as light exercise, decreased salt in diet, and weight loss. It is important to follow up with a PCP about this within 1 week. Patient Language: Macedonian Prescriptions: New indomethacin 50 mg capsule 50 mg PO TID 7 Days Qty: 21 0RF Rx Instructions: administer with food or milk cephalexin 500 mg capsule 500 mg PO BID 7 Days Qty: 14 0RF No Action atorvastatin 10 mg tablet 10 mg PO HS levothyroxine 50 mcg tablet 50 mcg PO QAM pantoprazole 40 mg tablet,delayed release (DR/EC) 40 mg PO DAILY Lumigan 0.01 % drops 1 drp EACH EYE HS sennosides [senna] 8.6 mg Tablet 8.6 mg PO HS cyanocobalamin (vitamin B-12) 1,000 mcg Tablet 2,500 mcg PO DAILY calcium carbonate 500 mg calcium (1,250 mg) Tablet,Chewable 500 mg PO DAILY cholecalciferol (vitamin D3) 50 mcg (2,000 unit) Tablet 50 mcg PO DAILY coQ10 (ubiquinol) 100 mg Capsule 100 mg PO DAILY cyclosporine 0.05 % Drops 1 drp EACH EYE BID memantine 5 mg Tablet 5 mg PO Q12H TheraTears 0.25 % Drops 1 drp EACH EYE BID clotrimazole-betamethasone 1-0.05 % cream 1 applic TOPICAL DAILY Patient Comments: APPLY TO FEET Rx Instructions: on feet lorazepam 0.5 mg tablet 0.5 mg PO 08,15,21 Rx Instructions: takes at 0800,1500, and HS midodrine 10 mg tablet 10 mg PO 08,15,21 melatonin 5 mg tablet 5 mg PO HS citalopram 20 mg Tablet 20 mg PO Q12H Follow-up/Referrals: Joao,Leah Smith MD [Primary Care Provider] - 3 Days Time of Disposition: 16:13
== END 2024-11-13 16:20 | disposition home or self-care (01) ==
PROVIDERS: Emergency Provider Nurse Practitioner Family; PCP Internal Medicine
DX: L03.114 Cellulitis of left upper limb (principal); M19.042 Primary osteoarthritis, left hand; I11.0 Hypertensive heart disease with heart failure; I50.9 Heart failure, unspecified
CPT/HCPCS: 73130; 99213; G0463

== ENCOUNTER 2025-06-22 22:10 | Emergency (ER) | payer MEDICARE, SELFPAY ==
--- OUTSIDE RECORDS SUMMARY | 2001-06-18 03:30 | XMS_ITS | Continuity of Care Document ---
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 [address] , [address], [place], [address], [place]. tel:[phone] Family History Family Member Type Diagnosis Age At Onset No Information Payers Payer name Insurance type Covered democrat ID Authoriza tion(s) [place] [id number] Social History Type Description Quantity Date Captured [...]
--- OUTSIDE RECORDS SUMMARY | 2025-03-23 11:25 | XMS_ITS | Continuity of Care Document ---
Author Organization [facility] Address [address] [place] [address] [address] [place] [address] Phone Care Team Providers Care Meter Record Clerk Name Role Phone Rome Whiting MD Unavailable Unavailable Medications Medication Instructions Dosage Effective Dates (start - stop) Status Comments Lumigan 0.01 % eye drops 1 gtt qhs ou - Active Advance Directives Directive Yes / No Effective Date File Name No Information Encounters Encounter Description Practice Location Reason(s) For Visit Diagnoses Date Provider Providers Copied on Encounter [facility], [address] [place], [place] [address], [place], [place], [id number], tel:[phone] [facility] No Information 5 Johanne Peter. [address] [place] [address], [address], [place], [place], [id number], [place]. tel:[phone] Family History Family Member Type Diagnosis Age At Onset No Information Payers Payer name Insurance type Covered alliance party ID Authoriza tion(s) No Information Social History [...]
--- NOTE | ~2025-06-22 | CT_ITS ---
EXAMINATION: CTA chest PE protocol DATE: 06/23/2025 00:34 INDICATION: Shortness of breath. Flank pain. TECHNIQUE: Computed tomography angiography (CTA) of the chest was performed with 100 mL Omnipaque-350 intravenous contrast timed to evaluate the pulmonary arteries. Coronal maximum intensity projection 3D-reconstructions were created by the technologist. Automated exposure control and iterative reconstruction technique were employed. The dose-length product was 597.98 mGy-cm. COMPARISON: Chest CTA 06/26/2024 FINDINGS: The lungs demonstrate mild atelectasis. No pleural effusion. The heart size is normal. There are coronary artery calcifications. No pericardial effusion. There is a moderate-sized sliding hiatal hernia. There is no pulmonary embolus. There is a 4 mm stone in right kidney. There are cysts in left kidney measuring up to 16 mm. There is severe cervical, thoracic, and lumbar spondylosis. There is a chronic compression fracture of L1. IMPRESSION: 1. No pulmonary embolus. 2. Moderate-sized sliding hiatal hernia. Reviewed, dictated and finalized at location E.
--- NOTE | ~2025-06-22 | XR_ITS ---
Examination: XR chest 2V Clinical History: chest/flank pain SOB Comparison: X-ray 06/26/2024 Technique: PA and Lateral Findings: Cardiomediastinal silhouette normal size and configuration. Lungs clear. No acute bony abnormality. Large hiatal hernia. IMPRESSION: 1. No acute cardiopulmonary findings. Reviewed, dictated and finalized at location R.
[2025-06-22 22:10] VITALS: BP 163/97; PULSE 85; RESP 17; TEMP 36.7; O2SAT 100
[2025-06-22 22:15] VITALS: BP 163/97; PULSE 85; RESP 17; TEMP 36.7; O2SAT 100
--- NOTE | 2025-06-22 22:17 | ECG_ITS ---
Test Date: 2025-06-22 22:16:52 Measurements Intervals [place] Rate: 69 P: 26 NC: 169 QRS: -59 QRSD: 126 T: 52 QT: 367 QTc: 395 Interpretive Statements SINUS RHYTHM LEFT ANTERIOR FASCICULAR BLOCK [QRS AXIS <= -45, QR IN I, RS IN II] MODERATE VOLTAGE CRITERIA FOR LVH, CONSIDER NORMAL VARIANT [MEETS CRITERIA IN ONE OF: R(aVL), S(V1), R(V5), R(V5/V6)+S(V1)] ABNORMAL ECG Compared to ECG 06/29/2024 12:04:54 ALTER LEAD POSITION V2, NO OTHER CHANGE Electronically Signed On 06-23-2025 07:32:01 CDT by Hany Woodward M.D.
[2025-06-22 22:25] LABS: Hematocrit 34.9 % (42.0-52.0); Hemoglobin 11.2 g/dL (14.0-18.0); Immature Granulocyte Percent A 0.4 % (0-0.5); Lymphocytes Absolute Auto 2.45 K/mm3 (0.9-3.2); Mean Corpuscular HGB Conc 32.1 g/dl (32-36); Mean Corpuscular Hemoglobin 29.1 pg (26-34); Mean Corpuscular Volume 90.6 fl (80-100); Nucleated Red Blood Cells Absolute Auto 0.000 K/mm3 (0.0-0.012); Nucleated Red Blood Cells Perc 0.0 % (0.0-0.2); Platelet Count Result 295 k/mm3 (150-375); Red Blood Count 3.85 M/mm3 (4.6-6.20); White Blood Count 7.8 K/mm3 (4.5-10.0)
[2025-06-22 22:34] LABS: Alanine Aminotransferase 26 U/L (6-50); Albumin Level 4.4 g/dL (3.5-5.1); Alkaline Phosphatase 77 U/L (38-126); Anion Gap 7 mmol/L (4-12); Aspartate Amino Transferase 47 U/L (17-59); Bilirubin,Total 0.3 mg/dL (0.2-1.3); Blood Urea Nitrogen 22 mg/dL (9-20); Calcium 9.8 mg/dL (8.4-10.2); Carbon Dioxide 27 mmol/L (22-30); Chloride 96 mmol/L (98-107); Estimated CRCL calculation 47 ml/min; Estimated Glomerular Filt Rate > 60; Glucose 111 mg/dL (65-110); Lipase 543 U/L (23-300); Potassium 5.1 mmol/L (3.4-5.0); Sodium 130 mmol/L (137-145); Total Protein 8.5 g/dL (6.3-8.2)
[2025-06-22 22:36] LABS: INR 0.9; Prothrombin Time 12.7 Seconds (11.1-14.7)
[2025-06-22 22:37] LABS: Partial Thromboplastin Time 25.1 Seconds (22.3-36.8)
[2025-06-22 22:46] LABS: Troponin I < 0.012 ng/mL (0.000-0.034)
--- OUTSIDE RECORDS SUMMARY | 2025-06-22 23:37 | XMS_ITS | Clinical Summary ---
Author Organization [facility] Address [address] [place] [address] Care Team Providers Care Freight Caller Name Role Phone Unavailable Primary Care Provider Unavailabl e Source Comments [facility],non-owned Affiliates and Associated Physician Practices is amultiple site organization consisting of ambulatory clinics and hospital sitesin [place], [place], [place] and [place]. This disclosure is being madepursuant to the Care Everywhere program and may not contain all information available regarding this patient. 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 Gender Identity Not on file Sexual Orientation Not on file Plan of Treatment Health Maintenance Due Date Last Done Comments DTAP/TDAP/TD VACCINES (1 - Tdap) 01/02/1959 PNEUMOCOCCAL VACCINE 50+ (1 of 1 - PCV) 01/02/1990 ZOSTER VACCINE (1 of 2) 01/02/1990 Respiratory Syncytial Virus (RSV) Vaccine Pt: or over 60 yrs (1 - 1-dose 75+ series) 01/02/2015 DEPRESSION SCREENING 09/30/2024 COVID-19 VACCINE (1 - 2023-2 5 season) 2025 INFLUENZA VACCINE (#1) 2025 HEPATITIS B VACCINE Aged Out No longe r eligible based on patient's age to complete this topic HIB VACCINE Aged Out No longer eligi ble based on patient's age to complete this topic HPV VACCINE Aged Out No longer eligi ble based on patient's age to complete this topic MENINGOCOCCAL (Group B) VACC INE SHARED DECISION-MAKING Aged Out No longer eligibl e based on patient's age to complete this topic MENINGOCOCCAL GROUPS A/C/Y/W VACCINE Aged Out No longer eligible b ased on patient's age to complete this topic
[2025-06-22] MEDS: LACTATED RINGERS 1,000 ML 999 ML IV CONT (23:54)
--- NOTE | 2025-06-23 00:08 | ED.GENADULT ---
HPI - General Adult General Chief complaint: Abdominal Pain Stated complaint: LEFT UPPER QUADRANT MAIN, INTERMITTENT SOB Time Seen by Provider: 06/22/25 23:20 History of Present Illness HPI narrative: 85-year-old male with a past medical history including dementia, CIDP, hypertension, hypothyroidism, previous provoked DVT. He takes a full therapeutic dose of aspirin daily. Patient presents to the emergency department today with shortness of breath left-sided flank pain. He states that earlier today he started getting some sudden shortness of breath associated with left flank pain that slowly resolved on its own. He states he did injure himself on a sink in the bathroom on his left flank several days ago and attributed this to that. Denies any history of DVTs in his legs but states he has had 1 in his upper extremity from an IV during hospitalization. He had a recent prostate embolization for BPH and had indwelling Pérez catheter this was recent. Denies any urinary complaints or lower abdominal complaints at this time. No fever, chills, nausea, vomiting, active chest pain. States he had some chest pain associated with shortness of breath that is now resolved. Currently during my examination he has no complaints whatsoever but his family was concerned with his history and shortness of breath earlier today. No history of PE. Related Data Home Medications ?Medication ?Instructions ?Recorded ?Confirmed ?Last Taken ?Type atorvastatin 10 mg tablet 10 mg PO HS 10/10/23 06/11/25 08/19/24 History bimatoprost 0.01 % eye drops 1 drp EACH EYE HS 10/10/23 06/11/25 08/19/24 History (Gray) calcium carbonate 500 mg PO DAILY Indigestion 10/10/23 06/11/25 08/20/24 History cholecalciferol (vitamin D3) 50 50 mcg PO DAILY 10/10/23 06/11/25 08/20/24 History mcg (2,000 unit) tablet coQ10 (ubiquinol) 100 mg capsule 100 mg PO DAILY 10/10/23 06/11/25 08/20/24 History cyanocobalamin (vitamin B-12) 2,500 mcg PO DAILY 10/10/23 06/11/25 08/20/24 History 1,000 mcg tablet cyclosporine 0.05 % eye drops 1 drp EACH EYE BID 10/10/23 06/11/25 08/20/24 History levothyroxine 50 mcg tablet 50 mcg PO QAM 10/10/23 06/11/25 08/20/24 History pantoprazole 40 mg tablet,delayed 40 mg PO DAILY 10/10/23 06/11/25 08/20/24 History release sennosides 8.6 mg tablet (senna) 8.6 mg PO HS 10/10/23 06/11/25 08/19/24 History carboxymethylcellulose sodium 0.25 1 drp EACH EYE BID 04/15/24 06/11/25 08/20/24 History % eye drops (TheraTears) clotrimazole-betamethasone 1 1 applic topical DAILY 04/15/24 06/11/25 08/20/24 History %-0.05 % topical cream memantine 5 mg tablet 5 mg PO Q12H 04/15/24 06/11/25 08/20/24 09:00 History citalopram 20 mg tablet 20 mg PO Q12H 06/30/24 06/11/25 08/20/24 09:00 History melatonin 5 mg tablet 5 mg PO HS Sleep 07/30/24 06/11/25 08/19/24 History midodrine 10 mg tablet 10 mg PO 08,15,07/30/24 06/11/25 08/20/24 15:00 History Allergies Allergy/AdvReac Type Severity Reaction Status Date / Time No Known Allergies Allergy Verified 06/11/25 10:15 Review of Systems Review of Systems: As reviewed above in [facility] Past Medical History Medical History Heart failure with reduced ejection fraction HTN (hypertension) BPH (benign prostatic hyperplasia) Hiatal hernia Bilateral inguinal hernia Tremor of both hands B12 deficiency DILCIA (generalized anxiety disorder) CIDP (chronic inflammatory demyelinating polyneuropathy) Hypothyroid Neuropathy H/O gastroesophageal reflux (GERD) Thyroid disease High cholesterol Anxiety and depression Surgical History Surgical History History of colonoscopy at least 10-15 years ago per patient's History of left knee replacement Family History Family History Father Malignant neoplasm of prostate Mother Stomach cancer Social History Social History Social History: Surrogate medical decision maker: Valeria Cloud, spouse. Code status: Full code. Smoking status: Never smoker Alcohol intake: never Substance use: never Do You Feel Safe in your Home?: Yes Lack of Transportation: No Lack of Food: Never True Current Housing: I Have Housing Concerned About Future Housing: No Difficulty Paying Gas/Electric Bills: No Difficulty Paying for Meds: No Currently Unemployed: No Education: Trade/Vocational Certificate Difficulty w/ Childcare or Family Care: No Living arrangements: with family Occupation/Education: retired Spiritual care concerns: No Exam Narrative: GENERAL: [Well-appearing, well-nourished, and in no acute distress.] HEAD: [Normocephalic, atraumatic.] EYES: [PERRLA and EOMI.] ENT: Nares clear, no rhinorrhea or epistaxis. Mucous membranes moist. NECK: Supple. CHEST: [Clear to auscultation. No respiratory distress.] HEART: [Regular rate and rhythm]. No murmur heard. [Normal peripheral pulses.] ABDOMEN: [Soft, nondistended], [nontender], [No rigidity or guarding] EXTREMITIES: Normal range of motion. [No edema.] SKIN: Warm, dry, no rash. NEURO: [No focal deficits]. Alert and oriented [x3.] PSYCH: [Normal mood and affect.] Course Vital Signs Vital signs: Vital Signs Temperature 36.7 C 06/22/25 22:10 Pulse Rate 85 06/22/25 22:10 Respiratory Rate 17 06/22/25 22:10 Blood Pressure 163/97 H 06/22/25 22:10 Pulse Oximetry 100 06/22/25 22:10 Oxygen Delivery Room Air 06/22/25 22:10 Temperature 36.6 C 06/23/25 05:20 Pulse Rate 77 06/23/25 05:20 Respiratory Rate 16 06/23/25 05:20 Blood Pressure 171/85 H 06/23/25 05:20 Pulse Oximetry 100 06/23/25 05:20 Oxygen Delivery Room Air 06/22/25 22:10 Medical Decision Making MDM Narrative Medical decision making narrative: 85-year-old male with a past medical history including dementia, CIDP, hypertension, hypothyroidism, previous provoked DVT. He takes a full therapeutic dose of aspirin daily. Patient presents to the emergency department today with shortness of breath left-sided flank pain. He states that earlier today he started getting some sudden shortness of breath associated with left flank pain that slowly resolved on its own. He states he did injure himself on a sink in the bathroom on his left flank several days ago and attributed this to that. Denies any history of DVTs in his legs but states he has had 1 in his upper extremity from an IV during hospitalization. He had a recent prostate embolization for BPH and had indwelling Pérez catheter this was recent. Denies any urinary complaints or lower abdominal complaints at this time. No fever, chills, nausea, vomiting, active chest pain. States he had some chest pain associated with shortness of breath that is now resolved. Currently during my examination he has no complaints whatsoever but his family was concerned with his history and shortness of breath earlier today. No history of PE. Patient's is exam is overall reassuring with a soft nontender nondistended abdomen with clear breath sounds and strong symmetric pulses. No calf asymmetry or signs of DVT on examination. Mildly hypertensive but no tachycardia, fever, hypoxemia or significant blood pressure concerns. He had some flank pain associated shortness of breath that is not resolved so differential is broad but he did state that he injured himself several days ago and I cabinet/sink so could potentially be a rib fracture or contusion. Has a history of DVT and with the shortness of breath his high risk for potential pulmonary embolism. Takes therapeutic aspirin daily. No other anticoagulants. Laboratory studies obtained, CT of the chest ordered. EKG and chest x-ray obtained. His EKG does show what appears to be a 1 mm isolated elevation in V2 with no contiguous changes or reciprocal depressions. Compared to prior EKGs we do not have anything recent than 2023 but this was not evident previously. Will trend trop and rpt ecg. Presently patient has no symptoms whatsoever during my assessment but is requesting a dose of his home Ativan that he forgot the take the night. Patient CT angiography shows no acute cardiopulmonary process, no PE. No musculoskeletal findings aside from degenerative changes. Lab showed no leukocytosis or anemia worse than baseline. Normal platelet count. Electrolytes show some mild dehydration which was replenished here with IV fluids. No significant glucose concerns. Negative troponin x2. Mildly elevated lipase. Urinalysis has evidence of urinary tract infection with bacteria white blood cells and some yeast. EKG shows sinus rhythm. No interval changes on multiple repeat EKGs with the isolated v2. No contiguous ST segment changes. No active chest pain on reassessments remains hemodynamically stable. Patient given antibiotics and a dose of Diflucan for his infection and safe for discharge with PCP follow-up instructions and return precautions which family and patient verbalized understanding. Medical Records Medical records reviewed: Yes I reviewed the external patient's medical records. Vital Signs Vital Signs: Vital Signs Temperature 36.7 C 06/22/25 22:10 Pulse Rate 85 06/22/25 22:10 Respiratory Rate 17 06/22/25 22:10 Blood Pressure 163/97 H 06/22/25 22:10 Pulse Oximetry 100 06/22/25 22:10 Oxygen Delivery Room Air 06/22/25 22:10 Temperature 36.6 C 06/23/25 05:20 Pulse Rate 77 06/23/25 05:20 Respiratory Rate 16 06/23/25 05:20 Blood Pressure 171/85 H 06/23/25 05:20 Pulse Oximetry 100 06/23/25 05:20 Oxygen Delivery Room Air 06/22/25 22:10 Lab Data Lab results reviewed: Yes I reviewed the patient's lab results. 06/22/25 22:20 06/22/25 22:20 Labs: Lab Results 06/22/25 06/23/25 06/23/25 Range/Units 22:20 01:23 04:26 WBC 7.8 (4.5-10.0) K/mm3 RBC 3.85 L (4.6-6.20) M/mm3 Hgb 11.2 L (14.0-18.0) g/dL Hct 34.9 L (42.0-52.0) % MCV 90.6 (80-100) fl MCH 29.1 (26-34) pg MCHC 32.1 (32-36) g/dl RDW 13.9 (11.5-14.5) % Plt Count 295 (150-375) k/mm3 MPV 9.6 (7.4-10.4) fl Immature Gran % (Auto) 0.4 (0-0.5) % Neut % (Auto) 51.9 (45.5-73.1) % Lymph % (Auto) 31.5 (18.3-44.2) % [place] % (Auto) 13.1 H (2.6-8.5) % Eos % (Auto) 2.1 (0-4.4) % Baso % (Auto) 1.0 (0.2-1.2) % Lymph # (Auto) 2.45 (0.9-3.2) K/mm3 [place] # (Auto) 1.0 H (0.1-0.6) K/mm3 Eos # (Auto) 0.2 (0-0.3) K/mm3 Baso # (Auto) 0.1 (0.0-0.1) K/mm3 Abs Immat Gran (auto) 0.03 (0.00-0.031) K/mm3 Absolute Neuts (auto) 4.0 (1.3-6.7) K/mm3 Absolute Nucleated RBC 0.000 (0.0-0.012) K/mm3 Nucleated RBC % 0.0 (0.0-0.2) % PT 12.7 (11.1-14.7) Seconds INR 0.9 APTT 25.1 (22.3-36.8) Seconds Sodium 130 L (137-145) mmol/L Potassium 5.1 H (3.4-5.0) mmol/L Chloride 96 L (98-107) mmol/L Carbon Dioxide 27 (22-30) mmol/L Anion Gap 7 (4-12) mmol/L BUN 22 H (9-20) mg/dL Creatinine 1.04 (0.7-1.3) mg/dL Estim Creat Clear Calc 47 ml/min Estimated GFR > 60 (59 - ) Glucose 111 H (65-110) mg/dL Calcium 9.8 (8.4-10.2) mg/dL Total Bilirubin 0.3 (0.2-1.3) mg/dL AST 47 (17-59) U/L ALT 26 (6-50) U/L Alkaline Phosphatase 77 (38-126) U/L Troponin I < 0.012 < 0.012 (0.000-0.034) ng/mL Total Protein 8.5 H (6.3-8.2) g/dL Albumin 4.4 (3.5-5.1) g/dL Lipase 543 H (23-300) U/L Urine Color Yellow (Yellow) Urine Appearance Turbid H (Clear) Urine pH 8.0 (5.0-9.0) Ur Specific [place] 1.021 (1.001-1.035) Urine Protein Trace (Negative) mg/dL Urine Glucose (UA) Negative (Negative) mg/dL Urine Ketones Negative (Negative) mg/dL Ur Blood (Man) 1+ H (Negative) Urine Nitrate Positive H (Negative) Urine Bilirubin Negative (Negative) Urine Urobilinogen 0.2 (<2.0) mg/dL Add Ur Microanalysis Reviewed Leukocyte Esterase Rfl 3+ H (Negative) WILFREDO/UL Urine RBC 0-2 (0-2) /hpf Urine WBC >100 H (0-3) /hpf Ur Squamous Epith Cells None seen (Few) /hpf Urine Bacteria 4+ H /hpf Urine Casts 0-2 Urine Yeast (Budding) Present H (None) /hpf Imaging Data Attestation: I personally reviewed and interpreted this imaging study as follows: My impression: Negative CT angiography. Discharge Plan Discharge Clinical Impression: Dyspnea, Urinary tract infection, Yeast UTI, Elevated lipase Patient Disposition: Home Condition: Stable Instructions: Antibiotic Form Additional Instructions: Your laboratory studies show some slight dehydration and evidence of urinary tract infection with some yeast as well. We will treat this with a course of antibiotics with appropriate antibiotic choice based on your previous urine culture results. CT scan shows no process or acute abnormalities in the chest. Lipase was mildly elevated which could be a sign of some dehydration. We have given you some fluids here. Return with any recurrent symptoms, new or worsening concerns or any other issues otherwise follow-up with regular primary care provider. Patient Language: Luxembourgish Prescriptions: New levofloxacin 750 mg tablet 750 mg PO DAILY 7 Days Qty: 7 0RF No Action atorvastatin 10 mg tablet 10 mg PO HS levothyroxine 50 mcg tablet 50 mcg PO QAM pantoprazole 40 mg tablet,delayed release (DR/EC) 40 mg PO DAILY [place] 0.01 % drops 1 drp EACH EYE HS sennosides [senna] 8.6 mg Tablet 8.6 mg PO HS cyanocobalamin (vitamin B-12) 1,000 mcg Tablet 2,500 mcg PO DAILY calcium carbonate 500 mg calcium (1,250 mg) Tablet,Chewable 500 mg PO DAILY cholecalciferol (vitamin D3) 50 mcg (2,000 unit) Tablet 50 mcg PO DAILY coQ10 (ubiquinol) 100 mg Capsule 100 mg PO DAILY cyclosporine 0.05 % Drops 1 drp EACH EYE BID indomethacin 50 mg capsule 50 mg PO TID 7 Days Qty: 21 0RF Rx Instructions: administer with food or milk cephalexin 500 mg capsule 500 mg PO BID 7 Days Qty: 14 0RF lorazepam 0.5 mg tablet 0.5 mg PO 08,15,21 Qty: 90 0RF Rx Instructions: takes at 0800,1500, and HS memantine 5 mg Tablet 5 mg PO Q12H TheraTears 0.25 % Drops 1 drp EACH EYE BID clotrimazole-betamethasone 1-0.05 % cream 1 applic TOPICAL DAILY Patient Comments: APPLY TO FEET Rx Instructions: on feet midodrine 10 mg tablet 10 mg PO 08,15,21 melatonin 5 mg tablet 5 mg PO HS citalopram 20 mg Tablet 20 mg PO Q12H Follow-up/Referrals: Gonsalo dAams DO [Primary Care Provider, Internal Medicine] Time of Disposition: 05:09
[2025-06-23] MEDS: LORazepam (*CRX) 0.5 MG TABLET PO (00:18)
--- NOTE | 2025-06-23 01:18 | ECG_ITS ---
Test Date: 2025-06-23 01:19:40 Measurements Intervals [place] Rate: 78 P: 44 OR: 183 QRS: -60 QRSD: 132 T: 60 QT: 373 QTc: 426 Interpretive Statements SINUS RHYTHM LEFT ANTERIOR FASCICULAR BLOCK VOLTAGE CRITERIA FOR LVH ABNORMAL ECG Compared to ECG 06/22/2025 22:16:52 NO DIFFERENCE Electronically Signed On 06-23-2025 07:33:34 CDT by Hany Woodward M.D.
[2025-06-23 01:31] VITALS: PULSE 79; RESP 17; O2SAT 99
[2025-06-23 01:54] LABS: Troponin I < 0.012 ng/mL (0.000-0.034)
[2025-06-23 04:30] VITALS: BP 151/79; PULSE 73; RESP 17; O2SAT 98
[2025-06-23 04:46] LABS: Add Urine Microscopic? YES; Appearance Urine Turbid (Clear); Budding Yeast Urine Present /hpf; Glucose Urine UA Negative (Negative); Leukocyte Esterase Ur 3+ LEU/UL (Negative); Need Manual Microscopic Reviewed; Nitrate Urine Positive (Negative); Non Pathogenic Casts 0-2; Specific Grav Ur 1.021 (1.001-1.035)
[2025-06-23 05:20] VITALS: BP 171/85; PULSE 77; RESP 16; TEMP 36.6; O2SAT 100
[2025-06-23] MEDS: FLUCONAZOLE 150 MG TABLET PO (05:20)
== END 2025-06-23 05:43 | disposition home or self-care (01) ==
PROVIDERS: Emergency Provider Student in an Organized Health Care Education/Training Program; PCP Internal Medicine
DX: B37.49 Other urogenital candidiasis (principal); R06.00 Dyspnea, unspecified; R74.8 Abnormal levels of other serum enzymes; I50.9 Heart failure, unspecified; I11.0 Hypertensive heart disease with heart failure; F03.90 Unspecified dementia, unspecified severity, without behavioral disturbance, psychotic disturbance, mood disturbance, and anxiety; E03.9 Hypothyroidism, unspecified; E53.8 Deficiency of other specified B group vitamins; E78.00 Pure hypercholesterolemia, unspecified; G61.81 Chronic inflammatory demyelinating polyneuritis; K21.9 Gastro-esophageal reflux disease without esophagitis; K44.9 Diaphragmatic hernia without obstruction or gangrene; N40.0 Benign prostatic hyperplasia without lower urinary tract symptoms; F32.A Depression, unspecified; F41.1 Generalized anxiety disorder; Z96.652 Presence of left artificial knee joint; Z86.718 Personal history of other venous thrombosis and embolism; Z79.899 Other long term (current) drug therapy
CPT/HCPCS: 36415; 71046; 71275; 80053; 81001; 83690; 84484; 85025; 85610; 85730; 87077; 87086; 87186; 93005; 96360; 99284; A9270; J7120; Q9967

== ENCOUNTER 2025-07-06 12:48 | Inpatient (IN) | payer MEDICARE, SELFPAY ==
--- OUTSIDE RECORDS SUMMARY | 2001-06-18 03:30 | XMS_ITS | Continuity of Care Document ---
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 [address] , [address], [place], [address], [place]. tel:[phone] Family History Family Member Type Diagnosis Age At Onset No Information Payers Payer name Insurance type Covered green party ID Authoriza tion(s) [place] [id number] Social History Type Description Quantity Date Captured Comments Sex Male Smoking Status No Information Chief Complaint And Reason For Visit No Information Reason For Referral Reason For Referral No Information History Of Present Illness Encounter Date Complaint History Of Prese nt Illness No Information Functional Status Date Functional Assessmen t No Information Instructions Date Instruction Additional Infor mation No Information Assessments Type Assessment Date No Information Patient Care Teams Name Effective Dates (start - stop) Status Members No Information
--- OUTSIDE RECORDS SUMMARY | 2025-03-23 11:25 | XMS_ITS | Continuity of Care Document ---
Author Organization [facility] Address [address] [place] [address] [address] [place] [address] Phone Care Team Providers Care Room Worker Name Role Phone Rome Whiting MD Unavailable Unavailable Medications Medication Instructions Dosage Effective Dates (start - stop) Status Comments Lumigan 0.01 % eye drops 1 gtt qhs ou - Active Advance Directives Directive Yes / No Effective Date File Name No Information Encounters Encounter Description Practice Location Reason(s) For Visit Diagnoses Date Provider Providers Copied on Encounter [facility], [address] [place], [place] [address], [place], [place], [id number], tel:[phone] [facility] No Information 5 Johanne Peter. [address] [place] [address], [address], [place], [place], [id number], [place]. tel:[phone] Family History Family Member Type Diagnosis Age At Onset No Information Payers Payer name Insurance type Covered libertarian ID Authoriza tion(s) No Information Social History Type Description Quantity Date Captured [...]
[2025-07-06] VITALS (12 sets, daily range): BP systolic 119–166; BP diastolic 65–102; PULSE 66–99; RESP 16–24; TEMP 36.4–36.8; O2SAT 99–100; BMI 20.4
--- NOTE | ~2025-07-06 | CT_ITS ---
CT HEAD CTA NECK, CTA HEAD Clinical History: AMS Comparison: AMS TECHNIQUE: Unenhanced axial images skull base to vertex Coronal, sagittal reformats Helical images thoracic inlet to vertex IV contrast information not listed in PACS Coronal, sagittal reformats. Multi planar MIPS CT images acquired with automatic exposure control for dose reduction DLP: 1616 mGy-cm Findings: CT HEAD Mild white matter microvascular ischemic changes. Sulci, ventricles: Unremarkable. No intracerebral hemorrhage. No evidence acute territorial infarct. No mass effect, midline shift. Bony calvarium intact. Visualized paranasal sinuses: Clear. Mastoid air cells: Clear. Calcified sebaceous cyst left posterior lateral scalp. No abnormal foci of contrast enhancement. Patent dural venous sinuses. CTA NECK NASCET Criteria utilized Aortic arch: No aneurysm or dissection. Great vessel origins: No stenosis. CCAs: No dissection. No stenosis. Cervical ICAs: No dissection. Bulb calcifications but no stenosis. Vertebral Arteries: Patent. Lung Apices: Clear. Thyroid: Unremarkable. Nodes: No enlarged nodes. Bones: No acute bony abnormality. CTA HEAD: Aneurysms: None. Intracranial ICAs: Patent, unremarkable. ACAs and their distal branches: Patent, unremarkable. A-Comm: Identified. Patent, unremarkable. MCAs and their distal branches: Patent, unremarkable. Basilar artery: Patent, unremarkable. hardwood sawyer and their distal branches: Patent, unremarkable. P-Comms: Neither present. IMPRESSION: CT HEAD: 1. No acute intracranial findings. CTA NECK: 1. No ICA stenosis or other acute arterial abnormality. CTA HEAD: 1. No large vessel arterial occlusive disease or other acute findings. 2. No aneurysms. Reviewed, dictated and finalized at location R.
--- NOTE | ~2025-07-06 | MR_ITS ---
EXAMINATION: MR brain/brain stem wo/w con DATE: 07/08/2025 13:17 INDICATION: Transient alteration in mental status TECHNIQUE: Magnetic resonance imaging (MRI) of the brain and brainstem was performed without and with 13 mL Multihance intravenous contrast. Sequences included sagittal and axial T1-weighted SE, axial diffusion-weighted FS SE, axial 3D SWAN, axial T2-weighted FLAIR, and axial T2-weighted FSE. Postcontrast axial and coronal T1-weighted SE was obtained. Apparent diffusion coefficient (ADC) maps were created. COMPARISON: Head CT and CT angiogram dated 07/06/2025 FINDINGS: There are no areas of restricted diffusion to suggest acute infarction. No intracranial hemorrhage or abnormal intracranial mass lesion. There are no intraparenchymal signal abnormalities seen on the other pulse sequences. The ventricles are symmetric and normal in size. There are no abnormal extra-axial fluid collections. Flow voids are seen in the cerebral arteries on the T2- weighted sequences consistent with their expected patency. Mild mucosal thickening in the bilateral ethmoid sinuses. Changes of bilateral intraocular lens replacement. Visualized orbits and soft tissues are unremarkable. There are no areas of abnormal enhancement on the post contrast images. IMPRESSION: 1. Normal aging brain. No acute intracranial process or abnormally enhancing brain lesions. Reviewed, dictated and finalized at location A. IMPRESSION: 1. Normal aging brain. No acute intracranial process or abnormally enhancing br ain lesions.
--- NOTE | ~2025-07-06 | CT_ITS ---
EXAMINATION: CT chest abdomen pelvis w con, 07/06/2025 14:02 CDT HISTORY: AMS, ab pain COMPARISON: No comparisons available. TECHNIQUE: CT scan of the chest, abdomen and pelvis was performed with contrast Isovue 300, 92cc injected IV. One or more of the following dose reduction techniques were used: automated exposure control, adjustment of the mA and/or kV according to patient size, use of iterative reconstruction technique. Unless otherwise stated, incidental findings do not require dedicated follow up imaging FINDINGS: CT chest: No significant coronary calcification is present ([id number]) LUNGS: No tracheomalacia. No bronchiectasis. Minimal emphysematous changes. Minimal pulmonary fibrotic changes. Basilar areas of linear atelectasis. HEART AND PERICARDIUM: Mild cardiomegaly. AORTA: Normal caliber aorta. MEDIASTINUM: Unremarkable. THYROID: The thyroid is unremarkable. CT abdomen: LIVER: Mild hepatic steatosis. Portal vein patent. No intrahepatic biliary duct dilatation. SPLEEN: Spleen is prominent.. KIDNEYS: Right Kidney: Unremarkable. No calculi. No hydronephrosis. Left Kidney: Left kidney simple appearing renal cysts the largest mid pole 1 x 1 cm. ADRENAL GLANDS: Unremarkable. PANCREAS: Mild atrophy of the pancreas. GALLBLADDER/BILIARY: Minimal cholelithiasis. STOMACH AND ESOPHAGUS: Nonspecific patulous appearance of the esophagus. Large hiatal hernia. BOWEL/MESENTERY: Moderate fecal content with moderate diverticulosis, no colitis or diverticulitis. Appendix normal. Ill-defined stranding within the mesentery. RETROPERITONEUM: Unremarkable AORTA/VASCULATURE: Normal caliber aorta. FREE FLUID OR FREE AIR: None. CT pelvis: SOLID ORGANS/REPRODUCTIVE: The prostate is markedly enlarged with a heterogeneous appearance correlate with PSA and prostate ultrasound. BLADDER: The bladder wall is circumferentially thickened. LYMPHADENOPATHY: There are enlarged lymph nodes in the mesentery the largest 1.2 x 1.3 cm possibly reactive, follow-up is recommended OSSEOUS STRUCTURES: No sclerotic or lytic lesions. No acute rib fractures identified. OVERLYING SOFT TISSUES: Small bilateral fat-containing inguinal hernia. IMPRESSION: 1. No acute process in the chest. No acute process in the abdomen or pelvis. 2. Mild cystitis. 3. Incidental findings above Reviewed, dictated and finalized at location P.
--- NOTE | 2025-07-06 13:00 | ED.GENADULT ---
HPI - General Adult General Chief complaint: Altered Mental Status Stated complaint: AMS, epigastric pain Time Seen by Provider: 07/06/25 12:52 History of Present Illness HPI narrative: 85-year-old male presents to the emergency department for evaluation for altered mental status. Family states that the patient was normal this morning when family checked on him around noon he was altered. Patient is agitated upon arrival to emergency department. Patient does complaining of need to urinate does complain of lower abdominal pain. Patient denies any falls or injuries. Patient denies striking head denies loss conscious. Patient denies any chest pain or shortness breath. Related Data Home Medications ?Medication ?Instructions ?Recorded ?Confirmed ?Last Taken ?Type atorvastatin 10 mg tablet 10 mg PO HS 10/10/23 07/06/25 07/05/25 21:00 History bimatoprost 0.01 % eye drops 1 drp EACH EYE HS 10/10/23 07/06/25 07/05/25 21:00 History (Gray) calcium carbonate 500 mg PO DAILY Indigestion 10/10/23 07/06/25 07/05/25 09:00 History cholecalciferol (vitamin D3) 50 50 mcg PO DAILY 10/10/23 07/06/25 07/05/25 09:00 History mcg (2,000 unit) tablet coQ10 (ubiquinol) 100 mg capsule 100 mg PO DAILY 10/10/23 07/06/25 07/05/25 09:00 History cyanocobalamin (vitamin B-12) 2,500 mcg PO DAILY 10/10/23 07/06/25 07/05/25 09:00 History 1,000 mcg tablet cyclosporine 0.05 % eye drops 1 drp EACH EYE BID 10/10/23 07/06/25 07/05/25 History levothyroxine 50 mcg tablet 50 mcg PO QAM 10/10/23 07/06/25 07/05/25 09:00 History pantoprazole 40 mg tablet,delayed 40 mg PO DAILY 10/10/23 07/06/25 07/05/25 09:00 History release sennosides 8.6 mg tablet (senna) 8.6 mg PO HS 10/10/23 07/06/25 07/05/25 21:00 History carboxymethylcellulose sodium 0.25 1 drp EACH EYE BID 04/15/24 07/06/25 07/05/25 History % eye drops (TheraTears) memantine 5 mg tablet 5 mg PO Q12H 04/15/24 07/06/25 07/05/25 21:00 History citalopram 20 mg tablet 20 mg PO Q12H 06/30/24 07/06/25 07/05/25 21:00 History melatonin 5 mg tablet 5 mg PO HS Sleep 07/30/24 07/06/25 07/05/25 21:00 History citalopram 40 mg tablet 40 mg PO DAILY 07/06/25 07/06/25 07/05/25 09:00 History ferrous sulfate 325 mg (65 mg 325 mg PO DAILY 07/06/25 07/06/25 07/05/25 09:00 History iron) tablet (Iron (ferrous sulfate)) lisinopril 20 mg tablet 20 mg PO DAILY 07/06/25 07/06/25 07/05/25 09:00 History Allergies Allergy/AdvReac Type Severity Reaction Status Date / Time No Known Allergies Allergy Verified 06/11/25 10:15 Review of Systems Review of Systems: All systems reviewed & are unremarkable except as noted in HPI and below PMFSH Past Medical History Medical History (Updated 07/08/25 @ 17:18 by Balta Adam MD) TIA (transient ischemic attack) Parkinsons disease Hyponatremia Heart failure with reduced ejection fraction HTN (hypertension) BPH (benign prostatic hyperplasia) Hiatal hernia Bilateral inguinal hernia Tremor of both hands B12 deficiency DILCIA (generalized anxiety disorder) CIDP (chronic inflammatory demyelinating polyneuropathy) Hypothyroid Neuropathy H/O gastroesophageal reflux (GERD) Thyroid disease High cholesterol Anxiety and depression Surgical History Surgical History History of colonoscopy at least 10-15 years ago per patient's History of left knee replacement Family History Family History Father Malignant neoplasm of prostate Mother Stomach cancer Social History Social History Social History: Surrogate medical decision maker: Valeria Cloud, spouse. Code status: Full code. Smoking status: Never smoker Alcohol intake: never Substance use: never Do You Feel Safe in your Home?: Yes Lack of Transportation: No Lack of Food: Never True Current Housing: I Have Housing Concerned About Future Housing: No Difficulty Paying Gas/Electric Bills: No Difficulty Paying for Meds: No Currently Unemployed: No Education: Trade/Vocational Certificate Difficulty w/ Childcare or Family Care: No Living arrangements: with family Occupation/Education: retired Spiritual care concerns: No Exam Narrative: APPEARANCE: Ill-appearing HEAD: normocephalic, atraumatic. EYES: PERRLA/EOMI, conjunctivae clear. NOSE: Normal no drainage EARS:TMS clear with good light reflex. THROAT: Pharynx clear, no exudate. NECK: Supple. No adenopathy, no masses. RESPIRATORY: Airway patent, respirations nonlabored. Clear to auscultation bilaterally, no rales, rhonchi, wheezing. CARDIOVASCULAR: Regular rate and rhythm without murmurs rubs or gallops. ABDOMINAL: Soft, nontender, nondistended, normal bowel sounds MUSCULOSKELETAL: Moves all extremities. Strength/ROM intact, No edema, No calf tenderness. NEURO: Alert and agitation. Cranial nerves II through XII intact. Good gait. Good coordination SKIN: Warm, dry. Normal Color Course Vital Signs Vital signs: Vital Signs Temperature 97.8 F 07/06/25 12:49 Pulse Rate 95 07/06/25 12:49 Respiratory Rate 22 H 07/06/25 12:49 Blood Pressure 154/102 H 07/06/25 12:49 Pulse Oximetry 99 07/06/25 12:49 Oxygen Delivery Room Air 07/06/25 12:49 Temperature 98.5 F 07/09/25 05:04 Pulse Rate 67 07/09/25 05:04 Respiratory Rate 18 07/09/25 05:04 Blood Pressure 130/63 07/09/25 05:04 Pulse Oximetry 99 07/09/25 05:04 Oxygen Delivery Room Air 07/08/25 08:00 Medical Decision Making [facility] Narrative Medical decision making narrative: initial EKG showed no significant ST elevation or depressions and patient had no chest pain at time of initial EKG which is collected shortly after arrival but patient had some muscle movement artifact that this was not diagnostic. EKG was repeated and still has significant motion artifact but no evidence acute STEMI. Patient does have significant agitation. He was treated with his dose lorazepam. Case was discussed with the hospitalist patient was admitted for further evaluation. CTA showed no acute intracranial findings CT chest abdomen pelvis showed no acute process in the chest abdomen or pelvis. Mild cystitis possibly on CT but UA is negative. Due to change in mental status patient will be admitted to the IMU. Patient family updated the results of the workup plan for admission. Differential Diagnosis Differential Diagnosis: TIA, CVA, final infection, COVID, RSV influenza, UTI colitis, diverticulitis, benzodiazepine withdrawal Vital Signs Vital Signs: Vital Signs Temperature 97.8 F 07/06/25 12:49 Pulse Rate 95 07/06/25 12:49 Respiratory Rate 22 H 07/06/25 12:49 Blood Pressure 154/102 H 07/06/25 12:49 Pulse Oximetry 99 07/06/25 12:49 Oxygen Delivery Room Air 07/06/25 12:49 Temperature 98.5 F 07/09/25 05:04 Pulse Rate 67 07/09/25 05:04 Respiratory Rate 18 07/09/25 05:04 Blood Pressure 130/63 07/09/25 05:04 Pulse Oximetry 99 07/09/25 05:04 Oxygen Delivery Room Air 07/08/25 08:00 Lab Data Lab results reviewed: Yes I reviewed the patient's lab results. 07/07/25 04:09 07/07/25 04:09 Labs: Lab Results 07/06/25 07/06/25 07/06/25 Range/Units 13:17 13:23 14:32 WBC 9.9 (4.5-10.0) K/mm3 RBC 3.70 L (4.6-6.20) M/mm3 Hgb 10.7 L (14.0-18.0) g/dL Hct 33.0 L (42.0-52.0) % MCV 89.2 (80-100) fl MCH 28.9 (26-34) pg MCHC 32.4 (32-36) g/dl RDW 13.2 (11.5-14.5) % Plt Count 262 (150-375) k/mm3 MPV 9.8 (7.4-10.4) fl Immature Gran % (Auto) 0.5 (0-0.5) % Neut % (Auto) 80.2 H (45.5-73.1) % Lymph % (Auto) 10.7 L (18.3-44.2) % [place] % (Auto) 7.8 (2.6-8.5) % Eos % (Auto) 0.2 (0-4.4) % Baso % (Auto) 0.6 (0.2-1.2) % Lymph # (Auto) 1.06 (0.9-3.2) K/mm3 [place] # (Auto) 0.8 H (0.1-0.6) K/mm3 Eos # (Auto) 0.0 (0-0.3) K/mm3 Baso # (Auto) 0.1 (0.0-0.1) K/mm3 Abs Immat Gran (auto) 0.05 H (0.00-0.031) K/mm3 Absolute Neuts (auto) 7.9 H (1.3-6.7) K/mm3 Absolute Nucleated RBC 0.000 (0.0-0.012) K/mm3 Nucleated RBC % 0.0 (0.0-0.2) % % Immature Plt Fraction 3.0 (0.9-11.2) % PT 13.2 (11.1-14.7) Seconds INR 1.0 APTT 20.7 L (22.3-36.8) Seconds D-Dimer 1.73 H (<0.48) ug/mL Sodium 125 L (137-145) mmol/L Potassium 4.6 (3.4-5.0) mmol/L Chloride 95 L (98-107) mmol/L Carbon Dioxide 23 (22-30) mmol/L Anion Gap 7 (4-12) mmol/L BUN 14 D (9-20) mg/dL Creatinine 0.91 (0.7-1.3) mg/dL Estim Creat Clear Calc 51 ml/min Estimated GFR > 60 (59 - ) Glucose 111 H (65-110) mg/dL Hemoglobin A1c (<5.7) % Calcium 9.6 (8.4-10.2) mg/dL Total Bilirubin 0.7 (0.2-1.3) mg/dL AST 46 (17-59) U/L ALT 33 (6-50) U/L Alkaline Phosphatase 88 (38-126) U/L Troponin I (0.000-0.034) ng/mL C-Reactive Protein < 0.5 (<1.0) mg/dL NT-Pro-B Natriuret Pep 472 H (19.9-100) pg/mL Total Protein 8.8 H (6.3-8.2) g/dL Albumin 4.4 (3.5-5.1) g/dL Triglycerides (<150) mg/dL Cholesterol (0-200) mg/dL LDL Cholesterol Direct mg/dL HDL Direct mg/dL Procalcitonin 0.1 ng/mL Urine Color Yellow (Yellow) Urine Appearance Clear (Clear) Urine pH 8.5 (5.0-9.0) Ur Specific [place] 1.013 (1.001-1.035) Urine Protein 1+ H (Negative) mg/dL Urine Glucose (UA) Negative (Negative) mg/dL Urine Ketones Trace H (Negative) mg/dL Ur Blood (Man) Negative (Negative) Urine Nitrate Negative (Negative) Urine Bilirubin Negative (Negative) Urine Urobilinogen 0.2 (<2.0) mg/dL Leukocyte Esterase Rfl Negative (Negative) WILFREDO/UL Urine RBC 0-2 (0-2) /hpf Urine WBC 0-5 (0-3) /hpf Ur Squamous Epith Cells None seen (Few) /hpf Urine Bacteria None seen /hpf Urine Casts 0-2 Urine Osmolality U Random Total Protein mg/dL Ur Random Sodium meq/L Urine Creatinine mg/dL Protein/Creat Ratio 2 (0-0.20) mg/mg Urine Opiates Screen Negative (Negative) Urine Methadone Screen Negative (Negative) Ur Barbiturates Screen Negative (Negative) Ur Phencyclidine Scrn Negative (Negative) Ur Amphetamine Screen Negative (Negative) U Benzodiazepines Scrn Negative (Negative) Urine Cocaine Screen Negative (Negative) U Cannabinoids Screen Negative (Negative) Influenza A (RT-PCR) Negative (Negative) Influenza B (RT-PCR) Negative (Negative) RSV (RT-PCR) Negative (Negative) SARS-CoV-2 RNA (RT-PCR) Negative (Negative) 07/06/25 07/07/25 07/07/25 Range/Units 19:56 04:09 07:51 WBC 6.2 (4.5-10.0) K/mm3 RBC 3.42 L (4.6-6.20) M/mm3 Hgb 9.8 L (14.0-18.0) g/dL Hct 31.0 L (42.0-52.0) % MCV 90.6 (80-100) fl MCH 28.7 (26-34) pg MCHC 31.6 L (32-36) g/dl RDW 13.7 (11.5-14.5) % Plt Count 249 (150-375) k/mm3 MPV 9.3 (7.4-10.4) fl Immature Gran % (Auto) (0-0.5) % Neut % (Auto) (45.5-73.1) % Lymph % (Auto) (18.3-44.2) % [place] % (Auto) (2.6-8.5) % Eos % (Auto) (0-4.4) % Baso % (Auto) (0.2-1.2) % Lymph # (Auto) (0.9-3.2) K/mm3 [place] # (Auto) (0.1-0.6) K/mm3 Eos # (Auto) (0-0.3) K/mm3 Baso # (Auto) (0.0-0.1) K/mm3 Abs Immat Gran (auto) (0.00-0.031) K/mm3 Absolute Neuts (auto) (1.3-6.7) K/mm3 Absolute Nucleated RBC (0.0-0.012) K/mm3 Nucleated RBC % (0.0-0.2) % % Immature Plt Fraction (0.9-11.2) % PT (11.1-14.7) Seconds INR APTT (22.3-36.8) Seconds D-Dimer (<0.48) ug/mL Sodium 128 L (137-145) mmol/L Potassium 4.3 (3.4-5.0) mmol/L Chloride 97 L (98-107) mmol/L Carbon Dioxide 25 (22-30) mmol/L Anion Gap 6 (4-12) mmol/L BUN 15 (9-20) mg/dL Creatinine 0.99 (0.7-1.3) mg/dL Estim Creat Clear Calc 44 ml/min Estimated GFR > 60 (59 - ) Glucose 98 (65-110) mg/dL Hemoglobin A1c 5.5 (<5.7) % Calcium 9.1 (8.4-10.2) mg/dL Total Bilirubin (0.2-1.3) mg/dL AST (17-59) U/L ALT (6-50) U/L Alkaline Phosphatase (38-126) U/L Troponin I 0.029 (0.000-0.034) ng/mL C-Reactive Protein (<1.0) mg/dL NT-Pro-B Natriuret Pep (19.9-100) pg/mL Total Protein (6.3-8.2) g/dL Albumin (3.5-5.1) g/dL Triglycerides 57 (<150) mg/dL Cholesterol 155 (0-200) mg/dL LDL Cholesterol Direct 78 mg/dL HDL Direct 45 mg/dL Procalcitonin ng/mL Urine Color (Yellow) Urine Appearance (Clear) Urine pH (5.0-9.0) Ur Specific [place] (1.001-1.035) Urine Protein (Negative) mg/dL Urine Glucose (UA) (Negative) mg/dL Urine Ketones (Negative) mg/dL Ur Blood (Man) (Negative) Urine Nitrate (Negative) Urine Bilirubin (Negative) Urine Urobilinogen (<2.0) mg/dL Leukocyte Esterase Rfl (Negative) WILFREDO/UL Urine RBC (0-2) /hpf Urine WBC (0-3) /hpf Ur Squamous Epith Cells (Few) /hpf Urine Bacteria /hpf Urine Casts Urine Osmolality Pending U Random Total Protein 20 mg/dL Ur Random Sodium 81 meq/L Urine Creatinine 72.4 mg/dL Protein/Creat Ratio 2 (0-0.20) mg/mg Urine Opiates Screen (Negative) Urine Methadone Screen (Negative) Ur Barbiturates Screen (Negative) Ur Phencyclidine Scrn (Negative) Ur Amphetamine Screen (Negative) U Benzodiazepines Scrn (Negative) Urine Cocaine Screen (Negative) U Cannabinoids Screen (Negative) Influenza A (RT-PCR) (Negative) Influenza B (RT-PCR) (Negative) RSV (RT-PCR) (Negative) SARS-CoV-2 RNA (RT-PCR) (Negative) 07/07/25 Range/Units 07:51 WBC (4.5-10.0) K/mm3 RBC (4.6-6.20) M/mm3 Hgb (14.0-18.0) g/dL Hct (42.0-52.0) % MCV (80-100) fl MCH (26-34) pg MCHC (32-36) g/dl RDW (11.5-14.5) % Plt Count (150-375) k/mm3 MPV (7.4-10.4) fl Immature Gran % (Auto) (0-0.5) % Neut % (Auto) (45.5-73.1) % Lymph % (Auto) (18.3-44.2) % [place] % (Auto) (2.6-8.5) % Eos % (Auto) (0-4.4) % Baso % (Auto) (0.2-1.2) % Lymph # (Auto) (0.9-3.2) K/mm3 [place] # (Auto) (0.1-0.6) K/mm3 Eos # (Auto) (0-0.3) K/mm3 Baso # (Auto) (0.0-0.1) K/mm3 Abs Immat Gran (auto) (0.00-0.031) K/mm3 Absolute Neuts (auto) (1.3-6.7) K/mm3 Absolute Nucleated RBC (0.0-0.012) K/mm3 Nucleated RBC % (0.0-0.2) % % Immature Plt Fraction (0.9-11.2) % PT (11.1-14.7) Seconds INR APTT (22.3-36.8) Seconds D-Dimer (<0.48) ug/mL Sodium (137-145) mmol/L Potassium (3.4-5.0) mmol/L Chloride (98-107) mmol/L Carbon Dioxide (22-30) mmol/L Anion Gap (4-12) mmol/L BUN (9-20) mg/dL Creatinine (0.7-1.3) mg/dL Estim Creat Clear Calc ml/min Estimated GFR (59 - ) Glucose (65-110) mg/dL Hemoglobin A1c (<5.7) % Calcium (8.4-10.2) mg/dL Total Bilirubin (0.2-1.3) mg/dL AST (17-59) U/L ALT (6-50) U/L Alkaline Phosphatase (38-126) U/L Troponin I (0.000-0.034) ng/mL C-Reactive Protein (<1.0) mg/dL NT-Pro-B Natriuret Pep (19.9-100) pg/mL Total Protein (6.3-8.2) g/dL Albumin (3.5-5.1) g/dL Triglycerides (<150) mg/dL Cholesterol (0-200) mg/dL LDL Cholesterol Direct mg/dL HDL Direct mg/dL Procalcitonin ng/mL Urine Color (Yellow) Urine Appearance (Clear) Urine pH (5.0-9.0) Ur Specific [place] (1.001-1.035) Urine Protein (Negative) mg/dL Urine Glucose (UA) (Negative) mg/dL Urine Ketones (Negative) mg/dL Ur Blood (Man) (Negative) Urine Nitrate (Negative) Urine Bilirubin (Negative) Urine Urobilinogen (<2.0) mg/dL Leukocyte Esterase Rfl (Negative) WILFREDO/UL Urine RBC (0-2) /hpf Urine WBC (0-3) /hpf Ur Squamous Epith Cells (Few) /hpf Urine Bacteria /hpf Urine Casts Urine Osmolality U Random Total Protein mg/dL Ur Random Sodium meq/L Urine Creatinine 73.9 mg/dL Protein/Creat Ratio 2 0.28 H (0-0.20) mg/mg Urine Opiates Screen (Negative) Urine Methadone Screen (Negative) Ur Barbiturates Screen (Negative) Ur Phencyclidine Scrn (Negative) Ur Amphetamine Screen (Negative) U Benzodiazepines Scrn (Negative) Urine Cocaine Screen (Negative) U Cannabinoids Screen (Negative) Influenza A (RT-PCR) (Negative) Influenza B (RT-PCR) (Negative) RSV (RT-PCR) (Negative) SARS-CoV-2 RNA (RT-PCR) (Negative) Discharge Plan Discharge Clinical Impression: Acute confusion, Anxious appearance Patient Disposition: Still a Patient Condition: Stable
--- NOTE | 2025-07-06 13:05 | PC.NURSE ---
unable to obtain EKG at this time due to patient condition; EKG order canceled per ERP who is aware.
[2025-07-06 13:33] LABS: Add Urine Microscopic? YES; Appearance Urine Clear (Clear); Glucose Urine UA Negative (Negative); Leukocyte Esterase Ur Negative LEU/UL (Negative); Nitrate Urine Negative (Negative); Non Pathogenic Casts 0-2; Specific Grav Ur 1.013 (1.001-1.035)
[2025-07-06 13:35] LABS: Hematocrit 33.0 % (42.0-52.0); Hemoglobin 10.7 g/dL (14.0-18.0); Immature Granulocyte Percent A 0.5 % (0-0.5); Immature Platelet Fraction Pct 3.0 % (0.9-11.2); Lymphocytes Absolute Auto 1.06 K/mm3 (0.9-3.2); Mean Corpuscular HGB Conc 32.4 g/dl (32-36); Mean Corpuscular Hemoglobin 28.9 pg (26-34); Mean Corpuscular Volume 89.2 fl (80-100); Nucleated Red Blood Cells Absolute Auto 0.000 K/mm3 (0.0-0.012); Nucleated Red Blood Cells Perc 0.0 % (0.0-0.2); Platelet Count Result 262 k/mm3 (150-375); Red Blood Count 3.70 M/mm3 (4.6-6.20); White Blood Count 9.9 K/mm3 (4.5-10.0)
[2025-07-06 13:43] LABS: Alanine Aminotransferase 33 U/L (6-50); Albumin Level 4.4 g/dL (3.5-5.1); Alkaline Phosphatase 88 U/L (38-126); Anion Gap 7 mmol/L (4-12); Aspartate Amino Transferase 46 U/L (17-59); Bilirubin,Total 0.7 mg/dL (0.2-1.3); Blood Urea Nitrogen 14 mg/dL (9-20); Calcium 9.6 mg/dL (8.4-10.2); Carbon Dioxide 23 mmol/L (22-30); Chloride 95 mmol/L (98-107); Estimated CRCL calculation 51 ml/min; Estimated Glomerular Filt Rate > 60; Glucose 111 mg/dL (65-110); Potassium 4.6 mmol/L (3.4-5.0); Sodium 125 mmol/L (137-145); Total Protein 8.8 g/dL (6.3-8.2)
[2025-07-06 13:45] LABS: INR 1.0; Prothrombin Time 13.2 Seconds (11.1-14.7)
[2025-07-06 13:46] LABS: Partial Thromboplastin Time 20.7 Seconds (22.3-36.8)
--- OUTSIDE RECORDS SUMMARY | 2025-07-06 14:19 | XMS_ITS | Clinical Summary ---
Author Organization [facility] Address [address] [place] [address] Care Team Providers Care Balance Wheel Facer Name Role Phone Unavailable Primary Care Provider Unavailabl e Source Comments [facility],non-owned Affiliates and Associated Physician Practices is amultiple site organization consisting of ambulatory clinics and hospital sitesin [place], [place], [place] and [place]. This disclosure is being madepursuant to the Care Everywhere program and may not contain all information available regarding this patient. Last updated 18.[facility] [employer] Social History Tobacco Use Types Packs/Day Years Used Date Smoking Tobacco: Never Assessed Sex and Gender Information Value Date Recorded Sex Assigned at Not on file Legal Sex Male 5:29 AM [employer] Gender Identity Not on file Sexual Orientation [...]
[2025-07-06] MEDS: LORazepam (*CRX) 0.5 MG TABLET PO ×2 (15:07→21:35)
--- NOTE | 2025-07-06 15:10 | ECG_ITS ---
Test Date: 2025-07-06 15:39:15 Measurements Intervals [place] Rate: 96 P: 32 OR: 178 QRS: -74 QRSD: 130 T: 73 QT: 392 QTc: 497 Interpretive Statements SINUS RHYTHM LEFT BUNDLE BRANCH BLOCK BASELINE ARTIFACT- I, III, AVR, AVL, AVF, V1-V6 ABNORMAL ECG Compared to ECG 06/23/2025 01:19:40 HEART HAS DECREASED Electronically Signed On 07-06-2025 16:09:32 CDT by Jose Henson D.O.
[2025-07-06 15:15] LABS: Influenza A QL RT-PCR Negative (Negative); Influenza B QL RT-PCR Negative (Negative); RSV RNA, RT-PCR Negative (Negative); SARS-CoV-2 RNA PCR Negative (Negative)
[2025-07-06] MEDS: ALBUTEROL SULFATE NEB 2.5 MG/3 ML INH INHALATION (15:37)
--- NOTE | 2025-07-06 15:39 | PCRCNOTE ---
Waiting for nursing to clean Pt. up so treatment can be given.
[2025-07-06 15:43] LABS: CRP < 0.5 mg/dL (<1.0)
[2025-07-06 16:04] LABS: Procalcitonin 0.1 ng/mL
[2025-07-06 16:10] LABS: NT Pro B Type Natriuretic Pept 472 pg/mL (19.9-100)
[2025-07-06 16:25] LABS: Cannabinoid Screen Urine Negative (Negative)
--- NOTE | 2025-07-06 16:28 | ADMGEN ---
This patient, Linwood Cloud, was admitted to IMU Room 207-01. Patient/family oriented to hospital policies and general routines including ID bracelet, bed and alarms, visiting hours, pain management, procedures, bathroom and other care routines, personal items, smoking policy, room service/diet, and visiting hours. Information on how to activate the Rapid Response Team has been discussed. Patient/Family are encouraged to report perceived risks to care and to ask questions if they do not understand what they are told or what they should do.
--- NOTE | 2025-07-06 18:08 | PM.IMHP ---
H&P: HPI History of Present Illness Date/Time: 07/06/25 18:08 Chief Complaint: Altered mental status Narrative: 85 old male with past history of HFrEF, HTN, BPH, tremor both hands, GED,CIDP (chronic inflammatory demyelinating polyneuropathy), hypothyroidism, neuropathy, GERD, hyperlipidemia presented to the ED from home on 07/06/2025 with complaint of altered mental status noticed by family. Baseline mentation is A&Ox4 and patient is independent with his ADLs. Per patient's at the bedside, he was his normal self this morning but was altered at around noon when family went to check on him. states patient would not respond to her when talking to him. No falls or LOC. patient was still ambulatory during his altered state. Patient's called son to assist. Son called EMS. further state the patient was complaining of abdominal pain and shortness of breath while he was altered and while he was in the ED. currently, patient denies any shortness of breath, abdominal pain, chest pain, or any recent changes in activity. His only complaint is intermittent ?stomach problems? which she describes as aching in the epigastric area. further endorses intermittent rectal bleeding (not currently) she describes as bright red. No pain is associated with these bleeding episodes. They are both unsure if he has hemorrhoids. Patient has a new patient appointment with [facility]. ED course: Patient was complaining of shortness of breath and had an anxious affect in the ED. patient home does of lorazepam 0.5 mg was given with resolution of agitation symptoms. EKG on arrival to ED has muscle movement artifact but no ST changes. Initial vital signs BP 154/102, HR 95, respirations 22, 97.8? F, O2 sat 99% on RA. CBC reveals no leukocytosis, anemia patient's baseline, D-dimer 1.73, sodium 125 (slightly below patient's baseline hyponatremia), BNP 472, UA with 1+ protein, trace ketones. Viral PCR negative. Blood cultures drawn Head neck CTA revealed no acute intracranial findings, no ICA stenosis or other acute arterial abnormality, no large vessel occlusive disease, and no aneurysms. CT chest abdomen pelvis with contrast reveals no acute process in the chest abdomen or pelvis. Reads mild cystitis. Moderate fecal content noted in colon. Review of Systems Review of Systems: All systems reviewed & are unremarkable except as noted in HPI and below PMFSH Past Medical History Medical History (Updated 07/06/25 @ 23:14 by Oly Berrios APRN) Hyponatremia Heart failure with reduced ejection fraction HTN (hypertension) BPH (benign prostatic hyperplasia) Hiatal hernia Bilateral inguinal hernia Tremor of both hands B12 deficiency DILCIA (generalized anxiety disorder) CIDP (chronic inflammatory demyelinating polyneuropathy) Hypothyroid Neuropathy H/O gastroesophageal reflux (GERD) Thyroid disease High cholesterol Anxiety and depression Surgical History Surgical History History of colonoscopy at least 10-15 years ago per patient's History of left knee replacement Family History Family History Father Malignant neoplasm of prostate Mother Stomach cancer Social History Social History Social History: Surrogate medical decision maker: Valeria Cloud, spouse. Code status: Full code. Smoking status: Never smoker Alcohol intake: never Substance use: never Do You Feel Safe in your Home?: Yes Lack of Transportation: No Lack of Food: Never True Current Housing: I Have Housing Concerned About Future Housing: No Difficulty Paying Gas/Electric Bills: No Difficulty Paying for Meds: No Currently Unemployed: No Education: Trade/Vocational Certificate Difficulty w/ Childcare or Family Care: No Living arrangements: with family Occupation/Education: retired Spiritual care concerns: No Meds Home Medications and Allergies Home Medications ?Medication ?Instructions ?Recorded ?Confirmed ?Type atorvastatin 10 mg tablet 10 mg PO HS 10/10/23 07/06/25 History bimatoprost 0.01 % eye drops 1 drp EACH EYE HS 10/10/23 07/06/25 History (Lumigan) calcium carbonate 500 mg PO DAILY Indigestion 10/10/23 07/06/25 History cholecalciferol (vitamin D3) 50 50 mcg PO DAILY 10/10/23 07/06/25 History mcg (2,000 unit) tablet coQ10 (ubiquinol) 100 mg capsule 100 mg PO DAILY 10/10/23 07/06/25 History cyanocobalamin (vitamin B-12) 2,500 mcg PO DAILY 10/10/23 07/06/25 History 1,000 mcg tablet cyclosporine 0.05 % eye drops 1 drp EACH EYE BID 10/10/23 07/06/25 History levothyroxine 50 mcg tablet 50 mcg PO QAM 10/10/23 07/06/25 History pantoprazole 40 mg tablet,delayed 40 mg PO DAILY 10/10/23 07/06/25 History release sennosides 8.6 mg tablet (senna) 8.6 mg PO HS 10/10/23 07/06/25 History carboxymethylcellulose sodium 0.25 1 drp EACH EYE BID 04/15/24 07/06/25 History % eye drops (TheraTears) memantine 5 mg tablet 5 mg PO Q12H 04/15/24 07/06/25 History citalopram 20 mg tablet 20 mg PO Q12H 06/30/24 07/06/25 History melatonin 5 mg tablet 5 mg PO HS Sleep 07/30/24 07/06/25 History indomethacin 50 mg capsule 50 mg PO TID 7 days #21 caps 11/13/24 07/06/25 Rx lorazepam 0.5 mg tablet 0.5 mg PO ,15,21 #90 tabs 06/11/25 07/06/25 Rx levofloxacin 750 mg tablet 750 mg PO DAILY 7 days #7 tabs 06/23/25 07/06/25 Rx citalopram 40 mg tablet 40 mg PO DAILY 07/06/25 07/06/25 History ferrous sulfate 325 mg (65 mg 325 mg PO DAILY 07/06/25 07/06/25 History iron) tablet (Iron (ferrous sulfate)) lisinopril 20 mg tablet 20 mg PO DAILY 07/06/25 07/06/25 History Allergies Allergy/AdvReac Type Severity Reaction Status Date / Time No Known Allergies Allergy Verified 06/11/25 10:15 Vital Signs Vital Signs - 24 hr 07/06/25 12:49 07/06/25 12:57 07/06/25 13:00 Temperature 97.8 F Pulse Rate 95 99 Respiratory Rate 22 H 24 H Blood Pressure 154/102 H 166/83 H Pulse Oximetry 99 100 Oxygen Delivery Room Air Room Air 07/06/25 14:00 07/06/25 15:00 07/06/25 15:45 Temperature 98.2 F Pulse Rate 91 89 92 Respiratory Rate 22 H 24 H 20 Blood Pressure 160/95 H 158/78 H Pulse Oximetry 100 100 Oxygen Delivery 07/06/25 15:52 07/06/25 15:56 07/06/25 16:31 Temperature 97.6 F Pulse Rate 94 96 89 Respiratory Rate 20 24 H 20 Blood Pressure 159/93 H 152/80 H Pulse Oximetry 100 100 Oxygen Delivery 07/06/25 17:12 07/06/25 18:00 Temperature Pulse Rate 78 Respiratory Rate Blood Pressure Pulse Oximetry Oxygen Delivery Room Air Exam Narrative: GENERAL: Frail appearing, in no acute distress. HEAD: Normocephalic, atraumatic. EYES: PERRLA. Conjunctivae clear. NOSE: Normal no drainage. THROAT: Pharynx clear, no exudate. NECK: Trachea midline. No adenopathy, no masses. RESPIRATORY: Airway patent, respirations nonlabored. CTA. CARDIOVASCULAR: Regular rate and rhythm without murmurs, rubs, or gallops. Trace edema to bilateral lower extremities GASTROINTESTINAL: Abdomen is soft and nontender. No organomegaly. Bowel sounds normal in all quadrants. MUSCULOSKELETAL: Moves all extremities. No gross deformities. No calf tenderness. SKIN: Warm, dry. Scattered ecchymoses NEURO: A&OX4. Speech clear. Fine tremor noted to bilateral hands PSYCHIATRIC: Normal interaction H&P: Results Labs Labs: Short CBC 07/06/25 Range/Units 13:23 WBC 9.9 (4.5-10.0) K/mm3 Hgb 10.7 L (14.0-18.0) g/dL Hct 33.0 L (42.0-52.0) % Plt Count 262 (150-375) k/mm3 BMP 07/06/25 13:23 Sodium 125 L Potassium 4.6 Chloride 95 L Carbon Dioxide 23 BUN 14 D Creatinine 0.91 Glucose 111 H Calcium 9.6 Liver Function 07/06/25 Range/Units 13:23 Total Bilirubin 0.7 (0.2-1.3) mg/dL AST 46 (17-59) U/L ALT 33 (6-50) U/L Alkaline Phosphatase 88 (38-126) U/L Albumin 4.4 (3.5-5.1) g/dL Urine 07/06/25 Range/Units 13:23 Urine Color Yellow (Yellow) Urine Appearance Clear (Clear) Urine pH 8.5 (5.0-9.0) Ur Specific [place] 1.013 (1.001-1.035) Urine Protein 1+ H (Negative) mg/dL Urine Glucose (UA) Negative (Negative) mg/dL Assessment and Plan Assessment and plan (1) Acute confusion: Code(s): R41.0 - Disorientation, unspecified Status: Acute Assessment and Plan: Altered mental status noticed by family. Baseline A&O x4 and independent in ADLs. Symptoms since resolved with no deficit. Head neck CTA revealed no acute intracranial findings, no ICA stenosis or other acute arterial abnormality, no large vessel occlusive disease, and no aneurysms. Sodium 125 which is slightly below patient's baseline hyponatremia. -consider TIA -neurology consult -echo with bubble study -lipid panel -brain MRI with and without -A1c -neuro checks q.4 -heart healthy diet -PT/OT to eval if CVA is confirmed -up with assist -consider Holter monitor at discharge -on atorvastatin 10 mg at home (2) Acute respiratory distress: Code(s): R06.03 - Acute respiratory distress Status: Acute Assessment and Plan: Patient complained of shortness of breath at home and in ED. O2 saturation stable on room air. CT chest abdomen pelvis with contrast reveals no acute process in the chest abdomen or pelvis. D-dimer elevated at 1.73 negative when adjusted for age. -with no evidence of acute pulmonary process, likely related to patient's anxiety disorder. Symptoms resolved after administration of of lorazepam 0.5 mg in the ED -continue home dose lorazepam -citalopram 40 mg daily and 20 mg Q 12 (3) Hyponatremia: Code(s): E87.1 - Hypo-osmolality and hyponatremia Status: Chronic Assessment and Plan: Chronically hyponatremic. Na 125 on admit. Baseline about 130. Could be contributing to AMS -Q 4 neuro checks -trend electrolytes -Giving 1 L of NS wtih hx of CHF. Monitor tolerance (4) Anxiety and depression: Code(s): F41.9 - Anxiety disorder, unspecified; F32.A - Depression, unspecified Status: Chronic Assessment and Plan: Symptoms of agitation in the ED resolved with administration of home dose lorazepam. No concern for withdrawal as patient has been taking regularly. -continue home lorazepam 0.5 mg t.i.d. -citalopram 40 mg daily and 20 mg q.12 Plan Diet: Heart healthy GI prophylaxis: Pantoprazole 40 mg daily DVT prophylaxis: SCDs lines/drains: PIV Fluids: No fluid in the ED Code status: Full Quality VTE Prophylaxis VTE prophylaxis: mechanical ordered Hospitalist MIPS Advance Care Plan I have confirmed that the patient's Advanced Care Plan is present, code status is documented, or surrogate decision maker is listed in patient medical record.: Yes Medication Reconciliation I have utilized all available resources to obtain, update and review the patients current medications (includes all prescriptions, OTC, herbals, cannabis, and nutritional supplements).: Yes
[2025-07-06 20:29] LABS: Troponin I 0.029 ng/mL (0.000-0.034)
[2025-07-06] MEDS: SENNOSIDES 8.6 MG TABLET PO (21:35)
[2025-07-06] MEDS: ATORVASTATIN 10 MG TABLET PO (21:35)
[2025-07-06] MEDS: MELATONIN 5 MG TABLET PO (21:35)
[2025-07-06] MEDS: MEMANTINE 5 MG TABLET PO (21:42)
[2025-07-07] VITALS (11 sets, daily range): BP systolic 134–176; BP diastolic 63–76; PULSE 58–81; RESP 14–18; TEMP 36.2–37.3; O2SAT 98–100
--- NOTE | 2025-07-07 | ECHO_ITS ---
Patient Info Name: Linwood Cloud Age: 85 years : 1940 Gender: Male Ht: 70 in Wt: 142 lbs BSA: 1.78 m2 HR: 69 bpm BP: 137 / 73 mmHg Heart Rhythm: Sinus Rhythm Technical Quality: Fair Exam Date: 07/07/2025 9:38 AM Patient Status: I Admit Date: 07/06/2025 Exam Type: CA echo doppler w bubble study Complete two-dimensional, color flow and Doppler transthoracic echocardiogram is performed with agitated saline. Staff Referring Physician: Oly Berrios Cement Mason Maintenance: Kumar Jones III Attending Provider: Pipo Gardiner Contrast/Agitated Saline Contrast/Ag. Saline: Agitated Saline Amount: 12.00 ml Administered By: Kumar Jones III Existing IV Access: Yes IV Access Condition: patent with no signs of infiltration Summary 1. Normal left ventricular size, posterior hypokinesia overall ejection fraction 45-50%. 2. Grade 1 diastolic noncompliance. 3. Mildly sclerotic aortic valve with well maintained leaflet separation. 4. Agitated saline contrast injection was negative for shunting. 5. Compared to examination from May of 2024 there are no significant changes. Left Ventricle Left ventricular chamber dimension is normal. Left ventricular systolic function is mildly reduced, estimated at 45-50. The left ventricular diastolic function is grade I diastolic dysfunction. Right Ventricle Right ventricular chamber dimension is normal. Left Atria Left atrial chamber dimension is normal. Right Atria Right atrial chamber dimension is normal. Aortic Valve The aortic valve is trileaflet. There is mild aortic valve sclerosis. Pulmonic Valve The pulmonic valve is not well visualized. Mitral Valve The mitral valve has normal leaflets. Tricuspid Valve The tricuspid valve leaflets are normal. There is trace tricuspid valve regurgitation. Pericardium/Pleural The pericardium appears normal. Aorta The aortic root size at the sinus of Valsalva is normal. Left Ventricular Outflow Tract Name Value Normal LVOT 2D LVOT Diameter 2.4 cm LVOT Doppler LVOT Peak Velocity 85 cm/s LVOT Peak Gradient 3 mmHg LVOT Mean Gradient 2 mmHg LVOT VTI 17 cm LVOT VTI/AV VTI Ratio 0.7 LVOT Stroke Volume 81 ml LVOT CO 5.8 l/min LVOT CI 3.3 l/min/m2 Pulmonic Valve Name Value Normal PV Doppler PV Peak Velocity 96 cm/s PV Peak Gradient 4 mmHg PV Mean Gradient 2 mmHg Mitral Valve Name Value Normal MV Doppler MV Peak Gradient 7 mmHg MV Mean Gradient 2 mmHg MV Area (Cont Eq VTI) 2.6 cm2 MV Diastolic Function MV E Peak Velocity 83 cm/s MV A Peak Velocity 124 cm/s MV E/A 0.7 MV Decel Time (PW) 155 ms MV Annular TDI MV E/e' (Septal) 10.6 MV E/e' (Lateral) 11.5 MV E/e' (Average) 11.1 Tricuspid Valve Name Value Normal TV Annular TDI TV Lateral Kyung s' Velocity 17.9 cm/s >=9.5 Aortic Valve Name Value Normal AV Doppler AV Peak Velocity 135 cm/s AV Peak Gradient 7 mmHg AV Mean Gradient 4 mmHg AV VTI 26 cm AV Area (Cont Eq VTI) 3.1 cm2 >=3.0 AV Area (Cont Eq Zeeshan) 3.0 cm2 AV DI (Zeeshan) 0.63 AV Regurgitation 2D LVOT Area 4.7 cm2 Ventricles Name Value Normal LV Dimensions 2D/MM IVS Diastolic Thickness (2D) 0.9 cm 0.6-1.0 LVID Diastole (2D) 4.5 cm 4.2-5.8 LVIW Diastolic Thickness (2D) 0.8 cm 0.6-1.0 LVID Systole (2D) 3.3 cm 2.5-4.0 LVOT Diameter 2.4 cm LV Mass (2D Cubed) 128.14 g 88.00-224.00 LV Mass Index (2D Cubed) 72 g/m2 49-115 Relative Wall Thickness (2D) 0.37 <=0.42 LV Fractional Shortening/Ejection Fraction 2D/MM LV Fractional Shortening (2D) 26 % 25-43 LV EF (2D Teichholz) 52 % LV Diastolic Volume (4C MOD) 64 ml LV EF (4C MOD) 55 % LV Diastolic Volume (2C MOD) 75 ml LV EF (2C MOD) 40 % LV Diastolic Volume (BP MOD) 70 ml 62-150 LV Diastolic Volume Index (BP MOD) 40 ml/m2 34-74 LV Systolic Volume (BP MOD) 37 ml 21-61 LV Systolic Volume Index (BP MOD) 21 ml/m2 11-31 LV EF (BP MOD) 48 % 52-72 LV Diastolic Length (4C) 7.6 cm LV Systolic Length (4C) 6.0 cm LV Stroke Volume (4C MOD) 35 ml Atria Name Value Normal LA Dimensions LA Volume (4C A-L) 69 ml LA Volume (BP A-L) 64 ml RA Dimensions RA Systolic Major [place] Length (4C) 5.5 cm 2.1-2.7 RA Area (4C) 16.6 cm2 <=18.0 Report Signatures
[2025-07-07] MEDS: SODIUM CHLORIDE 0.9% IV 1,000 ML 75 ML IV CONT (00:21)
[2025-07-07 04:18] LABS: Hematocrit 31.0 % (42.0-52.0); Hemoglobin 9.8 g/dL (14.0-18.0); Mean Corpuscular HGB Conc 31.6 g/dl (32-36); Mean Corpuscular Hemoglobin 28.7 pg (26-34); Mean Corpuscular Volume 90.6 fl (80-100); Platelet Count Result 249 k/mm3 (150-375); Red Blood Count 3.42 M/mm3 (4.6-6.20); White Blood Count 6.2 K/mm3 (4.5-10.0)
[2025-07-07 04:30] LABS: Anion Gap 6 mmol/L (4-12); Blood Urea Nitrogen 15 mg/dL (9-20); Calcium 9.1 mg/dL (8.4-10.2); Carbon Dioxide 25 mmol/L (22-30); Chloride 97 mmol/L (98-107); Cholesterol 155 mg/dL (0-200); Estimated CRCL calculation 44 ml/min; Estimated Glomerular Filt Rate > 60; Glucose 98 mg/dL (65-110); HDL Direct 45 mg/dL; Potassium 4.3 mmol/L (3.4-5.0); Sodium 128 mmol/L (137-145); Triglycerides 57 mg/dL (<150)
[2025-07-07 04:36] LABS: Hemoglobin A1C 5.5 % (<5.7)
[2025-07-07] MEDS: LEVOTHYROXINE SODIUM 50 MCG TABLET PO (05:40)
[2025-07-07] MEDS: CITALOPRAM HYDROBROMIDE 20 MG TABLET 40 MG PO (08:20)
[2025-07-07] MEDS: CALCIUM CARBONATE (TUMS) 500 MG (200 MG ELEMENTAL) PO (08:21)
[2025-07-07] MEDS: cycloSPORINE 0.4 ML OPHTH SOLUTION 1 DROP EACH EYE ×2 (08:21→21:32)
[2025-07-07] MEDS: LORazepam (*CRX) 0.5 MG TABLET PO ×3 (08:21→21:33)
[2025-07-07] MEDS: PANTOPRAZOLE 40 MG TABLET PO (08:21)
[2025-07-07] MEDS: CHOLECALCIFEROL (VITAMIN D3) 25 MCG (1,000 UNITS) TABLET 50 MCG PO (08:22)
[2025-07-07] MEDS: CYANOCOBALAMIN 1,000 MCG TABLET 2000 MCG PO (08:22)
[2025-07-07] MEDS: CYANOCOBALAMIN 500 MCG TABLET PO (08:22)
[2025-07-07] MEDS: MEMANTINE 5 MG TABLET PO ×2 (10:27→21:33)
[2025-07-07] MEDS: INDOMETHACIN 25 MG CAPSULE 50 MG PO ×3 (10:27→19:34)
[2025-07-07] MEDS: FERROUS SULFATE 325 MG TABLET BY MOUTH (10:27)
[2025-07-07 10:51] LABS: Total Protein Urine Random 20 mg/dL; Ur Ttl Prot Creatinine Ratio 0.28 mg/mg (0-0.20)
--- NOTE | 2025-07-07 18:26 | P.PNIM_ITS ---
Progress Note: A&P Assessment and Plan (1) Acute confusion: Code(s): R41.0 - Disorientation, unspecified Status: Acute Assessment and Plan: Altered mental status noticed by family. Baseline A&O x4 and independent in ADLs. Symptoms since resolved with no deficit. Head neck CTA revealed no acute intracranial findings, no ICA stenosis or other acute arterial abnormality, no large vessel occlusive disease, and no aneurysms. Sodium 125 which is slightly below patient's baseline hyponatremia. -consider TIA -neurology consult -echo with bubble study -lipid panel -brain MRI with and without -A1c -neuro checks q.4 -heart healthy diet -PT/OT to eval if CVA is confirmed -up with assist -consider Holter monitor at discharge -on atorvastatin 10 mg at home (2) Acute respiratory distress: Code(s): R06.03 - Acute respiratory distress Status: Acute Assessment and Plan: Patient complained of shortness of breath at home and in ED. O2 saturation stable on room air. CT chest abdomen pelvis with contrast reveals no acute process in the chest abdomen or pelvis. D-dimer elevated at 1.73 negative when adjusted for age. -with no evidence of acute pulmonary process, likely related to patient's anxiety disorder. Symptoms resolved after administration of of lorazepam 0.5 mg in the ED -continue home dose lorazepam -citalopram 40 mg daily and 20 mg Q 12 (3) Hyponatremia: Code(s): E87.1 - Hypo-osmolality and hyponatremia Status: Chronic Assessment and Plan: Chronically hyponatremic. Na 125 on admit. Baseline about 130. Could be contributing to AMS -Q 4 neuro checks -trend electrolytes -Giving 1 L of NS wtih hx of CHF. Monitor tolerance (4) Anxiety and depression: Code(s): F41.9 - Anxiety disorder, unspecified; F32.A - Depression, unspecified Status: Chronic Assessment and Plan: Symptoms of agitation in the ED resolved with administration of home dose lorazepam. No concern for withdrawal as patient has been taking regularly. -continue home lorazepam 0.5 mg t.i.d. -citalopram 40 mg daily and 20 mg q.12 Plan patient mental status has improved and he is now his baseline as and morteza ghters are present in the room, CT scan of the head, neck, chest, abdomen and pelvics are normal, as well his ECHO has is stable, currently EF is 45% which understand is similar to his last echo, will have PT/OT evaluate and further recommendation to follow. Diet: Heart healthy GI prophylaxis: Pantoprazole 40 mg daily DVT prophylaxis: SCDs lines/drains: PIV Fluids: No fluid in the ED Code status: Full Subjective Date/time seen: 07/07/25 18:26 Interval history: Altered mental status H&P-Narrative: 85 old male with past history of HFrEF, HTN, BPH, tremor both hands, GED,CIDP (chronic inflammatory demyelinating polyneuropathy), hypothyroidism, neuropathy, GERD, hyperlipidemia presented to the ED from home on 07/06/2025 with complaint of altered mental status noticed by family. Baseline mentation is A&Ox4 and patient is independent with his ADLs. Per patient's at the bedside, he was his normal self this morning but was altered at around noon when family went to check on him. states patient would not respond to her when talking to him. No falls or LOC. patient was still ambulatory during his altered state. Patient's called son to assist. Son called EMS. further state the patient was complaining of abdominal pain and shortness of breath while he was altered and while he was in the ED. currently, patient denies any shortness of breath, abdominal pain, chest pain, or any recent changes in activity. His only complaint is intermittent ?stomach problems? which she describes as aching in the epigastric area. further endorses intermittent rectal bleeding (not currently) she describes as bright red. No pain is associated with these bleeding episodes. They are both unsure if he has hemorrhoids. Patient has a new patient appointment with [facility]. patient mental status has improved and he is now his baseline as and daughters are present in the room, CT scan of the head, neck, chest, abdomen and pelvics are normal, as well his ECHO has is stable, currently EF is 45% which understand is similar to his last echo, will have PT/OT evaluate and further recommendation to follow. Review of Systems Review of Systems: All systems reviewed & are unremarkable except as noted in HPI and below Exam Narrative: Patient is comfortable, NAD HEENT: eyes are clear and none icteric LUNGS:CTA HEART: RR S1S2 ABD: BS+, Soft and nontender Lower extremities: no edema SKIN: nonjaundiced Neuro: grossly intact. Objective Data Vital Signs Vital Signs: Vital Signs - 24 hr 07/06/25 20:00 07/06/25 20:00 07/06/25 22:00 Temperature 36.8 C Pulse Rate 73 72 68 Respiratory Rate 20 Blood Pressure 122/70 Pulse Oximetry 99 Oxygen Delivery 07/06/25 23:37 07/07/25 00:00 07/07/25 02:00 Temperature 36.5 C Pulse Rate 66 62 58 L Respiratory Rate 16 Blood Pressure 119/65 Pulse Oximetry 100 Oxygen Delivery 07/07/25 04:00 07/07/25 04:00 07/07/25 06:00 Temperature 36.7 C Pulse Rate 65 62 69 Respiratory Rate 16 Blood Pressure 137/73 Pulse Oximetry 100 Oxygen Delivery 07/07/25 08:00 07/07/25 08:00 07/07/25 08:00 Temperature 37.3 C Pulse Rate 74 74 Respiratory Rate 18 Blood Pressure 134/63 Pulse Oximetry 100 Oxygen Delivery Room Air 07/07/25 09:48 07/07/25 11:17 07/07/25 11:29 Temperature 36.7 C Pulse Rate 72 70 Respiratory Rate 18 Blood Pressure 176/76 H Pulse Oximetry 100 Oxygen Delivery Room Air 07/07/25 12:00 07/07/25 16:00 Temperature 36.2 C L Pulse Rate 81 63 Respiratory Rate 14 Blood Pressure 134/71 Pulse Oximetry 98 Oxygen Delivery Intake/Output Intake/Output: Intake & Output 07/04/25 07/05/25 07/06/25 07/07/25 23:59 23:59 23:59 23:59 Intake Total 440 755 Output Total 200 850 Balance 240 -95 Meds/Results Medications: Active Medications Generic Name Dose Route Start Last Admin Trade Name Freq PRN Reason Stop Dose Admin Artificial Tears 1 drop 07/07/25 09:00 07/07/25 08:23 Artificial Tears Ophth Soln 15 Ml Bottle EACH EYE Not Given Q12HR LUCILLE Atorvastatin Calcium 10 mg 07/06/25 21:00 07/06/25 21:35 Atorvastatin 10 Mg Tablet PO 10 mg HS LUCILLE Administration Calcium Carbonate 500 mg 07/07/25 09:00 07/07/25 08:21 Calcium Carbonate (Tums) 500 Mg (200 Mg Elemental) PO 500 mg DAILY LUCILLE Administration Citalopram Hydrobromide 40 mg 07/07/25 09:00 07/07/25 08:20 Citalopram Hydrobromide 20 Mg Tablet PO 40 mg DAILY LUCILLE Administration Cyanocobalamin 2,000 mcg 07/07/25 09:00 07/07/25 08:22 Cyanocobalamin 1,000 Mcg Tablet PO 2,000 mcg QAM LUCILLE Administration Cyanocobalamin 500 mcg 07/07/25 09:00 07/07/25 08:22 Cyanocobalamin 500 Mcg Tablet PO 500 mcg DAILY LUCILLE Administration Cyclosporine 1 drop 07/07/25 09:00 07/07/25 08:21 Cyclosporine 0.4 Ml Ophth Solution EACH EYE 1 drop Q12HR LUCILLE Administration Ferrous Sulfate 325 mg 07/07/25 12:00 07/07/25 10:27 Ferrous Sulfate 325 Mg Tablet BY MOUTH 325 mg DAILY@1200 LUCILLE Administration Indomethacin 50 mg 07/07/25 09:00 07/07/25 12:52 Indomethacin 25 Mg Capsule PO 50 mg TID LUCILLE Administration Latanoprost 1 drop 07/07/25 21:00 Latanoprost 0.005% Op Soln 2.5 Ml Btl EACH EYE HS LUCILLE Levothyroxine Sodium 50 mcg 07/07/25 06:30 07/07/25 05:40 Levothyroxine Sodium 50 Mcg Tablet PO 50 mcg DAILY@0630 LUCILLE Administration Lisinopril 20 mg 07/07/25 09:00 07/07/25 08:22 Lisinopril 20 Mg Tablet PO 20 mg DAILY LUCILLE Administration Lorazepam 0.5 mg 07/06/25 21:00 07/07/25 15:01 Lorazepam (*Crx) 0.5 Mg Tablet PO 0.5 mg 0800,1500,2100 LUCILLE Administration Melatonin 5 mg 07/06/25 21:00 07/06/25 21:35 Melatonin 5 Mg Tablet PO 5 mg HS LUCILLE Administration Memantine 5 mg 07/06/25 21:00 07/07/25 10:27 Memantine 5 Mg Tablet PO 5 mg Q12HR LUCILLE Administration Pantoprazole Sodium 40 mg 07/07/25 09:00 07/07/25 08:21 Pantoprazole 40 Mg Tablet PO 40 mg DAILY LUCILLE Administration Perflutren Lipid Microsphere 0 ml 07/06/25 22:45 Perflutren Lipid Microspheres 1.5 Ml Vial Diluted To 10 Ml Total Volume IV PUSH 07/09/25 22:47 ONCE PRN adequate visualization Protocol Senna 8.6 mg 07/06/25 21:00 07/06/25 21:35 Sennosides 8.6 Mg Tablet PO 8.6 mg HS LUCILLE Administration Vitamin D 50 mcg 07/07/25 09:00 07/07/25 08:22 Cholecalciferol (Vitamin D3) 25 Mcg (1,000 Units) Tablet PO 50 mcg DAILY LUCILLE Administration Radiology Results: ITS Impressions Head/Neck CTA 07/06/25 14:19 IMPRESSION: CT HEAD: 1. No acute intracranial findings. CTA NECK: 1. No ICA stenosis or other acute arterial abnormality. CTA HEAD: 1. No large vessel arterial occlusive disease or other acute findings. 2. No aneurysms. Chest/Abdomen/Pelvis CT 07/06/25 14:29 IMPRESSION: 1. No acute process in the chest. No acute process in the abdomen or pelvis. 2. Mild cystitis. 3. Incidental findings above Labs Labs: Laboratory Results - last 24 hr 07/06/25 07/07/25 07/07/25 19:56 04:09 07:51 WBC 6.2 RBC 3.42 L Hgb 9.8 L Hct 31.0 L MCV 90.6 MCH 28.7 MCHC 31.6 L RDW 13.7 Plt Count 249 MPV 9.3 Sodium 128 L Potassium 4.3 Chloride 97 L Carbon Dioxide 25 Anion Gap 6 BUN 15 Creatinine 0.99 Estim Creat Clear Calc 44 Estimated GFR > 60 Glucose 98 Hemoglobin A1c 5.5 Calcium 9.1 Troponin I 0.029 Triglycerides 57 Cholesterol 155 LDL Cholesterol Direct 78 HDL Direct 45 U Random Total Protein 20 Ur Random Sodium 81 Urine Creatinine 72.4 Protein/Creat Ratio 2 07/07/25 07:51 WBC RBC Hgb Hct MCV MCH MCHC RDW Plt Count MPV Sodium Potassium Chloride Carbon Dioxide Anion Gap BUN Creatinine Estim Creat Clear Calc Estimated GFR Glucose Hemoglobin A1c Calcium Troponin I Triglycerides Cholesterol LDL Cholesterol Direct HDL Direct U Random Total Protein Ur Random Sodium Urine Creatinine 73.9 Protein/Creat Ratio 2 0.28 H Quality VTE Prophylaxis VTE prophylaxis: mechanical ordered
[2025-07-07] MEDS: ATORVASTATIN 10 MG TABLET PO (21:32)
[2025-07-07] MEDS: MELATONIN 5 MG TABLET PO (21:33)
[2025-07-07] MEDS: SENNOSIDES 8.6 MG TABLET PO (21:33)
[2025-07-07] MEDS: LATANOPROST 0.005% OP SOLN 2.5 ML BTL 1 DROP EACH EYE (22:01)
[2025-07-07] MEDS: ARTIFICIAL TEARS OPHTH SOLN 15 ML BOTTLE 1 DROP EACH EYE (22:01)
[2025-07-08] VITALS (8 sets, daily range): BP systolic 123–174; BP diastolic 63–86; PULSE 56–85; RESP 16–18; TEMP 36.3–36.9; O2SAT 96–99; BMI 22.1
[2025-07-08] MEDS: LEVOTHYROXINE SODIUM 50 MCG TABLET PO (06:01)
[2025-07-08] MEDS: MEMANTINE 5 MG TABLET PO ×2 (08:39→21:17)
[2025-07-08] MEDS: CHOLECALCIFEROL (VITAMIN D3) 25 MCG (1,000 UNITS) TABLET 50 MCG PO (08:39)
[2025-07-08] MEDS: INDOMETHACIN 25 MG CAPSULE 50 MG PO ×3 (08:39→16:33)
[2025-07-08] MEDS: CYANOCOBALAMIN 500 MCG TABLET PO (08:39)
[2025-07-08] MEDS: PANTOPRAZOLE 40 MG TABLET PO (08:39)
[2025-07-08] MEDS: LORazepam (*CRX) 0.5 MG TABLET PO ×3 (08:39→21:16)
[2025-07-08] MEDS: CYANOCOBALAMIN 1,000 MCG TABLET 2000 MCG PO (08:40)
[2025-07-08] MEDS: CITALOPRAM HYDROBROMIDE 20 MG TABLET 40 MG PO (08:40)
[2025-07-08] MEDS: CALCIUM CARBONATE (TUMS) 500 MG (200 MG ELEMENTAL) PO (08:40)
[2025-07-08] MEDS: ARTIFICIAL TEARS OPHTH SOLN 15 ML BOTTLE 1 DROP EACH EYE ×2 (08:43→21:19)
[2025-07-08] MEDS: cycloSPORINE 0.4 ML OPHTH SOLUTION 1 DROP EACH EYE ×2 (08:44→21:19)
[2025-07-08] MEDS: FERROUS SULFATE 325 MG TABLET BY MOUTH (13:15)
--- NOTE | 2025-07-08 17:11 | WPDNEURCNPN ---
Assessment and Plan Assessment and plan (1) TIA (transient ischemic attack): Code(s): G45.9 - Transient cerebral ischemic attack, unspecified Status: Acute Assessment and Plan: close differential diagnosis of this condition with partial complex seizure. The patient was able to give me a very good description and his was also at home give her part of it. his son was also present at home at the time when this happened. He did not have any tongue biting or incontinence or any fall or any injury however is staring blankly he could not communicate. Even prior to that his has noted that he was not talking she normally does. There was a lapse in his awareness which does raise possibility of partial complex seizure. This went on for several minutes before it finally ended and he was able to talk and walk everything by the time the EMS has arrived. This would raise possibility of ischemic attack versus partial complex seizure. The patient is on cardiac monitoring. CT angiogram head and neck was performed which did not show any abnormality. He serum sodium was also low at 1:25 a.m.. (2) CIDP (chronic inflammatory demyelinating polyneuropathy): Code(s): G61.81 - Chronic inflammatory demyelinating polyneuritis Status: Chronic Assessment and Plan: The patient is under care of a neurologist in [place] and is on IVIG infusion every 6 weeks . Last treatment was 1 week prior to the above spell. (3) Parkinsons disease: Code(s): G20.A1 - Parkinson's disease without dyskinesia, without mention of fluctuations Status: Acute Assessment and Plan: Patient is resting parkinsonian-type tremor and mild cogwheeling. (4) Bilateral foot-drop: Code(s): M21.371 - Foot drop, right foot; M21.372 - Foot drop, left foot Status: Acute Assessment and Plan: the patient has braces for both sides. This is part of the CIDP. Plan The patient had a CT angiogram of the head and neck and CT scan of brain on admission which did not show any significant abnormality. MRI of the brain was performed today which also did not show any significant abnormal findings. MRI shows atrophy in the dull and temporal lobe area. No infarctions. Minimal white matter changes were seen. I would suggest an EEG and continue the cardiac monitoring. Echocardiogram was performed which shows ejection fraction of 45-50%. No other significant abnormalities were described. EKG shows sinus rhythm. I have explained the findings the patient and his . I would not suggest empiric anticonvulsant however if he has any further spell that could be a consideration. An EEG results will be followed up. I have given them my phone number to contact my office and probably be followed up in 4-6 weeks time. Of course if he has any further spells should come to emergency room right away. Reviewed his labs reviewed it is globe is low at 9.8. WBC and platelet count were normal. His serum sodium was 128 this morning. BUN creatinine were normal. Hemoglobin A1c was 5.5. His LDL was 78. We can add aspirin 81 mg a day to his treatment aging. I will be glad to see him follow-up with results of further Holter monitoring and EEG in 4-6 weeks time. Consult date: 07/08/25 HPI: Linwood Cloud is a 85 year old male came in after having a spell at home where he was not responding for while. According to history obtained from his who was present here that gone out and he was driving and the patient states that today he was not feeling well and he thought that he should not be driving but anyway he managed to get to home. When he went to bathroom something happened and he was unable to talk or communicate with anyone and his son came there and he brought him to the so far. Although he did not have any jerking of the body he was staring blankly and did not respond to verbal commands for quite some time. They called EMS and by the time the EMS arrived he was getting back to the normal and he could get up and walk to the gurney to brought to the hospital. This has not happened before. Since he arrived he has not had any recurrence of the symptom. Also on cardiac monitoring and no cardiac arrhythmias have been reported. Patient denies any chest pain or palpitation. According to his he was flushed at the time and appeared to be sweaty. Review of Systems Review of Systems: Patient is known to have CIDP and Parkinson's disease. He follows with a Dr. Larson in [facility]. He receives IVIG every 6 weeks at [facility]. There is no prior history of stroke or myocardial infarction or seizure disorder or major head trauma. No other symptoms reported. All systems reviewed & are unremarkable except as noted in HPI and below PMFSH Past Medical History Medical History (Updated 07/08/25 @ 17:18 by Balta Adam MD) TIA (transient ischemic attack) Parkinsons disease Hyponatremia Heart failure with reduced ejection fraction HTN (hypertension) BPH (benign prostatic hyperplasia) Hiatal hernia Bilateral inguinal hernia Tremor of both hands B12 deficiency DILCIA (generalized anxiety disorder) CIDP (chronic inflammatory demyelinating polyneuropathy) Hypothyroid Neuropathy H/O gastroesophageal reflux (GERD) Thyroid disease High cholesterol Anxiety and depression Surgical History Surgical History History of colonoscopy at least 10-15 years ago per patient's History of left knee replacement Family History Family History Father Malignant neoplasm of prostate Mother Stomach cancer Social History Social History Social History: Surrogate medical decision maker: Valeria Duongfrancois, spouse. Code status: Full code. Smoking status: Never smoker Alcohol intake: never Substance use: never Do You Feel Safe in your Home?: Yes Lack of Transportation: No Lack of Food: Never True Current Housing: I Have Housing Concerned About Future Housing: No Difficulty Paying Gas/Electric Bills: No Difficulty Paying for Meds: No Currently Unemployed: No Education: Trade/Vocational Certificate Difficulty w/ Childcare or Family Care: No Living arrangements: with family Occupation/Education: retired Spiritual care concerns: No Meds Home Medications and Allergies Home Medications ?Medication ?Instructions ?Recorded ?Confirmed ?Type atorvastatin 10 mg tablet 10 mg PO HS 10/10/23 07/06/25 History bimatoprost 0.01 % eye drops 1 drp EACH EYE HS 10/10/23 07/06/25 History (Lumigan) calcium carbonate 500 mg PO DAILY Indigestion 10/10/23 07/06/25 History cholecalciferol (vitamin D3) 50 50 mcg PO DAILY 10/10/23 07/06/25 History mcg (2,000 unit) tablet coQ10 (ubiquinol) 100 mg capsule 100 mg PO DAILY 10/10/23 07/06/25 History cyanocobalamin (vitamin B-12) 2,500 mcg PO DAILY 10/10/23 07/06/25 History 1,000 mcg tablet cyclosporine 0.05 % eye drops 1 drp EACH EYE BID 10/10/23 07/06/25 History levothyroxine 50 mcg tablet 50 mcg PO QAM 10/10/23 07/06/25 History pantoprazole 40 mg tablet,delayed 40 mg PO DAILY 10/10/23 07/06/25 History release sennosides 8.6 mg tablet (senna) 8.6 mg PO HS 10/10/23 07/06/25 History carboxymethylcellulose sodium 0.25 1 drp EACH EYE BID 04/15/24 07/06/25 History % eye drops (TheraTears) memantine 5 mg tablet 5 mg PO Q12H 04/15/24 07/06/25 History citalopram 20 mg tablet 20 mg PO Q12H 06/30/24 07/06/25 History melatonin 5 mg tablet 5 mg PO HS Sleep 07/30/24 07/06/25 History indomethacin 50 mg capsule 50 mg PO TID 7 days #21 caps 11/13/24 07/06/25 Rx lorazepam 0.5 mg tablet 0.5 mg PO 08,15,21 #90 tabs 06/11/25 07/06/25 Rx levofloxacin 750 mg tablet 750 mg PO DAILY 7 days #7 tabs 06/23/25 07/06/25 Rx citalopram 40 mg tablet 40 mg PO DAILY 07/06/25 07/06/25 History ferrous sulfate 325 mg (65 mg 325 mg PO DAILY 07/06/25 07/06/25 History iron) tablet (Iron (ferrous sulfate)) lisinopril 20 mg tablet 20 mg PO DAILY 07/06/25 07/06/25 History Allergies Allergy/AdvReac Type Severity Reaction Status Date / Time No Known Allergies Allergy Verified 06/11/25 10:15 Vital Signs Vital Signs - 24 hr 07/07/25 20:00 07/07/25 20:00 07/07/25 20:35 Temperature 98.3 F Pulse Rate 71 66 71 Respiratory Rate 16 16 Blood Pressure 161/71 H Pulse Oximetry 98 98 Oxygen Delivery Room Air 07/08/25 00:00 07/08/25 00:30 07/08/25 04:00 Temperature 98.4 F Pulse Rate 56 L 83 59 L Respiratory Rate 18 Blood Pressure 174/86 H Pulse Oximetry 99 Oxygen Delivery 07/08/25 05:15 07/08/25 08:00 07/08/25 08:00 Temperature 97.3 F L Pulse Rate 66 85 Respiratory Rate 18 Blood Pressure 154/77 H Pulse Oximetry 99 Oxygen Delivery Room Air 07/08/25 15:34 07/08/25 16:00 Temperature 97.4 F L Pulse Rate 70 63 Respiratory Rate 18 Blood Pressure 126/76 Pulse Oximetry 99 Oxygen Delivery Exam Const: General: cooperative and comfortable HENMT: Head: atraumatic Mouth: Yes oropharynx normal Eyes: Alignment and Position: alignment normal and position normal Pupils: Equal, round and reactive pupils present EOM: EOMs intact bilaterally Neck: Neck: normal visual inspection and supple Resp: Effort & Inspection: normal respiratory effort Cardio: Heart sounds: S1 normal heart sound present and S2 normal heart sound present Skin: General skin exam: normal color Neuro: Cranial nerves: Yes CN's II-XII intact bilaterally, Yes facial symmetry and Yes Midline tongue present Cognition (Neuro): normal cognition Speech: normal speech Motor exam (neuro): 5/5 motor strength present throughout Sensory Exam: normal sensation Coordination: [id number] test normal and Normal rapid alternating movements of the distal upper extremity present (Neuro) Extrem: General: normal to inspection Other: Atrophy of the 1st dorsal interossei or hand muscles noted on both sides. He has significant weakness of his both feet in dorsiflexion and plantar flexion. The bilateral footdrop left more than right side. Deep tendon reflexes are decreased at knees and ankles. Distal atrophy of muscles noted in the upper and lower limbs. Cogwheeling and resting tremor suggestive of Parkinson's disease were also noted. Psych: Appearance: well kempt Mental Status: mental status grossly normal Speech and movement: Normal speech and movement present Affect: normal affect Thought process: Normal thought process present Thought content: Yes Normal thought content present Insight: Good insight present (Psych) Judgement: Good judgement present (Psych) Results Labs 07/07/25 04:09 07/07/25 04:09
--- NOTE | 2025-07-08 18:54 | P.PNIM_ITS ---
Progress Note: A&P Assessment and Plan (1) Acute confusion: Code(s): R41.0 - Disorientation, unspecified Status: Acute Assessment and Plan: Altered mental status noticed by family. Baseline A&O x4 and independent in ADLs. Symptoms since resolved with no deficit. Head neck CTA revealed no acute intracranial findings, no ICA stenosis or other acute arterial abnormality, no large vessel occlusive disease, and no aneurysms. Sodium 125 which is slightly below patient's baseline hyponatremia. -consider TIA -neurology consult -echo with bubble study -lipid panel -brain MRI with and without -A1c -neuro checks q.4 -heart healthy diet -PT/OT to eval if CVA is confirmed -up with assist -consider Holter monitor at discharge -on atorvastatin 10 mg at home (2) Acute respiratory distress: Code(s): R06.03 - Acute respiratory distress Status: Acute Assessment and Plan: Patient complained of shortness of breath at home and in ED. O2 saturation stable on room air. CT chest abdomen pelvis with contrast reveals no acute process in the chest abdomen or pelvis. D-dimer elevated at 1.73 negative when adjusted for age. -with no evidence of acute pulmonary process, likely related to patient's anxiety disorder. Symptoms resolved after administration of of lorazepam 0.5 mg in the ED -continue home dose lorazepam -citalopram 40 mg daily and 20 mg Q 12 (3) Hyponatremia: Code(s): E87.1 - Hypo-osmolality and hyponatremia Status: Chronic Assessment and Plan: Chronically hyponatremic. Na 125 on admit. Baseline about 130. Could be contributing to AMS -Q 4 neuro checks -trend electrolytes -Giving 1 L of NS wtih hx of CHF. Monitor tolerance (4) Anxiety and depression: Code(s): F41.9 - Anxiety disorder, unspecified; F32.A - Depression, unspecified Status: Chronic Assessment and Plan: Symptoms of agitation in the ED resolved with administration of home dose lorazepam. No concern for withdrawal as patient has been taking regularly. -continue home lorazepam 0.5 mg t.i.d. -citalopram 40 mg daily and 20 mg q.12 Plan patient mental status has improved and he is now his baseline his is pre sent in the room, CT scan of the head, neck, chest, abdomen and pelvics are normal, MRI of brain did not show any acute injury, as well his ECHO has is stable, currently EF is 45% which understand is similar to his last echo, patient will be seen by his neurologist and further recommendation to follow. will have PT/OT evaluate and further recommendation to follow. Diet: Heart healthy GI prophylaxis: Pantoprazole 40 mg daily DVT prophylaxis: SCDs lines/drains: PIV Fluids: No fluid in the ED Code status: Full Subjective Date/time seen: 07/08/25 18:54 Interval history: Altered mental status H&P-Narrative: 85 old male with past history of HFrEF, HTN, BPH, tremor both hands, GED,CIDP (chronic inflammatory demyelinating polyneuropathy), hypothyroidism, neuropathy, GERD, hyperlipidemia presented to the ED from home on 07/06/2025 with complaint of altered mental status noticed by family. Baseline mentation is A&Ox4 and patient is independent with his ADLs. Per patient's at the bedside, he was his normal self this morning but was altered at around noon when family went to check on him. states patient would not respond to her when talking to him. No falls or LOC. patient was still ambulatory during his altered state. Patient's called son to assist. Son called EMS. further state the patient was complaining of abdominal pain and shortness of breath while he was altered and while he was in the ED. currently, patient denies any shortness of breath, abdominal pain, chest pain, or any recent changes in activity. His only complaint is intermittent ?stomach problems? which she describes as aching in the epigastric area. further endorses intermittent rectal bleeding (not currently) she describes as bright red. No pain is associated with these bleeding episodes. They are both unsure if he has hemorrhoids. Patient has a new patient appointment with [facility]. patient mental status has improved and he is now his baseline his is present in the room, CT scan of the head, neck, chest, abdomen and pelvics are normal, MRI of brain did not show any acute injury, as well his ECHO has is stable, currently EF is 45% which understand is similar to his last echo, patient will be seen by his neurologist and further recommendation to follow. will have PT/OT evaluate and further recommendation to follow. Review of Systems Review of Systems: All systems reviewed & are unremarkable except as noted in HPI and below Exam Narrative: Patient is comfortable, NAD HEENT: eyes are clear and none icteric LUNGS:CTA HEART: RR S1S2 ABD: BS+, Soft and nontender Lower extremities: no edema SKIN: nonjaundiced Neuro: grossly intact. Objective Data Vital Signs Vital Signs: Vital Signs - 24 hr 07/07/25 20:00 07/07/25 20:00 07/07/25 20:35 Temperature 36.8 C Pulse Rate 71 66 71 Respiratory Rate 16 16 Blood Pressure 161/71 H Pulse Oximetry 98 98 Oxygen Delivery Room Air 07/08/25 00:00 07/08/25 00:30 07/08/25 04:00 Temperature 36.9 C Pulse Rate 56 L 83 59 L Respiratory Rate 18 Blood Pressure 174/86 H Pulse Oximetry 99 Oxygen Delivery 07/08/25 05:15 07/08/25 08:00 07/08/25 08:00 Temperature 36.3 C L Pulse Rate 66 85 Respiratory Rate 18 Blood Pressure 154/77 H Pulse Oximetry 99 Oxygen Delivery Room Air 07/08/25 15:34 07/08/25 16:00 Temperature 36.3 C L Pulse Rate 70 63 Respiratory Rate 18 Blood Pressure 126/76 Pulse Oximetry 99 Oxygen Delivery Intake/Output Intake/Output: Intake & Output 07/05/25 07/06/25 07/07/25 07/08/25 23:59 23:59 23:59 23:59 Intake Total 178 985 0231 Output Total 200 850 925 Balance 240 -95 765 Meds/Results Medications: Active Medications Generic Name Dose Route Start Last Admin Trade Name Freq PRN Reason Stop Dose Admin Artificial Tears 1 drop 07/07/25 09:00 07/08/25 08:43 Artificial Tears Ophth Soln 15 Ml Bottle EACH EYE 1 drop Q12HR LUCILLE Administration Atorvastatin Calcium 10 mg 07/06/25 21:00 07/07/25 21:32 Atorvastatin 10 Mg Tablet PO 10 mg HS LUCILLE Administration Calcium Carbonate 500 mg 07/07/25 09:00 07/08/25 08:40 Calcium Carbonate (Tums) 500 Mg (200 Mg Elemental) PO 500 mg DAILY LUCILLE Administration Citalopram Hydrobromide 40 mg 07/07/25 09:00 07/08/25 08:40 Citalopram Hydrobromide 20 Mg Tablet PO 40 mg DAILY LUCILLE Administration Cyanocobalamin 2,000 mcg 07/07/25 09:00 07/08/25 08:40 Cyanocobalamin 1,000 Mcg Tablet PO 2,000 mcg QAM LUCILLE Administration Cyanocobalamin 500 mcg 07/07/25 09:00 07/08/25 08:39 Cyanocobalamin 500 Mcg Tablet PO 500 mcg DAILY LUCILLE Administration Cyclosporine 1 drop 07/07/25 09:00 07/08/25 08:44 Cyclosporine 0.4 Ml Ophth Solution EACH EYE 1 drop Q12HR LUCILLE Administration Ferrous Sulfate 325 mg 07/07/25 12:00 07/08/25 13:15 Ferrous Sulfate 325 Mg Tablet BY MOUTH 325 mg DAILY@1200 LUCILLE Administration Indomethacin 50 mg 07/07/25 09:00 07/08/25 16:33 Indomethacin 25 Mg Capsule PO 50 mg TID LUCILLE Administration Latanoprost 1 drop 07/07/25 21:00 07/07/25 22:01 Latanoprost 0.005% Op Soln 2.5 Ml Btl EACH EYE 1 drop HS LUCILLE Administration Levothyroxine Sodium 50 mcg 07/07/25 06:30 07/08/25 06:01 Levothyroxine Sodium 50 Mcg Tablet PO 50 mcg DAILY@0630 LUCILLE Administration Lisinopril 20 mg 07/07/25 09:00 07/08/25 08:40 Lisinopril 20 Mg Tablet PO 20 mg DAILY LUCILLE Administration Lorazepam 0.5 mg 07/06/25 21:00 07/08/25 16:33 Lorazepam (*Crx) 0.5 Mg Tablet PO 0.5 mg 0800,1500,2100 LUCILLE Administration Melatonin 5 mg 07/06/25 21:00 07/07/25 21:33 Melatonin 5 Mg Tablet PO 5 mg HS LUCILLE Administration Memantine 5 mg 07/06/25 21:00 07/08/25 08:39 Memantine 5 Mg Tablet PO 5 mg Q12HR LUCILLE Administration Pantoprazole Sodium 40 mg 07/07/25 09:00 07/08/25 08:39 Pantoprazole 40 Mg Tablet PO 40 mg DAILY LUCILLE Administration Perflutren Lipid Microsphere 0 ml 07/06/25 22:45 Perflutren Lipid Microspheres 1.5 Ml Vial Diluted To 10 Ml Total Volume IV PUSH 07/09/25 22:47 ONCE PRN adequate visualization Protocol Senna 8.6 mg 07/06/25 21:00 07/07/25 21:33 Sennosides 8.6 Mg Tablet PO 8.6 mg HS LUCILLE Administration Vitamin D 50 mcg 07/07/25 09:00 07/08/25 08:39 Cholecalciferol (Vitamin D3) 25 Mcg (1,000 Units) Tablet PO 50 mcg DAILY LUCILLE Administration Radiology Results: ITS Impressions Head/Neck CTA 07/06/25 14:19 IMPRESSION: CT HEAD: 1. No acute intracranial findings. CTA NECK: 1. No ICA stenosis or other acute arterial abnormality. CTA HEAD: 1. No large vessel arterial occlusive disease or other acute findings. 2. No aneurysms. Chest/Abdomen/Pelvis CT 07/06/25 14:29 IMPRESSION: 1. No acute process in the chest. No acute process in the abdomen or pelvis. 2. Mild cystitis. 3. Incidental findings above Brain MRI 07/08/25 13:34 IMPRESSION: 1. Normal aging brain. No acute intracranial process or abnormally enhancing brain lesions. Quality VTE Prophylaxis VTE prophylaxis: mechanical ordered
[2025-07-08] MEDS: MELATONIN 5 MG TABLET PO (21:17)
[2025-07-08] MEDS: ATORVASTATIN 10 MG TABLET PO (21:17)
[2025-07-08] MEDS: LATANOPROST 0.005% OP SOLN 2.5 ML BTL 1 DROP EACH EYE (21:19)
[2025-07-09] VITALS (8 sets, daily range): BP systolic 119–130; BP diastolic 61–63; PULSE 61–87; RESP 18–20; TEMP 36.9; O2SAT 99
[2025-07-09] MEDS: LEVOTHYROXINE SODIUM 50 MCG TABLET PO (05:48)
[2025-07-09] MEDS: CHOLECALCIFEROL (VITAMIN D3) 25 MCG (1,000 UNITS) TABLET 50 MCG PO (10:04)
[2025-07-09] MEDS: CALCIUM CARBONATE (TUMS) 500 MG (200 MG ELEMENTAL) PO (10:05)
[2025-07-09] MEDS: CYANOCOBALAMIN 1,000 MCG TABLET 2000 MCG PO (10:05)
[2025-07-09] MEDS: LORazepam (*CRX) 0.5 MG TABLET PO ×3 (10:06→21:03)
[2025-07-09] MEDS: CITALOPRAM HYDROBROMIDE 20 MG TABLET 40 MG PO (10:06)
[2025-07-09] MEDS: PANTOPRAZOLE 40 MG TABLET PO (10:06)
[2025-07-09] MEDS: MEMANTINE 5 MG TABLET PO ×2 (10:06→21:03)
[2025-07-09] MEDS: ARTIFICIAL TEARS OPHTH SOLN 15 ML BOTTLE 1 DROP EACH EYE ×2 (10:07→21:02)
[2025-07-09] MEDS: CYANOCOBALAMIN 500 MCG TABLET PO (10:07)
[2025-07-09] MEDS: cycloSPORINE 0.4 ML OPHTH SOLUTION 1 DROP EACH EYE ×2 (10:07→21:02)
[2025-07-09] MEDS: INDOMETHACIN 25 MG CAPSULE 50 MG PO ×3 (10:07→18:45)
[2025-07-09] MEDS: FERROUS SULFATE 325 MG TABLET BY MOUTH (14:49)
--- NOTE | 2025-07-09 15:21 | PM.IMPN ---
Progress Note: A&P Assessment and Plan (1) Acute confusion: Code(s): R41.0 - Disorientation, unspecified Status: Acute Assessment and Plan: Altered mental status noticed by family. Baseline A&O x4 and independent in ADLs. Symptoms since resolved with no deficit. Head neck CTA revealed no acute intracranial findings, no ICA stenosis or other acute arterial abnormality, no large vessel occlusive disease, and no aneurysms. Sodium 125 which is slightly below patient's baseline hyponatremia. -consider TIA -neurology consult -echo with bubble study -lipid panel -brain MRI with and without -A1c -neuro checks q.4 -heart healthy diet -PT/OT to eval if CVA is confirmed -up with assist -consider Holter monitor at discharge -on atorvastatin 10 mg at home (2) Acute respiratory distress: Code(s): R06.03 - Acute respiratory distress Status: Acute Assessment and Plan: Patient complained of shortness of breath at home and in ED. O2 saturation stable on room air. CT chest abdomen pelvis with contrast reveals no acute process in the chest abdomen or pelvis. D-dimer elevated at 1.73 negative when adjusted for age. -with no evidence of acute pulmonary process, likely related to patient's anxiety disorder. Symptoms resolved after administration of of lorazepam 0.5 mg in the ED -continue home dose lorazepam -citalopram 40 mg daily and 20 mg Q 12 (3) Hyponatremia: Code(s): E87.1 - Hypo-osmolality and hyponatremia Status: Chronic Assessment and Plan: Chronically hyponatremic. Na 125 on admit. Baseline about 130. Could be contributing to AMS -Q 4 neuro checks -trend electrolytes -Giving 1 L of NS wtih hx of CHF. Monitor tolerance (4) Anxiety and depression: Code(s): F41.9 - Anxiety disorder, unspecified; F32.A - Depression, unspecified Status: Chronic Assessment and Plan: Symptoms of agitation in the ED resolved with administration of home dose lorazepam. No concern for withdrawal as patient has been taking regularly. -continue home lorazepam 0.5 mg t.i.d. -citalopram 40 mg daily and 20 mg q.12 Plan patient mental status has improved and he is now his baseline his is present in the room, CT scan of the head, neck, chest, abdomen and pelvics are normal, MRI of brain did not show any acute injury, as well his ECHO has is stable, currently EF is 45% which understand is similar to his last echo, patient remains clinically stable, patient seen by his neurologist suspect patient may have spell and further evaluate recommended EEG, will follow and further recommendation to follow. Diet: Heart healthy GI prophylaxis: Pantoprazole 40 mg daily DVT prophylaxis: SCDs lines/drains: PIV Fluids: No fluid in the ED Code status: Full Subjective Date/time seen: 07/09/25 15:21 Interval history: Altered mental status H&P-Narrative: 85 old male with past history of HFrEF, HTN, BPH, tremor both hands, GED,CIDP (chronic inflammatory demyelinating polyneuropathy), hypothyroidism, neuropathy, GERD, hyperlipidemia presented to the ED from home on 07/06/2025 with complaint of altered mental status noticed by family. Baseline mentation is A&Ox4 and patient is independent with his ADLs. Per patient's at the bedside, he was his normal self this morning but was altered at around noon when family went to check on him. states patient would not respond to her when talking to him. No falls or LOC. patient was still ambulatory during his altered state. Patient's called son to assist. Son called EMS. further state the patient was complaining of abdominal pain and shortness of breath while he was altered and while he was in the ED. currently, patient denies any shortness of breath, abdominal pain, chest pain, or any recent changes in activity. His only complaint is intermittent ?stomach problems? which she describes as aching in the epigastric area. further endorses intermittent rectal bleeding (not currently) she describes as bright red. No pain is associated with these bleeding episodes. They are both unsure if he has hemorrhoids. Patient has a new patient appointment with [facility] [place]. patient mental status has improved and he is now his baseline his is present in the room, CT scan of the head, neck, chest, abdomen and pelvics are normal, MRI of brain did not show any acute injury, as well his ECHO has is stable, currently EF is 45% which understand is similar to his last echo, patient remains clinically stable, patient seen by his neurologist suspect patient may have spell and further evaluate recommended EEG, will follow and further recommendation to follow. Review of Systems Review of Systems: All systems reviewed & are unremarkable except as noted in HPI and below Exam Narrative: Patient is comfortable, NAD HEENT: eyes are clear and none icteric LUNGS:CTA HEART: RR S1S2 ABD: BS+, Soft and nontender Lower extremities: no edema SKIN: nonjaundiced Neuro: grossly intact. Objective Data Vital Signs Vital Signs: Vital Signs - 24 hr 07/08/25 15:34 07/08/25 16:00 07/08/25 20:00 Temperature 36.3 C L 36.6 C Pulse Rate 70 63 75 Respiratory Rate 18 16 Blood Pressure 126/76 123/63 Pulse Oximetry 99 96 07/08/25 20:00 07/09/25 00:00 07/09/25 04:00 Temperature Pulse Rate 74 66 65 Respiratory Rate Blood Pressure Pulse Oximetry 07/09/25 05:04 Temperature 36.9 C Pulse Rate 67 Respiratory Rate 18 Blood Pressure 130/63 Pulse Oximetry 99 Intake/Output Intake/Output: Intake & Output 07/06/25 07/07/25 07/08/25 07/09/25 23:59 23:59 23:59 23:59 Intake Total 498 176 2279 1220 Output Total 456 917 9369 150 Balance 240 -95 865 1070 Meds/Results Medications: Active Medications Generic Name Dose Route Start Last Admin Trade Name Freq PRN Reason Stop Dose Admin Artificial Tears 1 drop 07/07/25 09:00 07/09/25 10:07 Artificial Tears Ophth Soln 15 Ml Bottle EACH EYE 1 drop Q12HR LUCILLE Administration Atorvastatin Calcium 10 mg 07/06/25 21:00 07/08/25 21:17 Atorvastatin 10 Mg Tablet PO 10 mg HS LUCILLE Administration Calcium Carbonate 500 mg 07/07/25 09:00 07/09/25 10:05 Calcium Carbonate (Tums) 500 Mg (200 Mg Elemental) PO 500 mg DAILY LUCILLE Administration Citalopram Hydrobromide 40 mg 07/07/25 09:00 07/09/25 10:06 Citalopram Hydrobromide 20 Mg Tablet PO 40 mg DAILY LUCILLE Administration Cyanocobalamin 2,000 mcg 07/07/25 09:00 07/09/25 10:05 Cyanocobalamin 1,000 Mcg Tablet PO 2,000 mcg QAM LUCILLE Administration Cyanocobalamin 500 mcg 07/07/25 09:00 07/09/25 10:07 Cyanocobalamin 500 Mcg Tablet PO 500 mcg DAILY LUCILLE Administration Cyclosporine 1 drop 07/07/25 09:00 07/09/25 10:07 Cyclosporine 0.4 Ml Ophth Solution EACH EYE 1 drop Q12HR LUCILLE Administration Ferrous Sulfate 325 mg 07/07/25 12:00 07/09/25 14:49 Ferrous Sulfate 325 Mg Tablet BY MOUTH 325 mg DAILY@1200 LUCILLE Administration Indomethacin 50 mg 07/07/25 09:00 07/09/25 14:49 Indomethacin 25 Mg Capsule PO 50 mg TID LUCILLE Administration Latanoprost 1 drop 07/07/25 21:00 07/08/25 21:19 Latanoprost 0.005% Op Soln 2.5 Ml Btl EACH EYE 1 drop HS LUCILLE Administration Levothyroxine Sodium 50 mcg 07/07/25 06:30 07/09/25 05:48 Levothyroxine Sodium 50 Mcg Tablet PO 50 mcg DAILY@0630 LUCILLE Administration Lisinopril 20 mg 07/07/25 09:00 07/09/25 10:07 Lisinopril 20 Mg Tablet PO 20 mg DAILY LUCILLE Administration Lorazepam 0.5 mg 07/06/25 21:00 07/09/25 14:49 Lorazepam (*Crx) 0.5 Mg Tablet PO 0.5 mg 0800,1500,2100 LUCILLE Administration Melatonin 5 mg 07/06/25 21:00 07/08/25 21:17 Melatonin 5 Mg Tablet PO 5 mg HS LUCILLE Administration Memantine 5 mg 07/06/25 21:00 07/09/25 10:06 Memantine 5 Mg Tablet PO 5 mg Q12HR LUCILLE Administration Pantoprazole Sodium 40 mg 07/07/25 09:00 07/09/25 10:06 Pantoprazole 40 Mg Tablet PO 40 mg DAILY LUCILLE Administration Perflutren Lipid Microsphere 0 ml 07/06/25 22:45 Perflutren Lipid Microspheres 1.5 Ml Vial Diluted To 10 Ml Total Volume IV PUSH 07/09/25 22:47 ONCE PRN adequate visualization Protocol Senna 8.6 mg 07/06/25 21:00 07/08/25 21:17 Sennosides 8.6 Mg Tablet PO Not Given HS LUCILLE Vitamin D 50 mcg 07/07/25 09:00 07/09/25 10:04 Cholecalciferol (Vitamin D3) 25 Mcg (1,000 Units) Tablet PO 50 mcg DAILY LUCILLE Administration Radiology Results: ITS Impressions Head/Neck CTA 07/06/25 14:19 IMPRESSION: CT HEAD: 1. No acute intracranial findings. CTA NECK: 1. No ICA stenosis or other acute arterial abnormality. CTA HEAD: 1. No large vessel arterial occlusive disease or other acute findings. 2. No aneurysms. Chest/Abdomen/Pelvis CT 07/06/25 14:29 IMPRESSION: 1. No acute process in the chest. No acute process in the abdomen or pelvis. 2. Mild cystitis. 3. Incidental findings above Brain MRI 07/08/25 13:34 IMPRESSION: 1. Normal aging brain. No acute intracranial process or abnormally enhancing brain lesions. Quality VTE Prophylaxis VTE prophylaxis: mechanical ordered
[2025-07-09] MEDS: LATANOPROST 0.005% OP SOLN 2.5 ML BTL 1 DROP EACH EYE (21:02)
[2025-07-09] MEDS: ATORVASTATIN 10 MG TABLET PO (21:03)
[2025-07-09] MEDS: MELATONIN 5 MG TABLET PO (21:03)
[2025-07-09] MEDS: SENNOSIDES 8.6 MG TABLET PO (21:03)
[2025-07-10] VITALS: PULSE 62
[2025-07-10 04:00] VITALS: PULSE 50
[2025-07-10 05:08] LABS: Osmolality, Urine 500 mOsmol/kg (.)
[2025-07-10] MEDS: LEVOTHYROXINE SODIUM 50 MCG TABLET PO (05:45)
[2025-07-10 06:00] VITALS: BP 133/78; PULSE 60; RESP 20; TEMP 37; O2SAT 100
[2025-07-10 08:01] VITALS: PULSE 77
[2025-07-10 09:04] LABS: Hematocrit 30.3 % (42.0-52.0); Hemoglobin 9.4 g/dL (14.0-18.0); Mean Corpuscular HGB Conc 31.0 g/dl (32-36); Mean Corpuscular Hemoglobin 28.7 pg (26-34); Mean Corpuscular Volume 92.7 fl (80-100); Platelet Count Result 180 k/mm3 (150-375); Red Blood Count 3.27 M/mm3 (4.6-6.20); White Blood Count 3.0 K/mm3 (4.5-10.0)
[2025-07-10 09:19] LABS: Anion Gap 7 mmol/L (4-12); Blood Urea Nitrogen 27 mg/dL (9-20); Calcium 8.7 mg/dL (8.4-10.2); Carbon Dioxide 25 mmol/L (22-30); Chloride 98 mmol/L (98-107); Estimated CRCL calculation 48 ml/min; Estimated Glomerular Filt Rate > 60; Glucose 191 mg/dL (65-110); Magnesium 1.9 mg/dL (1.6-2.3); Potassium 4.6 mmol/L (3.4-5.0); Sodium 130 mmol/L (137-145)
--- NOTE | 2025-07-10 09:47 | P.NEURO_ITS ---
Neurology EEG Report General Information Date of Study: 07/09/25 TEST Electroencephalogram DIAGNOSIS transient ischemic attack versus partial complex seizure CONDITION OF RECORDING bedside recording EEG NUMBER [id number] CLINICAL HISTORY the patient 85-year-old with history of episode of unresponsiveness. EEG DESCRIPTION During wakefulness the background activity consists of posterior dominant mixed frequency activity which appears poorly defined. Well-defined alpha rhythm was not seen. Patient did not progress to stage I or 2 sleep. Hyperventilation not performed. Photic stimulation was performed during which no significant abno rmal background changes were seen. Superimposed muscle tension artifacts were seen frequently throughout the recording. IMPRESSION This is an abnormal EEG due to diffuse background slowing or lack of well- developed posterior dominant alpha rhythm. This may raise possibility of mild generalized encephalopathy however no focal or paroxysmal epileptiform abnormality was seen. Muscle tension artifacts seen during significant part of the recording and hence if the necessary as a follow-up study in future may be helpful.
[2025-07-10 09:51] VITALS: O2SAT 95
[2025-07-10] MEDS: CYANOCOBALAMIN 1,000 MCG TABLET 2000 MCG PO (10:07)
[2025-07-10] MEDS: INDOMETHACIN 25 MG CAPSULE 50 MG PO (10:07)
[2025-07-10] MEDS: CYANOCOBALAMIN 500 MCG TABLET PO (10:08)
[2025-07-10] MEDS: CITALOPRAM HYDROBROMIDE 20 MG TABLET 40 MG PO (10:08)
[2025-07-10] MEDS: CHOLECALCIFEROL (VITAMIN D3) 25 MCG (1,000 UNITS) TABLET 50 MCG PO (10:08)
[2025-07-10] MEDS: MEMANTINE 5 MG TABLET PO (10:08)
[2025-07-10] MEDS: CALCIUM CARBONATE (TUMS) 500 MG (200 MG ELEMENTAL) PO (10:08)
[2025-07-10] MEDS: cycloSPORINE 0.4 ML OPHTH SOLUTION 1 DROP EACH EYE (10:09)
[2025-07-10] MEDS: PANTOPRAZOLE 40 MG TABLET PO (10:09)
[2025-07-10] MEDS: LORazepam (*CRX) 0.5 MG TABLET PO (10:15)
[2025-07-10] MEDS: ARTIFICIAL TEARS OPHTH SOLN 15 ML BOTTLE 1 DROP EACH EYE (10:18)
--- NOTE | 2025-07-10 10:36 | PM.DS ---
DS: Admitting Diagnosis Discharge Date 07/10/2025 Admitting Diagnosis Altered mental status DS: Discharge Diagnosis Discharge Diagnosis (1) Acute confusion: Code(s): R41.0 - Disorientation, unspecified Status: Acute Assessment and Plan: Altered mental status noticed by family. Baseline A&O x4 and independent in ADLs. Symptoms since resolved with no deficit. Head neck CTA revealed no acute intracranial findings, no ICA stenosis or other acute arterial abnormality, no large vessel occlusive disease, and no aneurysms. Sodium 125 which is slightly below patient's baseline hyponatremia. -consider TIA -neurology consult -echo with bubble study -lipid panel -brain MRI with and without -A1c -neuro checks q.4 -heart healthy diet -PT/OT to eval if CVA is confirmed -up with assist -consider Holter monitor at discharge -on atorvastatin 10 mg at home (2) Acute respiratory distress: Code(s): R06.03 - Acute respiratory distress Status: Acute Assessment and Plan: Patient complained of shortness of breath at home and in ED. O2 saturation stable on room air. CT chest abdomen pelvis with contrast reveals no acute process in the chest abdomen or pelvis. D-dimer elevated at 1.73 negative when adjusted for age. -with no evidence of acute pulmonary process, likely related to patient's anxiety disorder. Symptoms resolved after administration of of lorazepam 0.5 mg in the ED -continue home dose lorazepam -citalopram 40 mg daily and 20 mg Q 12 (3) Hyponatremia: Code(s): E87.1 - Hypo-osmolality and hyponatremia Status: Chronic Assessment and Plan: Chronically hyponatremic. Na 125 on admit. Baseline about 130. Could be contributing to AMS -Q 4 neuro checks -trend electrolytes -Giving 1 L of NS wtih hx of CHF. Monitor tolerance (4) Anxiety and depression: Code(s): F41.9 - Anxiety disorder, unspecified; F32.A - Depression, unspecified Status: Chronic Assessment and Plan: Symptoms of agitation in the ED resolved with administration of home dose lorazepam. No concern for withdrawal as patient has been taking regularly. -continue home lorazepam 0.5 mg t.i.d. -citalopram 40 mg daily and 20 mg q.12 Plan patient mental status has improved and he is now his baseline his is present in the room, CT scan of the head, neck, chest, abdomen and pelvics are normal, MRI of brain did not show any acute injury, as well his ECHO has is stable, currently EF is 45% which understand is similar to his last echo, patient remains clinically stable, patient seen by his neurologist suspect patient may have spell and further evaluate recommended EEG, will follow and further recommendation to follow. Diet: Heart healthy GI prophylaxis: Pantoprazole 40 mg daily DVT prophylaxis: SCDs lines/drains: PIV Fluids: No fluid in the ED Code status: Full DS: Summary Hospital Course Hospital Course: patient mental status has improved and he is now his baseline his is present in the room, CT scan of the head, neck, chest, abdomen and pelvics are normal, MRI of brain did not show any acute injury, as well his ECHO has is stable, currently EF is 45% which understand is similar to his last echo, patient remains clinically stable, patient seen by his neurologist suspect patient may have spell and further evaluate recommended EEG, will follow and further recommendation to follow. Patient had EEG its, not conclusive and discussed with Dr. Adam, Neurologist he suspect patient had mild seizures but does not recommend any antiseizure medication, also recommeded that patient should not drive for 90 days. Patient is clinically stable, will discharge the home today with his . Time Spent with Patient Time attestation: Total time spent providing and/or coordinating discharge services: Exam Narrative: Patient is comfortable, NAD HEENT: eyes are clear and none icteric LUNGS:CTA HEART: RR S1S2 ABD: BS+, Soft and nontender Lower extremities: no edema SKIN: nonjaundiced Neuro: grossly intact. DS: Data Data Completed and Pending Labs on day of discharge: Labs from last 24 hours 07/10/25 07/07/25 08:50 07:51 WBC 3.0 L RBC 3.27 L Hgb 9.4 L Hct 30.3 L MCV 92.7 MCH 28.7 MCHC 31.0 L RDW 13.7 Plt Count 180 MPV 9.5 Sodium 130 L Potassium 4.6 Chloride 98 Carbon Dioxide 25 Anion Gap 7 BUN 27 H D Creatinine 0.97 Estim Creat Clear Calc 48 Estimated GFR > 60 Glucose 191 H Calcium 8.7 Magnesium 1.9 Urine Osmolality 500 Preliminary micro results at discharge 07/06/25 14:26 Blood Culture - Preliminary Blood 07/06/25 14:32 Blood Culture - Preliminary Blood Discharge Plan Discharge Attending physician on discharge: Pipo Gardiner Consulting providers: Balta Adam Discharging Clinician: Hien Choi Patient Disposition: Home Activity: no driving and as tolerated Diet: heart healthy Discharge Instructions: Patient is instructed not to drive or operate any machine for 90 days, patient to follow up with his neurologist in 4 weeks patient to follow up with his primary care provider as soon as possible, patient is instructed if any symptoms worsen to go to nearest ER. Patient Instructions: Antibiotic Form Patient Language: Citizen Of [place] Stand Alone Forms: General Discharge Information Follow-up/Referrals: Balta Adam MD [Physician, Neurology] Gonsalo Adams DO [Primary Care Provider, Internal Medicine] Discharge Medications: New aspirin 81 mg tablet 81 mg PO DAILY Qty: 30 0RF Continued atorvastatin 10 mg tablet 10 mg PO HS levothyroxine 50 mcg tablet 50 mcg PO QAM pantoprazole 40 mg tablet,delayed release (DR/EC) 40 mg PO DAILY Lumigan 0.01 % drops 1 drp EACH EYE HS sennosides [senna] 8.6 mg Tablet 8.6 mg PO HS cyanocobalamin (vitamin B-12) 1,000 mcg Tablet 2,500 mcg PO DAILY calcium carbonate 500 mg calcium (1,250 mg) Tablet,Chewable 500 mg PO DAILY cholecalciferol (vitamin D3) 50 mcg (2,000 unit) Tablet 50 mcg PO DAILY coQ10 (ubiquinol) 100 mg Capsule 100 mg PO DAILY cyclosporine 0.05 % Drops 1 drp EACH EYE BID indomethacin 50 mg capsule 50 mg PO TID 7 Days Qty: 21 0RF Rx Instructions: administer with food or milk lorazepam 0.5 mg tablet 0.5 mg PO 08,15,21 Qty: 90 0RF Rx Instructions: takes at 0800,1500, and HS memantine 5 mg Tablet 5 mg PO Q12H TheraTears 0.25 % Drops 1 drp EACH EYE BID levofloxacin 750 mg tablet 750 mg PO DAILY 7 Days Qty: 7 0RF citalopram 40 mg tablet 40 mg PO DAILY lisinopril 20 mg tablet 20 mg PO DAILY ferrous sulfate [Iron (ferrous sulfate)] 325 mg (65 mg iron) tablet 325 mg PO DAILY melatonin 5 mg tablet 5 mg PO HS citalopram 20 mg Tablet 20 mg PO Q12H Date of admission: 07/07/25 13:46 Primary Care Provider: Gonsalo Adams Admitting Provider: Pipo Gardiner Attending physician on admission: Pipo Gardiner Condition: Stable
--- NOTE | 2025-07-10 11:01 | WPDNEUROPN ---
Progress Note: A&P Assessment and Plan (1) TIA (transient ischemic attack): Code(s): G45.9 - Transient cerebral ischemic attack, unspecified Status: Acute Assessment and Plan: The close differential diagnosis is with a partial complex seizure MRI of the brain and EEG were performed which did not show any significant abnormal findings. EEG was noted to have significant muscle tension artifacts and poorly developed background activity however no focal or paroxysmal epileptiform abnormalities were noted. If he has any further spells repeat EEG would be advisable. Patient should be advised to defer driving for 90 days. I shall be glad to see him for follow-up in my office. Last LDL on 07/07/2025 was 78. He also the CT angiogram head and neck which did not show any significant abnormalities. (2) Parkinsons disease: Code(s): G20.A1 - Parkinson's disease without dyskinesia, without mention of fluctuations Status: Acute (3) CIDP (chronic inflammatory demyelinating polyneuropathy): Code(s): G61.81 - Chronic inflammatory demyelinating polyneuritis Status: Chronic (4) Bilateral foot-drop: Code(s): M21.371 - Foot drop, right foot; M21.372 - Foot drop, left foot Status: Acute Plan I reviewed MRI results MRI and agree with the findings the radiologist. No significant abnormal findings were noted. EEG has shown poorly developed background activity and muscle tension artifact but no focal or paroxysmal epileptiform abnormalities were seen. The patient is on atorvastatin 10 mg a day and I will suggest increase that to 20 mg a day to try and keep the LDL under 65. He should also treat with aspirin 81 mg a day. Patient follows with a neurologist Dr. Larson in [place] for CIDP and is on infusion every 6 weeks. He may continue follow-up with him regarding recent pants. If they need my assistance please let me know should be glad to see him. Subjective Date/time seen: 07/10/25 11:01 Interval history: the patient 85-year-old with history of CIDP, Parkinson disease who presented with the episode where he had changes in mental status for several minutes this subsequently improved. 1. Several investigations the results of which were reviewed. Findings will be discussed below. The meanwhile no new symptoms are reported by the patient. Denies any headache or weakness in upper lower limbs. Patient lives his . Review of Systems Review of Systems: All systems reviewed & are unremarkable except as noted in HPI and below Exam Const: General: cooperative and comfortable HENMT: Head: atraumatic Eyes: Alignment and Position: alignment normal and position normal EOM: EOMs intact bilaterally Resp: Effort & Inspection: normal respiratory effort Skin: General skin exam: normal color Neuro: Cranial nerves: Yes CN's II-XII intact bilaterally, Yes facial symmetry and Yes Midline tongue present Cognition (Neuro): normal cognition Speech: normal speech Coordination: [id number] test normal and Normal rapid alternating movements of the distal upper extremity present (Neuro) Psych: Mental Status: mental status grossly normal Affect: normal affect Objective Data Vital Signs Vital Signs: Vital Signs - 24 hr 07/09/25 12:05 07/09/25 16:01 07/09/25 20:00 Temperature Pulse Rate 61 76 Respiratory Rate Blood Pressure Pulse Oximetry Oxygen Delivery Room Air 07/09/25 20:00 07/09/25 21:33 07/10/25 00:00 Temperature 98.4 F Pulse Rate 61 61 62 Respiratory Rate 20 Blood Pressure 119/61 Pulse Oximetry 99 Oxygen Delivery 07/10/25 04:00 07/10/25 06:00 07/10/25 09:51 Temperature 98.6 F Pulse Rate 50 L 60 Respiratory Rate 20 Blood Pressure 133/78 Pulse Oximetry 100 95 Oxygen Delivery Room Air Intake/Output Intake/Output: Intake & Output 07/07/25 07/08/25 07/09/25 07/10/25 23:59 23:59 23:59 23:59 Intake Total 755 2190 1220 460 Output Total 850 1325 150 400 Balance -95 865 1070 60 Meds/Results Medications: Active Medications Generic Name Dose Route Start Last Admin Trade Name Freq PRN Reason Stop Dose Admin Artificial Tears 1 drop 07/07/25 09:00 07/10/25 10:18 Artificial Tears Ophth Soln 15 Ml Bottle EACH EYE 1 drop Q12HR LUCILLE Administration Atorvastatin Calcium 10 mg 07/06/25 21:00 07/09/25 21:03 Atorvastatin 10 Mg Tablet PO 10 mg HS LUCILLE Administration Calcium Carbonate 500 mg 07/07/25 09:00 07/10/25 10:08 Calcium Carbonate (Tums) 500 Mg (200 Mg Elemental) PO 500 mg DAILY LUCILLE Administration Citalopram Hydrobromide 40 mg 07/07/25 09:00 07/10/25 10:08 Citalopram Hydrobromide 20 Mg Tablet PO 40 mg DAILY LUCILLE Administration Cyanocobalamin 2,000 mcg 07/07/25 09:00 07/10/25 10:07 Cyanocobalamin 1,000 Mcg Tablet PO 2,000 mcg QAM LUCILLE Administration Cyanocobalamin 500 mcg 07/07/25 09:00 07/10/25 10:08 Cyanocobalamin 500 Mcg Tablet PO 500 mcg DAILY LUCILLE Administration Cyclosporine 1 drop 07/07/25 09:00 07/10/25 10:09 Cyclosporine 0.4 Ml Ophth Solution EACH EYE 1 drop Q12HR LUCILLE Administration Ferrous Sulfate 325 mg 07/07/25 12:00 07/09/25 14:49 Ferrous Sulfate 325 Mg Tablet BY MOUTH 325 mg DAILY@1200 LUCILLE Administration Indomethacin 50 mg 07/07/25 09:00 07/10/25 10:07 Indomethacin 25 Mg Capsule PO 50 mg TID LUCILLE Administration Latanoprost 1 drop 07/07/25 21:00 07/09/25 21:02 Latanoprost 0.005% Op Soln 2.5 Ml Btl EACH EYE 1 drop HS LUCILLE Administration Levothyroxine Sodium 50 mcg 07/07/25 06:30 07/10/25 05:45 Levothyroxine Sodium 50 Mcg Tablet PO 50 mcg DAILY@0630 LUCILLE Administration Lisinopril 20 mg 07/07/25 09:00 07/10/25 10:09 Lisinopril 20 Mg Tablet PO 20 mg DAILY LUCILLE Administration Lorazepam 0.5 mg 07/06/25 21:00 07/10/25 10:15 Lorazepam (*Crx) 0.5 Mg Tablet PO 0.5 mg 0800,1500,2100 LUCILLE Administration Melatonin 5 mg 07/06/25 21:00 07/09/25 21:03 Melatonin 5 Mg Tablet PO 5 mg HS LUCILLE Administration Memantine 5 mg 07/06/25 21:00 07/10/25 10:08 Memantine 5 Mg Tablet PO 5 mg Q12HR LUCILLE Administration Pantoprazole Sodium 40 mg 07/07/25 09:00 07/10/25 10:09 Pantoprazole 40 Mg Tablet PO 40 mg DAILY LUCILLE Administration Senna 8.6 mg 07/06/25 21:00 07/09/25 21:03 Sennosides 8.6 Mg Tablet PO 8.6 mg HS LUCILLE Administration Vitamin D 50 mcg 07/07/25 09:00 07/10/25 10:08 Cholecalciferol (Vitamin D3) 25 Mcg (1,000 Units) Tablet PO 50 mcg DAILY LUCILLE Administration Radiology Results: ITS Impressions Head/Neck CTA 07/06/25 14:19 IMPRESSION: CT HEAD: 1. No acute intracranial findings. CTA NECK: 1. No ICA stenosis or other acute arterial abnormality. CTA HEAD: 1. No large vessel arterial occlusive disease or other acute findings. 2. No aneurysms. Chest/Abdomen/Pelvis CT 07/06/25 14:29 IMPRESSION: 1. No acute process in the chest. No acute process in the abdomen or pelvis. 2. Mild cystitis. 3. Incidental findings above Brain MRI 07/08/25 13:34 IMPRESSION: 1. Normal aging brain. No acute intracranial process or abnormally enhancing brain lesions. Labs Labs: Laboratory Results - last 24 hr 07/07/25 07/10/25 07:51 08:50 WBC 3.0 L RBC 3.27 L Hgb 9.4 L Hct 30.3 L MCV 92.7 MCH 28.7 MCHC 31.0 L RDW 13.7 Plt Count 180 MPV 9.5 Sodium 130 L Potassium 4.6 Chloride 98 Carbon Dioxide 25 Anion Gap 7 BUN 27 H D Creatinine 0.97 Estim Creat Clear Calc 48 Estimated GFR > 60 Glucose 191 H Calcium 8.7 Magnesium 1.9 Urine Osmolality 500
--- NOTE | 2025-07-12 06:49 | P.CDI_ITS ---
CDI Query Clarification Request BMI: 22.0 Nutritional Diagnostic Statement: Please refer to the comprehensive nutrition assessment for further information. If you agree with diagnosis of Moderate protein calorie malnutrition related to chronic loss of appetite as evidenced by weight loss 5%/1 month; intakes <75% needs >1 month; moderate muscle wasting and fat loss.Please specify severity if known: * Mild * Moderate * Severe * Other/Unknown <Lo Elaine RN - Last Filed: 07/12/25 06:50> Clarified Diagnosis Clarified Diagnosis: I agree with diagnosis of Moderate protein calorie malnutrition related to chronic loss of appetite as evidenced by weight loss 5%/1 month; intakes <75% needs >1 month; moderate muscle wasting and fat loss <Hien Choi MD - Last Filed: 07/18/25 16:02>
== END 2025-07-10 12:00 | disposition home or self-care (01) | DRG 948 ==
LOC: ANHED 15:21 → ANHIMU 15:49 → ANH3MEDSUR 07-07 15:50
PROVIDERS: Family Medicine; Nurse Practitioner Adult Health; Student in an Organized Health Care Education/Training Program; Admitting Provider General Practice; Emergency Provider Emergency Medicine; PCP Internal Medicine; Visit Provider General Practice
DX: R41.0 Disorientation, unspecified (principal); E87.1 Hypo-osmolality and hyponatremia; I50.22 Chronic systolic (congestive) heart failure; G61.81 Chronic inflammatory demyelinating polyneuritis; I11.0 Hypertensive heart disease with heart failure; K44.9 Diaphragmatic hernia without obstruction or gangrene; E53.8 Deficiency of other specified B group vitamins; E03.9 Hypothyroidism, unspecified; E78.00 Pure hypercholesterolemia, unspecified; K21.9 Gastro-esophageal reflux disease without esophagitis; N40.0 Benign prostatic hyperplasia without lower urinary tract symptoms; G20.A1 Parkinson's disease without dyskinesia, without mention of fluctuations; F41.1 Generalized anxiety disorder; F32.A Depression, unspecified; Z96.652 Presence of left artificial knee joint; Z20.822 Contact with and (suspected) exposure to COVID-19; R06.03 Acute respiratory distress
CPT/HCPCS: 36415; 70496; 70498; 70553; 71260; 74177; 80048; 80053; 80061; 80307; 81001; 82570; 83036; 83735; 83880; 83935; 84145; 84156; 84300; 84484; 85025; 85027; 85055; 85380; 85610; 85730; 86140; 87040; 87637; 93005; 93306; 94640; 95816; 96375; 99285; A9270; A9577; J7030; Q9967

== ENCOUNTER 2025-08-12 08:22 | Outpatient (CLI) | payer MEDICARE, SELFPAY ==
--- NOTE | ~2025-08-12 | XR_ITS ---
EXAM/PROCEDURE: XR UGIAC w small bowel HISTORY: upper abd. discomfort/nausea/hiatal hernia COMPARISON: None available. TECHNIQUE: Double contrast upper GI exam performed as well as small bowel follow-through series. Fluoroscopy time: 1 minute DAP: 70.842 Clay per square centimeter Number of images: 34 TECHNIQUE: Effervescent crystals and thick barium were used following cheese packer image. Thereafter thin contrast was used and small bowel follow-through series was completed. FINDINGS: No focal acute or aggressive abnormality seen on cheese packer images. Following administration of contrast, evaluation of the upper GI demonstrates large hiatal hernia extending into the lower chest, as well as patulous esophagus. No large erosion seen. Tertiary contractions were observed real-time. No extravasation of contrast. Within the stomach, evaluation of mucosal pattern limited by nondiagnostic images of the antral region and duodenal bulb; the stomach is also deformed due to the size of the hernia. No large ulceration or extravasation of contrast seen. Mild fold thickening may be present in the duodenum which could be associated with duodenitis. Contrast flows through the small bowel and into the right hemicolon within 45 minutes. No evidence of obstruction or extravasation of contrast. IMPRESSION: 1. Large hiatal hernia. Subtle mucosal lesions or small ulcers are not excluded due to limitations of study discussed above. Consider correlation with EGD as clinically appropriate. 2. Tertiary contractions of the esophagus consistent with esophagitis. The esophagus is also patulous in appearance. 3. Mild fold thickening in the duodenum could be associated with duodenitis. 4. Fairly rapid transit of contrast into the large bowel with no evidence of obstruction or extravasation. Reviewed, dictated and finalized at location A. TRUCTION SECRETARY IMPRESSION: 1. Large hiatal hernia. Subtle mucosal lesions or small ulcers are not excluded due to limitations of study discussed above. Consider correlation with EGD as clinically appropriate. 2. Tertiary contractions of the esophagus consistent with esophagitis. The esop hagus is also patulous in appearance. 3. Mild fold thickening in the duodenum could be associated with duodenitis. 4. Fairly rapid transit of contrast into the large bowel with no evidence of ob struction or extravasation.
--- OUTSIDE RECORDS SUMMARY | 2025-08-12 08:30 | XMS_ITS | Clinical Summary ---
Author Organization [facility] Address [address] 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 This disclosure is being madepursuant to the Care Everywhere program and may not contain all information available regarding this patient. 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
== END 2025-08-12 08:23 | disposition home or self-care (01) ==
PROVIDERS: PCP Internal Medicine; Visit Provider Nurse Practitioner
DX: K44.9 Diaphragmatic hernia without obstruction or gangrene (principal); R10.10 Upper abdominal pain, unspecified
CPT/HCPCS: 74246; 74248